=== PATIENT | female | born 1945 | race Caucasian/White ===

== ENCOUNTER 2016-10-16 13:36 | Inpatient (IN) | payer OTHER ==
--- NOTE | ~2016-10-16 | DS ---
Unit #: [id number] #: [id number] Patient: CHRISTEL SILVA [id number] [address] [address] [id number] I MR#: [id number] NAME: CHRISTEL SILVA ROOM: 326 Age: 71 Sex: F Admission Date: 10/16/2016 : 1945 Discharge Date: 10/21/2016 Attending Physician: Calos Barkley M.D. Primary Care Physician: Calos Barkley M.D. DISCHARGE SUMMARY PRINCIPAL DISCHARGE DIAGNOSES 1. Acute on chronic respiratory failure. 2. Acute influenza A. 3. Exacerbation of chronic obstructive pulmonary disease. 4. Chronic kidney disease stage 3. 5. Chronic anemia. 6. Hyperlipidemia. 7. 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 8. Chronic anticoagulation therapy. PROCEDURES None. CONSULTANTS None. REASON FOR HOSPITALIZATION The patient is a 71-year-old white female with history of COPD, hypertension, hyperlipidemia, multiple CVAs on chronic anticoagulation therapy, chronic kidney disease stage 3, presents to the emergency room with one week of cough, shortness of air, nausea, diarrhea, feverish symptoms. In the ER, she was afebrile. O2 sat was 94% on room air. Cardiac enzymes were normal. White count was 13.8. CO2 was 34. pH was 7.419. Chest x-ray-no active disease. EKG-sinus tach. INR 4.0. BUN 40, GFR 51. AST and ALT were slightly elevated and the patient was admitted. Chest x-ray showed no active disease. Again, the patient was admitted to telemetry bed. Her warfarin was held. She was placed on supplemental oxygen, IV antibiotics and steroids. Procalcitonin and flu swab were ordered. BNP was 87. Procalcitonin 0.05. Influenza B negative. Influenza A positive. Patient started on Tamiflu, adjusted for renal dysfunction. Protimes followed and fell to therapeutic levels. Eventually, the patient improved with IV antibiotics and IV steroids. Currently, room air O2 sats are 96% on room air. Her BNP is normal except for random blood sugar 139, a BUN of 37 and a GFR of 58. Her white count is 12.7, hemoglobin 10.6, which is stable chronic for the patient. INR is 3. She was discharge home on a Healthy Heart diet. CURRENT MEDICATIONS 1. Combivent unit dose four times daily p.r.n. 2. Dulera '205' [sic] two puffs q.12. 3. Prednisone 40 mg daily for an additional five days. 4. Tylenol 650 mg q.6 p.r.n. 5. Coumadin 5 mg p.o. daily. 6. Clemencia 180 mg daily. Unit #: [id number] #: [id number] Patient: CHRISTEL SILVA 7. Omnicef 300 mg p.o. b.i.d. 8. Crestor 40 mg daily. 9. Lisinopril 20 mg daily. 10. CO-Q10 10 mg daily. 11. Multivitamins daily. 12. Calcium 500 mg daily. 13. Tamiflu 30 mg p.o. b.i.d. I think the Tamiflu was for an additional two days as well for a full five day course. 14. Zithromax 250 mg p.o. daily for an additional two days. She will follow up in the office in one week with a protime, BMP and CBC. Dictated by... Calos Barkley M.D. ALFRED/alem TD: 10/23/2016 18:48 JOB #: [id number] DISCHARGE SUMMARY X Calos Barkley MD X DISCHARGE SUMMARY
--- NOTE | ~2016-10-16 | EKG ---
PATIENT: CHRISTEL SILVA UNIT #: [id number] Ventricular Rate: 123 BPM Atrial Rate: 123 BPM P-R Interval: 146 ms QRS Duration: 66 ms Q-T Interval: 300 ms QTC Calculation(Bezet): 429 ms P [place]: 73 degrees Calculated R [place]: 69 degrees Calculated T [place]: 65 degrees Diagnosis Line: Sinus tachycardia Diagnosis Line: Otherwise normal ECG Diagnosis Line: No previous ECGs available Diagnosis Line: Confirmed by GISELLE JOHNSON MD ([id number]) on Diagnosis Line: 10/16/2016 5:23:54 PM INTERPRETING MD: KIRSTIN
--- NOTE | ~2016-10-16 | HP ---
Unit #: [id number] #: [id number] Patient: CHRISTEL SILVA [id number] [address] [place], [place] [address] [id number] I MR#: [id number] NAME: CHRISTEL SILVA ROOM: 326 Age: 71 Sex: F Admission Date: 10/16/2016 : 1945 Attending Physician: Calos Barkley M.D. Primary Care Physician: Calos Barkley M.D. HISTORY AND PHYSICAL HISTORY OF PRESENT ILLNESS A 71-year-old white female with history of severe COPD, hypertension, hyperlipidemia, multiple old CVAs on anticoagulation therapy, chronic kidney disease stage 3, sent to the emergency room with one week of cough, shortness of air, nausea, diarrhea, feverish symptoms. In the ER, she was afebrile. O2 sat was 94% on room air. Cardiac enzymes are normal. White count was 13.8. CO2 was 34. pH was 7.419. Chest x-ray-no active disease. EKG-sinus tach. INR was 4.0. BUN 40, GFR 51.6. AST and ALT were elevated but she is on Crestor and has been taking a lot of Tylenol at home for her symptoms. She is admitted for further evaluation and therapy for what appears to be an exacerbation of COPD. PAST MEDICAL HISTORY She has history of COPD, chronic anemia, chronic kidney disease stage 3, multiple CVAs, hypertension, hyperlipidemia, chronic anemia. SOCIAL HISTORY , not employed, prior smoker, occasional alcohol use, no illicit drug use. FAMILY HISTORY Coronary artery disease, peripheral arterial disease, CVAs, hypertension, hyperlipidemia. ALLERGIES She has no known drug allergies. MEDICATIONS PRIOR TO ADMISSION 1. Dulera which she just recently came off of because her insurance company refused to fill it. 2. Combivent per DuoNeb four times daily. 3. Lisinopril 20 mg daily. 4. Clemencia 180 mg daily. 5. Warfarin 6.5 mg daily. 6. Crestor 40 mg daily. 7. Furosemide 40 mg daily. 8. Calcium one tab daily. 9. Multivitamins one daily. 10. Co-Q10 10 mg daily. 11. Flovent one inhalation b.i.d. PHYSICAL EXAMINATION GENERAL APPEARANCE: She is awake, alert, oriented x3, in no acute distress. Unit #: [id number] #: [id number] Patient: CHRISTEL SILVA VITAL SIGNS: Afebrile. Pulse 99. Respirations 16. Blood pressure 152/82. O2 sat 99% on two liters. Again, it was 94% on room air. HEENT: Otherwise unremarkable. NECK: Supple without JVD, bruits, adenopathy or thyromegaly. CHEST: Diffusely decreased breath sounds with inspiratory and expiratory wheezes bilaterally. HEART: Regular rate and rhythm without any murmurs, rubs or gallops. ABDOMEN: Soft, nondistended, nontender with positive bowel sounds and no hepatosplenomegaly. EXTREMITIES: She had 1+ pitting of the left lower extremity and none on the right. GENITOURINARY: Deferred. RECTAL: Deferred. NEUROLOGIC: Grossly intact. DIAGNOSTIC STUDIES LABORATORY: Cardiac enzymes normal. White count 13.8 with a left shift, hemoglobin 11.4 with normal indices. ABG on room air: pH 7.419, pCO2 34, pAO2 62.3. INR was 4.0. On repeat this morning, it is 4.4. CMP was normal except for random blood sugar 118, BUN 40, GFR 39.6, AST 52, ALT 55, direct bilirubin 0.3. IMAGING: Chest x-ray shows no active disease. CARDIOVASCULAR: EKG shows a sinus tachy and is otherwise normal. IMPRESSION 1. Exacerbation of COPD. 2. Bronchitis. 3. Chronic kidney disease stage 3. 4. Chronic anemia. 5. Elevated liver function tests. 6. Hypertension. 7. Hyperlipidemia. 8. Multiple old CVAs. 9. Supratherapeutic protime. PLAN 1. Hold warfarin. 2. Supplemental oxygen. 3. IV antibiotics and steroids. 4. Check a BMP, procalcitonin and flu swab. 5. Further evaluation pending results of the above. Dictated by Calos Barkley M.D. ALFRED/alem TD: 10/17/2016 09:10 JOB #: [id number] Unit #: [id number] #: [id number] Patient: CHRISTEL SILVA HISTORY AND PHYSICAL X Calos Barkley MD X HISTORY AND PHYSICAL
--- NOTE | ~2016-10-16 | CR72 ---
[facility] A Service of [facility] & [facility] RADIOLOGY TEXT RESULTS PATIENT: CHRISTEL SILVA LOCATION: [facility] 326-01 : [birth year] UNIT #: [id number] AGE: [address]: Calos Barkley MD SEX: F ORDER DR: [id number] [facility] [address] [facility]. [place], [place] [address] [id number] MR#: [id number] Acc #: [id number] NAME: CHRISTEL SILVA : 1945 SEX: F STUDY DATE/TIME: 10/16/2016 13:04 UNIT: [facility] ROOM: STUDY DESCRIPTION: CR Chest Single View Portable Attending Physician: Toñito Coleman M.D. Ordering Physician: Ed Mitul Sunshine M.D. Primary Care Physician: Calos Barkley M.D. MEDICAL IMAGING REPORT This report is preliminary unless electronic signature is present EXAM Portable chest. INDICATION Shortness of air for the past 2 days. PROCEDURE Frontal view chest. COMPARISON STUDIES 04/21/2007 FINDINGS Heart size is probably stable. No dense consolidation or pneumothorax. IMPRESSION No active process. Dictated by... Toñito Espinoza M.D. THIS IS AN ELECTRONICALLY VERIFIED REPORT Toñito Espinoza M.D. at 10/17/2016 9:51 AM DARRIAN/ernesto TD: 10/16/2016 15:30 JOB #: [id number] MEDICAL IMAGING REPORT COPY
[2016-10-16 13:27] LABS: BASOPHIL% 0.3 % (0-2.5); HEMATOCRIT 33.7 % (35.0-45.0); HEMOGLOBIN 11.4 gm/dL (12.0-16.0); LYMPHOCYTE# 0.9 X10e3 (1.0-3.5); LYMPHOCYTE% 6.3 % (17.0-45.0); MEAN CORPUSCULAR HEMOGLOBIN 32.1 PG (28-34); MEAN CORPUSCULAR HGB CONC 33.8 g/dL (30-36); MEAN PLATELET VOLUME 9.7 FL (6.5-11.5); MONOCYTE# 0.7 X10e3 (0-1.0); MONOCYTE% 5.2 % (3.0-12.0); NEUTROPHIL# 12.2 X10e3 (1.5-7.1); NEUTROPHIL% 88.2 % (40-75); PLATELET COUNT 188 X10e3 (140-420); RED BLOOD COUNT 3.54 X10e (3.90-5.30); RED CELL DISTRIBUTION WIDTH 14.3 % (11.0-15.5); WHITE BLOOD COUNT 13.8 X10e3 (4.0-10.5)
[2016-10-16 13:30] LABS: POC - CKMB 4.1 ng/mL (0.0-7.9); POC - TROPONIN <0.05 ng/mL (<=0.05)
[2016-10-16 13:30] LABS: ARTERIAL BLD GAS O2 SATURATION 90.5 % (90.0-100.0); ARTERIAL BLOOD GAS CARBOXY HB 2.4 %sat (0.0-9.0); ARTERIAL BLOOD GAS MET HB 0.7 %sat (0.0-2.0); ARTERIAL BLOOD GAS pH 7.419 (7.350-7.450)
[2016-10-16 13:31] LABS: DIFF IND NO
[2016-10-16 13:31] LABS: ARTERIAL BLOOD GAS PO2 62.3 mmHg (80.0-100); ARTERIAL DRAW? YES
[2016-10-16 13:32] LABS: ARTERIAL BLOOD GAS ALLEN TEST NORMAL; ARTERIAL BLOOD GAS ART SITE RIGHT RADIAL
[~2016-10-16 13:36] MED LIST: ACTIVELLA TABLE1 TAB PO; ALLEGRA ALLERG180 MG PO; ALLEGRA PO; CALCIUM 5001 TAB PO; CO Q-1010 MG PO; COMBIVENT INH14.7 GM INH; COMBIVENT U/D3 M2 INH; COUMADIN7.5 MG PO; CRESTOR40 MG PO; DULERA 200 MCG/13 GM IH; FLOVENT HFA12 GM INH; FUROSEMIDE40 MG PO; LISINOPRIL PO; LISINOPRIL20 MG PO; MULTI VITAMIN1 EACH PO; MULTI-VITAMIN1 TAB PO; PLAVIX PO; SEREVENT D50 MCG/DIS PO; ZOCOR PO
[2016-10-16 13:39] LABS: PROTHROMBIN TIME (PATIENT) 44.2 SECONDS (9.6-11.5)
[2016-10-16 13:59] LABS: ALBUMIN SERUM 3.7 g/dL (3.5-5.0); BILIRUBIN, DIRECT 0.3 mg/dL (0.0-0.2); BILIRUBIN,INDIRECT 0.2 mg/dL (0.0-0.9); BILIRUBIN,TOTAL 0.5 mg/dL (0.2-2.0); BUN/CREATININE RATIO 28.57; CREATININE SERUM 1.4 mg/dL (0.6-1.4); GLOM FILT RATE Estimated 39.6 mL/min (>60); POTASSIUM 4.7 mmol/L (3.5-5.1); PROTEIN TOTAL SERUM 7.4 g/dL (6.0-8.3)
[2016-10-16] MEDS ORDERED: FLOVENT HFA12 G1 INH (15:22)
[2016-10-17 06:24] LABS: INR 4.4; PROTHROMBIN TIME (PATIENT) 48.8 SECONDS (9.6-11.5)
[2016-10-17 20:30] LABS: INFLUENZA A POS (NEG); INFLUENZA B NEG (NEG)
[2016-10-18 06:15] LABS: PROTHROMBIN TIME (PATIENT) 44.4 SECONDS (9.6-11.5)
[2016-10-18 06:16] LABS: HEMATOCRIT 31.5 % (35.0-45.0); HEMOGLOBIN 10.6 gm/dL (12.0-16.0); MEAN CELL VOLUME 93.8 FL (83-96); MEAN CORPUSCULAR HEMOGLOBIN 31.5 PG (28-34); MEAN CORPUSCULAR HGB CONC 33.6 g/dL (30-36); MEAN PLATELET VOLUME 8.9 FL (6.5-11.5); RED BLOOD COUNT 3.36 X10e (3.90-5.30); RED CELL DISTRIBUTION WIDTH 14.1 % (11.0-15.5); WHITE BLOOD COUNT 16.3 X10e3 (4.0-10.5)
[2016-10-18 06:55] LABS: ALBUMIN SERUM 3.1 g/dL (3.5-5.0); BILIRUBIN,TOTAL 0.4 mg/dL (0.2-2.0); BUN/CREATININE RATIO 35.38; CALCIUM SERUM 8.9 mg/dL (8.4-10.2); CREATININE SERUM 1.3 mg/dL (0.6-1.4); GLOM FILT RATE Estimated 43.2 mL/min (>60); PROTEIN TOTAL SERUM 6.1 g/dL (6.0-8.3)
[2016-10-19 05:36] LABS: HEMATOCRIT 32.9 % (35.0-45.0); HEMOGLOBIN 10.6 gm/dL (12.0-16.0); MEAN CELL VOLUME 94.7 FL (83-96); MEAN CORPUSCULAR HEMOGLOBIN 30.6 PG (28-34); MEAN CORPUSCULAR HGB CONC 32.3 g/dL (30-36); MEAN PLATELET VOLUME 8.3 FL (6.5-11.5); RED BLOOD COUNT 3.47 X10e (3.90-5.30); RED CELL DISTRIBUTION WIDTH 14.1 % (11.0-15.5); WHITE BLOOD COUNT 16.3 X10e3 (4.0-10.5)
[2016-10-19 05:47] LABS: PROTHROMBIN TIME (PATIENT) 32.5 SECONDS (9.6-11.5)
[2016-10-19 07:07] LABS: BUN/CREATININE RATIO 42.3; CALCIUM SERUM 8.9 mg/dL (8.4-10.2); CREATININE SERUM 1.3 mg/dL (0.6-1.4); GLOM FILT RATE Estimated 43.2 mL/min (>60); MAGNESIUM 2.3 mg/dL (1.6-3.0); POTASSIUM 4.1 mmol/L (3.5-5.1)
[2016-10-20 06:30] LABS: INR 2.4; PROTHROMBIN TIME (PATIENT) 25.9 SECONDS (9.6-11.5)
[2016-10-20 06:48] LABS: HEMATOCRIT 33.5 % (35.0-45.0); HEMOGLOBIN 10.8 gm/dL (12.0-16.0); MEAN CELL VOLUME 95.7 FL (83-96); MEAN CORPUSCULAR HEMOGLOBIN 30.8 PG (28-34); MEAN CORPUSCULAR HGB CONC 32.1 g/dL (30-36); MEAN PLATELET VOLUME 8.5 FL (6.5-11.5); RED BLOOD COUNT 3.5 X10e (3.90-5.30); RED CELL DISTRIBUTION WIDTH 14.2 % (11.0-15.5); WHITE BLOOD COUNT 13.3 X10e3 (4.0-10.5)
[2016-10-20 07:59] LABS: BUN/CREATININE RATIO 41.81; CALCIUM SERUM 8.7 mg/dL (8.4-10.2); CREATININE SERUM 1.1 mg/dL (0.6-1.4); GLOM FILT RATE Estimated 52.3 mL/min (>60); MAGNESIUM 2.4 mg/dL (1.6-3.0); POTASSIUM 4.3 mmol/L (3.5-5.1)
[2016-10-21 05:11] LABS: HEMATOCRIT 33.1 % (35.0-45.0); HEMOGLOBIN 10.6 gm/dL (12.0-16.0); MEAN CORPUSCULAR HEMOGLOBIN 30.7 PG (28-34); MEAN CORPUSCULAR HGB CONC 31.9 g/dL (30-36); MEAN PLATELET VOLUME 8.3 FL (6.5-11.5); RED BLOOD COUNT 3.44 X10e (3.90-5.30); RED CELL DISTRIBUTION WIDTH 14.4 % (11.0-15.5); WHITE BLOOD COUNT 12.7 X10e3 (4.0-10.5)
[2016-10-21 05:27] LABS: PROTHROMBIN TIME (PATIENT) 32.5 SECONDS (9.6-11.5)
[2016-10-21 06:49] LABS: CALCIUM SERUM 8.6 mg/dL (8.4-10.2); GLOM FILT RATE Estimated 58.4 mL/min (>60); POTASSIUM 4.4 mmol/L (3.5-5.1)
[2016-10-21] MEDS ORDERED: PREDNISONE PO (09:13)
[2016-10-21] MEDS ORDERED: OMNICEF300 MG PO (09:14)
[2016-10-21] MEDS ORDERED: ZITHROMAX PO (09:15)
[2016-10-21] MEDS ORDERED: TAMIFLU30 MG PO (09:15)
== END 2016-10-21 10:07 | disposition home or self-care (01) | DRG 190 ==
LOC: CED 13:36 → CEDOF 15:15 → C3A PCU 20:09
PROVIDERS: Emergency Medicine; Internal Medicine
DX: J44.0 Chronic obstructive pulmonary disease with (acute) lower respiratory infection (principal); J96.20 Acute and chronic respiratory failure, unspecified whether with hypoxia or hypercapnia; N18.3 Chronic kidney disease, stage 3 (moderate); J20.9 Acute bronchitis, unspecified; J44.1 Chronic obstructive pulmonary disease with (acute) exacerbation; J11.1 Influenza due to unidentified influenza virus with other respiratory manifestations; I12.9 Hypertensive chronic kidney disease with stage 1 through stage 4 chronic kidney disease, or unspecified chronic kidney disease; E78.5 Hyperlipidemia, unspecified; I25.2 Old myocardial infarction; Z82.49 Family history of ischemic heart disease and other diseases of the circulatory system; Z82.3 Family history of stroke; F17.210 Nicotine dependence, cigarettes, uncomplicated
CPT/HCPCS: 36415; 36600; 71010; 80048; 80053; 80076; 82308; 82553; 82803; 83735; 83880; 84484; 85025; 85027; 85610; 87804; 93005; 94640; 94664; 94760; 96361; 96375; 99285; J0456; J0696; J2920; J2930

== ENCOUNTER 2016-11-14 09:44 | Inpatient (IN) | payer OTHER ==
--- NOTE | ~2016-11-14 | US84 ---
[id number] [facility] [address] [place], [place] [address] [id number] I MR#: [id number] Acc #: [id number] NAME: CHRISTEL SILVA : 1945 SEX: F STUDY DATE/TIME: 11/16/2016 22:14 UNIT: C3A PCU ROOM: 318 STUDY DESCRIPTION: US LE Veins Complete Bertin Stdy Attending Physician: Calos Barkley M.D. Ordering Physician: Calos Barkley M.D. Primary Care Physician: Calos Barkley M.D. MEDICAL IMAGING REPORT This report is preliminary unless electronic signature is present EXAM Venous Doppler ultrasound, both legs, 11/16/2016 HISTORY 71-year-old female with 1 week history of bilateral lower extremity swelling. Shortness of air over the last 3-4 days. TECHNIQUE Venous ultrasound examination of both lower extremities was performed using grayscale, spectral Doppler and color flow Doppler imaging. FINDINGS The examination is negative. There is no evidence of deep venous thrombus from the groin to the lower calf bilaterally. Visualized greater saphenous veins are also patent. IMPRESSION Negative examination. No evidence of lower extremity deep venous thrombosis. Dictated by... Stanley Chaves M.D. THIS IS AN ELECTRONICALLY VERIFIED REPORT Stanley Chaves M.D. at 11/17/2016 9:53 PM PATI/mohini TD: 11/17/2016 06:47 JOB #: [id number] MEDICAL IMAGING REPORT Page 1 of 1 COPY
--- NOTE | ~2016-11-14 | FU ---
[facility] Nutrition Therapy DATE: 11/23/16 Patient: CHRISTEL SILVA Physician: ALBERTO Address: [address] [place] [address] Room/Bed: [address] [place] [address], Zip: [place] [address] Admit Date: 11/14/16 Date of : [birth year] Height: 5 4 Weight: 185 84 NUTRITION MONITORING/FOLLOW-UP: Reason: NUTRITION FOLLOW UP Anthropometrics: Ht: 64" Adm wt: 82 kg BMI: 31.0 Wt 11/23: 84 kg Labs: Cl- 97 Gluc 142 BUN 71 Ca++ 8.3 GFR 41.8 Meds: Solu-medrol, zofran, furosemide, coumadin, pepcid, lipitor, NaCl I&O's: 300/1300, last BM 11/20 Skin: No changes noted Edema: generalized- body Diet: 2 gram Na+/ 6 small meals/ 1800 cc fluid restriction Assessment: Chart reviewed, events noted. RD ordered the pt Ensure compact and Magic cup supplements on 11/21. Pt continues with poor intake per RN report. Pt is refusing therapy with guarded prognosis per MD note. RD spoke with the pt and pt's family member at bedside. Pt reports slightly improved intake, with bites at each meal. Family member in room confirms that the pt is consuming 5-6 bites of meals. Pt did consume sips of Ensure; however, it does not seem she is getting the correct Ensure (receiving regular instead of compact) or magic cups. RD spoke with foodservice staff to clarify the order, and encouraged the pt to continue to increase her nutrient intake as tolerated. Pt agreed. Please see new nutrition diagnosis below. Dx: Inadequate protein-energy intake RT poor appetite, weakness AEB poor intake reported by RN. Intervention: 1. Continue current diet 2. Ensure compact BID 3. Magic cup BID Monitoring, Evaluation and Goals: GOALS NOT BEING MET 1. Oral intake; tolerate >50% of meals and supplements 2. Labs; WNL: gluc, BUN, GFR 3. Weight; prevent unintentional weight loss 4. Skin; prevent breakdown [facility] Nutrition Therapy DATE: 11/23/16 Patient: CHRISTEL SILVA Physician: ALBERTO Address: [address] [place] [address] Room/Bed: [address] [place] [address], Zip: [place] [address] Admit Date: 11/14/16 Date of : [birth year] Height: 5 4 Weight: 185 84 Recommendations: 1. Continue current diet as tolerated. 2. Continue Magic cup BID and Ensure compact BID. Pt prefers chocolate. RD clarified the order with foodservice staff. 2. Appreciate staff and family encouraging adequate PO intake as needed. 3. If the pt's nutritional intake does not improve, may consider obtaining enteral access (short vs. long-term) and initiating enteral nutrition. RD will continue to follow. Status: Pt is at moderate nutritional risk. Respectfully, MEGAN COULTER RD, LD Food and Nutritional Services [facility] cc: client file
--- NOTE | ~2016-11-14 | EKG ---
PATIENT: CHRISTEL SILVA UNIT #: [id number] Ventricular Rate: 126 BPM Atrial Rate: 126 BPM P-R Interval: 138 ms QRS Duration: 70 ms Q-T Interval: 302 ms QTC Calculation(Bezet): 437 ms P Spray: 73 degrees Calculated R Spray: 62 degrees Calculated T Spray: 61 degrees Diagnosis Line: Sinus tachycardia with Premature supraventricular Diagnosis Line: complexes and with occasional Premature Diagnosis Line: ventricular complexes Diagnosis Line: Otherwise normal ECG Diagnosis Line: When compared with ECG of 16-OCT-2016 13:03, Diagnosis Line: Premature ventricular complexes are now Present Diagnosis Line: Premature supraventricular complexes are now Diagnosis Line: Present Diagnosis Line: Confirmed by JAY JAY BLACK, NANCY ([id number]) on 11/15/2016 Diagnosis Line: 4:50:03 AM INTERPRETING MD: JAY JAY BLACK
--- NOTE | ~2016-11-14 | HP ---
Unit #: [id number] #: [id number] Patient: CHRISTEL SILVA [id number] [address] [place], [place] [address] [id number] I MR#: [id number] NAME: CHRISTEL SILVA ROOM: 318 Age: 71 Sex: F Admission Date: 11/14/2016 : 1945 Attending Physician: Calos Barkley M.D. Primary Care Physician: Calos Barkley M.D. HISTORY AND PHYSICAL HISTORY OF PRESENT ILLNESS This is a 71-year-old white female with severe COPD, hypertension, multiple old CVAs, chronic anticoagulation therapy, chronic kidney disease stage 3, chronic anemia, hyperlipidemia, recent admission with influenza A with urjmq-yx-xuzpbeu respiratory failure 10/16 through 10/21/2016 discharged home. Since she has been home she has had really no problems with the COPD but she has had a lot of swelling in her bilateral extremities likely secondary to the recent steroids. She was placed on Lasix which was eventually increased. VNA was sent out to put on Unna boot. She had a blister that popped on her right toe. They felt she had cellulitis and she was sent Ceftin 250 mg b.i.d. for suspected cellulitis since she was unable to get to the office. In any case, she became more acutely short of breath over the last three days and presented to the emergency room. There she essentially had a negative workup except for a sinus tachycardia. Her second troponin was slightly elevated. D-dimer, TSH, BNP were all normal. INR was therapeutic. Her GFR was 43 which is not too far off her baseline and she is readmitted for further evaluation for exacerbation of COPD and bilateral extremity edema. PAST MEDICAL HISTORY 1. History of COPD. 2. Chronic anemia. 3. Chronic kidney disease, stage 3. 4. Multiple CVAs. 5. Hypertension. 6. Hyperlipidemia. HOME MEDICATIONS There is no medication reconciliation on the chart but she is on: 1. Dulera 2 puffs b.i.d. 2. DuoNeb q.i.d. 3. Lisinopril 20 mg daily. 4. Coumadin 6 mg daily. 5. Crestor 40 mg daily. 6. Ceftin 250 mg b.i.d. 7. Clemencia 180 mg daily. 8. Furosemide 80 mg q.a.m. 9. Furosemide 40 mg q.p.m. 10. CoQ-10 100 mg daily. 11. Calcium 500 mg daily. ALLERGIES Unit #: [id number] #: [id number] Patient: CHRISTEL SILVA No known drug allergies. SOCIAL HISTORY . Not employed. Prior smoker. Occasional alcohol use. No illicit drug use. FAMILY HISTORY Coronary artery disease, peripheral arterial disease, CVAs, hypertension, hyperlipidemia. PHYSICAL EXAMINATION VITAL SIGNS: Afebrile, pulse 130 now 115, respirations 22, blood pressure 150/86, O2 saturation 97% in the ER which they say is on room air but I seriously doubt this. GENERAL: She is awake, alert, in moderate respiratory distress. Audible wheezing from across the room. HEENT: Otherwise unremarkable. NECK: Supple without JVD, bruits, adenopathy, or thyromegaly. LUNGS: Clear to auscultation although she is not moving much air and has otherwise audible wheezes but no rales or rhonchi. HEART: Regular and tachycardic with no S3, gallop or murmur appreciated. ABDOMEN: Soft, nondistended, nontender with positive bowel sounds and no hepatosplenomegaly. EXTREMITIES: 2+ pitting edema of the bilateral extremities. Open wound on the top of the right toe without any evidence of infection. She has some bruising on the top of her right foot and some erythema on the top of the left which all seems to be related to the edema without any evidence of active cellulitis. GENITOURINARY: Deferred. RECTAL: Deferred. NEUROLOGIC: Grossly intact. DIAGNOSTIC STUDIES LABORATORY: CBC normal except for hemoglobin of 10.7. First set of cardiac enzymes were normal. Second set showed a troponin of 0.05. D-dimer normal. TSH normal. BNP normal. INR 2.3. BMP normal except for a BUN of 37, creatinine 1.3, GFR of 43.2 and a random blood sugar 144, magnesium 2.1. IMAGING: Chest x-ray hyperinflation. No active disease. CARDIOVASCULAR: EKG is not on the chart. IMPRESSION 1. Exacerbation of chronic obstructive pulmonary disease. 2. Sinus tachycardia. 3. Bilateral extremity edema. 4. Open wound right first toe. 5. Jphah-ub-eoygyoh kidney disease secondary to diuresis. 6. Hypertension. 7. Hyperlipidemia. 8. Anticoagulated. 9. 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 PLAN 1. IV antibiotics with Rocephin. 2. IV steroids. 3. Check ABGs. Unit #: [id number] #: [id number] Patient: CHRISTEL SILVA 4. Pulmonary and Cardiology are consulted. 5. Ordered but again her PT/INR are therapeutic. 6. They have also ordered some Lopressor for better control of her heart rate which I think is just secondary to her pulmonary status. 7. In any case, we will follow her BMP, magnesium and pro times on a daily basis. 8. Will also ask the wound care nurse to see her for bilateral extremity unna boots and care for the open wound on her right toe. Dictated by Calos Barkley M.D. ALFRED/tomeka TD: 11/14/2016 19:29 JOB #: [id number] HISTORY AND PHYSICAL X Calos Barkley MD X HISTORY AND PHYSICAL
--- NOTE | ~2016-11-14 | CR72 ---
[facility] A Service of [facility] & [facility] RADIOLOGY TEXT RESULTS PATIENT: CHRISTEL SILVA LOCATION: [facility] 318-01 : [birth year] UNIT #: [id number] AGE: [address]: Calos Barkley MD SEX: F ORDER DR: [id number] [facility] [address] [facility]. [place], [place] [address] [id number] I MR#: [id number] Acc #: [id number] NAME: CHRISTEL SILVA : 1945 SEX: F STUDY DATE/TIME: UNIT: [facility] ROOM: 14365 STUDY DESCRIPTION: CR Chest Single View Portable Attending Physician: Calos Barkley M.D. Ordering Physician: Brent Elizalde M.D. Primary Care Physician: Calos Barkley M.D. MEDICAL IMAGING REPORT This report is preliminary unless electronic signature is present EXAM Chest portable 11/14/2016 09:30 hours HISTORY 71-year-old woman with history of COPD complaining of shortness of air for 3 days. History of hypertension and prior CVA. COMPARISON 10/16/2016 FINDINGS 2 upright views were performed to include all of the lungs. Heart size is stable. Mediastinal and hilar contours are normal. Lungs are hyperinflated with horizontal linear scar at the right base unchanged. No definite acute pulmonary or pleural finding. IMPRESSION Pulmonary hyperinflation with horizontal linear scarring at the right base unchanged from 10/16/2016. No acute cardiopulmonary findings. No appreciable change from 10/16/2016. Dictated by... Sana Marks M.D. THIS IS AN ELECTRONICALLY VERIFIED REPORT Sana Marks M.D. at 11/14/2016 6:54 PM SMM/to TD: 11/14/2016 14:22 JOB #: [id number] MEDICAL IMAGING REPORT Page 1 of 1 COPY
--- NOTE | ~2016-11-14 | FU ---
[facility] Nutrition Therapy DATE: 11/29/16 Patient: CHRISTEL FLORESLES Physician: ALBERTO Address: [address] [facility] Room/Bed: [address] [place] [address], Zip: [place] [address] Admit Date: 11/14/16 Date of : [birth year] Height: 5 4 Weight: 196 89.1 NUTRITION MONITORING/FOLLOW-UP: Reason: FOLLOW UP Anthropometrics: Wt 11/29: 89.1 kg Labs: Cl- 94 Gluc 139 BUN 63 Ca++ 8.1 Meds: Pepcid, lipitor, prednisone, furosemide, zofran I&O's: 1699/1874, last BM 11/28 Skin: Reviewed. Edema: BL ankles 1+ Generalized LUE Diet: 2 gram Na+/ 6 small meals Assessment: Chart reviewed, events noted. RD spoke with the pt and her sister at bedside. Pt and her sister both report that her appetite/ PO intake have improved, and that she is consuming ~50% of meals and most of her Magic cup supplements. Pt's sister reports that she is not getting the Ensure Compact shakes. RD called to clarify order with fresh foods cake decorator staff. Previous nutrition diagnosis remains with improvement. Dx: Inadequate protein-energy intake RT poor appetite, weakness AEB poor intake reported- REMAINS ACTIVE WITH IMPROVEMENT Intervention: 1. Continue current diet 2. Ensure Compact BID ad Magic Cup BID Monitoring, Evaluation and Goals: 1. Oral intake; tolerate >50% of meals 2. Labs; WNL 3. Weight; preserve lean body mass 4. Skin; prevent breakdown Recommendations: 1. Continue current diet and supplements as tolerated. RD clarified supplement order with foodservice staff. [facility] Nutrition Therapy DATE: 11/29/16 Patient: CHRISTEL RICARDO Physician: ALBERTO Address: [address] [facility] Room/Bed: [address] [place] [address], Zip: [place] [address] Admit Date: 11/14/16 Date of : [birth year] Height: 5 4 Weight: 196 89.1 2. Appreciate staff and family encouraging adequate PO intake as needed. Status: Pt is at mild nutritional risk. RD will continue to follow up per protocol. Respectfully, MEGAN COULTER RD, LD Food and Nutritional Services [facility] [place] [facility] cc: client file
--- NOTE | ~2016-11-14 | CO ---
Unit #: [id number] #: [id number] Patient: CHRISTEL SARABIA [id number] [address] [address] [id number] I MR#: [id number] NAME: CHRISTEL SARABIA ROOM: 318 Age: 71 Sex: F Admission Date: 11/14/2016 : 1945 Attending Physician: Calos Barkley M.D. Primary Care Physician: Calos Barkley M.D. Consultation Date: 11/14/2016 CONSULTATION REPORT REASON FOR CONSULTATION Renal insufficiency. Thank you very much for asking us to see this patient in consultation HISTORY OF PRESENT ILLNESS Ms. Christel Sarabia is a 71-year-old female, who has a history of severe COPD, hypertension, CVAs, who was in the hospital here in 09/2016 where she had influenza A and she was discharged home on Omnicef, azithromycin, and Tamiflu. The patient apparently has had increasing shortness of breath since Monday, where she presented to the emergency room earlier today. She was noted to have creatinine of 1.5. Because of this, I was asked to see the patient. The patient states she has never seen a social worker psychiatric that she knows. She states again her main problem is the increased shortness of breath worsening over the last 3 days. She states she has been taking all of her medications. She is admitted for the shortness of breath. PAST MEDICAL HISTORY History of severe COPD, history of hypertension, history of hyperlipidemia, history of CVA, history of anemia, history of probable chronic kidney disease stage 3, history of influenza A in 07/2017. MEDICATIONS Include Combivent inhalers, Coumadin, Clemencia, lisinopril 20 mg a day, CoQ10, multivitamin, calcium pill. She started here on Bumex 1 mg IV t.i.d. She is on Crestor 40 mg. ALLERGIES No known drug allergies. REVIEW OF SYSTEMS She denies any fevers, chills, visual problems, sinus problems. She denies any productive cough. She is trying to cough stuff up, but unable to do it. She has had increased shortness of breath, again worsening when wheezes. She denies any severe chest pain or chest heaviness. She denies any nausea, vomiting, or diarrhea. No urinary symptoms. She has had increased swelling in her legs. She denies any recent seizures or strokes or skin rashes. PHYSICAL EXAMINATION GENERAL: She is alert and oriented, again she does appear to be in some moderate distress with increasing shortness of breath. VITAL SIGNS: T-max is 98.2, pulse 115 to 130, blood pressure 97 to 205 Unit #: [id number] #: [id number] Patient: CHRISTEL SARABIA over 70 to 103. HEENT: She is normocephalic and atraumatic. Pupils are equal, round, and reactive to light. Extraocular muscles are intact. Hearing appears to be normal. Mouth is dry. No erythema. No exudate. NECK: Supple. No adenopathy. CARDIAC: She appears tachycardic without a rub. No S3 or S4. LUNGS: Have bilateral diffuse wheezes. ABDOMEN: Overweight, bowel sounds positive, nontender, soft. EXTREMITIES: She has 1+ bilateral lower extremity edema. Her pulses are intact in upper and lower extremities. JOINTS: No joint pain or joint swelling. SKIN: No acute rashes. NEUROLOGIC: Appears to be intact motor and sensory grossly. : Deferred. DIAGNOSTIC STUDIES LABORATORY RESULTS: Again, upon admission showed a BUN of 35, creatinine of 1.5, repeat was 37 and 1.3 respectively; calcium is 9.2; albumin is 3.9. BNP is only 97. TSH 1.65. Potassium of 4.2, sodium is 137, bicarb is 23, creatinine in 09/2016 was ranging from 1.0 to 1.4, in 08/2014 creatinine was 1.2. In 2014, she had a urinalysis showed no hematuria or proteinuria. IMAGING STUDIES: In 2010, she had a renal ultrasound that showed her left kidney was 7.6 cm and right kidney was 9.3 cm and a few cysts. Chest x-ray here shows some scarring in her right base. No other abnormalities. ASSESSMENT AND PLAN 1. Chronic kidney disease, stage 3. The patient most likely has chronic kidney disease stage 3 with creatinine probably 1.2 to 1.4 range which is her baseline. Certainly, she appears to be at that area now. I would like to check a repeat urinalysis to see if she has any significant hematuria or proteinuria. I would like to check a renal ultrasound again to make sure she has no other pathology going on. I would like to do a renal artery duplex scan since she does have a very small left kidney to make sure she does not have at least bilateral renal vascular disease or unilateral that could be treated with angioplasty to help control blood pressure if needed. We will keep her on her ALLI inhibitor for now. We will check her serum protein immunofixation depending on what all this shows, depending on what further workup and treatment. 2. Severe shortness of breath. Chronic obstructive pulmonary disease exacerbation versus heart failure versus combo, again per Cardiology primary. 3. Hypertension. Again, small left kidney. Check renal duplex to rule out renal vascular disease. Continue current treatment. 4. History of cerebrovascular accidents, on chronic Coumadin. Dictated by.Phil Morales/rory TD: 11/15/2016 03:19 JOB #: [id number] Unit #: [id number] #: [id number] Patient: CHRISTEL SARABIA CONSULTATION REPORT Page 1 of 1 X Matilde Win MD X CONSULTATION REPORT
--- NOTE | ~2016-11-14 | US77 ---
[facility] A Service of [facility] RADIOLOGY TEXT RESULTS PATIENT: CHRISTEL SILVA LOCATION: [facility] 318- : 47 UNIT #: [id number] AGE: [address]: Calos Barkley MD SEX: F ORDER DR: [id number] [id number] [facility]. [place], [place] [address] [id number] MR#: [id number] Acc #: [id number] NAME: CHRISTEL SILVA : 1945 SEX: F STUDY DATE/TIME: 11/16/2016 22:33 UNIT: [address] ROOM: [facility] STUDY DESCRIPTION: US Kidney Bilateral Complete Attending Physician: Calos Barkley M.D. Ordering Physician: Calos Barkley M.D. Primary Care Physician: Calos Barkley M.D. MEDICAL IMAGING REPORT This report is preliminary unless electronic signature is present EXAM Bilateral renal ultrasound 11/16/2016 HISTORY Acute kidney injury on chronic kidney disease. TECHNIQUE Ballard-scale ultrasound imaging of both kidneys and the urinary bladder. FINDINGS The exam shows marked diffuse thinning of renal cortex bilaterally compatible with severe chronic renal atrophy. Echodense hepatic parenchyma is also noted compatible with likely chronic medical renal disease. There is no hydronephrosis on the right or left to suggest urinary obstruction. 1 or 2 small benign-appearing cysts is noted within each kidney. Urinary bladder is decompressed with a Owens catheter and is not visualized. IMPRESSION 1. Marked chronic bilateral renal parenchymal atrophy. 2. No evidence of upper urinary tract obstruction. 3. Several tiny bilateral benign-appearing renal cysts. Dictated by... Stanley Chaves M.D. THIS IS AN ELECTRONICALLY VERIFIED REPORT Stanley Chaves M.D. at 11/17/2016 9:55 PM TEVINW/ana TD: 11/17/2016 07:18 JOB #: [id number] [facility] A Service of [facility] RADIOLOGY TEXT RESULTS PATIENT: CHRISTEL SILVA LOCATION: [facility] 318-01 : [birth year] UNIT #: [id number] AGE: [address]: Calos Barkley MD SEX: F ORDER DR: MEDICAL IMAGING REPORT Page 1 of 1 COPY
--- NOTE | ~2016-11-14 | CR72 ---
[facility] A Service of [facility] RADIOLOGY TEXT RESULTS PATIENT: CHRISTEL SILVA LOCATION: [facility] : [birth year] UNIT #: [id number] AGE: [address]: Calos Barkley MD SEX: F ORDER DR: [id number] [place], [place] [address] [id number] I MR#: [id number] Acc #: [id number] NAME: CHRISTEL SILVA : 1945 SEX: F STUDY DATE/TIME: 11/17/2016 10:46 UNIT: [address] ROOM: [facility] STUDY DESCRIPTION: CR Chest Single View Portable Attending Physician: Calos Barkley M.D. Ordering Physician: Maik Cohen M.D. Primary Care Physician: Calos Barkley M.D. MEDICAL IMAGING REPORT This report is preliminary unless electronic signature is present EXAM Portable chest HISTORY Severe cough and congestion for the past 3 weeks with a history of chronic congestive heart failure. COMPARISON 11/15/2016. TECHNIQUE A single view of the chest was obtained. FINDINGS A single AP portable view of the chest shows both lungs to be clear. The heart is normal in size. The mediastinal contour is normal. No significant bone abnormalities are seen. IMPRESSION Normal portable chest. Dictated by... Brent Woods M.D. THIS IS AN ELECTRONICALLY VERIFIED REPORT Brent Woods M.D. at 11/17/2016 3:43 PM RLF/mohini TD: 11/17/2016 11:03 JOB #: [id number] MEDICAL IMAGING REPORT [facility] A Service [facility] RADIOLOGY TEXT RESULTS PATIENT: CHRISTEL SILVA LOCATION: [facility] : 47 UNIT #: [id number] AGE: [address]: Calos Barkley MD SEX: F ORDER DR: Page 1 of 1 COPY
--- NOTE | ~2016-11-14 | CO ---
Unit #: [id number] #: [id number] Patient: CHRISTEL SILVA [id number] [facility]. [address] [place], [place] [address] [id number] I MR#: [id number] NAME: CHRISTEL SILVA ROOM: 318 Age: 71 Sex: F Admission Date: 11/14/2016 : 1945 Attending Physician: Calos Barkley M.D. Primary Care Physician: Calos Barkley M.D. Consultation Date: 11/14/2016 CONSULTATION REPORT REASON FOR CONSULTATION Bilateral lower extremity swelling and tachycardia. HISTORY OF PRESENT ILLNESS This is a 71-year-old white female with a past medical history of COPD; chronic anemia; chronic kidney disease, stage 3; multiple CVAs in the past managed chronically on anticoagulation with Coumadin; hypertension; hyperlipidemia. She has seen Dr. Daniels in the office, but she has not had an appointment since 2013. She presented to the emergency room with shortness of breath that has been ongoing for the past 2 to 3 days and had gotten worse today. Problems with this have been persistent through the weekend. She also has bilateral lower extremity edema that is weeping and from her toes up to her knee. She reports that her swelling has been present since last discharge. She was recently admitted from 10/16/2016 and discharged on 10/21/2016 with COPD exacerbation, influenza A, cough, and fever. Apparently, she was discharged home on her medications, which did include Lasix; however, reviewing her discharge summary note from then done by Dr. Barkley, Lasix was not listed as home medication. She tells me that she was on a twice a day and due to her increase in swelling, Dr. Barkley had increased her dose up to t.i.d. and she has been taking it t.i.d. for the last few weeks. Her swelling has gotten worse. She reports symptoms in addition to shortness of breath, orthopnea, which is chronic in nature for her and diaphoresis. Also reports feeling like her heart is racing. She denies any symptoms of dizziness. She denies any syncope. No chest pain. No lightheadedness. No paroxysmal nocturnal dyspnea. She has not been able to lay flat at all to breathe. On arrival to the ER, she was placed on heart monitor and found to be tachycardic. Her 12-lead EKG done on 11/14/2016 showed sinus tachycardia with PSVT and occasional PVCs. Rate was 126 beats per minute. Her BNP was noted to be 97. Troponin was negative x1. INR was therapeutic 2.3. The patient reports that she is compliant with all her medications. After her recent admission to the hospital, she was discharged with Dulera and this was stopped due to no insurance coverage for this medication. The patient seems to think that this is reason for her symptomatic decline. PAST SURGICAL HISTORY Includes appendectomy. SOCIAL HISTORY Unit #: [id number] #: [id number] Patient: CHRISTEL SILVA She is . Her accompanies her at the bedside in the ER where she was seen and examined. She is a former smoker, quit tobacco in 1999 and she is a former alcohol quit completely in 2006. She denies any illicit drug use. She reports to me that she has been having over the last 3 weeks very limited in her activities due to her shortness of breath and severe respiratory decline. FAMILY HISTORY Positive for coronary artery disease, peripheral arterial disease, stroke, hypertension, and hyperlipidemia. ALLERGIES She denies drug allergies. HOME MEDICATIONS Include lisinopril 20 mg daily, Combivent inhaler q.i.d. as needed, Coumadin 6.5 mg tablet daily, Crestor 40 mg daily, Lasix 40 mg t.i.d., calcium tablet, multivitamin tablet, CoQ10 tablet, Clemencia 180 mg daily. REVIEW OF SYSTEMS 12-point review of systems was done and was negative except for as noted above in the HPI. PHYSICAL EXAMINATION GENERAL: She is sitting up in a chair in the ER, getting a nebulizer treatment. She does appear in acute respiratory distress. VITAL SIGNS: She is afebrile, temperature 98.1, heart rate 115, respirations 18, saturations are 97% to 98% on supplemental oxygen, blood pressure 116/85, weight is 81.64 kg, her BMI is 30. HEENT: Normocephalic, atraumatic. Pupils are equal, round, and reactive to light and accommodation. NECK: Supple. No bruits auscultated. JVD cannot be assessed as she was sitting up and cannot lay flat for assessment. LUNGS: Bilaterally decreased breath sounds especially anteriorly with posterior wheezes and rhonchi bilaterally. CARDIOVASCULAR: She is tachycardic, but regular. S1, S2, possible S3. Her heart is racing. No murmurs appreciated. She does appear to have a gallop due to her tachycardia. ABDOMEN: Soft, nontender with positive bowel sounds noted. EXTREMITIES: She had bilateral pitting edema from ankles all the way to the knees. Her right leg is definitely more edematous than the left leg. They are both wrapped with Pradeep bandages and they were cut off in order to properly assess swelling. NEUROLOGIC: She is alert, oriented x3. However, she is conversationally dyspneic and it is hard to gather much information from her. She defers most questions to her to answer just due to respiratory distress. DIAGNOSTIC STUDIES CARDIOVASCULAR STUDIES: EKG showed sinus tach with PSVT and PVCs, rate of 126. On last admission, it looks like her EKG showed a rate of 123 in 09/2016. IMAGING STUDIES: She also had a chest x-ray on 11/14/2016, pulmonary hyperinflation, no acute cardiopulmonary findings, no change since 10/21/2016. LABORATORY RESULTS: Include INR 2.3. Troponin less than 0.05. BNP was 97. CK-MB was 3. Hemoglobin 10.7, hematocrit 32.6, platelet count 217, Unit #: [id number] #: [id number] Patient: CHRISTEL SILVA WBC 8.8. Sodium 137, potassium 4.2, chloride 104, CO2 of 23, BUN 35, creatinine 1.5, glucose 107. All other labs were benign. Please note that her GFR was markedly reduced 36.6. IMPRESSION 1. Acute exacerbation of chronic obstructive pulmonary disease. 2. Tachycardia. 3. Bilateral lower extremity edema. 4. Normal left ventricular function on echo in 08/2014, which showed an ejection fraction of 50% to 55%. 5. Obesity. BMI of 30. 6. Acute respiratory distress. PLAN Cardiology asked to see her for tachycardia and also for bilateral lower extremity edema. She did not appear to be overtly fluid overloaded on her chest x-ray; however, her legs are very very swollen. I will check bilateral lower extremity venous Doppler to rule out any kind of DVT with D-dimer, TSH, troponin, and magnesium. Obtain records from [facility], which have been reviewed and start diltiazem 30 mg p.o. every 6 hours and hold for systolic less than 100, doubtful she will tolerate beta-jennifer at this time due to her significant respiratory distress and adventitious lung sounds. She is highly wheezy. Further plan per Dr. Daniels. Thank you for this consult. We will continue to follow her through hospitalization. Dictated by... Elen Nieves APRN for Phli Myers TD: 11/15/2016 01:16 JOB #: [id number] CONSULTATION REPORT Page 1 of 1 X X CONSULTATION REPORT
--- NOTE | ~2016-11-14 | A ---
[facility] Nutrition Therapy DATE: 11/16/16 Patient: CHRISTEL SILVA Physician: ALBERTO Address: [address] [facility] Room/Bed: [address] [place] [address], Zip: [place] [address] Admit Date: 11/14/16 Date of : [birth year] Height: 5 4 Weight: 180 82 NUTRITIONAL ASSESSMENT: REASON: Consult RE: Poor appetite, severe COPD 71 yo female admitted for swelling BLE PMH: COPD, CKD stage 3, h/o CVA, HTN, HLD, heart failure, chronic anemia Anthropometrics: Ht: 64" Wt: 82 kg BMI: 31.0 Labs: Cl- 98 Gluc 136 BUN 65 Creat 2.1 GFR 24.8 Meds: Coumadin, pepcid, solu-medrol, bumex I/O & Bowel function: 750/1150, last BM 11/16 Skin Integrity: Bruise BUE/ right foot Scar to abdomen Redness to left foot Edema: BLE weeping Diet: 2 gram Na+/ 1800 mL Fluid restriction Assessment: Chart reviewed, events noted. RD received consult for pt having a poor appetite/ severe COPD. RD spoke with the pt at bedside. Pt reports that her appetite has improved, and that she had an omelette for breakfast yesterday (only meal), pudding this morning, and just ordered lunch. Pt is unsure whether or not she has lost weight. Per RN report, the pt's intake was likely poor yesterday due to anxiety and respiratory issues. Pt reportedly eats small amounts at home due to early satiety. RD suggested smaller, more frequent meals. Pt agreed, and denied the need for any supplements at this time. Pt did not have any questions regarding her diet. Dx: Potential for inadequate oral intake RT early satiety AEB pt reported decreased intake due to early satiety. Intervention: 1. 2 gram Na+ diet 2. Fluid restriction per MD Monitoring, Evaluation and Goals: 1. Oral intake; tolerate >50-75% meals 2. Labs; WNL [facility] Nutrition Therapy DATE: 11/16/16 Patient: CHRISTEL SILVA Physician: ALBERTO Address: [address] [facility] Room/Bed: [address] [place] [address], Zip: [place] [address] Admit Date: 11/14/16 Date of : [birth year] Height: 5 4 Weight: 180 82 3. Weight; prevent unintentional weight loss 4. Skin; prevent breakdown Recommendations: 1. Continune current diet with fluid restriction per MD orders. Add 6 small meals to diet order if desired by the pt. 2. Appreciate staff and family encouraging adequate PO intake as needed. Pt is at mild nutritional risk. RD will follow up per protocol. Respectfully, MEGAN COULTER RD, LD [facility] cc: client file
--- NOTE | ~2016-11-14 | CO ---
Unit #: [id number] #: [id number] Patient: CHRISTEL SARABIA 200810 [address] [place], [place] [address] [id number] I MR#: [id number] NAME: CHRISTEL SARABIA ROOM: 318 Age: 71 Sex: F Admission Date: 11/14/2016 : 1945 Attending Physician: Calos Barkley M.D. Primary Care Physician: Calos Barkley M.D. Consultation Date: 11/15/2016 CONSULTATION REPORT REASON FOR CONSULTATION Shortness of breath, respiratory failure. HISTORY OF PRESENT ILLNESS Ms. Sarabia is a 71-year-old female, who has COPD and intermittent ongoing active tobacco use. She apparently was at this institution not long ago and discharged. There, she had influenza and exacerbation of chronic obstructive pulmonary disease. She did improve slowly of worsening shortness of breath that increased dramatically over the weekend. She presented to the emergency room. Chest x-ray was unremarkable. She had significant edema and she has undergone diuresis and treatment for COPD. She is still very short of breath. She denies sputum production, although she feels congested. She cannot expectorate any sputum. She denies chest pain, fever, hemoptysis, pleurisy. PAST MEDICAL HISTORY Remarkable for recent hospitalization for exacerbation of COPD and influenza A, history of diastolic heart failure, chronic kidney disease, hypertension, multiple old CVAs, chronic anemia, hyperlipidemia. There was some mention of chronic respiratory failure, although she told me she had no oxygen at home. MEDICATIONS At home, she had been on Dulera, but that had been stopped for insurance reasons. Her family states she is on some type of substitute inhaler, but they cannot identify that. She was on Spiriva and as needed albuterol. Other medications listed, accuracy unclear include lisinopril, Coumadin, Crestor, Ceftin, Clemencia, Lasix, CoQ10, and calcium. ALLERGIES No known medical allergies. SOCIAL HISTORY Smoked up until 4 weeks ago. According to her history, occasionally will drink alcohol. FAMILY HISTORY No definite familial lung disease. REVIEW OF SYSTEMS Very difficult for her to participate in fact she would look towards her friend and say "you tell him." I did get; however, no chest pain, abdominal pain, trouble swallowing, leg pain. She has had leg edema. Unit #: [id number] #: [id number] Patient: CHRISTEL SARABIA Further review of systems very limited and basically unobtainable. PHYSICAL EXAMINATION GENERAL: Reveals the patient, who appears short of breath. VITAL SIGNS: She is afebrile, pulse is 132, respiratory rate is 20, blood pressure 152/88, 5 feet 4 inches, 180 pounds. HEENT: Pupils are equal, round, and reactive to light. Sclerae anicteric. Head, atraumatic. Mucous membranes are moist. NECK: Supple. No supraclavicular or cervical adenopathy appreciated. CHEST: Very tight expiratory wheeze throughout all lung [place]. No consolidation. No stridor. CARDIAC: Reveals regular rate and rhythm. No definite pathologic murmur, rub, or gallop. ABDOMEN: Soft and nontender. No hepatomegaly or rebound. EXTREMITIES: Reveal no clubbing or cyanosis. There is significant 2+ edema. No definite calf tenderness. SKIN: No acute rash or diaphoresis. DIAGNOSTIC STUDIES LABORATORY RESULTS: Arterial blood gas; pH is 7.4, pCO2 of 41, pO2 of 120 on 3 L, she has been decreased to 2 L. Her BUN is 42, creatinine is 1.5. BNP is 97. LFTs normal. INR 2.3. D-dimer was negative. White blood cell count 8.8, hemoglobin 10.7, and platelet count 217. Urinalysis fairly unremarkable. Urine culture is pending. IMAGING STUDIES: Chest x-ray, no acute infiltrates. CARDIOVASCULAR STUDIES: Rhythm strips sinus tachycardia. I do not see a formal 12-lead EKG. Cardiology following. IMPRESSION 1. Acute respiratory failure. 2. Chronic obstructive pulmonary disease. 3. Peripheral edema possibly secondary to cor pulmonale diastolic heart failure. 4. Chronic kidney disease/acute kidney injury. 5. Anemia. 6. History of cerebrovascular accidents in the past. 7. Medical problems listed above. PLAN IV steroids, given her lack of response to treatment and intense bronchospasm, we will increase to fairly high dose steroids. Oxygen to maintain adequate saturations. Nebulized bronchodilators. Continue Dulera for now, but consider Pulmicort and Perforomist mini nebs if she remains this tight. Pulmonary hygiene maneuvers. Given her very intense bronchospasm, I would discontinue her beta blockers IV. Her tachycardia, I believe is physiologic. Thank you very much for allowing me to participate in the care of Ms. Sarabia. Dictated by... Phil Jeff/rory Unit #: [id number] #: [id number] Patient: CHRISTEL SARABIA TD: 11/16/2016 03:44 JOB #: [id number] Rachele Daniels M.D. CONSULTATION REPORT Page 1 of 1 X Shiva Lea MD X CONSULTATION REPORT
--- NOTE | ~2016-11-14 | CR72 ---
[facility] A Service of [facility] & [facility] RADIOLOGY TEXT RESULTS PATIENT: CHRISTEL SILVA LOCATION: [facility] 318- : 47 UNIT #: [id number] AGE: [address]: Calos Barkley MD SEX: F ORDER DR: [id number] [facility] [address] [facility]. [place], [place] [address] [id number] I MR#: [id number] Acc #: [id number] NAME: CHRISTEL SILVA : 1945 SEX: F STUDY DATE/TIME: 11/23/2016 7:21 [facility]: [facility] STUDY DESCRIPTION: CR Chest Single View Portable Attending Physician: Calos Barkley M.D. Ordering Physician: Calos Barkley M.D. Primary Care Physician: Calos Barkley M.D. MEDICAL IMAGING REPORT This report is preliminary unless electronic signature is present EXAM Portable chest INDICATION 71-year female with shortness of breath and chest congestion for 12 days. COMPARISON 11/17/2016 FINDINGS The lungs are well expanded. No acute infiltrate. Heart size stable. IMPRESSION No active disease. Dictated by... Isaac Junior M.D. THIS IS AN ELECTRONICALLY VERIFIED REPORT Isaac Junior M.D. at 11/23/2016 4:28 PM Lelia TD: 11/23/2016 09:26 JOB #: [id number] MEDICAL IMAGING REPORT Page 1 of 1 COPY
--- NOTE | ~2016-11-14 | DS ---
Unit #: [id number] #: [id number] Patient: CHRISTEL SILVA [id number] [address] [place], [place] [address] [id number] I MR#: [id number] NAME: CHRISTEL SILVA ROOM: 318 Age: 71 Sex: F Admission Date: 11/14/2016 : 1945 Discharge Date: 11/30/2016 Attending Physician: Calos Barkley M.D. Primary Care Physician: Calos Barkley M.D. DISCHARGE SUMMARY PRINCIPAL DISCHARGE DIAGNOSES 1. Yvmtu-qw-rnsesvy respiratory failure. 2. Severe end-stage chronic obstructive pulmonary disease. 3. Paroxysmal atrial fibrillation. 4. Nonsustained ventricular tachycardia. 5. Yeast urinary tract infection. 6. Old cerebrovascular accidents, multiple. 7. Slriy-nv-rqlgxau kidney disease stage 3. 8. Right-sided congestive heart failure. 9. History of hypertension. 10. Chronic anemia. 11. Hyperlipidemia. 12. Recent influenza A. PROCEDURES Midline placement right upper extremity x2. CONSULTANTS 1. Dr. Vic Win. 2. Dr. Lea from pulmonary services. 3. Dr. Rachele Daniels from cardiology. REASON FOR HOSPITALIZATION A 71-year-old white female with severe COPD, hypertension, multiple CVAs, chronic anticoagulation therapy, chronic kidney disease stage 3, chronic anemia, hyperlipidemia, recent admission with influenza A with rdxlm-yc-wzhnzdp respiratory failure discharged home on October 21. She began having a lot of swelling in her bilateral extremities, felt to be secondary to recent steroid therapy. She was placed on Lasix. VNA was sent out to place [facility] on. She developed a blister on her right toe. They felt that she had developed cellulitis and was sent Ceftin over the phone since she was unable to get to the office. She acutely became more short of breath over three days and presented herself back to the emergency room where she had essentially a negative workup except for sinus tachycardia and a slightly elevated troponin. D-dimer, TSH and BNP were all within normal limits. INR was therapeutic. GFR was 43, not far off from her baseline and the patient was admitted. HOSPITAL COURSE The patient was admitted. She was started on IV antibiotics, IV steroids. ABGs were obtained. Pulmonary and Cardiology were consulted. Labs were followed. She was started on Lopressor for sinus tachycardia. Wound Care nurse saw the patient for the bilateral lower extremity edema and wounds. Unit #: [id number] #: [id number] Patient: CHRISTEL SILVA The patient became worse over the next week or so, had multiple runs of nonsustained v-tach, ongoing respiratory failure, fatigue. She was made a DNR. She developed a yeast urinary tract infection. Midline was placed for IV access in the right upper extremity because of trouble drawing blood. Her Lopressor was stopped because of bronchospasm. She was eventually placed on metoprolol, digoxin and Cardizem which seemed to help her sinus tachycardia. Her nutrition was poor but slowly improving. Currently she is afebrile. Her vital signs are stable. She developed some nonsustained v-tach and paroxysmal atrial fibrillation while here but again she is on chronic anticoagulation therapy and rates were controlled with the abovementioned meds. Her BMP this morning is normal except for a CO2 of 33, a random blood sugar of 132, a BUN of 54. Her GFR is 75. CBC is normal except for a white count of 27.8, with a hemoglobin of 10.3 and a platelet count of 117,000. PT/INR is down to 2.4. It was elevated a few days ago and she is being started back on warfarin 2 mg today then 3 mg daily. She will need to have a follow-up BMP and CBC in a few days and a daily ProTime until her PT/INR is stable. DIET She is on a regular diet. CODE STATUS Again she is a DNR. DISCHARGE MEDICATIONS She is on: 1. DuoNeb per unit dose q.i.d. 2. Pulmicort 0.5 mg b.i.d. 3. Perforomist 20 mcg b.i.d. 4. Prednisone 40 mg daily for one more day then decrease by 10 mg every three days until she is out. 5. Tylenol 650 q.4 h. p.r.n. 6. Zofran 4 mg IV or p.o. q.4 h. p.r.n. for nausea or vomiting. 7. Diflucan 100 mg daily with a stop date of 12/03/16. 8. Ativan 0.5 mg t.i.d. p.r.n. 9. Meloxicam 0.125 mg p.o. daily. 10. Cardizem CD 240 mg daily. 11. Metoprolol succinate 25 mg p.o. q.12 h. 12. Furosemide 20 mg p.o. b.i.d. 13. Lipitor 40 mg p.o. q.h.s. 14. Pepcid 20 mg p.o. daily. 15. Singulair 10 mg p.o. daily. 16. Aspirin 81 mg p.o. daily. 17. Brogan 10/325 one q.6 h. p.r.n. for pain. 18. Multivitamin one p.o. daily. Dictated by... Calos Barkley M.D. ALFRED/keila TD: 11/30/2016 16:02 JOB #: [id number] Unit #: [id number] #: [id number] Patient: CHRISTEL SILVA DISCHARGE SUMMARY Page 1 of 1 X Calos Barkley MD X DISCHARGE SUMMARY
--- NOTE | ~2016-11-14 | CR71 ---
[facility] A Service of [facility] & [facility] RADIOLOGY TEXT RESULTS PATIENT: CHRISTEL SILVA LOCATION: [facility] 318- : 47 UNIT #: [id number] AGE: [address]: Calos Barkley MD SEX: F ORDER DR: [id number] [facility] [address] [facility]. [place], [place] [address] [id number] I MR#: [id number] Acc #: [id number] NAME: CHRISTEL SILVA : 1945 SEX: F STUDY DATE/TIME: 11/15/2016 6:14 [facility]: [facility] STUDY DESCRIPTION: CR Chest Single View Attending Physician: Calos Barkley M.D. Ordering Physician: Calos Barkley M.D. Primary Care Physician: Calos Barkley M.D. MEDICAL IMAGING REPORT This report is preliminary unless electronic signature is present EXAM Portable chest 1-view, 11/15/2016 COMPARISON Portable chest, 11/14/2016 HISTORY Short of air, onset tonight. Acute respiratory distress. FINDINGS Redemonstrated borderline cardiomegaly. Mild pulmonary hyperexpansion suggests COPD but no consolidation or effusion or pneumothorax. No substantial change since 11/14/2016. Dictated by... Clark Barreto M.D. THIS IS AN ELECTRONICALLY VERIFIED REPORT Clark Barreto M.D. at 11/15/2016 1:48 PM CAMILO/teresita TD: 11/15/2016 13:10 JOB #: [id number] MEDICAL IMAGING REPORT Page 1 of 1 COPY
[~2016-11-14 09:44] MED LIST changes: +FLOVENT HFA12 G1 INH; +OMNICEF300 MG PO; +PREDNISONE PO; +TAMIFLU30 MG PO; +ZITHROMAX PO
[2016-11-14 10:03] LABS: HEMATOCRIT 32.6 % (35.0-45.0); HEMOGLOBIN 10.7 gm/dL (12.0-16.0); MEAN CELL VOLUME 97.3 FL (83-96); MEAN CORPUSCULAR HEMOGLOBIN 31.8 PG (28-34); MEAN CORPUSCULAR HGB CONC 32.7 g/dL (30-36); MEAN PLATELET VOLUME 7.9 FL (6.5-11.5); NEUTROPHIL% 85.5 % (40-75); PLATELET COUNT 217 X10e3 (140-420); RED BLOOD COUNT 3.35 X10e (3.90-5.30); WHITE BLOOD COUNT 8.8 X10e3 (4.0-10.5)
[2016-11-14 10:04] LABS: BASOPHIL% 0.3 % (0-2.5); DIFF IND NO; LYMPHOCYTE# 0.7 X10e3 (1.0-3.5); LYMPHOCYTE% 7.6 % (17.0-45.0); MONOCYTE# 0.6 X10e3 (0-1.0); MONOCYTE% 6.6 % (3.0-12.0); NEUTROPHIL# 7.5 X10e3 (1.5-7.1)
[2016-11-14 10:08] LABS: POC - TROPONIN <0.05 ng/mL (<=0.05)
[2016-11-14 10:23] LABS: INR 2.3; PROTHROMBIN TIME (PATIENT) 25.3 SECONDS (9.6-11.5)
[2016-11-14 10:50] LABS: ALBUMIN SERUM 3.9 g/dL (3.5-5.0); BILIRUBIN, DIRECT 0.1 mg/dL (0.0-0.2); BILIRUBIN,INDIRECT 0.5 mg/dL (0.0-0.9); BILIRUBIN,TOTAL 0.6 mg/dL (0.2-2.0); BUN/CREATININE RATIO 23.33; CALCIUM SERUM 9.4 mg/dL (8.4-10.2); CREATININE SERUM 1.5 mg/dL (0.6-1.4); GLOM FILT RATE Estimated 36.6 mL/min (>60); POTASSIUM 4.2 mmol/L (3.5-5.1); PROTEIN TOTAL SERUM 7.1 g/dL (6.0-8.3)
[2016-11-14 15:47] LABS: BUN/CREATININE RATIO 28.46; CALCIUM SERUM 9.2 mg/dL (8.4-10.2); CREATININE SERUM 1.3 mg/dL (0.6-1.4); GLOM FILT RATE Estimated 43.2 mL/min (>60); POTASSIUM 4.2 mmol/L (3.5-5.1)
[2016-11-14 17:56] LABS: FREE T3 2.8 pg/mL (2.5-3.9)
[2016-11-14 17:58] LABS: FREE THYROXIN (T4) 1.31 ng/dL (0.58-1.64)
[2016-11-14 23:50] LABS: ARTERIAL BLD GAS O2 SATURATION 97.9 % (90.0-100.0); ARTERIAL BLOOD GAS CARBOXY HB 0.5 %sat (0.0-9.0); ARTERIAL BLOOD GAS HCO3 26.1 mmol/L; ARTERIAL BLOOD GAS MET HB 0.7 %sat (0.0-2.0); ARTERIAL BLOOD GAS PCO2 41.4 mmHg (35.0-45.0); ARTERIAL BLOOD GAS pH 7.409 (7.350-7.450)
[2016-11-14 23:51] LABS: ARTERIAL BLOOD GAS ALLEN TEST NORMAL; ARTERIAL BLOOD GAS ART SITE LEFT RADIAL; ARTERIAL BLOOD GAS DELIVERY NASAL CANNULA; ARTERIAL DRAW? YES
[2016-11-15 03:16] LABS: URINE APPEARANCE CLEAR; URINE BILIRUBIN NEG (NEG); URINE BLOOD NEG (NEG); URINE COLOR YELLOW; URINE GLUCOSE NEG (NEG); URINE KETONE NEG (NEG); URINE LEUKOCYTE ESTERASE NEG (NEG); URINE NITRATE NEG (NEG); URINE PROTEIN NEG (NEG); URINE SPECIFIC GRAVITY 1.014 (1.003-1.035); URINE UROBILINOGEN 0.2 MG/DL (NEG)
[2016-11-15 07:08] LABS: INR 2.3; PROTHROMBIN TIME (PATIENT) 24.7 SECONDS (9.6-11.5)
[2016-11-15 07:28] LABS: CALCIUM SERUM 9.4 mg/dL (8.4-10.2); CREATININE SERUM 1.5 mg/dL (0.6-1.4); GLOM FILT RATE Estimated 36.6 mL/min (>60); MAGNESIUM 2.3 mg/dL (1.6-3.0); POTASSIUM 4.4 mmol/L (3.5-5.1)
[2016-11-16 10:25] LABS: INR 4.2
[2016-11-16 10:26] LABS: PROTHROMBIN TIME (PATIENT) 46.9 SECONDS (9.6-11.5)
[2016-11-16 10:45] LABS: BUN/CREATININE RATIO 30.95; CALCIUM SERUM 9.1 mg/dL (8.4-10.2); CREATININE SERUM 2.1 mg/dL (0.6-1.4); GLOM FILT RATE Estimated 24.8 mL/min (>60); MAGNESIUM 2.5 mg/dL (1.6-3.0); POTASSIUM 3.6 mmol/L (3.5-5.1)
[2016-11-17 08:09] LABS: HEMATOCRIT 33.3 % (35.0-45.0); MEAN CELL VOLUME 96.5 FL (83-96); MEAN CORPUSCULAR HEMOGLOBIN 31.8 PG (28-34); MEAN PLATELET VOLUME 8.1 FL (6.5-11.5); RED BLOOD COUNT 3.45 X10e (3.90-5.30); RED CELL DISTRIBUTION WIDTH 15.5 % (11.0-15.5); WHITE BLOOD COUNT 10.7 X10e3 (4.0-10.5)
[2016-11-17 08:29] LABS: PROTHROMBIN TIME (PATIENT) 72.6 SECONDS (9.6-11.5)
[2016-11-17 08:30] LABS: INR 6.5
[2016-11-17 08:57] LABS: ALBUMIN SERUM 4.1 g/dL (3.5-5.0); BILIRUBIN,TOTAL 0.5 mg/dL (0.2-2.0); BUN/CREATININE RATIO 31.66; CALCIUM SERUM 9.1 mg/dL (8.4-10.2); CREATININE SERUM 2.4 mg/dL (0.6-1.4); GLOM FILT RATE Estimated 21.3 mL/min (>60); MAGNESIUM 2.6 mg/dL (1.6-3.0)
[2016-11-17 16:57] LABS: CREATININE,RANDOM URINE 111 mg/dL
[2016-11-17 16:58] LABS: SODIUM URINE RANDOM <10 mmol/L
[2016-11-18 05:02] LABS: HEMOGLOBIN 10.6 gm/dL (12.0-16.0); MEAN CELL VOLUME 94.7 FL (83-96); MEAN CORPUSCULAR HEMOGLOBIN 31.4 PG (28-34); MEAN CORPUSCULAR HGB CONC 33.1 g/dL (30-36); MEAN PLATELET VOLUME 7.7 FL (6.5-11.5); RED BLOOD COUNT 3.38 X10e (3.90-5.30); RED CELL DISTRIBUTION WIDTH 15.3 % (11.0-15.5); WHITE BLOOD COUNT 9.3 X10e3 (4.0-10.5)
[2016-11-18 05:19] LABS: INR 2.6
[2016-11-18 05:32] LABS: PROTHROMBIN TIME (PATIENT) 28.8 SECONDS (9.6-11.5)
[2016-11-18 08:24] LABS: BUN/CREATININE RATIO 28.62; CREATININE SERUM 2.9 mg/dL (0.6-1.4); GLOM FILT RATE Estimated 15.9 mL/min (>60); MAGNESIUM 2.6 mg/dL (1.6-3.0); PHOSPHOROUS 5.2 mg/dL (2.5-4.6); POTASSIUM 3.9 mmol/L (3.5-5.1)
[2016-11-18 15:27] LABS: ARTERIAL BLD GAS O2 SATURATION 90.6 % (90.0-100.0); ARTERIAL BLOOD GAS MET HB 1.3 %sat (0.0-2.0); ARTERIAL BLOOD GAS PCO2 40.2 mmHg (35.0-45.0); ARTERIAL BLOOD GAS PO2 60.2 mmHg (80.0-100); ARTERIAL BLOOD GAS pH 7.452 (7.350-7.450)
[2016-11-18 15:28] LABS: ARTERIAL BLOOD GAS ALLEN TEST NORMAL; ARTERIAL BLOOD GAS ART SITE LEFT RADIAL; ARTERIAL BLOOD GAS DELIVERY NASAL CANNULA; ARTERIAL DRAW? YES
[2016-11-20 06:05] LABS: HEMATOCRIT 34.1 % (35.0-45.0); HEMOGLOBIN 11.1 gm/dL (12.0-16.0); MEAN CORPUSCULAR HGB CONC 32.6 g/dL (30-36); MEAN PLATELET VOLUME 8.3 FL (6.5-11.5); RED BLOOD COUNT 3.59 X10e (3.90-5.30); RED CELL DISTRIBUTION WIDTH 15.3 % (11.0-15.5); WHITE BLOOD COUNT 12.4 X10e3 (4.0-10.5)
[2016-11-20 06:24] LABS: INR 1.1
[2016-11-20 06:31] LABS: PROTHROMBIN TIME (PATIENT) 11.4 SECONDS (9.6-11.5)
[2016-11-20 06:33] LABS: BUN/CREATININE RATIO 41.87; CREATININE SERUM 1.6 mg/dL (0.6-1.4); GLOM FILT RATE Estimated 32.6 mL/min (>60)
[2016-11-20 06:37] LABS: POTASSIUM 2.9 mmol/L (3.5-5.1)
[2016-11-21 06:51] LABS: INR 1.2; PROTHROMBIN TIME (PATIENT) 12.9 SECONDS (9.6-11.5)
[2016-11-21 07:22] LABS: BUN/CREATININE RATIO 52.85; CALCIUM SERUM 9.2 mg/dL (8.4-10.2); CREATININE SERUM 1.4 mg/dL (0.6-1.4); GLOM FILT RATE Estimated 38.2 mL/min (>60); MAGNESIUM 2.7 mg/dL (1.6-3.0); POTASSIUM 4.1 mmol/L (3.5-5.1)
[2016-11-22 09:32] LABS: INR 1.6; PROTHROMBIN TIME (PATIENT) 16.9 SECONDS (9.6-11.5)
[2016-11-22 09:43] LABS: HEMATOCRIT 34.3 % (35.0-45.0); HEMOGLOBIN 11.3 gm/dL (12.0-16.0); MEAN CELL VOLUME 94.6 FL (83-96); MEAN CORPUSCULAR HEMOGLOBIN 31.1 PG (28-34); MEAN CORPUSCULAR HGB CONC 32.9 g/dL (30-36); MEAN PLATELET VOLUME 8.8 FL (6.5-11.5); RED BLOOD COUNT 3.62 X10e (3.90-5.30); RED CELL DISTRIBUTION WIDTH 15.4 % (11.0-15.5); WHITE BLOOD COUNT 18.4 X10e3 (4.0-10.5)
[2016-11-22 09:52] LABS: BUN/CREATININE RATIO 50.66; CALCIUM SERUM 8.9 mg/dL (8.4-10.2); CREATININE SERUM 1.5 mg/dL (0.6-1.4); GLOM FILT RATE Estimated 35.2 mL/min (>60); MAGNESIUM 2.6 mg/dL (1.6-3.0); POTASSIUM 3.9 mmol/L (3.5-5.1)
[2016-11-23 05:19] LABS: HEMOGLOBIN 10.7 gm/dL (12.0-16.0); MEAN CELL VOLUME 94.3 FL (83-96); MEAN CORPUSCULAR HEMOGLOBIN 30.5 PG (28-34); MEAN CORPUSCULAR HGB CONC 32.4 g/dL (30-36); RED BLOOD COUNT 3.5 X10e (3.90-5.30); RED CELL DISTRIBUTION WIDTH 15.2 % (11.0-15.5)
[2016-11-23 05:28] LABS: INR 1.8; PROTHROMBIN TIME (PATIENT) 19.7 SECONDS (9.6-11.5)
[2016-11-23 06:09] LABS: BUN/CREATININE RATIO 54.61; CALCIUM SERUM 8.3 mg/dL (8.4-10.2); CREATININE SERUM 1.3 mg/dL (0.6-1.4); GLOM FILT RATE Estimated 41.8 mL/min (>60); MAGNESIUM 2.5 mg/dL (1.6-3.0)
[2016-11-23 10:29] LABS: URINE APPEARANCE CLOUDY; URINE BILIRUBIN NEG (NEG); URINE BLOOD 1+ (NEG); URINE COLOR YELLOW; URINE GLUCOSE NEG (NEG); URINE KETONE NEG (NEG); URINE LEUKOCYTE ESTERASE 2+ (NEG); URINE NITRATE NEG (NEG); URINE PROTEIN NEG (NEG); URINE SPECIFIC GRAVITY 1.016 (1.003-1.035); URINE UROBILINOGEN 0.2 MG/DL (NEG)
[2016-11-23 10:30] LABS: CULTURE INDICATED? YES; URINE BACTERIA AUWI NEG (NEGATIVE); URINE SQUAMOUS EPITHELIAL CELL FEW /[HPF]
[2016-11-23 10:52] LABS: U HYALINE CASTS AUWI 0-2 /[LPF]; URINE YEAST PRESENT
[2016-11-24 05:48] LABS: HEMOGLOBIN 10.8 gm/dL (12.0-16.0); MEAN CELL VOLUME 94.4 FL (83-96); MEAN CORPUSCULAR HGB CONC 32.8 g/dL (30-36); MEAN PLATELET VOLUME 9.3 FL (6.5-11.5); RED BLOOD COUNT 3.49 X10e (3.90-5.30); RED CELL DISTRIBUTION WIDTH 15.1 % (11.0-15.5); WHITE BLOOD COUNT 20.3 X10e3 (4.0-10.5)
[2016-11-24 06:43] LABS: CALCIUM SERUM 8.4 mg/dL (8.4-10.2); CREATININE SERUM 1.1 mg/dL (0.6-1.4); GLOM FILT RATE Estimated 51.2 mL/min (>60); POTASSIUM 3.5 mmol/L (3.5-5.1)
[2016-11-24 07:47] LABS: INR 2.1; PROTHROMBIN TIME (PATIENT) 22.3 SECONDS (9.6-11.5)
[2016-11-25 09:36] LABS: HEMATOCRIT 36.2 % (35.0-45.0); HEMOGLOBIN 11.7 gm/dL (12.0-16.0); MEAN CELL VOLUME 93.7 FL (83-96); MEAN CORPUSCULAR HEMOGLOBIN 30.4 PG (28-34); MEAN CORPUSCULAR HGB CONC 32.4 g/dL (30-36); MEAN PLATELET VOLUME 9.8 FL (6.5-11.5); PROTHROMBIN TIME (PATIENT) 32.9 SECONDS (9.6-11.5); RED BLOOD COUNT 3.86 X10e (3.90-5.30); RED CELL DISTRIBUTION WIDTH 14.9 % (11.0-15.5)
[2016-11-25 09:49] LABS: BUN/CREATININE RATIO 56.66; CALCIUM SERUM 8.4 mg/dL (8.4-10.2); CREATININE SERUM 1.2 mg/dL (0.6-1.4); GLOM FILT RATE Estimated 46.1 mL/min (>60); POTASSIUM 3.6 mmol/L (3.5-5.1)
[2016-11-26 06:39] LABS: HEMATOCRIT 33.6 % (35.0-45.0); MEAN CELL VOLUME 94.7 FL (83-96); MEAN CORPUSCULAR HGB CONC 32.7 g/dL (30-36); MEAN PLATELET VOLUME 9.7 FL (6.5-11.5); RED BLOOD COUNT 3.55 X10e (3.90-5.30); WHITE BLOOD COUNT 23.7 X10e3 (4.0-10.5)
[2016-11-26 06:45] LABS: INR 3.8; PROTHROMBIN TIME (PATIENT) 42.3 SECONDS (9.6-11.5)
[2016-11-26 07:19] LABS: GLOM FILT RATE Estimated 57.5 mL/min (>60); MAGNESIUM 2.4 mg/dL (1.6-3.0); POTASSIUM 3.8 mmol/L (3.5-5.1)
[2016-11-27 06:17] LABS: BASOPHIL% 0.1 % (0-2.5); HEMATOCRIT 34.2 % (35.0-45.0); HEMOGLOBIN 11.2 gm/dL (12.0-16.0); LYMPHOCYTE# 0.5 X10e3 (1.0-3.5); LYMPHOCYTE% 1.9 % (17.0-45.0); MEAN CELL VOLUME 93.8 FL (83-96); MEAN CORPUSCULAR HEMOGLOBIN 30.8 PG (28-34); MEAN CORPUSCULAR HGB CONC 32.8 g/dL (30-36); MEAN PLATELET VOLUME 9.8 FL (6.5-11.5); MONOCYTE# 0.6 X10e3 (0-1.0); MONOCYTE% 2.6 % (3.0-12.0); NEUTROPHIL% 95.4 % (40-75); PLATELET COUNT 154 X10e3 (140-420); RED BLOOD COUNT 3.65 X10e (3.90-5.30); RED CELL DISTRIBUTION WIDTH 15.4 % (11.0-15.5); WHITE BLOOD COUNT 24.2 X10e3 (4.0-10.5)
[2016-11-27 06:19] LABS: DIFF IND YES
[2016-11-27 06:26] LABS: PROTHROMBIN TIME (PATIENT) 50.4 SECONDS (9.6-11.5)
[2016-11-27 06:34] LABS: PLATELET ESTIMATE NORMAL (NORMAL); RBC NORMAL YES
[2016-11-27 06:35] LABS: INR 4.5
[2016-11-27 07:09] LABS: BUN/CREATININE RATIO 61.81; CALCIUM SERUM 8.4 mg/dL (8.4-10.2); CREATININE SERUM 1.1 mg/dL (0.6-1.4); GLOM FILT RATE Estimated 51.2 mL/min (>60); POTASSIUM 4.1 mmol/L (3.5-5.1)
[2016-11-28 06:11] LABS: BASOPHIL% 0.1 % (0-2.5); HEMOGLOBIN 10.3 gm/dL (12.0-16.0); LYMPHOCYTE# 0.6 X10e3 (1.0-3.5); LYMPHOCYTE% 2.6 % (17.0-45.0); MEAN CELL VOLUME 93.1 FL (83-96); MEAN CORPUSCULAR HEMOGLOBIN 30.8 PG (28-34); MEAN PLATELET VOLUME 9.9 FL (6.5-11.5); MONOCYTE# 0.9 X10e3 (0-1.0); MONOCYTE% 3.5 % (3.0-12.0); NEUTROPHIL# 23.3 X10e3 (1.5-7.1); NEUTROPHIL% 93.8 % (40-75); PLATELET COUNT 125 X10e3 (140-420); RED BLOOD COUNT 3.33 X10e (3.90-5.30); RED CELL DISTRIBUTION WIDTH 15.1 % (11.0-15.5); WHITE BLOOD COUNT 24.9 X10e3 (4.0-10.5)
[2016-11-28 06:12] LABS: DIFF IND NO
[2016-11-28 06:20] LABS: INR 3.8; PROTHROMBIN TIME (PATIENT) 41.5 SECONDS (9.6-11.5)
[2016-11-28 06:39] LABS: BUN/CREATININE RATIO 68.88; CALCIUM SERUM 7.9 mg/dL (8.4-10.2); CREATININE SERUM 0.9 mg/dL (0.6-1.4); GLOM FILT RATE Estimated 65.3 mL/min (>60); POTASSIUM 4.2 mmol/L (3.5-5.1)
[2016-11-29 10:21] LABS: HEMATOCRIT 34.3 % (35.0-45.0); HEMOGLOBIN 11.1 gm/dL (12.0-16.0); MEAN CELL VOLUME 95.3 FL (83-96); MEAN CORPUSCULAR HEMOGLOBIN 30.8 PG (28-34); MEAN CORPUSCULAR HGB CONC 32.3 g/dL (30-36); MEAN PLATELET VOLUME 9.9 FL (6.5-11.5); RED BLOOD COUNT 3.59 X10e (3.90-5.30); RED CELL DISTRIBUTION WIDTH 15.2 % (11.0-15.5); WHITE BLOOD COUNT 29.7 X10e3 (4.0-10.5)
[2016-11-29 10:24] LABS: PROTHROMBIN TIME (PATIENT) 32.7 SECONDS (9.6-11.5)
[2016-11-29 10:49] LABS: BUN/CREATININE RATIO 78.75; CALCIUM SERUM 8.1 mg/dL (8.4-10.2); CREATININE SERUM 0.8 mg/dL (0.6-1.4); GLOM FILT RATE Estimated 75.3 mL/min (>60); POTASSIUM 4.1 mmol/L (3.5-5.1)
[2016-11-30 07:19] LABS: INR 2.4; PROTHROMBIN TIME (PATIENT) 25.7 SECONDS (9.6-11.5)
[2016-11-30 07:31] LABS: HEMATOCRIT 32.1 % (35.0-45.0); HEMOGLOBIN 10.3 gm/dL (12.0-16.0); MEAN CELL VOLUME 94.7 FL (83-96); MEAN CORPUSCULAR HEMOGLOBIN 30.5 PG (28-34); MEAN CORPUSCULAR HGB CONC 32.2 g/dL (30-36); MEAN PLATELET VOLUME 9.9 FL (6.5-11.5); RED BLOOD COUNT 3.39 X10e (3.90-5.30); RED CELL DISTRIBUTION WIDTH 15.3 % (11.0-15.5); WHITE BLOOD COUNT 27.8 X10e3 (4.0-10.5)
[2016-11-30 07:41] LABS: BUN/CREATININE RATIO 67.5; CREATININE SERUM 0.8 mg/dL (0.6-1.4); GLOM FILT RATE Estimated 75.3 mL/min (>60); POTASSIUM 4.5 mmol/L (3.5-5.1)
[2016-12-01 06:44] LABS: HEMATOCRIT 30.5 % (35.0-45.0); HEMOGLOBIN 9.9 gm/dL (12.0-16.0); MEAN CELL VOLUME 94.6 FL (83-96); MEAN CORPUSCULAR HEMOGLOBIN 30.7 PG (28-34); MEAN CORPUSCULAR HGB CONC 32.4 g/dL (30-36); MEAN PLATELET VOLUME 9.9 FL (6.5-11.5); RED BLOOD COUNT 3.23 X10e (3.90-5.30); RED CELL DISTRIBUTION WIDTH 15.4 % (11.0-15.5)
[2016-12-01 06:53] LABS: PROTHROMBIN TIME (PATIENT) 21.9 SECONDS (9.6-11.5)
[2016-12-01 06:58] LABS: BUN/CREATININE RATIO 61.25; CALCIUM SERUM 7.7 mg/dL (8.4-10.2); CREATININE SERUM 0.8 mg/dL (0.6-1.4); GLOM FILT RATE Estimated 75.3 mL/min (>60); MAGNESIUM 2.2 mg/dL (1.6-3.0); POTASSIUM 4.3 mmol/L (3.5-5.1)
== END 2016-12-01 14:48 | DRG 682 ==
LOC: CED 09:44 → CEDOF 11:37 → C3A PCU 17:12
PROVIDERS: Emergency Medicine; Internal Medicine; Internal Medicine Nephrology; Nurse Practitioner
PROC: B24BZZZ Ultrasonography of Heart with Aorta (ICD-10-PCS; principal; 2016-11-16)
PROC: 05HB33Z Insertion of Infusion Device into Right Basilic Vein, Percutaneous Approach (ICD-10-PCS; 2016-11-21)
PROC: B54MZZA Ultrasonography of Right Upper Extremity Veins, Guidance (ICD-10-PCS; 2016-11-21)
PROC: 05HD33Z Insertion of Infusion Device into Right Cephalic Vein, Percutaneous Approach (ICD-10-PCS; 2016-11-26)
PROC: B54MZZA Ultrasonography of Right Upper Extremity Veins, Guidance (ICD-10-PCS; 2016-11-26)
DX: N17.9 Acute kidney failure, unspecified (principal); J96.21 Acute and chronic respiratory failure with hypoxia; I47.2 Ventricular tachycardia; I27.81 Cor pulmonale (chronic); I50.32 Chronic diastolic (congestive) heart failure; B37.49 Other urogenital candidiasis; I48.0 Paroxysmal atrial fibrillation; I12.9 Hypertensive chronic kidney disease with stage 1 through stage 4 chronic kidney disease, or unspecified chronic kidney disease; J44.1 Chronic obstructive pulmonary disease with (acute) exacerbation; N18.3 Chronic kidney disease, stage 3 (moderate); D63.1 Anemia in chronic kidney disease; Z86.73 Personal history of transient ischemic attack (TIA), and cerebral infarction without residual deficits; Z66 Do not resuscitate; Z79.82 Long term (current) use of aspirin; E78.5 Hyperlipidemia, unspecified; S91.104A Unspecified open wound of right lesser toe(s) without damage to nail, initial encounter; Z79.01 Long term (current) use of anticoagulants; Z82.3 Family history of stroke; E66.9 Obesity, unspecified; Z68.30 Body mass index [BMI] 30.0-30.9, adult; F17.210 Nicotine dependence, cigarettes, uncomplicated; T45.515A Adverse effect of anticoagulants, initial encounter; R79.1 Abnormal coagulation profile
CPT/HCPCS: 36415; 36600; 71010; 76770; 80048; 80053; 80076; 81003; 82550; 82553; 82570; 82803; 83735; 83880; 84100; 84300; 84439; 84443; 84481; 84484; 85025; 85027; 85379; 85610; 86334; 87086; 89190; 92610; 93005; 93306; 93970; 94640; 94664; 94667; 94668; 94760; 96361; 96374; 96375; 97110; 97112; 97163; 97167; 97530; 97535; 99285; G0238; G8978-GP; G8979-GP; G8987-GO; G8988-GO; G8996-GN; G8997-GN; G8998-GN; J0360; J0696; J1160; J1940; J2405; J2920; J2930; J3430; J3490

== ENCOUNTER 2016-12-30 14:04 | Inpatient (IN) | payer OTHER ==
--- NOTE | ~2016-12-30 | XA75 ---
[facility] A Service of [facility] & [facility] RADIOLOGY TEXT RESULTS PATIENT: CHRISTEL SARABIA LOCATION: [facility] PC - : [birth year] UNIT #: [id number] AGE: [address]: Calos Barkley MD SEX: F ORDER DR: [id number] [facility] [address] [facility]. [place], [place] [address] [id number] I MR#: [id number] Acc #: [id number] NAME: CHRISTEL SARABIA : 1945 SEX: F STUDY DATE/TIME: 01/11/2017 8:28 UNIT: [facility] PCU ROOM: 321 STUDY DESCRIPTION: XA CVC Non-Tunnel Attending Physician: Calos Barkley M.D. Ordering Physician: Calos Barkley M.D. Primary Care Physician: Calos Barkley M.D. MEDICAL IMAGING REPORT This report is preliminary unless electronic signature is present EXAM Hemodialysis access catheter placement under ultrasound and fluoroscopy. HISTORY Dialysis, end-stage renal disease. PROCEDURE Procedure, attendant risks, and options were discussed with Ms. Sarabia. She understands and wishes to proceed. The patient was placed in the supine position in the angio suite and the right neck was prepped and draped. Maximal sterile barrier technique was utilized including hats, masks, gowns, gloves and shoe covers. Ultrasound examination confirms a patent right internal jugular this was punctured under ultrasound guidance and local anesthesia. An 0/018 wire was inserted followed by placement of a micropuncture set, an 0.035 wire, and serial dilatation performed. A Shiley catheter was inserted with the tip at the cavoatrial junction and flushed with heparin solution. The line was sewn to the skin utilizing 2-0 Silk sutures. A sterile dressing was applied and the patient returned flores in stable condition. A single spot radiograph and single ultrasound image were recorded. Total exposure 0.5 minutes of fluoroscopy time. 2 mg air kerma exposure. CONCLUSION Successful placement of a Shiley catheter right IJ approach. Dictated by... Baudilio Mendez M.D. THIS IS AN ELECTRONICALLY VERIFIED REPORT Baudilio Mendez M.D. at 01/12/2017 7:26 AM MIKE/ernesto [facility] A Service of [facility] & [facility] RADIOLOGY TEXT RESULTS PATIENT: CHRISTEL SARABIA LOCATION: [facility] 321-01 : 47 UNIT #: [id number] AGE: [address]: Calos Barkley MD SEX: F ORDER DR: TD: 01/11/2017 13:42 JOB #: [id number] MEDICAL IMAGING REPORT Page 1 of 1 COPY
--- NOTE | ~2016-12-30 | DS ---
Unit #: [id number] #: [id number] Patient: CHRISTEL SILVA [id number] [address] [place], [place] [address] [id number] I MR#: [id number] NAME: CHRISTEL SILVA ROOM: 321 Age: 71 Sex: F Admission Date: 12/30/2016 : 1945 Discharge Date: 01/31/2017 Attending Physician: Calos Barkley M.D. Primary Care Physician: Calos Barkley M.D. DISCHARGE SUMMARY PRINCIPAL DISCHARGE DIAGNOSES 1. Hospital-acquired pneumonia. 2. Anemia with Hemoccult positive stools. 3. Acute renal failure, likely secondary to interstitial nephritis. 4. Large decubitus ulcer. 5. Chronic obstructive pulmonary disease. 6. Paroxysmal atrial fibrillation. 7. Multiple CVAs. 8. Delirium. 9. Right-sided congestive heart failure. 10. History of ventricular tachycardia. 11. Chronic kidney disease stage 3. PROCEDURES PERFORMED 1. Transfusion of two units on 01/01/2017. 2. PICC line placement. 3. Tunnelled catheter placement for dialysis. 4. Hemodialysis on multiple occasions. CONSULTANTS Dr. Nellie Tai. Dr. Baudilio Ordonez. HOSPITAL COURSE The patient was admitted with anemia, hypokalemia and elevated liver functions. She was placed on a DNR status per her own request. She was transfused to keep her hemoglobin above 8. She was started on hospital acquired antibiotic protocol. She developed acute renal failure secondary to interstitial nephritis. Unsure which antibiotic caused it. Eventually ended up having a tunnelled catheter for hemodialysis on multiple occasions. Tolerated that fairly well. Eventually it resolved. 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 She is no longer requiring hemodialysis. Dr. Ramey has seen the patient for decubitus ulcer, which was locally debrided. Currently she has a bed at [facility] and will be transferred today. She is on a regular diet as tolerated. DISCHARGE MEDICATIONS 1. Combivent mini-nebs q.i.d. 2. Pulmicort 0.5 mg nebulizer b.i.d. 3. Perforomist 20 mcg per nebulizer q.12 h. 4. Lovenox 40 mg subcutaneous daily until INR is above 2. 5. Warfarin 5 mg daily with daily pro times. Hold if PT/INR is above 3. 6. Desyrel 50 mg at nighttime. Unit #: [id number] #: [id number] Patient: CHRISTEL SILVA 7. Effexor 37.5 mg p.o. q.a.m. 8. Benadryl 25 mg q.i.d. p.r.n. itching. 9. Lanoxin 0.125 mg p.o. on Monday, Monday and Monday. 10. Cardizem CD 120 mg p.o. daily. 11. Lopressor 25 mg p.o. b.i.d. 12. Lasix 40 mg p.o. daily. 13. Ferrous gluconate 324 mg p.o. t.i.d. 14. Singulair 10 mg p.o. at nighttime. 15. Multivitamins 1 daily. 16. [place] 5/325 mg 1 q.4 h. p.r.n. pain. 17. Protonix 40 mg p.o. daily. 18. Folic acid 1 mg daily. 19. B12 1000 mcg daily. 20. Mineral oil with clotrimazole betamethasone Aquaphor treatments q.8 h. topically with Bactroban q.12 h. to perirectal areas. DISCHARGE INSTRUCTIONS 1. Please consult Dr. Ramey for wound care at [facility]. 2. She will need occupational therapy and physical therapy. 3. Daily pro times there until pro times is therapeutic. Again, she is a DNR. 4. Regular diet. 5. Her PICC line will be discontinued prior to discharge. Dictated by... Calos Barkley M.D. ALFRED/brad TD: 01/31/2017 10:33 JOB #: [id number] DISCHARGE SUMMARY Page 1 of 1 X Calos Barkley MD X DISCHARGE SUMMARY
--- NOTE | ~2016-12-30 | CO ---
Unit #: [id number] #: [id number] Patient: CHRISTEL SILVA [id number] [address] [address] [id number] I MR#: [id number] NAME: CHRISTEL SILVA ROOM: 321 Age: 71 Sex: F Admission Date: 12/30/2016 : 1945 Attending Physician: Calos Barkley M.D. Primary Care Physician: Calos Barkley M.D. Consultation Date: 01/06/2017 CONSULTATION REPORT REASON FOR CONSULTATION Acute renal failure. HISTORY OF PRESENT ILLNESS This 71-year-old white female, with multiple chronic medical problems including end-stage COPD, severe immobility, sacral decubitus ulcer, failure to thrive, was admitted to the hospital from the group home on 12/30/2016. Her admitting diagnosis was pneumonia. She was started on vancomycin and tobramycin. She was also found to be anemic and given a blood transfusion. Her admission creatinine was 0.6. Subsequently, she developed worsening kidney function and low blood pressure. Her tobramycin levels and vancomycin levels were quite elevated. These antibiotics were dosed based on levels. For her low blood pressure, she was transfused 2 units of packed cells. Her blood pressure improved. She continued to have worsening renal insufficiency and low urinary output. Her drug levels of tobramycin and vancomycin are continued to be elevated. Her kidney function continued to worsen. She also developed a drug eruption, which was thought to be due to vancomycin. Her BUN and creatinine today are 47 and 4.2, additionally her sodium is low at 128. She is on IV fluids. Her tobramycin and vancomycin have been discontinued. Her urinalysis shows 3+ leukocytes, negative nitrites, 3+ protein and 2+ blood. There is negative rbc's, but numerous white blood cells. She has a Owens catheter. She continues to have a drug rash. She complains of decreased appetite, but no shortness of breath. PAST MEDICAL HISTORY Significant for, 1. Severe COPD, characterized as end-stage. 2. Severe immobility with failure to thrive. She has been in the group home rehab, but not been able to improve enough to go home. 3. Chronic anemia. 4. CKD, stage 3. 5. Hypertension. 6. Hyperlipidemia. 7. Chronic indwelling Owens. 8. Atrial fibrillation, on anticoagulation and digoxin. 9. History of right-sided congestive heart failure. PAST SURGICAL HISTORY Appendectomy. SOCIAL HISTORY She is a former smoker. She is and also has a son. She does not drink. Unit #: [id number] #: [id number] Patient: CHRISTEL SILVA ALLERGIES No known drug allergies. CURRENT MEDICINES Include multivitamin, Cardizem 240 mg daily, Coumadin as directed, Maxipime 1 g q.24 hours, clindamycin 600 mg q.8 hours, sodium bicarbonate 650 mg b.i.d., D5 normal saline at 75 mL/hour, triamcinolone cream, hydrocodone half tablet q.i.d. as needed, MiraLax 17 g daily, Lanoxin 0.25 mg daily, folic acid 1 mg daily, vitamin B12 daily, Combivent daily, Lopressor 25 mg b.i.d., Effexor 37.5 mg daily, iron t.i.d., Pulmicort b.i.d., Zofran p.r.n., Pepcid 20 mg daily, Desyrel 50 mg q.h.s., Pepcid 20 mg q.h.s., Singulair 10 mg at bedtime, Senokot b.i.d. REVIEW OF SYSTEMS The patient seems to be intermittently confused saying that she is in her living room. She seemed surprised that she was in the hospital. Once I oriented her, she actually was conversant and seems to answer questions reasonably. She currently denies chest pain or shortness of breath. She does complain of severe weakness and immobility. She complains of sensitive skin to touch. She is complaining of itching related to the rash. No nausea, vomiting, diarrhea, but she does say she has decreased appetite. She denies back pain. Currently, no urinary symptoms. Other 13 systems reviewed, unless noted are negative. PHYSICAL EXAMINATION VITAL SIGNS: She has 1695 mL in 200 mL out. Her weight on admission was 84.8 kg, it is now 74 kg; however, I am not sure this is accurate. Her temperature is 97.6, her blood pressure is 113/39, oxygen saturation is 99% on room air, pulse rate is 64. GENERAL: This is a very feeble-appearing white female, who is lying in bed, in no distress. She is on room air. She has D5 normal saline going at 75 mL/hour. HEENT: Extraocular muscles are intact. No eye drainage or icterus noted. Oropharynx is dry and clear. NECK: Supple without JVD, thyromegaly, or carotid bruit. CHEST: Overall diminished, but I did not hear crackles. CARDIAC: S1, S2. No gallop or rub. ABDOMEN: Soft, nontender, nondistended. Positive bowel sounds. EXTREMITIES: Shows no cyanosis or clubbing. She has diffuse pitting and nonpitting generalized edema. SKIN: She also has a very red rash over her chest and arms. NEURO: She has weakness on the left side. DIAGNOSTIC STUDIES LABORATORY RESULTS: Shows an albumin of 1.5 and INR of 4. BUN of 47, creatinine of 4.2, sodium of 128, potassium of 4.4, chloride of 100, bicarbonate of 19, glucose of 85. Hemoglobin of 8.9, white blood cell count of 16, platelet count of 328. On 01/05/2017, her vancomycin trough was 35. On 01/03/2017, her tobramycin was 3.6. On 01/04/2017, her digoxin level was 1.8. Urinalysis shows specific gravity 1.014, pH of 5, leukocytes 3+, nitrites negative, protein 3+, blood is 2+, rbc's negative, white blood cell count is too numerous to count. ASSESSMENT AND PLAN 1. Oliguric acute renal failure, the etiology seems to be multifactorial. She may have allergic interstitial nephritis related to toxicities from vancomycin and/or tobramycin. Additionally, early in her course she was Unit #: [id number] #: [id number] Patient: CHRISTEL SILVA anemic and had low blood pressure. The urinalysis is difficult to interpret due to her chronic indwelling Owens. Urine eosinophils, pending. She has a severely depressed albumin level at 1.5, which is likely contributing to her edema. Due to her multiple comorbidities and failure to thrive, I fear she would be a very poor dialysis candidate. At present, there is no indication for hemodialysis, but she may end up requiring it. 2. Hyponatremia. She has peripheral edema. We will repeat levels. Agree with normal saline for now, may need to try some diuretic. Urine studies will be sent and urine and serum osmolalities. 3. Atrial fibrillation, on digoxin and Coumadin. Her INR is elevated today with her acute renal failure. I am very concerned she could develop a digoxin toxicity and another digoxin level will be sent. This drug may need to be reduced in dose. 4. Severe chronic obstructive pulmonary disease. 5. Immobility with jrsnvhw-fd-gxtlbb at the group home. 6. Sacral decubitus ulcer. 7. Drug eruption likely due to vancomycin. 8. Do not resuscitate status. Plan as noted above, again her tobramycin and vancomycin have been discontinued. We will continue the supportive care and avoidance of further nephrotoxic agents and avoidance of hypotension. I fear she would be a very poor dialysis candidate should she require it. Thank you very much for allowing me to see Ms. Sheikh in consultation. We will follow closely with you. Dictated by... Nellie Charles M.D. DOV/rory TD: 01/07/2017 07:53 JOB #: [id number] CONSULTATION REPORT Page 1 of 1 X Nellie Charles MD X CONSULTATION REPORT
--- NOTE | ~2016-12-30 | XA81 ---
[facility] A Service of [facility] RADIOLOGY TEXT RESULTS PATIENT: CHRISTEL SILVA LOCATION: [facility]3A - : [birth year] UNIT #: [id number] AGE: [address]: Calos Barkley MD SEX: F ORDER DR: [id number] [place] [id number] [facility]. [place], [place] [address] [id number] I MR#: [id number] Acc #: [id number] NAME: CHRISTEL SILVA : 1945 SEX: F STUDY DATE/TIME: 01/27/2017 13:41 UNIT: C3A PCU ROOM: [facility] STUDY DESCRIPTION: XA CVC Remove Tunneled Cath WO Attending Physician: Calos Barkley M.D. Ordering Physician: Trey Collier Jr., M.D. Primary Care Physician: Calos Barkley M.D. MEDICAL IMAGING REPORT This report is preliminary unless electronic signature is present PROCEDURE Removal of tunneled dialysis catheter INDICATIONS Catheter is no longer needed. The fluoroscopy time was 0.1 minutes. 2 fluoroscopic images were taken. Conscious sedation was provided with IV Versed and Fentanyl. Approximately 10 minutes of sedation time was directly supervised by Dr. Junior and monitored by appropriately credentialed radiology nursing staff. PROCEDURE Risks, benefits and alternatives of the procedure were discussed with the patient and informed consent was obtained. In the procedure room a time was performed confirming correct patient and procedure. All elements of maximum sterile-barrier technique utilized according guidelines appropriate for the procedure. TECHNIQUE/FINDINGS Historic Sites Registrar image was obtained. The right IJ tunnel dialysis catheter was then removed in its entirety using manual traction and hemostasis was achieved. A sterile dressing was applied. Final spot image was taken confirming the catheter was removed in its entirety and the right PICC line stable in position. IMPRESSION Successful dialysis catheter removal. Dictated by... Isaac Junior M.D. THIS IS AN ELECTRONICALLY VERIFIED REPORT [facility] A Service of [facility] RADIOLOGY TEXT RESULTS PATIENT: CHRISTEL SILVA LOCATION: [facility] 321-01 : [birth year] UNIT #: [id number] AGE: [address]: Calos Barkley MD SEX: F ORDER DR: Isaac Junior M.D. at 01/28/2017 5:15 PM Cari TD: 01/27/2017 18:52 JOB #: [id number] MEDICAL IMAGING REPORT Page 1 of 1 COPY
--- NOTE | ~2016-12-30 | CO ---
Unit #: [id number] #: [id number] Patient: CHRISTEL SARABIA [id number] [facility] [address] [facility]. [place], [place] [address] [id number] I MR#: [id number] NAME: CHRISTEL SARABIA ROOM: 321 Age: 71 Sex: F Admission Date: 12/30/2016 : 1945 Attending Physician: Calos Barkley M.D. Primary Care Physician: Calos Barkley M.D. Consultation Date: 01/13/2017 CONSULTATION REPORT REASON FOR CONSULTATION Depression and anxiety. HISTORY OF PRESENT ILLNESS Ms. Christel Sarabia is a 71-year-old white female, seen in room 321, bed 1 on 01/13/2017 at [facility]. The patient reports that she was admitted on 12/30/2016 and having one problem after the other, feeling sad, depressed, and anxious. The patient reported having trouble sleeping and anxiety attack. Denied any suicidal or homicidal ideation. Denied any psychotic symptom. The patient is cooperative. Reports no history of any substance abuse. The patient has a history of end-stage chronic COPD, paroxysmal atrial fibrillation, chronic kidney disease stage 3, chronic anemia. The patient's vital signs; temperature 97.5, pulse 88, respirations 18, blood pressure 177/90, oxygen saturation 93%. PAST PSYCHIATRIC HISTORY Remarkable for history of depression and anxiety, but never been treated, worse lately. MEDICAL HISTORY The patient has a history of end-stage chronic obstructive pulmonary disease, chronic anemia, chronic kidney disease stage 3, multiple CVA, hypertension, hyperlipidemia, chronic indwelling Owens, immobilization syndrome, atrial fibrillation, chronic anticoagulation therapy, nonsustained ventricular tachycardia, right-sided congestive heart failure. MEDICATIONS The patient is on Cardizem, Singulair, aspirin, multivitamin, Zantac, B12, folic acid, potassium, Effexor 37.5 daily, digoxin, DuoNeb, ferrous gluconate, Senokot, metoprolol, furosemide, Pulmicort, atorvastatin, Coumadin, oxygen. FAMILY HISTORY AND SOCIAL HISTORY The patient has a good support from family, but no history of abuse. No history of any substance abuse. REVIEW OF SYSTEMS A complete review of systems is unremarkable except as mentioned above. MENTAL STATUS EXAMINATION Vital signs; please see above. General appearance; the patient dressed casually in hospital attire, lying comfortably in bed, pleasant and cooperative during interview. Attention span and concentration, fair. Speech; regular rate and coherent. Oriented in time, place, and person. Unit #: [id number] #: [id number] Patient: CHRISTEL SARABIA Mood and affect, labile. Thought process, coherent. Thought content; the patient denied any thoughts of harming self or others, but somewhat guarded. Recent and remote memory, fair. Language, intact. Fund of knowledge, fair to slightly impaired. Insight and judgment, fair to slightly impaired. DIAGNOSES Psychiatric: Major depressive disorder, recurrent, moderate, F33.2; anxiety disorder, not otherwise specified F40.01. Secondary diagnosis: Deferred. Medical diagnosis: Please refer to H and P. Stressors: Psychosocial stressor, chronic medical condition. ASSESSMENT AND PLAN 1. Supportive psychotherapy and psychoeducation provided to the patient. 2. Educated about benefits and side effects of medication and course and prognosis of illness. 3. Recommending at this time to continue with current medication with a plan to add Remeron 15 mg at bedtime for sleep and depression, and Vistaril 25 mg b.i.d. for anxiety. If needed, consider further adjustment of medication. Please feel free to call if any questions, telephone #[phone]. Dictated by... Tal De Oliveira M.D. ETIENNE/rory TD: 01/14/2017 15:53 JOB #: [id number] CONSULTATION REPORT Page 1 of 1 X Tal De Oliveira MD X CONSULTATION REPORT
--- NOTE | ~2016-12-30 | CO ---
Unit #: [id number] #: [id number] Patient: CHRISTEL SARABIA [id number] [facility] [address] [facility]. [place], [place] [address] [id number] I MR#: [id number] NAME: CHRISTEL SARABIA ROOM: 321 Age: 71 Sex: F Admission Date: 12/30/2016 : 1945 Attending Physician: Calos Barkley M.D. Primary Care Physician: Calos Barkley M.D. Consultation Date: 01/17/2017 CONSULTATION REPORT REASON FOR CONSULTATION Followup. DISCUSSION Ms. Christel Sarabia is a 71-year-old white female, seen in room 321, bed 1 on 01/17/2017 at [facility]. The patient is lying comfortably in bed. was at the bedside. The patient made good eye contact, able to answer questions appropriately, compliant, and cooperative. Denied any suicidal or homicidal ideation, but still sad, depressed, anxious, and withdrawn, but eating good, sleeping better. No side effects from medication. Vital signs; temperature 97.8, pulse 86, respirations 18, blood pressure 110/62, oxygen saturation 99%. REVIEW OF SYSTEMS A complete review of systems is unremarkable. MENTAL STATUS EXAMINATION Vital signs; please see above. General appearance; the patient dressed casually. Attention span and concentration, fair. Speech; regular rate and coherent. Oriented in time, place, and person. Mood and affect; sad and dysphoric. Thought process, coherent. Thought content; the patient denied any thoughts of harming self or others. Recent and remote memory, fair. Language, intact. Fund of knowledge, fair. Insight and judgment, fair to slightly impaired. DIAGNOSIS Major depressive disorder, recurrent, moderate to severe, F33.2. ASSESSMENT AND PLAN 1. Supportive psychotherapy and psychoeducation provided to the patient. 2. Educated about benefits and side effects of medication and course and prognosis of illness. 3. Advised to continue with current medication. If needed, consider further adjustment of medication. Dictated by... Phil Mcdonald/rory TD: 01/17/2017 19:51 JOB #: [id number] Unit #: [id number] #: [id number] Patient: CHRISTEL SARABIA CONSULTATION REPORT Page 1 of 1 X Tal De Oliveira MD CONSULTATION REPORT
--- NOTE | ~2016-12-30 | A ---
[facility] Nutrition Therapy DATE: 12/31/16 Patient: CHRISTEL SILVA Physician: ALBERTO Address: [address] [place] [address] Room/Bed: [address] [place] [address], Zip: [place] [address] Admit Date: 12/30/16 Date of : [birth year] Height: 5 4.5 Weight: 186 84.5 NUTRITIONAL ASSESSMENT: REASON: 2 NUTRITION RISK PT RE: PRESSURE ULCER/NON-HEALING WOUND + POOR PO INTAKE PT IS 71 Y.O. FEMALE ADMITTED FOR AMS, UTI, LOW HEMOGLOBIN PMH: END-STAGE COPD, CKD STAGE 3, MULTIPLE CVAs, HTN, HLD, CHF, AFIB, CHRONIC ANEMIA Anthropometrics: 5'4.5", WT: 186# (85 KG), BMI: 31.4 Labs: GLU: 128, CA+:7.9, ALB: 1.7, AST: 77, ALT: 60, K+:2.7 Meds: FUROSEMIDE, COUMADIN, MIRALAX, FOLIC ACID, VITAMIN B12, FERROUS GLUCONATE, KCL, ZOFRAN, PEPCID, SENOKOT I/O & Bowel function: 350/250 Skin Integrity: PRESSURE ULCER NOTED BILATERAL FINGERS AND BILATERAL HEELS; BRUISE BUE; SCAR TO ABD Estimated Nutrition Needs: INCREASED NUTRIENT NEEDS 2' CURRENT CONDITION, DECREASED PO INTAKE AND APPETITE NOTED Assessment: CHART REVIEWED AND EVENTS NOTED. PT SEEN FOR PRESSURE ULCER + POOR PO INTAKE. PT CONFIRMED DECREASED PO INTAKE 2' DECREASED APPETITE PAST SEVERAL DAYS D/T "NOT FEELING WELL". PT REPORTS HER APPETITE "GOES UP AND DOWN AT HOME" DEPENDS ON HOW SHE FEELS. RD ASSESSED PT IN OCTOBER 2016 AND NOTED "PT EATS SMALL AMOUNTS 2' EARLY SATIETY". PT DENIES ANY RECENT WEIGHT LOSS. THIS RD ENCOURAGED SMALL FREQUENT MEALS + SUPPLEMENT INTAKE, PT AGREED TO ENSURE SHAKES BID + MAGIC CUP W/DINNER MEAL, RD TO ORDER. PT AND FAMILY AT BEDSIDE REPORTED NO DIET QUESTIONS AT THIS TIME. RD TO FOLLOW. Dx: INADEQUATE PROTEIN-ENERGY INTAKE R/T EARLY SATIETY AEB PT REPORT ABOVE. Intervention: 1. REGULAR DIET 2. ENSURE SHAKES BID 3. MAGIC CUP W/DINNER DAILY 4. 6 SMALL MEALS Monitoring, Evaluation and Goals: 1. ORAL INTAKE; CONSUME >50% OF MEALS AND SUPPLEMENTS W/NO C/O N/V/D 2. LABS; WNL 3. GI; PROMOTE REGULAR GI FUNCTION 4. SKIN; PROMOTE SKIN HEALING [facility] Nutrition Therapy DATE: 12/31/16 Patient: CHRISTEL SILVA Physician: ALBERTO Address: [address] [place] [address] Room/Bed: [address] [place] [address], Zip: [place] [address] Admit Date: 12/30/16 Date of : [birth year] Height: 5 4.5 Weight: 186 84.5 MONITOR: -PO INTAKE/APPETITE -SUPPLEMENT INTAKE -LABS Recommendations: 1. PLEASE ADD 6 SMALL MEALS TO CURRENT DIET ORDER TO BETTER FACILITATE PO INTAKE 2. PLEASE ORDER ISAIAS ENSURE SHAKES BID W/MEALS 3. ORDER ISAIAS MAGIC CUP DAILY W/DINNER MEAL 4. APPRECIATE FAMILY AND STAFF TO ENCOURAGE ADEQUATE KCAL AND PROTEIN INTAKE RD WILL F/U PER PROTOCOL PT IS MILD/MODERATELY COMPROMISED Respectfully, REEMA RUANO MS, RD, LD [facility] cc: client file
--- NOTE | ~2016-12-30 | CO ---
Unit #: [id number] #: [id number] Patient: CHRISTEL SILVA [id number] [address] [place], [place] [address] [id number] I MR#: [id number] NAME: CHRISTEL SILVA ROOM: 321 Age: 71 Sex: F Admission Date: 12/30/2016 : 1945 Attending Physician: Calos Barkley M.D. Primary Care Physician: Calos Barkley M.D. Consultation Date: 01/31/2017 CONSULTATION REPORT REASON FOR CONSULTATION Followup. DISCUSSION Ms. Christel Silva is a 71-year-old white female, seen in room 321, bed 1 on 01/31/2017. The patient dressed in hospital attire, lying comfortably in bed. The patient reports that she will be leaving rehab soon. The patient reported that she has been here for long time feeling somewhat sad, dysphoric, anxious. Denied any thoughts of harming self or others or any psychotic symptom. Vital signs; temperature 98.0, pulse 86, respiratory rate 18, blood pressure 133/66, and oxygen saturation 96%. REVIEW OF SYSTEMS Complete review of systems unremarkable. MENTAL STATUS EXAMINATION General appearance; the patient is moderately obese, dressed casually. Attention span and concentration, fair. Speech, regular rate and coherent. Oriented in time, place, and person. Mood and affect, sad and dysphoric, but able to smile. Thought process, coherent. Thought content, the patient denied any thoughts of harming self or others. Recent and remote memory, fair. Language, intact. Fund of knowledge, fair. Insight and judgment, fair to slightly impaired. DIAGNOSIS Major depressive disorder, recurrent, severe, F33.2. ASSESSMENT/PLAN 1. Supportive psychotherapy and psychoeducation provided to the patient. 2. Educated about benefits and side effects of medication and course and prognosis of illness. 3. Advised to continue with current medication. If needed, consider further adjustment of medication. Please feel free to call if any questions. Dictated by... Tal De Oliveira M.D. ETIENNE/rory TD: 01/31/2017 22:51 JOB #: [id number] Unit #: [id number] #: [id number] Patient: CHRISTEL SILVA CONSULTATION REPORT Page 1 of 1 X Tal De Oliveira MD CONSULTATION REPORT
--- NOTE | ~2016-12-30 | CO ---
Unit #: [id number] #: [id number] Patient: CHRISTEL SARABIA [id number] [facility] [address] [facility]. [place], [place] [address] [id number] I MR#: [id number] NAME: CHRISTEL SARABIA ROOM: 321 Age: 71 Sex: F Admission Date: 12/30/2016 : 1945 Attending Physician: Calos Barkley M.D. Primary Care Physician: Calos Barkley M.D. Consultation Date: 01/26/2017 CONSULTATION REPORT DISCUSSION Ms. Christel Sarabia is a 71-year-old female seen on 01/26/17. Patient seen in room 321, bed 1 at [facility]. Patient lying comfortably in bed, made good eye contact. Dressed casually. Patient reported that depression is better. Decrease in anxiety. Denied any thoughts of harming self or others. Denied any psychotic symptoms but somewhat sad, mad, angry, upset about being in the hospital and missed one test because she ate and was supposed to be NPO. The patient's vital signs - 98.4; 83; 20; 140/72; oxygen saturation 98%. Patient denied any psychotic symptoms or any suicidal or homicidal ideation. REVIEW OF SYSTEMS A complete review of systems is unremarkable. MENTAL STATUS EXAMINATION Vital signs - Please see above. General appearance - Patient dressed casually, dressed in hospital attire, lying comfortably in bed. Attention span, concentration - Fair. Speech - Regular rate, coherent. Oriented to time, place and person. Mood and affect - Sad, depressed but able to smile. Thought process - Coherent. Thought content - Patient denied any thoughts of harming self or others or any psychotic symptoms. Recent and remote memory - Fair. Language - Intact. Fund of knowledge - Fair. Insight and judgment - Fair to slightly impaired. DIAGNOSIS PSYCHIATRIC: Major depressive disorder, recurrent, severe, F33.2. ASSESSMENT AND PLAN 1. Supportive psychotherapy and psychoeducation provided to the patient. 2. Educated about benefits and side effects of medication and course and prognosis of illness. 3. Continue with the current medication. If needed, consider further adjustment in medication. We will continue to follow. Please feel free to call with any questions, telephone number . Dictated by... Phil Mcdonald/mary Unit #: [id number] #: [id number] Patient: CHRISTEL SARABIA TD: 01/27/2017 07:51 JOB #: [id number] CONSULTATION REPORT Page 1 of 1 X Tal De Oliveira MD X CONSULTATION REPORT
--- NOTE | ~2016-12-30 | CT4 ---
[facility] A Service of [facility] & [facility] RADIOLOGY TEXT RESULTS PATIENT: CHRISTEL SILVA LOCATION: C3A - : [birth year] UNIT #: [id number] AGE: [address]: Calos Barkley MD SEX: F ORDER DR: [id number] [facility] [address] [place], [place] [address] [id number] I MR#: [id number] Acc #: [id number] NAME: CHRISTEL SILVA : 1945 SEX: F STUDY DATE/TIME: 12/30/2016 16:30 UNIT: C3A PCU ROOM: 321 STUDY DESCRIPTION: CT Abd and Pelv Wo Cont Attending Physician: Calos Barkley M.D. Ordering Physician: Toñito Coleman M.D. Primary Care Physician: Calos Barkley M.D. MEDICAL IMAGING REPORT This report is preliminary unless electronic signature is present EXAM CT of abdomen and pelvis without contrast HISTORY Right lower quadrant pain for a month. Low hemoglobin. TECHNIQUE This CT exam was performed with one or more of the following radiation dose reduction techniques: automatic control, adjustment of mA and/or kV according to patient size, and iterative reconstruction. FINDINGS Axial 3 mm images were obtained through the abdomen and pelvis without IV or oral contrast. The patient has bibasilar atelectasis with patchy small infiltrates in both lower lobes. There is a small right effusion. The liver, gallbladder, spleen, pancreas, adrenal glands and kidneys are normal except for some cortical atrophy in the kidneys. There is some oral contrast present. The aorta is normal in size and there is no adenopathy. The bowel is normal. The bladder is collapsed around a Owens catheter. The uterus and adnexal regions are normal. There is a suggestion of a decubitus skin ulcer just to the left of the distal sacrum extending about a cm in depth. There is slight haziness of the soft tissues anterior to the sacrum of uncertain etiology. There are no old studies. This haziness in front of the sacrum is fairly close to the ulcer so it could represent evidence of deeper infection. The bones are unremarkable. IMPRESSION 1. There is no evidence of intraperitoneal or retroperitoneal bleeding. No cause for the decreased hemoglobin is identified. 2. Dense bilateral atelectasis and there is probably some patchy pneumonia in the lower lobes as well with a small right effusion. 3. Just to the left of the distal sacrum there appears to be a decubitus STS. [facility] A Service of [facility] RADIOLOGY TEXT RESULTS PATIENT: CHRISTEL SILVA LOCATION: C3A 321-01 : [birth year] UNIT #: [id number] AGE: [address]: Calos Barkley MD SEX: F ORDER DR: ulcer forming that is at least a cm deep. 4. There is slight of thickening in the soft tissues anterior to the sacrum in this same region which is nonspecific. If the patient has ever had radiation therapy in this area before that could cause this appearance but she does not seem to have had any kind of pelvic surgery so that seems unlikely. It is also possible that the decubitus ulcer is related to this abnormality with infection starting in the presacral tissues. Clinical correlation and follow-up is recommended. Dictated by... Jeff Suarez M.D. THIS IS AN ELECTRONICALLY VERIFIED REPORT Jeff Suarez M.D. at 12/31/2016 2:00 PM JANNA/ioana TD: 12/30/2016 23:46 JOB #: [id number] MEDICAL IMAGING REPORT Page 1 of 1 COPY
--- NOTE | ~2016-12-30 | FU ---
[facility] Nutrition Therapy DATE: 01/11/17 Patient: CHRISTEL SILVA Physician: ALBERTO Address: [address] [place] [address] Room/Bed: [address] [place] [address], Zip: [place] [address] Admit Date: 12/30/16 Date of : [birth year] Height: 5 4.5 Weight: 202 92 NUTRITION MONITORING/FOLLOW-UP: Reason: Follow up Anthropometrics: Wt 01/09: 91.7 kg Labs: Na+ 132 BUN 49 Creat 4.5 Alb 1.3 Phos 6.4 Accuchecks 90-156 GFR 9.3 Meds: Sodium bicarbonate, Phoslo, coumadin, miralax, folic acid, vitamin B12, therapeutic formula, lopressor, ferrous gluconate, zofran, pepcid, senokot Last BM: 01/08 Skin: reviewed, no changes noted. Edema: 2+ LUE/ LLE/ RUE/ RLE Diet: 6 small + Magic cup once daily + Ensure BID Assessment: RD spoke with the pt and her friend at bedside. Pt was drowsy, in and out of sleep. Pt's friend reports that the pt's intake has been fair, and that she ate her "best" meal since admission last night when her brought her steak (consumed 50%) and potatoes (consumed 100%). Pt reports that she has been drinking Ensure supplements "on and off". Pt prefers chocolate flavor. RD encouraged adequate energy intake. Acute renal failure noted in chart, MD noting that the pt may require HD at some point. Phos is elevated. Pt is not appropriate for education at this time due to drowsiness/ lethargy. Please see recommendations below. Dx: Inadequate protein-energy intake RT early satiety AEB report above- ACTIVE Intervention: 1. 6 small meals 2. Add phos restriction if the pt's phos does not resolve 3. Continue supplements Monitoring, Evaluation and Goals: 1. Oral intake; consume >50% of meals and supplements- IN PROGRESS 2. Labs; WNL- NOT MET 3. GI; promote regular GI function- IN PROGRESS 4. Skin; PROMOTE HEALING- IN PROGRESS Recommendations: [facility] Nutrition Therapy DATE: 01/11/17 Patient: CHRISTEL SILVA Physician: ALBERTO Address: [address] [place] [address] Room/Bed: [address] [place] [address], Zip: [place] [address] Admit Date: 12/30/16 Date of : [birth year] Height: 5 4.5 Weight: 202 92 1. Continue current diet as tolerated, adding a low sodium/ low phos restriction as needed for renal issues. RD will follow up to educate the pt as appropriate. 2. If the pt requires HD, please order Nepro shakes instead of Ensure + Magic Cup. 3. Appreciate staff and family encouraging adequate nutritional intake as needed. 4., Continue MVI with minerals for wound healing support. Status: Pt is at mild-moderate nutritional risk. Respectfully, MEGAN COULTER RD, LD Food and Nutritional Services [facility] cc: client file
--- NOTE | ~2016-12-30 | CO ---
Unit #: [id number] #: [id number] Patient: CHRISTEL SILVA [id number] [address] [address] [id number] I MR#: [id number] NAME: CHRISTEL SILVA ROOM: [facility] Age: 71 Sex: F Admission Date: 12/30/2016 : 1945 Attending Physician: Calos Barkley M.D. Primary Care Physician: Calos Barkley M.D. Consultation Date: 01/27/2017 CONSULTATION REPORT ADDENDUM DIAGNOSES Major depressive disorder, recurrent, severe, F33.2. Secondary diagnosis: Deferred. ASSESSMENT/PLAN 1. Supportive psychotherapy, psychoeducation provided to the patient. 2. Educated about benefits and side effects of medication and course and prognosis of illness. 3. Advised to continue with current medication. If needed, consider further adjustment of medication. We will continue to follow. Please feel free to call with any questions. Telephone number [phone]. Dictated by... Phil Mcdonald/brad TD: 01/29/2017 09:50 JOB #: [id number] CONSULTATION REPORT Page 1 of 1 X Tal De Oliveira MD X CONSULTATION REPORT
--- NOTE | ~2016-12-30 | CR63 ---
[facility] A Service of [facility] & [facility] RADIOLOGY TEXT RESULTS PATIENT: CHRISTEL SILVA LOCATION: [facility] - : [birth year] UNIT #: [id number] AGE: [address]: Calos Barkley MD SEX: F ORDER DR: [id number] [facility] [address] [facility]. [place], [place] [address] [id number] I MR#: [id number] Acc #: [id number] NAME: CHRISTEL SILVA : 1945 SEX: F STUDY DATE/TIME: 01/03/2017 8:28 UNIT: [address] ROOM: [facility] STUDY DESCRIPTION: CR Chest 2 View Attending Physician: Calos Barkley M.D. Ordering Physician: Calos Barkley M.D. Primary Care Physician: Calos Barkley M.D. MEDICAL IMAGING REPORT This report is preliminary unless electronic signature is present EXAM PA and lateral chest. INDICATION Shortness of breath since December 30. COMPARISON STUDIES Compared with 12/30/2016 FINDINGS There is decreased atelectasis in the right base. There is increased atelectasis in the left base. Heart size stable. Stable PICC line. Probable small bilateral pleural effusions. IMPRESSION Probable small bilateral pleural effusions. Increased atelectasis left base. Decreased atelectasis right base. Dictated by... Isaac Junior M.D. THIS IS AN ELECTRONICALLY VERIFIED REPORT Isaac Junior M.D. at 01/04/2017 5:12 PM IMANI/ernesto TD: 01/03/2017 09:49 JOB #: [id number] MEDICAL IMAGING REPORT Page 1 of 1 COPY
--- NOTE | ~2016-12-30 | CR71 ---
[facility] A Service of [facility] & [facility] RADIOLOGY TEXT RESULTS PATIENT: CHRISTEL SILVA LOCATION: [facility] 321- : [birth year] UNIT #: [id number] AGE: [address]: Calos Barkley MD SEX: F ORDER DR: [id number] [facility] [address] [facility]. [place], [place] [address] [id number] I MR#: [id number] Acc #: [id number] NAME: CHRISTEL SILVA : 1945 SEX: F STUDY DATE/TIME: 12/30/2016 22:30 UNIT: [facility] PCU ROOM: 321 STUDY DESCRIPTION: CR Chest Single View Attending Physician: Calos Barkley M.D. Ordering Physician: Calos Barkley M.D. Primary Care Physician: Calos Barkley M.D. MEDICAL IMAGING REPORT This report is preliminary unless electronic signature is present EXAM Portable chest. HISTORY Verify line placement. COMPARISON 12/10/2016 FINDINGS AP portable view of the chest demonstrates interval placement of a right upper extremity PICC line terminating mid-SVC. Patchy parenchymal opacity seen in the right lower lung may represent a right lower lobe, possibly right middle lobe, infiltrate. No effusions. Small amount of left basilar atelectasis or scarring. Heart and mediastinum unremarkable. No pneumothorax. Dictated by... Becky Junior M.D. THIS IS AN ELECTRONICALLY VERIFIED REPORT Becky Junior M.D. at 12/31/2016 10:06 PM Hemalatha TD: 12/31/2016 10:35 JOB #: [id number] MEDICAL IMAGING REPORT Page 1 of 1 COPY
--- NOTE | ~2016-12-30 | HP ---
Unit #: [id number] #: [id number] Patient: CHRISTEL SILVA [id number] [facility] [address] [facility]. [place], [place] [address] [id number] I MR#: [id number] NAME: CHRISTEL SILVA ROOM: 321 Age: 71 Sex: F Admission Date: 12/30/2016 : 1945 Attending Physician: Calos Barkley M.D. Primary Care Physician: Calos Barkley M.D. HISTORY AND PHYSICAL HISTORY OF PRESENT ILLNESS The patient is a 71-year-old white female with endstage chronic obstructive pulmonary disease, paroxysmal atrial fibrillation, nonsustained V tac, multiple CVAs, chronic kidney disease stage 3, chronic anemia, hyperlipidemia, right-sided heart failure, recently here at [facility] for a prolonged stay, at which time she was made a DNR. She was here 11/14/2016 to 11/30/2016 and was then discharged to [facility], where they were unable to get her to any kind of shape where she could go home. She was then transferred to a intermediate for the past few days, where apparently she was sent by the attending physician for "abnormal labs and a change in mental status." In the emergency room she was found to have a leukocytosis, which is not new and worsening anemia. She had black stools, but they were hemoccult negative. She is on iron, B12 and folic acid at the intermediate, so obviously the anemia is not new but worse. She is readmitted. She obviously has what looks to be a urinary tract infection, although she has an indwelling Owens. She had some abdominal pain and CT scan of the pelvis felt to show any significant findings other than a decubitus ulcer, which was already known, as well as bibasilar infiltrates, although the patient has on significant cough and her O2 saturations are fairly good for her on her current 2 liters at 96%. PAST MEDICAL HISTORY 1. Endstage chronic obstructive pulmonary disease. 2. Chronic anemia. 3. Chronic kidney disease stage 3. 4. Multiple CVAs. 5. Hypertension. 6. Hyperlipidemia. 7. Chronic indwelling Owens. 8. Immobilization syndrome. 9. Atrial fibrillation. 10. Chronic anticoagulation therapy. 11. Nonsustained V tac. 12. Right-sided congestive heart failure. PAST SURGICAL HISTORY Appendectomy. SOCIAL HISTORY Prior smoker. . Not employed. Occasional alcohol use. No illicit drug use. FAMILY HISTORY Unit #: [id number] #: [id number] Patient: CHRISTEL SILVA Coronary artery disease, peripheral arterial disease, CVAs, hypertension, hyperlipidemia. ALLERGIES The patient has no known medical allergies. PREADMISSION MEDICATIONS 1. Cardizem 240 mg daily. 2. Singulair 10 mg daily. 3. Aspirin 81 mg daily. 4. Multivitamins 1 daily. 5. Zantac 150 mg daily. 6. B12 1000 mcg daily. 7. Folic acid 1 mg daily. 8. Potassium 40 mEq daily. 9. Effexor XR 37.5 mg daily. 10. Digoxin 125 mcg daily. 11. Duo-Nebs q.i.d. 12. Ferrous gluconate 324 mg t.i.d. 13. Senokot S 1 p.o. b.i.d. 14. Metoprolol succinate ER 25 mg 1 b.i.d. 15. Furosemide 40 mg 1 b.i.d. 16. Perforomist 20 mcg b.i.d. 17. Pulmicort 0.5 mg b.i.d. 18. Atorvastatin 40 mg daily. 19. Coumadin 2 mg daily. 20. O2 at 2 liters nasal cannula continuously. 21. Milk of Magnesia p.r.n. 22. Zofran p.r.n. 23. MiraLAX p.r.n. 24. Trazodone 50 mg p.r.n. 25. Tylenol p.r.n. 26. Tramadol p.r.n. 27. Billingsley p.r.n. PHYSICAL EXAMINATION GENERAL: She is awake, alert, confused about the date, place and recent events. VITALS: Afebrile, pulse 93, respiratory rate 16, blood pressure 143/58, O2 saturations 100% on 2 liters. HEENT: Unremarkable except for pale mucous membranes. NECK: Supple without jugular venous distension, bruit, adenopathy or thyromegaly. CHEST: Diffusely decreased breath sounds, but clear to auscultation. HEART: Irregularly irregular without an S3, gallop or murmur appreciated. ABDOMEN: Large, soft, nondistended, nontender with positive bowel sounds. No hepatosplenomegaly. EXTREMITIES: Trace bilateral lower extremity edema. /RECTAL: Deferred. NEUROLOGIC: No focal deficits, but the patient is obviously confused and somewhat disoriented. DIAGNOSTIC STUDIES IMAGING: CT scan of the abdomen shows bilateral lower lobe infiltrates and decubitus ulcer. No EKG or CT scan of the head was performed. Monitor shows atrial fibrillation with a controlled ventricular response. LABORATORY: PTT 42.2, PT/INR 1.9, white blood cell count 20.4, down to 17 Unit #: [id number] #: [id number] Patient: CHRISTEL SILVA this morning, hemoglobin 8.1 and 6.8 this morning, platelets 455,000. Potassium 3.0, AST 55, ALT 60, alkaline phosphatase 185, albumin 1.7. Urinalysis drawn from the Owens shows 3+ leukocytes, 10-25 RBCs, 200-300 WBCs, 3+ bacteria. Digoxin level 0.4. ASSESSMENT 1. Anemia. 2. Endstage chronic obstructive pulmonary disease. 3. Hypokalemia. 4. Elevated liver function test. 5. Chronic atrial fibrillation. 6. Anticoagulated with slightly subtherapeutic pro time. 7. Bilateral lower lobe infiltrates. 8. Multiple old CVAs. 9. Delirium. 10. Status post appendectomy. 11. Right-sided congestive heart failure. 12. Decubitus ulcer. 13. Nonsustained V tac. 14. Chronic kidney disease stage 3, with current normal GFR. PLAN Type, cross match, transfuse to keep hemoglobin above 8. Replace potassium. Check procalcitonin. CT scan of the head. Reinstitute DNR. Stool for occult blood. Hold Lipitor and aspirin. Further evaluation pending results of the above. Dictated by Phil Burleson/brad TD: 12/31/2016 08:55 JOB #: [id number] HISTORY AND PHYSICAL Page 1 of 1 X Calos Barkley MD HISTORY AND PHYSICAL
--- NOTE | ~2016-12-30 | CO ---
Unit #: [id number] #: [id number] Patient: CHRISTEL SARABIA [id number] [facility] [address] [facility]. [place], [place] [address] [id number] I MR#: [id number] NAME: CHRISTEL SARABIA ROOM: 321 Age: 71 Sex: F Admission Date: 12/30/2016 : 1945 Attending Physician: Calos Barkley M.D. Primary Care Physician: Calos Barkley M.D. Consultation Date: 01/24/2017 CONSULTATION REPORT REASON FOR CONSULTATION Followup. DISCUSSION Ms. Christel Sarabia is a 71-year-old, white female seen in room 321, bed 1 on 01/24/17 at [facility]. Patient pleasant and cooperative. During interview, patient reported she is feeling better. Patient tolerating medication fairly well. Patient was happy to report that she may not need dialysis anymore and the port can be removed. Patient denied any suicidal or homicidal ideation. Denied any psychotic symptoms. Reports medication is helping her. Eating good. Sleeping good. Patient's vital signs: 98.2, 73, 18, 147/66, and oxygen saturation 100%. REVIEW OF SYSTEMS Complete review of systems unremarkable. MENTAL STATUS EXAMINATION GENERAL APPEARANCE: Patient dressed casually in hospital attire. Lying comfortably in bed. ATTENTION SPAN AND CONCENTRATION: Fair. SPEECH: Regular rate and coherent. ORIENTATION: Oriented in time, place, and person. MOOD AND AFFECT: Sad, dysphoric, and anxious; but able to smile. THOUGHT PROCESS: Coherent. THOUGHT CONTENT: Patient denied any thoughts of harming self or others. Denied any hallucinations. RECENT AND REMOTE MEMORY: Fair to poor. LANGUAGE: Intact. FUND OF KNOWLEDGE: Fair. INSIGHT AND JUDGEMENT: Fair to slightly impaired. DIAGNOSES PSYCHIATRIC: Major depressive disorder, recurrent, severe, F33.2. ASSESSMENT/PLAN 1. Supportive psychotherapy and psychoeducation provided to patient. 2. Educated about benefits and side effects of medication and course and prognosis of illness. 3. Please feel free to call if any questions. If needed, we will consider further adjustment of medications. Unit #: [id number] #: [id number] Patient: CHRISTEL SARABIA Dictated by... Phil Mcdonald TD: 01/25/2017 08:17 JOB #: [id number] CONSULTATION REPORT Page 1 of 1 X Tal De Oliveira MD CONSULTATION REPORT
--- NOTE | ~2016-12-30 | FU ---
[facility] Nutrition Therapy DATE: 01/16/17 Patient: CHRISTEL SILVA Physician: ALBERTO Address: [address] [place] [address] Room/Bed: [address] [place] [address], Zip: [place] [address] Admit Date: 12/30/16 Date of : [birth year] Height: 5 4.5 Weight: 202 92 NUTRITION MONITORING/FOLLOW-UP: Reason: Nutrition follow-up Admitting Dx: 71 y/o female admitted with AMS, UTI, low hemoglobin Anthropometrics: Ht: 64.5", admission wt: 186 lbs, current wt: 202 lbs, BMI: 31.4 (obese stage I; based on admission wt) Labs: glucose 67, POC 66-119 (01/15), BUN 27, Creat 2.7, GFR 17.3, Na/K WNL, Mg/Phos WNL on 01/15 Meds: PPI, Furosemide, Prednisone, Folic acid, Vit B12, Therapeutic Formula, Zofran, Fe gluconate GI: Last BM 01/15 (incontinent, diarrhea) Skin: Skin tears BLE, pressure ulcer coccyx (documented as Stage IV on 01/02/17), 1-2+ edema noted Estimated Nutrition Needs: Increased protein needs due to pressure ulcer and dialysis Assessment: Chart reviewed, events noted. Dialysis started on 01/11, generalized weakness noted, renal labs improving. She is on room air, is confused at times. RD observed lunch tray- 50% consumed. Says she is drinking Ensure "here and there" however it was not reordered when her diet was re-entered on 01/13 (regular/6 small meals). Says her meals are often interrupted by people coming into her room, so she is not really able to consume 6 small meals/day. Says her is good about encouraging her to eat. I encouraged snacks prn with adequate protein foods at all meals, educated on increased protein needs. Of note, Dr. De Oliveira saw on 01/13 due to depression and anxiety. Patient is requesting magic cups- will order. See nutrition goals, dx and recs as stated below. Dx: Inadequate protein energy intake r/t early satiety AEB patient report - ACTIVE New nutrition dx: Increased nutrient needs r/t wound healing requirements and metablic demand AEB Stage IV pressure ulcer, on dialysis. Intervention: Chocolate magic cup BID Monitoring, Evaluation and Goals: 1. PO intake > 50% of meals - IN PROGRESS (Current PO intake is ~50% of meals) [facility] Nutrition Therapy DATE: 01/16/17 Patient: CHRISTEL SILVA Physician: ALBERTO Address: [address] [place] [address] Room/Bed: [address] [place] [address], Zip: [place] [address] Admit Date: 12/30/16 Date of : [birth year] Height: 5 4.5 Weight: 202 92 2. Labs WNL - IN PROGRESS (renal labs improving, lytes WNL) 3. GI function WNL - NOT MET (incontinent, diarrhea) 4. Promote wound healing - IN PROGRESS (pressure ulcer coccyx, skin tears noted) Monitor: Per protocol, criteria to determine if above goals met Recommendations: 1. Continue regular/6 small meals diet, please order chocolate magic cup BID as requested in chart. Encourage oral intake, especially of protein-rich foods. 2. Continue vitamins. 3. Wound care prn. 4. Please consult or call RD with further nutritional needs @ [phone]. Status: Mild nutrition risk Respectfully, Elizabeth Luong, VICTOR M, LD [facility] cc: client file
--- NOTE | ~2016-12-30 | CT71 ---
[facility] A Service of [facility] RADIOLOGY TEXT RESULTS PATIENT: CHRISTEL SILVA LOCATION: [facility] : [birth year] UNIT #: [id number] AGE: [address]: Calos Barkley MD SEX: F ORDER DR: [id number] [place] [id number] [facility]. [place], [place] [address] [id number] I MR#: [id number] Acc #: [id number] NAME: CHRISTEL SILVA : 1945 SEX: F STUDY DATE/TIME: 12/31/2016 20:04 UNIT: A PCU ROOM: [facility] STUDY DESCRIPTION: CT Head Wo Contrast Attending Physician: Calos Barkley M.D. Ordering Physician: Calos Barkley M.D. Primary Care Physician: Calos Barkley M.D. MEDICAL IMAGING REPORT This report is preliminary unless electronic signature is present EXAM CT scan of the head without contrast. INDICATION New onset confusion beginning yesterday. COMPARISON 09/07/14 TECHNIQUE Unenhanced images were obtained of the brain. This CT exam was performed with one or more of the following radiation dose reduction techniques: automatic exposure control, adjustment of mA and/or kV according to patient size, and iterative reconstruction. FINDINGS There is mild generalized atrophy and there is extensive encephalomalacia involving the right frontal and parietal lobes. This is unchanged from the prior study. IMPRESSION 1. Old right frontal and parietal lobe infarcts. 2. Atrophy. 3. Otherwise normal. Dictated by... Jeff Suarez M.D. THIS IS AN ELECTRONICALLY VERIFIED REPORT Jeff Suarez M.D. at 01/02/2017 7:14 AM JANNA/[facility] A Service [facility] RADIOLOGY TEXT RESULTS PATIENT: CHRISTEL SILVA LOCATION: [facility] : [birth year] UNIT #: [id number] AGE: [address]: Calos Barkley MD SEX: F ORDER DR: TD: 12/31/2016 23:27 JOB #: [id number] MEDICAL IMAGING REPORT Page 1 of 1 COPY
--- NOTE | ~2016-12-30 | XA93 ---
[facility] A Service of [facility] RADIOLOGY TEXT RESULTS PATIENT: CHRISTEL SILVA LOCATION: [facility] - : [birth year] UNIT #: [id number] AGE: [address]: Calos Barkley MD SEX: F ORDER DR: [id number] [facility] [address] [facility]. [place], [place] [address] [id number] I MR#: [id number] Acc #: [id number] NAME: CHRISTEL SILVA : 1945 SEX: F STUDY DATE/TIME: 01/20/2017 8:49 UNIT: [facility] PCU ROOM: 321 STUDY DESCRIPTION: XA CVC Tunneled WO Pump/Port Attending Physician: Calos Barkley M.D. Ordering Physician: Trey Collier Jr., M.D. Primary Care Physician: Calos Barkley M.D. MEDICAL IMAGING REPORT This report is preliminary unless electronic signature is present EXAM Fluoroscopically-guided tunneled dialysis catheter placement. INDICATIONS Renal failure and a mean of dialysis. Fluoroscopy time 0.4 minutes. Reference air kerma was 3 mGy. Medications administered, IV Versed and Fentanyl for conscious sedation. Approximately 30 minutes sedation time was monitored by appropriately credentialed radiology nursing staff. Patient is on standing IV antibiotics within hospital. The risks, benefits, and alternatives of the procedure were discussed with the patient and informed consent was obtained. In the procedure room, a time out was performed confirming correct patient and procedure. All elements of maximum sterile-barrier technique utilized according to guidelines appropriate for the procedure. FINDINGS Patient had an existing temporary right IJ dialysis catheter. Next, using full standard sterile barrier technique and sterile caps, gowns, gloves, mass, drapes, 2% Chlorhexidine for percutaneous antisepsis and hand hygiene, the skin overlying the right chest and the existing catheter were all prepped and draped in the usual sterile fashion. Guidewire was advanced through the catheter and catheter was removed. The guidewire was left in place. Next, a small incision was made below the right clavicle. The tunneled dialysis catheter was tunneled underneath the skin through the jugular dermatotome site. Next, a peel-away sheath was advanced over the guidewire. The catheter was advanced through the sheath and the sheath was pulled away. Spot image was taken for a satisfactory position with the tip of the catheter located at the cavoatrial junction. The catheter was flushed with heparin and a spot image was taken. The [facility] A Service of [facility] RADIOLOGY TEXT RESULTS PATIENT: CHRISTEL SILVA LOCATION: [facility] 321-01 : [birth year] UNIT #: [id number] AGE: [address]: Calos Barkley MD SEX: F ORDER DR: catheter was sutured in place and the jugular dermatotome site was closed using 4-0 Monocryl and Dermabond. The patient tolerated procedure well without immediate complications. IMPRESSION Technically successful fluoroscopically-guided placement of a tunneled dialysis catheter as described, via a conversion of a temporary dialysis catheter to a tunneled dialysis catheter. Dictated by... Isaac Junior M.D. THIS IS AN ELECTRONICALLY VERIFIED REPORT Isaac Junior M.D. at 01/21/2017 9:50 AM IMANI/ursula TD: 01/20/2017 21:14 JOB #: [id number] MEDICAL IMAGING REPORT Page 1 of 1 COPY
--- NOTE | ~2016-12-30 | CO ---
Unit #: [id number] #: [id number] Patient: CHRISTEL SILVA [id number] [address] [address] [id number] I MR#: [id number] NAME: CHRISTEL SILVA ROOM: 321 Age: 71 Sex: F Admission Date: 12/30/2016 : 1945 Attending Physician: Calos Barkley M.D. Primary Care Physician: Calos Barkley M.D. Consultation Date: 01/20/2017 CONSULTATION REPORT REASON FOR CONSULTATION Followup. DISCUSSION Ms. Manzanares is a 71-year-old white female, seen in room 321, bed 1 on 01/20/2017. The patient seemed somewhat anxious, nervous, sad, and depressed, but denied any thoughts of harming self or others. Denied any psychotic symptom. The patient reports medication is helping her. Looking forward to be discharged soon. The patient reports feeling better after dialysis yesterday. Vital signs; temperature 98.1, pulse 86, respirations 16, blood pressure 139/79, oxygen saturation 96%. MENTAL STATUS EXAMINATION General appearance; the patient dressed casually in hospital attire, lying comfortably in bed, made good eye contact, pleasant and cooperative. Attention span and concentration fair. Speech; regular rate and coherent. Oriented in time, place, and person. Mood and affect; sad and dysphoric, but able to smile. Thought process, coherent. Thought content; the patient denied any thoughts of harming self or others. Denied any hallucination. Recent and remote memory, fair. Language, intact. Fund of knowledge, fair. Insight and judgment, fair to slightly impaired. DIAGNOSIS Psychiatric: Major depressive disorder, recurrent, severe, F33.2. ASSESSMENT AND PLAN 1. Supportive psychotherapy and psychoeducation provided to the patient. 2. Educated about benefits and side effects of medication and course and prognosis of illness. 3. Advised to continue with current medication. If needed, consider further adjustment of medication. Please feel free to call if any questions, telephone #[phone]. Dictated by... Tal De Oliveira M.D. ETIENNE/rory TD: 01/21/2017 14:12 JOB #: [id number] Unit #: [id number] #: [id number] Patient: CHRISTEL SILVA CONSULTATION REPORT Page 1 of 1 X Tal De Oliveira MD CONSULTATION REPORT
--- NOTE | ~2016-12-30 | CO ---
Unit #: [id number] #: [id number] Patient: CHRISTEL SILVA [id number] [facility] [address] [facility]. [place], [place] [address] [id number] I MR#: [id number] NAME: CHRISTEL SILVA ROOM: 321 Age: 71 Sex: F Admission Date: 12/30/2016 : 1945 Attending Physician: Calos Barkley M.D. Primary Care Physician: Calos Barkley M.D. Consultation Date: 01/18/2017 CONSULTATION REPORT REASON FOR CONSULTATION Followup. DISCUSSION Ms. Christel Driver is a 71-year-old white female, seen in room 321, bed 1 on 01/18/2017 at [facility]. The patient reports medication is helping her, making progress, able to participate in therapy. The patient currently on Effexor. Denied any suicidal or homicidal ideation. Denied any psychotic symptom. Sleeping good. The patient's vital signs; temperature 98.8, pulse 83, respiratory rate 20, blood pressure 136/59, oxygen saturation 98%. bed worker is currently looking for placement such as [place]. REVIEW OF SYSTEMS Complete review of systems unremarkable. MENTAL STATUS EXAMINATION General appearance, the patient dressed casually, moderately obese, dressed in hospital attire. Attention span and concentration, fair. Speech, regular rate and coherent. Oriented in time, place, and person. Mood and affect, sad and dysphoric, but able to smile. Thought process, coherent. Thought content, the patient denied any thoughts of harming self or others. Recent and remote memory, fair. Language, intact. Fund of knowledge, fair. Insight and judgment, fair to slightly impaired. DIAGNOSES Psychiatric: Major depressive disorder, recurrent, moderate to severe, F33.2. Secondary diagnosis: Deferred. Medical diagnosis: Please refer to H and P. ASSESSMENT/PLAN 1. Supportive psychotherapy and psychoeducation provided to the patient. 2. Educated about benefits and side effects of medication and course and prognosis of illness. 3. Advised to continue with current medication. If needed, consider further adjustment of medication. We will continue to follow. Please feel free to call if any questions, telephone #[phone]. Dictated by... Tal De Oliveira M.D. Unit #: [id number] #: [id number] Patient: CHRISTEL SILVA ETIENNE/rory TD: 01/18/2017 22:16 JOB #: [id number] CONSULTATION REPORT Page 1 of 1 X Tal De Oliveira MD CONSULTATION REPORT
--- NOTE | ~2016-12-30 | CO ---
Unit #: [id number] #: [id number] Patient: CHRISTEL SILVA [id number] [address] [place], [place] [address] [id number] I MR#: [id number] NAME: CHRISTEL SILVA ROOM: 321 Age: 71 Sex: F Admission Date: 12/30/2016 : 1945 Attending Physician: Calos Barkley M.D. Primary Care Physician: Calos Barkley M.D. Consultation Date: 01/19/2017 CONSULTATION REPORT DISCUSSION Ms. Christel Mckee is a 71-year-old female, seen in room 325, bed 1 on 01/19/2017. The patient was pleasant and cooperative during interview, lying comfortably in bed, able to answer questions appropriately. The patient was scheduled to get her dialysis today. Vital signs; temperature 98.6, pulse 100, respirations 18, blood pressure 123/46, and oxygen saturation 92%. The patient reports medication is helping her. Sleeping good. Still having depression and anxiety, but denied any suicidal or homicidal ideation. Denied any psychotic symptom. REVIEW OF SYSTEMS Complete review of systems unremarkable. MENTAL STATUS EXAMINATION Vital signs, please see above. General appearance; the patient dressed in hospital attire, lying comfortably in bed. The patient's was at the bedside. Cooperative. Attention span and concentration, fair. Speech, regular rate. Oriented in time, place, and person. Mood and affect; sad, dysphoric, flat. Thought process, coherent. Thought content, the patient denied any thoughts of harming self or others. Recent and remote memory, fair. Language, intact. Fund of knowledge, fair. Insight and judgment, fair to slightly impaired. DIAGNOSIS Major depressive disorder, recurrent, severe, F33.2. ASSESSMENT/PLAN 1. Supportive psychotherapy and psychoeducation provided to the patient. 2. Educated about benefits and side effects of medication and course and prognosis of illness. If needed, consider further adjustment of medication. Please feel free to call if any questions, telephone #[phone]. Dictated by... Tal De Oliveira M.D. ETIENNE/rory TD: 01/20/2017 00:46 JOB #: [id number] Unit #: [id number] #: [id number] Patient: CHRISTEL SILVA CONSULTATION REPORT Page 1 of 1 X Tal De Oliveira MD CONSULTATION REPORT
--- NOTE | ~2016-12-30 | US77 ---
[facility] A Service of [facility] RADIOLOGY TEXT RESULTS PATIENT: CHRISTEL SILVA LOCATION: [facility] - : [birth year] UNIT #: [id number] AGE: [address]: Calos Barkley MD SEX: F ORDER DR: [id number] [facility] [address] [facility]. [place], [place] [address] [id number] I MR#: [id number] Acc #: [id number] NAME: CHRISTEL SILVA : 1945 SEX: F STUDY DATE/TIME: 01/06/2017 14:41 UNIT: [facility] PCU ROOM: [facility] STUDY DESCRIPTION: US Kidney Bilateral Complete Attending Physician: Calos Barkley M.D. Ordering Physician: Nellie Charles M.D. Primary Care Physician: Calos Barkley M.D. MEDICAL IMAGING REPORT This report is preliminary unless electronic signature is present EXAM Bilateral renal ultrasound. HISTORY Acute renal insufficiency. Elevated creatinine and decreased GFR. FINDINGS Ultrasound examination of both kidneys demonstrates moderate generalized bilateral renal parenchymal atrophy and multifocal scarring in both kidneys. 2.4 cm cyst in the lower pole of the right kidney and approximately 1 cm cyst in the upper pole right kidney. No left renal mass. No hydronephrosis or perinephric stranding. The urinary bladder was not visualized as the bladder is decompressed by a Owens catheter. IMPRESSION 1. No hydronephrosis. 2. Bilateral renal parenchymal atrophy, moderate to moderately severe multifocal parenchymal scarring throughout both kidneys. 3. Incidental right renal cyst. 4. The urinary bladder was not visualized as the bladder is decompressed by a Owens catheter. Dictated by... Ben Toribio M.D. THIS IS AN ELECTRONICALLY VERIFIED REPORT Ben Toribio M.D. at 01/06/2017 11:34 PM KERRY/vanesa TD: 01/06/2017 23:21 [facility] A Service of [facility] RADIOLOGY TEXT RESULTS PATIENT: CHRISTEL SILVA LOCATION: [facility] 321-01 : [birth year] UNIT #: [id number] AGE: [address]: Calos Barkley MD SEX: F ORDER DR: JOB #: [id number] MEDICAL IMAGING REPORT Page 1 of 1 COPY
--- NOTE | ~2016-12-30 | CO ---
Unit #: [id number] #: [id number] Patient: CHRISTEL SILVA [id number] [address] [place], [place] [address] [id number] I MR#: [id number] NAME: CHRISTEL SILVA ROOM: 321 Age: 71 Sex: F Admission Date: 12/30/2016 : 1945 Attending Physician: Calos Barkley M.D. Primary Care Physician: Calos Barkley M.D. Consultation Date: 01/20/2017 CONSULTATION REPORT HISTORY OF PRESENT ILLNESS The patient is a 71-year-old with multiple medical problems including COPD, chronic kidney disease, anemia, hyperlipidemia, heart failure, has had multiple CVAs, who I am asked to evaluate for chronic decubitus ulcer. This has been treated with wet-to-dry dressings. PAST MEDICAL HISTORY As mentioned. PAST SURGICAL HISTORY She has had appendectomy. SOCIAL HISTORY No longer smokes. No alcohol. FAMILY HISTORY Negative for GI malignancy. REVIEW OF SYSTEMS No cardiopulmonary complaints at this time. Else, 10 systems reviewed and negative. MEDICATIONS Singulair, aspirin, Zantac, B12, potassium, digoxin, metoprolol, Lasix, Pulmicort, Coumadin, Zofran, MiraLAX, trazodone, and tramadol. PHYSICAL EXAMINATION GENERAL: She is awake, alert, appears somewhat cachectic. VITAL SIGNS: Currently afebrile. HEENT: Unremarkable. NECK: Supple. No JVD. Trachea midline. LUNGS: Clear to auscultation. Bilateral breath sounds symmetric. CARDIOVASCULAR: Regular rate and rhythm. ABDOMEN: Soft, nontender, and nondistended. I palpate no masses. No hepatosplenomegaly. EXTREMITIES: No clubbing, cyanosis, or edema. PERITONEUM: Shows a 3.5 cm decubitus ulcer on the coccyx. There is some necrotic debris on the periosteum, but no overt necrosis. No undermining. No purulence. ASSESSMENT AND PLAN We will plan for continued local wound care. We did not plan for operative debridement at this time. Unit #: [id number] #: [id number] Patient: CHRISTEL SILVA Dictated by... Baudilio Ordonez M.D. SANFORD/rory TD: 01/20/2017 07:07 JOB #: [id number] CONSULTATION REPORT Page 1 of 1 X Baudilio Ordonez MD CONSULTATION REPORT
--- NOTE | ~2016-12-30 | CO ---
Unit #: [id number] #: [id number] Patient: CHRISTEL SILVA [id number] [address] [place], [place] [address] [id number] I MR#: [id number] NAME: CHRISTEL SILVA ROOM: 321 Age: 71 Sex: F Admission Date: 12/30/2016 : 1945 Attending Physician: Calos Barkley M.D. Primary Care Physician: Calos Barkley M.D. Consultation Date: 01/29/1970 CONSULTATION REPORT REASON FOR CONSULTATION Followup. DISCUSSION Ms. Christel Silva is a 71-year-old white female, seen in room 321, bed 1 on 01/29/2017. The patient reported that she has been in the hospital for almost 2 months and not getting physical therapy and worried about going home. The patient is anxious, nervous, sad, and dysphoric, but no agitation. The patient denied any psychotic symptom or any suicidal ideation. The patient is compliant with the treatment. The patient's vital signs; temperature 98.5, pulse 93, respirations 16, blood pressure 153/82, and oxygen saturation 96%. MENTAL STATUS EXAMINATION General appearance; the patient dressed casually, lying comfortably in bed. Attention span and concentration, fair. Speech; regular rate and somewhat rapid. Oriented in time, place, and person. Mood and affect; sad, dysphoric, somewhat irritable, mad, and angry. Thought process, coherent. Thought content; the patient denied any thoughts of harming self or others or any psychotic symptom. Recent and remote memory, fair. Language, intact. Fund of knowledge, fair. Insight and judgment, fair to slightly impaired. DIAGNOSIS Psychiatric: Major depressive disorder, recurrent, severe, F33.2. ASSESSMENT AND PLAN 1. Supportive psychotherapy and psychoeducation provided to the patient. 2. Educated about benefits and side effects of medication and course and prognosis of illness. 3. Advised to continue with current medication. If needed, consider further adjustment of medication. We will continue to follow. Please feel free to call if any questions, telephone #[phone]. Dictated by... Tal De Oliveira M.D. ETIENNE/rory TD: 01/30/2017 13:41 JOB #: [id number] Unit #: [id number] #: [id number] Patient: CHRISTEL SILVA CONSULTATION REPORT Page 1 of 1 X Tal De Oliveira MD CONSULTATION REPORT
--- NOTE | ~2016-12-30 | CO ---
Unit #: [id number] #: [id number] Patient: CHRISTEL SILVA [id number] [facility] [address]. [place], [place] [address] [id number] I MR#: [id number] NAME: CHRISTEL SILVA ROOM: 321 Age: 71 Sex: F Admission Date: 12/30/2016 : 1945 Attending Physician: Calos Barkely M.D. Primary Care Physician: Calos Barkley M.D. Consultation Date: 01/27/2017 CONSULTATION REPORT REASON FOR CONSULTATION Followup. DISCUSSION Ms. Christel Silva is a 71-year-old female seen in room 321, bed 1 on January 27, 2017 at [facility]. Patient is reporting her mood is getting better. Denied any thoughts of harming self or others. Decrease in anxiety, sleeping good. No side effects from medications. Patient's vital signs: 97.5, 90, 16, 159/72, oxygen saturation 97%. REVIEW OF SYSTEMS Complete review of systems unremarkable. MENTAL STATUS EXAMINATION General appearance: Patient moderately obese. Dressed casually. Lying comfortably in bed. Made good eye contact. Attention span and concentration fair. Speech: Regular rate, coherent. Oriented in time, place, and person. Mood and affect: Sad, dysphoric. Thought process coherent. Thought content: Patient denied any thoughts of harming self or others. Denied any suicidal or homicidal ideation or any psychotic symptoms. Recent and remote memory fair. Language intact. Fund of knowledge fair. Insight and judgment fair to slightly impaired. DIAGNOSIS PSYCHIATRIC: Major depressive disorder, recurrent, severe. ASSESSMENT AND PLAN 1. Supportive psychotherapy and psychoeducation provided to patient. 2. Educated about benefits and side effects of medication and course and prognosis of illness. If needed, consider further adjustment of medications. Please feel free to call if any questions, . Dictated by... Tal De Oliveira M.D. Anu TD: 01/29/2017 09:11 JOB #: [id number] Unit #: [id number] #: [id number] Patient: CHRISTEL SILVA CONSULTATION REPORT Page 1 of 1 X Tal De Oliveira MD X CONSULTATION REPORT
--- NOTE | ~2016-12-30 | CR72 ---
[facility] A Service of [facility] RADIOLOGY TEXT RESULTS PATIENT: CHRISTEL SILVA LOCATION: [facility] - : [birth year] UNIT #: [id number] AGE: [address]: Calos Barkley MD SEX: F ORDER DR: [id number] [facility] [address] [facility] [place] [facility]. [place], [place] [address] [id number] I MR#: [id number] Acc #: [id number] NAME: CHRISTEL SILVA : 1945 SEX: F STUDY DATE/TIME: 01/12/2017 8:46 UNIT: A U ROOM: [facility] STUDY DESCRIPTION: CR Chest Single View Portable Attending Physician: Calos Barkley M.D. Ordering Physician: Calos Barkley M.D. Primary Care Physician: Calos Barkley M.D. MEDICAL IMAGING REPORT This report is preliminary unless electronic signature is present EXAM Chest x-ray, 01/12/2017 HISTORY 71-year-old female referred for followup of pneumonia. Shortness of air and congestion. Symptoms began 12/30/2016. TECHNIQUE AP portable chest x-ray. FINDINGS Recently placed large caliber right IJ dialysis catheter is in good position in the low SVC, and there is no visible pneumothorax. Right arm PICC remains in good position. Small to moderate bilateral pleural effusions with bibasilar pulmonary atelectasis, unchanged since 01/03/2017. Mid and upper lungs are clear. Heart size and pulmonary vascularity remain normal. IMPRESSION 1. No pneumothorax following recent placement of right IJ central line. 2. Bilateral pleural effusions and bibasilar pulmonary atelectasis. Dictated by... Stanley Chaves M.D. THIS IS AN ELECTRONICALLY VERIFIED REPORT Stanley Chaves M.D. at 01/12/2017 11:14 AM Mary TD: 01/12/2017 09:10 JOB #: [id number] [facility] A Service of [facility] RADIOLOGY TEXT RESULTS PATIENT: CHRISTEL SILVA LOCATION: [facility] 321-01 : [birth year] UNIT #: [id number] AGE: [address]: Calos Barkley MD SEX: F ORDER DR: MEDICAL IMAGING REPORT Page 1 of 1 COPY
--- NOTE | ~2016-12-30 | CO ---
Unit #: [id number] #: [id number] Patient: CHRISTEL SILVA [id number] [place], [place] [address] [id number] I MR#: [id number] NAME: CHRISTEL SILVA ROOM: 321 Age: 71 Sex: F Admission Date: 12/30/2016 : 1945 Attending Physician: Calos Barkley M.D. Primary Care Physician: Calos Barkley M.D. Consultation Date: 01/22/2017 CONSULTATION REPORT REASON FOR CONSULTATION Followup. DISCUSSION Ms. Silva is a 71-year-old female, seen in room 321, bed #1, on 01/22/2017 at [facility]. The patient lying comfortably in bed. Reports that she had a dialysis yesterday, feeling good. Reports mood is better, decrease in anxiety. Denied any suicidal or homicidal ideation. Denied any psychotic symptom. No side effects from medication. The patient's vital signs; temperature 98.3, pulse 89, respiratory rate 16, blood pressure 143/77, and oxygen saturation 98%. MENTAL STATUS EXAMINATION General appearance; the patient dressed casually, lying comfortably in bed. Attention span and concentration, fair. Oriented in time, place, and person. Speech; regular rate, coherent. Mood and affect, labile. Thought process, coherent. Thought content, the patient denied any thoughts of harming self or others or any psychotic symptom. Recent and remote memory, fair. Language, intact. Fund of knowledge, fair. Insight and judgment, fair to slightly impaired. DIAGNOSES Psychiatric; 1. Supportive psychotherapy and psychoeducation provided to the patient. 2. Educated about benefits and side effects of medication and course and prognosis of illness. 3. Advised to continue with current medication and we will make further adjustment of medication if needed. Please feel free to call if any questions, telephone #[phone]. Dictated by... Tal De Oliveira M.D. ETIENNE/rory TD: 01/24/2017 09:05 JOB #: [id number] Unit #: [id number] #: [id number] Patient: CHRISTEL SILVA CONSULTATION REPORT Page 1 of 1 X Tal De Oliveira MD CONSULTATION REPORT
--- NOTE | ~2016-12-30 | CO ---
Unit #: [id number] #: [id number] Patient: CHRISTEL SILVA [id number] [facility] [address]. [place], [place] [address] [id number] I MR#: [id number] NAME: CHRISTEL SILVA ROOM: 321 Age: 71 Sex: F Admission Date: 12/30/2016 : 1945 Attending Physician: Calos Barkley M.D. Primary Care Physician: Calos Barkley M.D. Consultation Date: 01/16/2017 CONSULTATION REPORT REASON FOR CONSULTATION Followup. DISCUSSION Mr. Christel Silva is a 71-year-old, white female seen in room 321, bed 1 on 01/16/17 at [facility]. Patient reported that she is eating good, feeling better, and decrease in anxiety and depression. No side effects from medication. Patient currently denied any suicidal or homicidal ideation. Denied any psychotic symptoms. Patient's vital signs: 98.8, 78, 18, 128/50, and oxygen saturation 98%. REVIEW OF SYSTEMS Complete review of systems unremarkable. MENTAL STATUS EXAMINATION VITAL SIGNS: Please see above. GENERAL APPEARANCE: Patient dressed casually and lying comfortably in bed. ATTENTION SPAN AND CONCENTRATION: Fair. SPEECH: Regular rate, coherent. ORIENTATION: Oriented in time, place, and person. MOOD AND AFFECT: Sad, dysphoric. THOUGHT PROCESS: Coherent. THOUGHT CONTENT: Patient denied any thoughts of harming self or others or any psychotic symptoms. RECENT AND REMOTE MEMORY: Fair. LANGUAGE: Intact. FUND OF KNOWLEDGE: Fair. INSIGHT AND JUDGEMENT: Fair to slightly impaired. DIAGNOSES PSYCHIATRIC: Major depressive disorder, recurrent, mqemytpt-aw-norrjs, F33.2. ASSESSMENT/PLAN 1. Supportive psychotherapy and psychoeducation provided to patient. 2. Educated about benefits and side effects of medication and course and prognosis of illness. 3. Advised to continue with current medication. If needed, consider further adjustment of medication. Please feel free to call if any questions. Telephone number . Unit #: [id number] #: [id number] Patient: CHRISTEL SILVA Dictated by... Tal De Oliveira M.D. ETIENNE/sonny TD: 01/17/2017 08:21 JOB #: [id number] CONSULTATION REPORT Page 1 of 1 X Tal De Oliveira MD CONSULTATION REPORT
[2016-12-30 15:17] LABS: BASOPHIL# 0.2 X10e3 (0-0.3); BASOPHIL% 0.9 % (0-2.5); EOSINOPHIL# 0.2 X10e3 (0-0.7); HEMATOCRIT 25.5 % (35.0-45.0); HEMOGLOBIN 8.1 gm/dL (12.0-16.0); LYMPHOCYTE# 1.4 X10e3 (1.0-3.5); LYMPHOCYTE% 6.9 % (17.0-45.0); MEAN CELL VOLUME 95.9 FL (83-96); MEAN CORPUSCULAR HEMOGLOBIN 30.4 PG (28-34); MEAN CORPUSCULAR HGB CONC 31.7 g/dL (30-36); MEAN PLATELET VOLUME 6.6 FL (6.5-11.5); MONOCYTE# 1.1 X10e3 (0-1.0); MONOCYTE% 5.6 % (3.0-12.0); NEUTROPHIL# 17.5 X10e3 (1.5-7.1); NEUTROPHIL% 85.6 % (40-75); PLATELET COUNT 455 X10e3 (140-420); RED BLOOD COUNT 2.66 X10e (3.90-5.30); RED CELL DISTRIBUTION WIDTH 19.2 % (11.0-15.5); WHITE BLOOD COUNT 20.4 X10e3 (4.0-10.5)
[2016-12-30 15:25] LABS: INR 1.9; PARTIAL THROMBOPLASTIN TIME 42.2 SECONDS (23.5-31.3); PROTHROMBIN TIME (PATIENT) 20.7 SECONDS (9.6-11.5)
[2016-12-30 15:26] LABS: DIFF IND YES
[2016-12-30 15:40] LABS: ANISOCYTOSIS SL; PLATELET ESTIMATE INCREASED (NORMAL); RBC NORMAL YES
[2016-12-30 15:42] LABS: ALBUMIN SERUM 1.7 g/dL (3.5-5.0); BILIRUBIN, DIRECT 0.1 mg/dL (0.0-0.2); BILIRUBIN,INDIRECT 0.2 mg/dL (0.0-0.9); BILIRUBIN,TOTAL 0.3 mg/dL (0.2-2.0); BUN/CREATININE RATIO 26.66; CALCIUM SERUM 7.9 mg/dL (8.4-10.2); CREATININE SERUM 0.6 mg/dL (0.6-1.4); PROTEIN TOTAL SERUM 5.2 g/dL (6.0-8.3)
[2016-12-30] MEDS ORDERED: ASPIRIN81 MG PO (17:29)
[2016-12-30] MEDS ORDERED: SINGULAIR PO (17:29)
[2016-12-30] MEDS ORDERED: DILTIAZEM 24HR240 M2 PO (17:29)
[2016-12-30] MEDS ORDERED: RANITIDINE HCL150 M1 PO (17:32)
[2016-12-30] MEDS ORDERED: MULTIVITAMINS1 EAC4 PO (17:32)
[2016-12-30] MEDS ORDERED: B-121000 MC1 PO (17:34)
[2016-12-30] MEDS ORDERED: FOLIC ACID1 MG PO (17:35)
[2016-12-30] MEDS ORDERED: POTASSIUM CHLO10 MEQ PO (17:36)
[2016-12-30] MEDS ORDERED: DIGOXIN125 MCG PO (17:37)
[2016-12-30] MEDS ORDERED: EFFEXOR37.5 MG PO (17:37)
[2016-12-30] MEDS ORDERED: FERROUS GLUCON324 M2 PO (17:38)
[2016-12-30] MEDS ORDERED: SENEXON-S TABL1 EACH PO (17:39)
[2016-12-30] MEDS ORDERED: METOPROLOL TART25 MG PO (17:40)
[2016-12-30] MEDS ORDERED: FUROSEMIDE40 MG PO (17:41)
[2016-12-30] MEDS ORDERED: PULMICORT0.5 MG/21 INH (17:42)
[2016-12-30] MEDS ORDERED: LIPITOR40 MG PO (17:42)
[2016-12-30] MEDS ORDERED: COUMADIN PO (17:42)
[2016-12-30] MEDS ORDERED: DESYREL50 MG PO (17:45)
[2016-12-30] MEDS ORDERED: MIRALAX17 GM PO (17:48)
[2016-12-30] MEDS ORDERED: ACETAMINOPHEN PO (17:49)
[2016-12-30] MEDS ORDERED: TRAMADOL HCL50 M2 PO (17:50)
[2016-12-30] MEDS ORDERED: HYDROCODON-ACE1 EAC7 PO (17:51)
[2016-12-30 18:03] LABS: URINE APPEARANCE CLOUDY; URINE BILIRUBIN NEG (NEG); URINE BLOOD 1+ (NEG); URINE COLOR DK YELLOW; URINE GLUCOSE NEG (NEG); URINE KETONE NEG (NEG); URINE LEUKOCYTE ESTERASE 3+ (NEG); URINE NITRATE NEG (NEG); URINE PH 7.5 (5-8); URINE PROTEIN 1+ (NEG); URINE SPECIFIC GRAVITY 1.019 (1.003-1.035)
[2016-12-30 18:04] LABS: CULTURE INDICATED? YES; URINE BACTERIA AUWI 3+ (NEGATIVE); URINE SQUAMOUS EPITHELIAL CELL NONE SEEN /[HPF]; UWBCS1 AUWI 200-300 (0-5)
[2016-12-31 05:28] LABS: BASOPHIL# 0.1 X10e3 (0-0.3); BASOPHIL% 0.5 % (0-2.5); EOSINOPHIL# 0.3 X10e3 (0-0.7); EOSINOPHIL% 1.5 % (0.0-7.0); HEMATOCRIT 21.7 % (35.0-45.0); LYMPHOCYTE# 1.2 X10e3 (1.0-3.5); LYMPHOCYTE% 7.3 % (17.0-45.0); MEAN CELL VOLUME 95.4 FL (83-96); MEAN CORPUSCULAR HGB CONC 31.4 g/dL (30-36); MEAN PLATELET VOLUME 6.4 FL (6.5-11.5); MONOCYTE% 6.1 % (3.0-12.0); NEUTROPHIL# 14.4 X10e3 (1.5-7.1); NEUTROPHIL% 84.6 % (40-75); PLATELET COUNT 384 X10e3 (140-420); RED BLOOD COUNT 2.27 X10e (3.90-5.30); RED CELL DISTRIBUTION WIDTH 18.9 % (11.0-15.5)
[2016-12-31 05:29] LABS: DIFF IND NO; HEMOGLOBIN 6.8 gm/dL (12.0-16.0)
[2016-12-31 05:35] LABS: INR 1.9; PROTHROMBIN TIME (PATIENT) 20.1 SECONDS (9.6-11.5)
[2017-01-01 05:59] LABS: BASOPHIL# 0.1 X10e3 (0-0.3); BASOPHIL% 0.6 % (0-2.5); EOSINOPHIL# 0.2 X10e3 (0-0.7); EOSINOPHIL% 1.3 % (0.0-7.0); HEMATOCRIT 26.1 % (35.0-45.0); HEMOGLOBIN 8.5 gm/dL (12.0-16.0); LYMPHOCYTE# 1.2 X10e3 (1.0-3.5); MEAN CORPUSCULAR HEMOGLOBIN 29.9 PG (28-34); MEAN CORPUSCULAR HGB CONC 32.7 g/dL (30-36); MEAN PLATELET VOLUME 6.6 FL (6.5-11.5); NEUTROPHIL# 14.6 X10e3 (1.5-7.1); NEUTROPHIL% 85.1 % (40-75); PLATELET COUNT 321 X10e3 (140-420); RED BLOOD COUNT 2.85 X10e (3.90-5.30); RED CELL DISTRIBUTION WIDTH 18.9 % (11.0-15.5); WHITE BLOOD COUNT 17.1 X10e3 (4.0-10.5)
[2017-01-01 06:02] LABS: DIFF IND NO; MEAN CELL VOLUME 91.6 FL (83-96)
[2017-01-01 06:16] LABS: INR 2.1; PROTHROMBIN TIME (PATIENT) 22.7 SECONDS (9.6-11.5)
[2017-01-01 06:22] LABS: BUN/CREATININE RATIO 18.33; CALCIUM SERUM 6.8 mg/dL (8.4-10.2); CREATININE SERUM 1.2 mg/dL (0.6-1.4); GLOM FILT RATE Estimated 46.1 mL/min (>60); POTASSIUM 3.8 mmol/L (3.5-5.1)
[2017-01-01 22:37] LABS: URINE APPEARANCE TURBID; URINE BILIRUBIN NEG (NEG); URINE BLOOD TRACE (NEG); URINE COLOR DK YELLOW; URINE GLUCOSE 100 MG/DL (NEG); URINE KETONE NEG (NEG); URINE LEUKOCYTE ESTERASE 3+ (NEG); URINE NITRATE NEG (NEG); URINE PROTEIN 2+ (NEG)
[2017-01-01 22:40] LABS: CULTURE INDICATED? YES; URINE BACTERIA AUWI 1+ (NEGATIVE); URINE SQUAMOUS EPITHELIAL CELL OCC /[HPF]; UWBCS1 AUWI 100-200 (0-5)
[2017-01-01 22:53] LABS: URINE CRYSTALS TRIPLE PHOSPHATE /[HPF]
[2017-01-02 05:59] LABS: BASOPHIL# 0.1 X10e3 (0-0.3); BASOPHIL% 0.4 % (0-2.5); EOSINOPHIL# 0.4 X10e3 (0-0.7); EOSINOPHIL% 2.3 % (0.0-7.0); HEMATOCRIT 27.5 % (35.0-45.0); LYMPHOCYTE# 1.1 X10e3 (1.0-3.5); LYMPHOCYTE% 6.3 % (17.0-45.0); MEAN CELL VOLUME 91.9 FL (83-96); MEAN CORPUSCULAR HEMOGLOBIN 29.9 PG (28-34); MEAN CORPUSCULAR HGB CONC 32.6 g/dL (30-36); MEAN PLATELET VOLUME 6.6 FL (6.5-11.5); MONOCYTE% 5.6 % (3.0-12.0); NEUTROPHIL# 15.3 X10e3 (1.5-7.1); NEUTROPHIL% 85.4 % (40-75); PLATELET COUNT 321 X10e3 (140-420); RED CELL DISTRIBUTION WIDTH 19.2 % (11.0-15.5); WHITE BLOOD COUNT 17.9 X10e3 (4.0-10.5)
[2017-01-02 06:03] LABS: DIFF IND NO
[2017-01-02 06:04] LABS: INR 2.5; PROTHROMBIN TIME (PATIENT) 26.8 SECONDS (9.6-11.5)
[2017-01-02 06:28] LABS: BUN/CREATININE RATIO 14.76; CALCIUM SERUM 7.8 mg/dL (8.4-10.2); CREATININE SERUM 2.1 mg/dL (0.6-1.4); GLOM FILT RATE Estimated 23.4 mL/min (>60); POTASSIUM 4.8 mmol/L (3.5-5.1)
[2017-01-03 06:06] LABS: INR 2.8; PROTHROMBIN TIME (PATIENT) 30.1 SECONDS (9.6-11.5)
[2017-01-03 06:21] LABS: BASOPHIL# 0.1 X10e3 (0-0.3); BASOPHIL% 0.3 % (0-2.5); EOSINOPHIL# 0.5 X10e3 (0-0.7); EOSINOPHIL% 2.4 % (0.0-7.0); HEMATOCRIT 27.7 % (35.0-45.0); LYMPHOCYTE% 5.5 % (17.0-45.0); MEAN CORPUSCULAR HGB CONC 32.6 g/dL (30-36); MEAN PLATELET VOLUME 6.7 FL (6.5-11.5); MONOCYTE# 0.9 X10e3 (0-1.0); MONOCYTE% 4.9 % (3.0-12.0); NEUTROPHIL# 16.4 X10e3 (1.5-7.1); NEUTROPHIL% 86.9 % (40-75); PLATELET COUNT 334 X10e3 (140-420); RED BLOOD COUNT 3.01 X10e (3.90-5.30); RED CELL DISTRIBUTION WIDTH 19.1 % (11.0-15.5); WHITE BLOOD COUNT 18.9 X10e3 (4.0-10.5)
[2017-01-03 06:30] LABS: DIFF IND YES
[2017-01-03 06:46] LABS: ALBUMIN SERUM 1.5 g/dL (3.5-5.0); BILIRUBIN,TOTAL 0.4 mg/dL (0.2-2.0); BUN/CREATININE RATIO 12.96; CALCIUM SERUM 7.9 mg/dL (8.4-10.2); CREATININE SERUM 2.7 mg/dL (0.6-1.4); GLOM FILT RATE Estimated 17.3 mL/min (>60); MAGNESIUM 2.3 mg/dL (1.6-3.0); PHOSPHOROUS 4.6 mg/dL (2.5-4.6); POTASSIUM 5.2 mmol/L (3.5-5.1); PROTEIN TOTAL SERUM 4.5 g/dL (6.0-8.3)
[2017-01-03 07:16] LABS: RBC NORMAL YES
[2017-01-03 07:17] LABS: ANISOCYTOSIS SL; PLATELET ESTIMATE NORMAL (NORMAL); POIKILOCYTOSIS SL
[2017-01-04 06:02] LABS: HEMATOCRIT 27.6 % (35.0-45.0); HEMOGLOBIN 9.1 gm/dL (12.0-16.0); MEAN CELL VOLUME 92.8 FL (83-96); MEAN CORPUSCULAR HEMOGLOBIN 30.5 PG (28-34); MEAN CORPUSCULAR HGB CONC 32.8 g/dL (30-36); MEAN PLATELET VOLUME 6.6 FL (6.5-11.5); RED BLOOD COUNT 2.98 X10e (3.90-5.30); RED CELL DISTRIBUTION WIDTH 19.1 % (11.0-15.5); WHITE BLOOD COUNT 18.4 X10e3 (4.0-10.5)
[2017-01-04 07:32] LABS: BUN/CREATININE RATIO 11.76; CALCIUM SERUM 7.6 mg/dL (8.4-10.2); CREATININE SERUM 3.4 mg/dL (0.6-1.4); DIGOXIN (LANOXIN) 1.8 ng/ml (1.0-2.0); GLOM FILT RATE Estimated 13.1 mL/min (>60); POTASSIUM 5.1 mmol/L (3.5-5.1)
[2017-01-05 08:51] LABS: HEMOGLOBIN 9.3 gm/dL (12.0-16.0); MEAN CELL VOLUME 92.1 FL (83-96); MEAN CORPUSCULAR HEMOGLOBIN 29.6 PG (28-34); MEAN CORPUSCULAR HGB CONC 32.1 g/dL (30-36); MEAN PLATELET VOLUME 6.3 FL (6.5-11.5); RED BLOOD COUNT 3.15 X10e (3.90-5.30); RED CELL DISTRIBUTION WIDTH 18.8 % (11.0-15.5); WHITE BLOOD COUNT 19.3 X10e3 (4.0-10.5)
[2017-01-05 08:53] LABS: INR 3.9; PARTIAL THROMBOPLASTIN TIME 51.6 SECONDS (23.5-31.3); PROTHROMBIN TIME (PATIENT) 42.6 SECONDS (9.6-11.5)
[2017-01-05 09:15] LABS: BUN/CREATININE RATIO 11.79; CALCIUM SERUM 7.7 mg/dL (8.4-10.2); CREATININE SERUM 3.9 mg/dL (0.6-1.4); GLOM FILT RATE Estimated 11.1 mL/min (>60); POTASSIUM 4.9 mmol/L (3.5-5.1)
[2017-01-06 00:32] LABS: URINE APPEARANCE TURBID; URINE BILIRUBIN NEG (NEG); URINE BLOOD 2+ (NEG); URINE COLOR YELLOW; URINE GLUCOSE NEG (NEG); URINE KETONE NEG (NEG); URINE LEUKOCYTE ESTERASE 3+ (NEG); URINE NITRATE NEG (NEG); URINE PROTEIN 3+ (NEG); URINE SPECIFIC GRAVITY 1.014 (1.003-1.035); URINE UROBILINOGEN 0.2 MG/DL (NEG)
[2017-01-06 00:35] LABS: URINE BACTERIA AUWI NEG (NEGATIVE); URINE SQUAMOUS EPITHELIAL CELL FEW /[HPF]; UWBCS1 AUWI INNUM (0-5)
[2017-01-06 00:47] LABS: URINE TRANSITIONAL EPI CELLS FEW /[HPF]; URINE YEAST PRESENT
[2017-01-06 06:09] LABS: BASOPHIL# 0.1 X10e3 (0-0.3); BASOPHIL% 0.4 % (0-2.5); EOSINOPHIL# 0.6 X10e3 (0-0.7); EOSINOPHIL% 3.7 % (0.0-7.0); HEMATOCRIT 27.5 % (35.0-45.0); HEMOGLOBIN 8.9 gm/dL (12.0-16.0); LYMPHOCYTE% 6.2 % (17.0-45.0); MEAN CELL VOLUME 91.6 FL (83-96); MEAN CORPUSCULAR HEMOGLOBIN 29.6 PG (28-34); MEAN CORPUSCULAR HGB CONC 32.3 g/dL (30-36); MEAN PLATELET VOLUME 6.6 FL (6.5-11.5); MONOCYTE# 0.6 X10e3 (0-1.0); MONOCYTE% 3.6 % (3.0-12.0); NEUTROPHIL# 14.5 X10e3 (1.5-7.1); NEUTROPHIL% 86.1 % (40-75); PLATELET COUNT 328 X10e3 (140-420); RED CELL DISTRIBUTION WIDTH 18.6 % (11.0-15.5); WHITE BLOOD COUNT 16.9 X10e3 (4.0-10.5)
[2017-01-06 06:10] LABS: PROTHROMBIN TIME (PATIENT) 44.1 SECONDS (9.6-11.5)
[2017-01-06 06:18] LABS: DIFF IND NO
[2017-01-06 06:29] LABS: BUN/CREATININE RATIO 11.19; CALCIUM SERUM 7.4 mg/dL (8.4-10.2); CREATININE SERUM 4.2 mg/dL (0.6-1.4); GLOM FILT RATE Estimated 10.1 mL/min (>60); POTASSIUM 4.4 mmol/L (3.5-5.1)
[2017-01-06 14:48] LABS: BUN/CREATININE RATIO 12.14; CALCIUM SERUM 7.6 mg/dL (8.4-10.2); CREATININE SERUM 4.2 mg/dL (0.6-1.4); GLOM FILT RATE Estimated 10.1 mL/min (>60); POTASSIUM 4.4 mmol/L (3.5-5.1)
[2017-01-06 19:59] LABS: CREATININE,RANDOM URINE 58 mg/dL
[2017-01-06 20:02] LABS: OSMOLALITY,URINE 287 mOsmo/kg (250-900)
[2017-01-07 05:50] LABS: BASOPHIL% 0.2 % (0-2.5); EOSINOPHIL# 0.8 X10e3 (0-0.7); EOSINOPHIL% 4.7 % (0.0-7.0); HEMATOCRIT 27.7 % (35.0-45.0); HEMOGLOBIN 8.9 gm/dL (12.0-16.0); LYMPHOCYTE# 0.9 X10e3 (1.0-3.5); LYMPHOCYTE% 5.4 % (17.0-45.0); MEAN CELL VOLUME 92.3 FL (83-96); MEAN CORPUSCULAR HEMOGLOBIN 29.6 PG (28-34); MEAN PLATELET VOLUME 6.7 FL (6.5-11.5); MONOCYTE# 0.7 X10e3 (0-1.0); MONOCYTE% 4.2 % (3.0-12.0); NEUTROPHIL% 85.5 % (40-75); PLATELET COUNT 333 X10e3 (140-420); RED CELL DISTRIBUTION WIDTH 18.6 % (11.0-15.5); WHITE BLOOD COUNT 16.4 X10e3 (4.0-10.5)
[2017-01-07 05:51] LABS: DIFF IND YES
[2017-01-07 05:58] LABS: PROTHROMBIN TIME (PATIENT) 62.1 SECONDS (9.6-11.5)
[2017-01-07 06:19] LABS: INR 5.6
[2017-01-07 06:25] LABS: ALBUMIN SERUM 1.2 g/dL (3.5-5.0); BILIRUBIN,TOTAL 0.3 mg/dL (0.2-2.0); BUN/CREATININE RATIO 11.39; CALCIUM SERUM 7.5 mg/dL (8.4-10.2); CREATININE SERUM 4.3 mg/dL (0.6-1.4); GLOM FILT RATE Estimated 9.8 mL/min (>60); MAGNESIUM 2.3 mg/dL (1.6-3.0); PHOSPHOROUS 6.3 mg/dL (2.5-4.6); PLATELET ESTIMATE NORMAL (NORMAL); POTASSIUM 4.4 mmol/L (3.5-5.1); PROTEIN TOTAL SERUM 4.2 g/dL (6.0-8.3); RBC NORMAL YES; URIC ACID 8.7 mg/dL (2.6-7.2)
[2017-01-07 06:31] LABS: DIGOXIN (LANOXIN) 2.4 ng/ml (1.0-2.0)
[2017-01-08 06:14] LABS: HEMATOCRIT 25.1 % (35.0-45.0); MEAN CELL VOLUME 92.5 FL (83-96); MEAN CORPUSCULAR HEMOGLOBIN 29.7 PG (28-34); MEAN CORPUSCULAR HGB CONC 32.1 g/dL (30-36); MEAN PLATELET VOLUME 6.5 FL (6.5-11.5); RED BLOOD COUNT 2.71 X10e (3.90-5.30); RED CELL DISTRIBUTION WIDTH 18.8 % (11.0-15.5); WHITE BLOOD COUNT 13.5 X10e3 (4.0-10.5)
[2017-01-08 06:27] LABS: INR 2.2
[2017-01-08 06:29] LABS: PROTHROMBIN TIME (PATIENT) 23.9 SECONDS (9.6-11.5)
[2017-01-08 07:04] LABS: BUN/CREATININE RATIO 11.11; CALCIUM SERUM 7.4 mg/dL (8.4-10.2); CREATININE SERUM 4.5 mg/dL (0.6-1.4); GLOM FILT RATE Estimated 9.3 mL/min (>60); MAGNESIUM 2.2 mg/dL (1.6-3.0); PHOSPHOROUS 6.5 mg/dL (2.5-4.6); POTASSIUM 4.1 mmol/L (3.5-5.1)
[2017-01-08 07:07] LABS: DIGOXIN (LANOXIN) 2.1 ng/ml (1.0-2.0)
[2017-01-09 06:54] LABS: HEMATOCRIT 28.7 % (35.0-45.0); HEMOGLOBIN 9.1 gm/dL (12.0-16.0); INR 1.3; MEAN CELL VOLUME 92.7 FL (83-96); MEAN CORPUSCULAR HEMOGLOBIN 29.3 PG (28-34); MEAN CORPUSCULAR HGB CONC 31.6 g/dL (30-36); MEAN PLATELET VOLUME 6.6 FL (6.5-11.5); RED BLOOD COUNT 3.09 X10e (3.90-5.30); RED CELL DISTRIBUTION WIDTH 18.3 % (11.0-15.5); WHITE BLOOD COUNT 15.2 X10e3 (4.0-10.5)
[2017-01-09 07:21] LABS: ALBUMIN SERUM 1.3 g/dL (3.5-5.0); BILIRUBIN,TOTAL 0.6 mg/dL (0.2-2.0); BUN/CREATININE RATIO 10.88; CALCIUM SERUM 7.5 mg/dL (8.4-10.2); CREATININE SERUM 4.5 mg/dL (0.6-1.4); DIGOXIN (LANOXIN) 1.6 ng/ml (1.0-2.0); GLOM FILT RATE Estimated 9.3 mL/min (>60); MAGNESIUM 2.2 mg/dL (1.6-3.0); PHOSPHOROUS 6.4 mg/dL (2.5-4.6); PROTEIN TOTAL SERUM 4.3 g/dL (6.0-8.3)
[2017-01-10 08:48] LABS: BASOPHIL% 0.2 % (0-2.5); HEMATOCRIT 27.2 % (35.0-45.0); HEMOGLOBIN 8.9 gm/dL (12.0-16.0); LYMPHOCYTE# 0.9 X10e3 (1.0-3.5); LYMPHOCYTE% 7.4 % (17.0-45.0); MEAN CELL VOLUME 91.1 FL (83-96); MEAN CORPUSCULAR HEMOGLOBIN 29.8 PG (28-34); MEAN CORPUSCULAR HGB CONC 32.7 g/dL (30-36); MEAN PLATELET VOLUME 6.7 FL (6.5-11.5); MONOCYTE# 0.1 X10e3 (0-1.0); MONOCYTE% 0.9 % (3.0-12.0); NEUTROPHIL# 11.4 X10e3 (1.5-7.1); NEUTROPHIL% 91.5 % (40-75); PLATELET COUNT 346 X10e3 (140-420); RED BLOOD COUNT 2.99 X10e (3.90-5.30); RED CELL DISTRIBUTION WIDTH 18.2 % (11.0-15.5); WHITE BLOOD COUNT 12.5 X10e3 (4.0-10.5)
[2017-01-10 08:52] LABS: DIFF IND NO
[2017-01-10 12:36] LABS: BUN/CREATININE RATIO 10.83; CALCIUM SERUM 7.8 mg/dL (8.4-10.2); CREATININE SERUM 4.8 mg/dL (0.6-1.4); GLOM FILT RATE Estimated 8.6 mL/min (>60); POTASSIUM 4.3 mmol/L (3.5-5.1)
[2017-01-11 06:46] LABS: HEMATOCRIT 25.3 % (35.0-45.0); HEMOGLOBIN 8.3 gm/dL (12.0-16.0); MEAN CELL VOLUME 90.8 FL (83-96); MEAN CORPUSCULAR HEMOGLOBIN 29.9 PG (28-34); MEAN PLATELET VOLUME 6.4 FL (6.5-11.5); RED BLOOD COUNT 2.79 X10e (3.90-5.30); RED CELL DISTRIBUTION WIDTH 18.3 % (11.0-15.5); WHITE BLOOD COUNT 13.2 X10e3 (4.0-10.5)
[2017-01-11 07:04] LABS: INR 1.2; PROTHROMBIN TIME (PATIENT) 12.7 SECONDS (9.6-11.5)
[2017-01-11 07:37] LABS: ALBUMIN SERUM 1.4 g/dL (3.5-5.0); BILIRUBIN,TOTAL 0.4 mg/dL (0.2-2.0); BUN/CREATININE RATIO 11.91; CALCIUM SERUM 8.1 mg/dL (8.4-10.2); CREATININE SERUM 4.7 mg/dL (0.6-1.4); GLOM FILT RATE Estimated 8.8 mL/min (>60); MAGNESIUM 2.4 mg/dL (1.6-3.0); PHOSPHOROUS 6.6 mg/dL (2.5-4.6); POTASSIUM 4.7 mmol/L (3.5-5.1); PROTEIN TOTAL SERUM 4.4 g/dL (6.0-8.3)
[2017-01-12 05:40] LABS: HEMATOCRIT 26.2 % (35.0-45.0); HEMOGLOBIN 8.4 gm/dL (12.0-16.0); MEAN CORPUSCULAR HEMOGLOBIN 29.2 PG (28-34); MEAN CORPUSCULAR HGB CONC 32.1 g/dL (30-36); MEAN PLATELET VOLUME 6.5 FL (6.5-11.5); RED BLOOD COUNT 2.88 X10e (3.90-5.30); RED CELL DISTRIBUTION WIDTH 18.5 % (11.0-15.5); WHITE BLOOD COUNT 13.6 X10e3 (4.0-10.5)
[2017-01-12 05:50] LABS: INR 1.2; PROTHROMBIN TIME (PATIENT) 12.8 SECONDS (9.6-11.5)
[2017-01-12 07:00] LABS: ALBUMIN SERUM 1.3 g/dL (3.5-5.0); BILIRUBIN,TOTAL 0.3 mg/dL (0.2-2.0); CALCIUM SERUM 7.7 mg/dL (8.4-10.2); DIGOXIN (LANOXIN) 1.8 ng/ml (1.0-2.0); GLOM FILT RATE Estimated 15.2 mL/min (>60); MAGNESIUM 2.1 mg/dL (1.6-3.0); PHOSPHOROUS 4.4 mg/dL (2.5-4.6); POTASSIUM 4.5 mmol/L (3.5-5.1); PROTEIN TOTAL SERUM 3.8 g/dL (6.0-8.3)
[2017-01-13 05:53] LABS: HEMATOCRIT 25.6 % (35.0-45.0); HEMOGLOBIN 8.2 gm/dL (12.0-16.0); MEAN CELL VOLUME 91.8 FL (83-96); MEAN CORPUSCULAR HEMOGLOBIN 29.6 PG (28-34); MEAN CORPUSCULAR HGB CONC 32.2 g/dL (30-36); MEAN PLATELET VOLUME 6.9 FL (6.5-11.5); RED BLOOD COUNT 2.79 X10e (3.90-5.30); RED CELL DISTRIBUTION WIDTH 18.7 % (11.0-15.5); WHITE BLOOD COUNT 17.6 X10e3 (4.0-10.5)
[2017-01-13 06:13] LABS: INR 1.4; PROTHROMBIN TIME (PATIENT) 14.7 SECONDS (9.6-11.5)
[2017-01-13 06:57] LABS: ALBUMIN SERUM 1.4 g/dL (3.5-5.0); BILIRUBIN,TOTAL 0.1 mg/dL (0.2-2.0); CALCIUM SERUM 7.4 mg/dL (8.4-10.2); CREATININE SERUM 2.2 mg/dL (0.6-1.4); GLOM FILT RATE Estimated 22.1 mL/min (>60); PHOSPHOROUS 3.1 mg/dL (2.5-4.6); POTASSIUM 4.4 mmol/L (3.5-5.1)
[2017-01-14 06:57] LABS: HEMOGLOBIN 8.3 gm/dL (12.0-16.0); MEAN CELL VOLUME 91.7 FL (83-96); MEAN CORPUSCULAR HEMOGLOBIN 29.4 PG (28-34); MEAN PLATELET VOLUME 6.7 FL (6.5-11.5); RED BLOOD COUNT 2.84 X10e (3.90-5.30); RED CELL DISTRIBUTION WIDTH 18.7 % (11.0-15.5); WHITE BLOOD COUNT 16.9 X10e3 (4.0-10.5)
[2017-01-14 07:23] LABS: ALBUMIN SERUM 1.6 g/dL (3.5-5.0); BILIRUBIN,TOTAL 0.4 mg/dL (0.2-2.0); BUN/CREATININE RATIO 9.35; CALCIUM SERUM 7.6 mg/dL (8.4-10.2); CREATININE SERUM 3.1 mg/dL (0.6-1.4); GLOM FILT RATE Estimated 14.6 mL/min (>60); PHOSPHOROUS 3.5 mg/dL (2.5-4.6); POTASSIUM 4.4 mmol/L (3.5-5.1); PROTEIN TOTAL SERUM 4.5 g/dL (6.0-8.3)
[2017-01-14 07:31] LABS: INR 1.5; PROTHROMBIN TIME (PATIENT) 15.7 SECONDS (9.6-11.5)
[2017-01-15 07:00] LABS: HEMATOCRIT 18.8 % (35.0-45.0); MEAN CELL VOLUME 92.5 FL (83-96); MEAN CORPUSCULAR HEMOGLOBIN 30.2 PG (28-34); MEAN CORPUSCULAR HGB CONC 32.7 g/dL (30-36); MEAN PLATELET VOLUME 7.1 FL (6.5-11.5); RED BLOOD COUNT 2.03 X10e (3.90-5.30); RED CELL DISTRIBUTION WIDTH 18.6 % (11.0-15.5); WHITE BLOOD COUNT 17.7 X10e3 (4.0-10.5)
[2017-01-15 07:02] LABS: HEMOGLOBIN 6.1 gm/dL (12.0-16.0)
[2017-01-15 07:21] LABS: BUN/CREATININE RATIO 8.26; CALCIUM SERUM 7.4 mg/dL (8.4-10.2); CREATININE SERUM 2.3 mg/dL (0.6-1.4); MAGNESIUM 1.9 mg/dL (1.6-3.0); PHOSPHOROUS 3.5 mg/dL (2.5-4.6); POTASSIUM 4.3 mmol/L (3.5-5.1)
[2017-01-15 07:27] LABS: INR 1.6
[2017-01-15 19:35] LABS: HEMOGLOBIN 10.3 gm/dL (12.0-16.0)
[2017-01-16 05:55] LABS: BASOPHIL% 0.2 % (0-2.5); DIFF IND YES; EOSINOPHIL# 0.1 X10e3 (0-0.7); EOSINOPHIL% 0.5 % (0.0-7.0); HEMATOCRIT 31.2 % (35.0-45.0); HEMOGLOBIN 10.2 gm/dL (12.0-16.0); LYMPHOCYTE# 1.8 X10e3 (1.0-3.5); LYMPHOCYTE% 10.9 % (17.0-45.0); MEAN CELL VOLUME 90.9 FL (83-96); MEAN CORPUSCULAR HEMOGLOBIN 29.6 PG (28-34); MEAN CORPUSCULAR HGB CONC 32.5 g/dL (30-36); MEAN PLATELET VOLUME 7.4 FL (6.5-11.5); MONOCYTE# 0.9 X10e3 (0-1.0); MONOCYTE% 5.7 % (3.0-12.0); NEUTROPHIL# 13.8 X10e3 (1.5-7.1); NEUTROPHIL% 82.7 % (40-75); PLATELET COUNT 213 X10e3 (140-420); RED BLOOD COUNT 3.44 X10e (3.90-5.30); RED CELL DISTRIBUTION WIDTH 17.9 % (11.0-15.5); WHITE BLOOD COUNT 16.7 X10e3 (4.0-10.5)
[2017-01-16 06:15] LABS: ANISOCYTOSIS SL; PLATELET ESTIMATE NORMAL (NORMAL)
[2017-01-16 07:02] LABS: CALCIUM SERUM 7.5 mg/dL (8.4-10.2); CREATININE SERUM 2.7 mg/dL (0.6-1.4); GLOM FILT RATE Estimated 17.3 mL/min (>60); POTASSIUM 4.4 mmol/L (3.5-5.1)
[2017-01-16 09:12] LABS: INR 1.5; PROTHROMBIN TIME (PATIENT) 16.3 SECONDS (9.6-11.5)
[2017-01-17 04:22] LABS: HEMATOCRIT 30.1 % (35.0-45.0); HEMOGLOBIN 9.6 gm/dL (12.0-16.0); MEAN CELL VOLUME 91.9 FL (83-96); MEAN CORPUSCULAR HEMOGLOBIN 29.1 PG (28-34); MEAN CORPUSCULAR HGB CONC 31.7 g/dL (30-36); MEAN PLATELET VOLUME 7.2 FL (6.5-11.5); RED BLOOD COUNT 3.28 X10e (3.90-5.30); RED CELL DISTRIBUTION WIDTH 17.9 % (11.0-15.5); WHITE BLOOD COUNT 14.1 X10e3 (4.0-10.5)
[2017-01-17 04:35] LABS: INR 1.6; PROTHROMBIN TIME (PATIENT) 16.7 SECONDS (9.6-11.5)
[2017-01-17 04:49] LABS: ALBUMIN SERUM 1.6 g/dL (3.5-5.0); BILIRUBIN,TOTAL 0.5 mg/dL (0.2-2.0); CALCIUM SERUM 7.2 mg/dL (8.4-10.2); CREATININE SERUM 3.2 mg/dL (0.6-1.4); GLOM FILT RATE Estimated 14.1 mL/min (>60); MAGNESIUM 2.2 mg/dL (1.6-3.0); PHOSPHOROUS 6.5 mg/dL (2.5-4.6)
[2017-01-18 05:53] LABS: INR 1.4; PROTHROMBIN TIME (PATIENT) 14.6 SECONDS (9.6-11.5)
[2017-01-18 05:58] LABS: HEMATOCRIT 32.5 % (35.0-45.0); HEMOGLOBIN 10.4 gm/dL (12.0-16.0); MEAN CELL VOLUME 92.8 FL (83-96); MEAN CORPUSCULAR HEMOGLOBIN 29.6 PG (28-34); MEAN CORPUSCULAR HGB CONC 31.9 g/dL (30-36); MEAN PLATELET VOLUME 7.5 FL (6.5-11.5); RED BLOOD COUNT 3.5 X10e (3.90-5.30); RED CELL DISTRIBUTION WIDTH 18.5 % (11.0-15.5); WHITE BLOOD COUNT 16.6 X10e3 (4.0-10.5)
[2017-01-18 06:47] LABS: CALCIUM SERUM 7.4 mg/dL (8.4-10.2); CREATININE SERUM 1.6 mg/dL (0.6-1.4); DIGOXIN (LANOXIN) 0.7 ng/ml (1.0-2.0); GLOM FILT RATE Estimated 32.6 mL/min (>60); POTASSIUM 4.2 mmol/L (3.5-5.1)
[2017-01-19 07:17] LABS: BUN/CREATININE RATIO 10.45; CALCIUM SERUM 7.6 mg/dL (8.4-10.2); CREATININE SERUM 2.2 mg/dL (0.6-1.4); GLOM FILT RATE Estimated 22.1 mL/min (>60); POTASSIUM 4.4 mmol/L (3.5-5.1)
[2017-01-19 08:54] LABS: HEMATOCRIT 34.6 % (35.0-45.0); MEAN CELL VOLUME 92.8 FL (83-96); MEAN CORPUSCULAR HEMOGLOBIN 29.5 PG (28-34); MEAN CORPUSCULAR HGB CONC 31.8 g/dL (30-36); MEAN PLATELET VOLUME 7.4 FL (6.5-11.5); RED BLOOD COUNT 3.73 X10e (3.90-5.30); RED CELL DISTRIBUTION WIDTH 18.7 % (11.0-15.5); WHITE BLOOD COUNT 15.3 X10e3 (4.0-10.5)
[2017-01-19 08:55] LABS: PARTIAL THROMBOPLASTIN TIME 24.4 SECONDS (23.5-31.3)
[2017-01-20 05:17] LABS: HEMOGLOBIN 10.4 gm/dL (12.0-16.0); MEAN CELL VOLUME 93.9 FL (83-96); MEAN CORPUSCULAR HEMOGLOBIN 29.5 PG (28-34); MEAN CORPUSCULAR HGB CONC 31.4 g/dL (30-36); MEAN PLATELET VOLUME 7.5 FL (6.5-11.5); RED BLOOD COUNT 3.51 X10e (3.90-5.30); RED CELL DISTRIBUTION WIDTH 18.7 % (11.0-15.5); WHITE BLOOD COUNT 13.4 X10e3 (4.0-10.5)
[2017-01-20 06:18] LABS: BUN/CREATININE RATIO 9.23; CALCIUM SERUM 7.8 mg/dL (8.4-10.2); CREATININE SERUM 1.3 mg/dL (0.6-1.4); GLOM FILT RATE Estimated 41.8 mL/min (>60)
[2017-01-21 05:18] LABS: HEMATOCRIT 31.3 % (35.0-45.0); MEAN CELL VOLUME 92.3 FL (83-96); MEAN CORPUSCULAR HEMOGLOBIN 29.4 PG (28-34); MEAN CORPUSCULAR HGB CONC 31.8 g/dL (30-36); MEAN PLATELET VOLUME 7.2 FL (6.5-11.5); RED BLOOD COUNT 3.39 X10e (3.90-5.30); RED CELL DISTRIBUTION WIDTH 18.9 % (11.0-15.5); WHITE BLOOD COUNT 11.6 X10e3 (4.0-10.5)
[2017-01-21 05:38] LABS: PROTHROMBIN TIME (PATIENT) 10.5 SECONDS (9.6-11.5)
[2017-01-21 06:07] LABS: ALBUMIN SERUM 1.8 g/dL (3.5-5.0); BILIRUBIN,TOTAL 0.4 mg/dL (0.2-2.0); BUN/CREATININE RATIO 11.76; CALCIUM SERUM 7.7 mg/dL (8.4-10.2); CREATININE SERUM 1.7 mg/dL (0.6-1.4); GLOM FILT RATE Estimated 30.2 mL/min (>60); PHOSPHOROUS 4.4 mg/dL (2.5-4.6)
[2017-01-21 10:14] LABS: URINE SOURCE CLEAN CATCH
[2017-01-21 10:20] LABS: URINE APPEARANCE CLEAR; URINE BILIRUBIN NEG (NEG); URINE BLOOD 2+ (NEG); URINE COLOR YELLOW; URINE GLUCOSE NEG (NEG); URINE KETONE NEG (NEG); URINE LEUKOCYTE ESTERASE TRACE (NEG); URINE NITRATE NEG (NEG); URINE PH 6.5 (5-8); URINE PROTEIN 1+ (NEG); URINE SPECIFIC GRAVITY 1.012 (1.003-1.035); URINE UROBILINOGEN 0.2 MG/DL (NEG)
[2017-01-21 10:23] LABS: CULTURE INDICATED? YES; URINE BACTERIA AUWI NEG (NEGATIVE); URINE SQUAMOUS EPITHELIAL CELL OCC /[HPF]
[2017-01-22 04:32] LABS: HEMATOCRIT 31.1 % (35.0-45.0); HEMOGLOBIN 9.8 gm/dL (12.0-16.0); MEAN CELL VOLUME 93.5 FL (83-96); MEAN CORPUSCULAR HEMOGLOBIN 29.5 PG (28-34); MEAN CORPUSCULAR HGB CONC 31.5 g/dL (30-36); MEAN PLATELET VOLUME 7.9 FL (6.5-11.5); RED BLOOD COUNT 3.33 X10e (3.90-5.30); RED CELL DISTRIBUTION WIDTH 19.4 % (11.0-15.5); WHITE BLOOD COUNT 11.7 X10e3 (4.0-10.5)
[2017-01-22 04:52] LABS: BUN/CREATININE RATIO 11.66; CALCIUM SERUM 7.6 mg/dL (8.4-10.2); CREATININE SERUM 1.2 mg/dL (0.6-1.4); GLOM FILT RATE Estimated 46.1 mL/min (>60); POTASSIUM 3.9 mmol/L (3.5-5.1)
[2017-01-23 09:01] LABS: HEMATOCRIT 32.7 % (35.0-45.0); HEMOGLOBIN 10.2 gm/dL (12.0-16.0); MEAN CORPUSCULAR HEMOGLOBIN 29.6 PG (28-34); MEAN CORPUSCULAR HGB CONC 31.2 g/dL (30-36); MEAN PLATELET VOLUME 7.7 FL (6.5-11.5); RED BLOOD COUNT 3.44 X10e (3.90-5.30); RED CELL DISTRIBUTION WIDTH 19.1 % (11.0-15.5); WHITE BLOOD COUNT 11.2 X10e3 (4.0-10.5)
[2017-01-23 09:13] LABS: PROTHROMBIN TIME (PATIENT) 10.4 SECONDS (9.6-11.5)
[2017-01-23 09:40] LABS: ALBUMIN SERUM 1.9 g/dL (3.5-5.0); BILIRUBIN,TOTAL 0.5 mg/dL (0.2-2.0); BUN/CREATININE RATIO 13.52; CALCIUM SERUM 7.9 mg/dL (8.4-10.2); CREATININE SERUM 1.7 mg/dL (0.6-1.4); GLOM FILT RATE Estimated 30.2 mL/min (>60); MAGNESIUM 1.9 mg/dL (1.6-3.0); PHOSPHOROUS 4.7 mg/dL (2.5-4.6); POTASSIUM 4.2 mmol/L (3.5-5.1); PROTEIN TOTAL SERUM 4.6 g/dL (6.0-8.3)
[2017-01-24 04:03] LABS: HEMATOCRIT 30.5 % (35.0-45.0); HEMOGLOBIN 9.6 gm/dL (12.0-16.0); MEAN CELL VOLUME 93.8 FL (83-96); MEAN CORPUSCULAR HEMOGLOBIN 29.6 PG (28-34); MEAN CORPUSCULAR HGB CONC 31.5 g/dL (30-36); MEAN PLATELET VOLUME 7.9 FL (6.5-11.5); RED BLOOD COUNT 3.26 X10e (3.90-5.30); RED CELL DISTRIBUTION WIDTH 18.9 % (11.0-15.5); WHITE BLOOD COUNT 11.7 X10e3 (4.0-10.5)
[2017-01-24 04:17] LABS: PROTHROMBIN TIME (PATIENT) 10.3 SECONDS (9.6-11.5)
[2017-01-24 04:27] LABS: BUN/CREATININE RATIO 16.66; CALCIUM SERUM 7.7 mg/dL (8.4-10.2); CREATININE SERUM 1.8 mg/dL (0.6-1.4); GLOM FILT RATE Estimated 28.2 mL/min (>60)
[2017-01-25 05:43] LABS: HEMOGLOBIN 9.3 gm/dL (12.0-16.0); MEAN CELL VOLUME 92.8 FL (83-96); MEAN CORPUSCULAR HEMOGLOBIN 29.8 PG (28-34); MEAN CORPUSCULAR HGB CONC 32.1 g/dL (30-36); MEAN PLATELET VOLUME 7.7 FL (6.5-11.5); RED BLOOD COUNT 3.13 X10e (3.90-5.30); RED CELL DISTRIBUTION WIDTH 18.7 % (11.0-15.5)
[2017-01-25 06:24] LABS: BUN/CREATININE RATIO 18.82; CALCIUM SERUM 7.8 mg/dL (8.4-10.2); CREATININE SERUM 1.7 mg/dL (0.6-1.4); GLOM FILT RATE Estimated 30.2 mL/min (>60); MAGNESIUM 2.1 mg/dL (1.6-3.0); PHOSPHOROUS 4.9 mg/dL (2.5-4.6); POTASSIUM 4.6 mmol/L (3.5-5.1)
[2017-01-26 05:23] LABS: HEMATOCRIT 29.9 % (35.0-45.0); HEMOGLOBIN 9.4 gm/dL (12.0-16.0); MEAN CELL VOLUME 93.6 FL (83-96); MEAN CORPUSCULAR HEMOGLOBIN 29.4 PG (28-34); MEAN CORPUSCULAR HGB CONC 31.4 g/dL (30-36); MEAN PLATELET VOLUME 7.7 FL (6.5-11.5); RED BLOOD COUNT 3.2 X10e (3.90-5.30); RED CELL DISTRIBUTION WIDTH 18.7 % (11.0-15.5); WHITE BLOOD COUNT 11.2 X10e3 (4.0-10.5)
[2017-01-26 06:06] LABS: PROTHROMBIN TIME (PATIENT) 10.3 SECONDS (9.6-11.5)
[2017-01-26 06:07] LABS: CALCIUM SERUM 7.8 mg/dL (8.4-10.2); CREATININE SERUM 1.5 mg/dL (0.6-1.4); GLOM FILT RATE Estimated 35.2 mL/min (>60); POTASSIUM 5.3 mmol/L (3.5-5.1)
[2017-01-27 05:27] LABS: HEMOGLOBIN 9.5 gm/dL (12.0-16.0); MEAN CORPUSCULAR HEMOGLOBIN 29.5 PG (28-34); MEAN CORPUSCULAR HGB CONC 31.7 g/dL (30-36); MEAN PLATELET VOLUME 7.2 FL (6.5-11.5); RED BLOOD COUNT 3.23 X10e (3.90-5.30); RED CELL DISTRIBUTION WIDTH 17.9 % (11.0-15.5); WHITE BLOOD COUNT 11.5 X10e3 (4.0-10.5)
[2017-01-27 05:41] LABS: PARTIAL THROMBOPLASTIN TIME 21.8 SECONDS (23.5-31.3); PROTHROMBIN TIME (PATIENT) 10.4 SECONDS (9.6-11.5)
[2017-01-27 06:32] LABS: BUN/CREATININE RATIO 22.66; CALCIUM SERUM 7.7 mg/dL (8.4-10.2); CREATININE SERUM 1.5 mg/dL (0.6-1.4); DIGOXIN (LANOXIN) 0.8 ng/ml (1.0-2.0); GLOM FILT RATE Estimated 35.2 mL/min (>60); POTASSIUM 4.7 mmol/L (3.5-5.1)
[2017-01-28 06:36] LABS: HEMATOCRIT 28.3 % (35.0-45.0); MEAN CELL VOLUME 92.9 FL (83-96); MEAN CORPUSCULAR HEMOGLOBIN 29.6 PG (28-34); MEAN CORPUSCULAR HGB CONC 31.9 g/dL (30-36); MEAN PLATELET VOLUME 7.5 FL (6.5-11.5); RED BLOOD COUNT 3.05 X10e (3.90-5.30); RED CELL DISTRIBUTION WIDTH 17.7 % (11.0-15.5)
[2017-01-28 06:53] LABS: BUN/CREATININE RATIO 20.58; CALCIUM SERUM 7.8 mg/dL (8.4-10.2); CREATININE SERUM 1.7 mg/dL (0.6-1.4); GLOM FILT RATE Estimated 30.2 mL/min (>60); POTASSIUM 4.5 mmol/L (3.5-5.1)
[2017-01-28 06:56] LABS: PROTHROMBIN TIME (PATIENT) 10.2 SECONDS (9.6-11.5)
[2017-01-29 06:18] LABS: HEMATOCRIT 28.5 % (35.0-45.0); HEMOGLOBIN 9.3 gm/dL (12.0-16.0); MEAN CELL VOLUME 92.5 FL (83-96); MEAN CORPUSCULAR HEMOGLOBIN 30.1 PG (28-34); MEAN CORPUSCULAR HGB CONC 32.5 g/dL (30-36); MEAN PLATELET VOLUME 7.6 FL (6.5-11.5); RED BLOOD COUNT 3.08 X10e (3.90-5.30); RED CELL DISTRIBUTION WIDTH 18.1 % (11.0-15.5); WHITE BLOOD COUNT 10.8 X10e3 (4.0-10.5)
[2017-01-29 07:33] LABS: BUN/CREATININE RATIO 22.85; CALCIUM SERUM 7.8 mg/dL (8.4-10.2); CREATININE SERUM 1.4 mg/dL (0.6-1.4); GLOM FILT RATE Estimated 38.2 mL/min (>60); POTASSIUM 4.2 mmol/L (3.5-5.1)
[2017-01-30 05:46] LABS: HEMOGLOBIN 9.7 gm/dL (12.0-16.0); MEAN CELL VOLUME 92.5 FL (83-96); MEAN CORPUSCULAR HGB CONC 32.4 g/dL (30-36); MEAN PLATELET VOLUME 7.1 FL (6.5-11.5); RED BLOOD COUNT 3.24 X10e (3.90-5.30); RED CELL DISTRIBUTION WIDTH 17.9 % (11.0-15.5); WHITE BLOOD COUNT 10.9 X10e3 (4.0-10.5)
[2017-01-30 06:16] LABS: PROTHROMBIN TIME (PATIENT) 10.9 SECONDS (9.6-11.5)
[2017-01-30 07:21] LABS: BUN/CREATININE RATIO 21.53; CREATININE SERUM 1.3 mg/dL (0.6-1.4); GLOM FILT RATE Estimated 41.8 mL/min (>60); POTASSIUM 3.8 mmol/L (3.5-5.1)
[2017-01-31 04:59] LABS: HEMATOCRIT 28.7 % (35.0-45.0); HEMOGLOBIN 9.3 gm/dL (12.0-16.0); MEAN CELL VOLUME 92.8 FL (83-96); MEAN CORPUSCULAR HGB CONC 32.3 g/dL (30-36); MEAN PLATELET VOLUME 7.3 FL (6.5-11.5); RED BLOOD COUNT 3.1 X10e (3.90-5.30); RED CELL DISTRIBUTION WIDTH 17.7 % (11.0-15.5); WHITE BLOOD COUNT 10.7 X10e3 (4.0-10.5)
[2017-01-31 05:14] LABS: INR 1.1; PROTHROMBIN TIME (PATIENT) 11.1 SECONDS (9.6-11.5)
[2017-01-31 06:03] LABS: CALCIUM SERUM 7.9 mg/dL (8.4-10.2); CREATININE SERUM 1.3 mg/dL (0.6-1.4); GLOM FILT RATE Estimated 41.8 mL/min (>60); POTASSIUM 3.9 mmol/L (3.5-5.1)
== END 2017-01-31 12:15 | DRG 190 ==
LOC: CED 14:04 → C3A PCU 18:26 → CEDOF 18:26 → C3A PCU 21:11
PROVIDERS: Emergency Medicine; Internal Medicine; Internal Medicine Nephrology
PROC: 30233N1 Transfusion of Nonautologous Red Blood Cells into Peripheral Vein, Percutaneous Approach (ICD-10-PCS; 2016-12-31)
PROC: 02HV33Z Insertion of Infusion Device into Superior Vena Cava, Percutaneous Approach (ICD-10-PCS; 2017-01-11)
PROC: B548ZZA Ultrasonography of Superior Vena Cava, Guidance (ICD-10-PCS; 2017-01-11)
PROC: 02HV33Z Insertion of Infusion Device into Superior Vena Cava, Percutaneous Approach (ICD-10-PCS; principal; 2017-01-20)
PROC: B518YZA Fluoroscopy of Superior Vena Cava using Other Contrast, Guidance (ICD-10-PCS; 2017-01-20)
PROC: 5A1D60Z (ICD-10-PCS; 2017-01-20)
DX: J44.0 Chronic obstructive pulmonary disease with (acute) lower respiratory infection (principal); J18.9 Pneumonia, unspecified organism; N17.9 Acute kidney failure, unspecified; L89.154 Pressure ulcer of sacral region, stage 4; E46 Unspecified protein-calorie malnutrition; I13.0 Hypertensive heart and chronic kidney disease with heart failure and stage 1 through stage 4 chronic kidney disease, or unspecified chronic kidney disease; E87.2 Acidosis; I50.9 Heart failure, unspecified; F33.2 Major depressive disorder, recurrent severe without psychotic features; N10 Acute pyelonephritis; E87.1 Hypo-osmolality and hyponatremia; B37.49 Other urogenital candidiasis; I48.0 Paroxysmal atrial fibrillation; D64.9 Anemia, unspecified; Z79.01 Long term (current) use of anticoagulants; R41.0 Disorientation, unspecified; N18.3 Chronic kidney disease, stage 3 (moderate); Z66 Do not resuscitate; Z87.891 Personal history of nicotine dependence; E78.5 Hyperlipidemia, unspecified; M62.3 Immobility syndrome (paraplegic); R62.7 Adult failure to thrive; L27.1 Localized skin eruption due to drugs and medicaments taken internally; T36.8X5A Adverse effect of other systemic antibiotics, initial encounter; Y92.9 Unspecified place or not applicable; F41.9 Anxiety disorder, unspecified; Z86.73 Personal history of transient ischemic attack (TIA), and cerebral infarction without residual deficits; Z82.3 Family history of stroke; Z82.49 Family history of ischemic heart disease and other diseases of the circulatory system; Z68.31 Body mass index [BMI] 31.0-31.9, adult; Y95 Nosocomial condition
CPT/HCPCS: 36415; 51702; 70450; 71010; 71020; 74176; 76770; 76937; 77001; 80048; 80053; 80076; 80162; 80200; 80202; 81003; 82274; 82308; 82570; 82947; 83735; 83880; 83930; 83935; 84100; 84132; 84300; 84550; 85014; 85018; 85025; 85027; 85610; 85730; 86850; 86900; 86901; 86923; 87040; 87070; 87077; 87086; 87186; 87205; 87340; 87449; 87493; 87899; 89190; 94640; 94760; 97110; 97163; 97167; 97168; 97530; 97535; 99285; C1725; C1750; C1894; G8978-GP; G8979-GP; G8987-GO; G8988-GO; J0690; J0692; J1644; J1650; J1940; J2150; J2250; J2405; J2543; J2930; J2997; J3010; J3260; J3370; J3430; J3475; P9016; Q4081

== ENCOUNTER 2017-02-13 18:28 | Inpatient (IN) | payer OTHER ==
[~2017-02-13] VITALS: Ht 162.6 cm; Wt 77.6 kg
--- NOTE | ~2017-02-13 | A ---
[facility] Nutrition Therapy DATE: 02/16/17 Patient: CHRISTEL SILVA Physician: ALBERTO Address: [address] [place] [address] Room/Bed: [address], Zip: [place] [address] Admit Date: 02/13/17 Date of : 47 Height: 5 4 Weight: 191 87 NUTRITIONAL ASSESSMENT: REASON: NPO in ICU, Pt intubated Dx: 71 y/o female admitted for CDIFF, UTI, colitis, decubitus ulcer PMH: strokes, Afib, HLD, HTN, CKD stage 3, acute renal failure, PNA, COPD Anthropometrics: ht: 5'4" wt: 174# (79 kg) BMI: 29 Labs: Na+ 127, K+ 3.0, Cl- 90, Glu 540, BUN 32, Creat 2.2, Ca++ 7.2, Alb 1.7, Phos 4.9, Lip <10, GFR 22.1 Meds: novolog medium dose sliding scale, NaCl, protonix IV, zofran, morphine sulfate, dextrose 5%, levophed, desyrel I/O & Bowel function: 8252/440. Last BM 02/14 Skin Integrity: bruise- BUE, chest, abd; pressure ulcer- coccyx, legs, left heel; S/T/scabs- BLE, LUE; skin tear- LUE Estimated Nutrition Needs: 0657-7205 kcal (20-25 kcal/kg) 79-102 g protein (1.0-1.3 g/kg) Assessment: Chart reviewed, events noted. Pt was seen previously during 12/30/16-01/31/17 admit. Pt in ICU on vent and currently s/p colectomy for colitis. Pt not appropriate for diet interview. No family in room at time of visit. Pt has NG to LWS. Per RN and chart, no plans in place for alternative nutrition support at this time. Please see recommendations for enteral and TPN. RD to follow. Dx: Inadequate nutrient intake r/t colitis, s/p colectomy AEB NPO status, pt on vent Intervention: 1. NPO Monitoring, Evaluation and Goals: 1. GI; promote regular GI function 2. Intake; once enteral or TPN initiated, provide >80% estimated needs 3. Skin; prevent further breakdown, promote healing [facility] Nutrition Therapy DATE: 02/16/17 Patient: CHRISTEL SILVA Physician: ALBERTO Address: [address] [place] [address] Room/Bed: [address] [place] [address], Zip: [place] [address] Admit Date: 02/13/17 Date of : [birth year] Height: 5 4 Weight: 191 87 4. Labs; WNL-electrolytes Recommendations: 1. Once medically feasible, if pt appropriate, initiate enteral nutrition support of Vital 1.5 @ 20 mL/hr and increase 10 mL q 10 hrs to goal of 55 mL/hr x 24 hours. -This will provide 1980 kcal, 89 g protein, 1003 mL h20. -Free water flushes per MD. 2. If enteral nutrition not appropriate or not tolerated, once medically feasible, initate TPN (dextrose 25%) at 20 mL/hr and advance 10 mL q 12 hours to goal rate of 75 mL/hr x 24 hours. -This provides 1890 kcal, 90 g protein (GUR: 3.9) -Cycle 250 mL lipids every other day, providing 500 kcals on days they are cycled. This provides 2390 kcal on lipid days 3. Monitor glucose and electrolytes. 4. If pt extubated, per UNDERWRITING CLERKS SUPERVISOR eval, recommend low-fiber diet + [address] will f/u per protocol as pt is at mod/severe nutritional risk. Respectfully, GEGE CHASE, internal control specialist Jerome Etienne MS, RD, LD Food and Nutritional Services [facility] cc: client file
--- NOTE | ~2017-02-13 | FU ---
[facility] Nutrition Therapy DATE: 02/20/17 Patient: CHRISTEL SILVA Physician: ALBERTO Address: [address] [place] [address] Room/Bed: [address], Zip: [place] [address] Admit Date: 02/13/17 Date of : [birth year] Height: 5 4 Weight: 214 97.5 NUTRITION MONITORING/FOLLOW-UP: Reason: TPN follow-up Anthropometrics: ht: 5'4" wt: 214# BMI: 36 -Admit weight 174# Labs: K+ 3.2, GLU 125, accuchecks 132, BUN 32, Ca++ 7.9, Zaid 1.9, AST 58, Phos 1.8, Meds: furosemide, versed, sublimaze, mag-sulfate, TPN I&O's: 3626/4850 BM 02/20. Skin: bruise- BUE, chest, ABD; P/U- coccyx, legs, LT heel; scabs- BLE, LUE; skin tear- LUE Edema: some noted, per RN Estimated Nutrition Needs: 8454-0284 kcal (20-25 kcal/kg) 79-102 g protein (1.0-1.3 g/kg) Assessment: Chart reviewed, events noted. Pt currently receiving TPN (dextrose 25%) at rate of 75 mL/hr with no lipids cycling at this time. Pt remains on the vent in the ICU with NG to LWS. Per RN report, kidney function is improving. RD will continue to follow. Dx: Inadequate nutrient intake r/t colitis, s/p colectomy AEB NPO status, pt on vent- ACTIVE Intervention: 1. TPN Monitoring, Evaluation and Goals: 1. GI; promote regular GI function -IN PROGRESS 2. TPN; provide >80% estimated needs -MET/IN-PROGRESS 3. Skin; prevent further breakdown, promote healing -IN PROGRESS 4. Improve labs; K+, Phos, glucose, BUN NEW GOAL: 1. Enteral nutrition; monitor if initiated Recommendations: 1. Continue current TPN (dextrose 25%) at 75 mL/hr. -This provides 1890 kcal, 90 g pro (GUR 3.9) -Cycle 250 mL lipids every 48 hrs, providing 2390 kcals on days lipids are cycled. [facility] Nutrition Therapy DATE: 02/20/17 Patient: CHRISTEL SILVA Physician: ALBERTO Address: [address] [place] [address] Room/Bed: [address], Zip: [place] [id number] Admit Date: 02/13/17 Date of : [birth year] Height: 5 4 Weight: 214 97.5 2. If enteral nutrition appropriate, initiate Vital 1.5 @ 15 mL/hr and advance 10 mL q 8 hours to goal rate of 55 mL/hr x 24 hours. -This provides 1980 kcal, 89 g pro, 1003 mL h20. -Free water flushes per MD. 3. If pt extubated, per FAMILY NURSE eval, recommend low-fiber diet + [address] will f/u per protocol as pt is at mod/severe nutritional risk. Respectfully, GEGE CHASE, manager internet retails sales Sabina Barrera, RD, LD Food and Nutritional Services [facility] cc: client file
--- NOTE | ~2017-02-13 | XA166 ---
[facility] A Service of [facility] RADIOLOGY TEXT RESULTS PATIENT: CHRISTEL SILVA LOCATION: [address] : [birth year] UNIT #: [id number] AGE: [address]: Calos Barkley MD SEX: F ORDER DR: [id number] [facility]. [place], [place] [address] [id number] I MR#: [id number] Acc #: [id number] NAME: CHRISTEL SILVA : 1945 SEX: F STUDY DATE/TIME: 02/14/2017 13:00 [facility] STUDY DESCRIPTION: XA PICC Line Placement WO Port Attending Physician: Calos Barkley M.D. Ordering Physician: Calos Barkley M.D. Primary Care Physician: Calos Barkley M.D. MEDICAL IMAGING REPORT This report is preliminary unless electronic signature is present EXAM Right-sided PICC line placement INDICATION Need for IV access in a patient with colitis. PRE-PROCEDURE The procedure was explained to the patient and/or patient patient financial representative including risks, benefits, potential complications and potential for alternative forms of treatment. Informed consent was obtained, and prior to initiating the procedure a formal timeout procedure was performed. PROCEDURE Using full standard sterile barrier technique, including caps, gowns, gloves, masks, as well as sterile skin preparation and standard sterile draping, the right arm was prepped and draped in the usual fashion, and real-time sterile ultrasound guidance was used to localize an arm vein and to confirm vessel patency. A hard copy ultrasound image was recorded. After local anesthesia with 1% Xylocaine, the vein was punctured using real-time sterile ultrasound guidance, and an 0.018 guidewire was advanced into the superior vena cava, using fluoroscopic guidance. A 5-Belgian dual-lumen PICC was then measured and deployed with the tip positioned in the superior vena cava. The position of the line was documented with a radiographic image. The line was secured in place with an adhesive dressing and an antibiotic patch was applied. Total fluoro time was 0.1 minutes. AK was 1 mGy. IMPRESSION Successful placement of a 5-Belgian dual-lumen PowerPICC via the right arm under ultrasound and fluoroscopic guidance. The tip of the PICC is in good position in the superior vena cava. [facility] A Service of [facility] RADIOLOGY TEXT RESULTS PATIENT: CHRISTEL SILVA LOCATION: [facility] CICCU2-08 : [birth year] UNIT #: [id number] AGE: [address]: Calos Barkley MD SEX: F ORDER DR: Dictated by... Katelin Conti M.D. THIS IS AN ELECTRONICALLY VERIFIED REPORT Katelin Conti M.D. at 02/17/2017 3:27 PM AFF/aa TD: 02/17/2017 08:14 JOB #: [id number] MEDICAL IMAGING REPORT Page 1 of 1 COPY
--- NOTE | ~2017-02-13 | HP ---
Unit #: [id number] #: [id number] Patient: CHRISTEL SILVA [id number] [address] [place], [place] [address] [id number] I MR#: [id number] NAME: CHRISTEL SILVA ROOM: 558 Age: 71 Sex: F Admission Date: 02/14/2017 : 1945 Attending Physician: Calos Barkley M.D. Primary Care Physician: Calos Barkley M.D. HISTORY AND PHYSICAL HISTORY OF PRESENT ILLNESS 71-year-old white female, recent admission here 12/30/16 to 01/31/17, sent to [facility] after hospitalization for hospital-acquired pneumonia, anemia, acute renal failure, decubitus ulcers, COPD, paroxysmal atrial fibrillation, multiple CVAs, right sided CHF. She apparently was at [facility] and had "abnormal" labs and was sent to the emergency room. I guess the most important one was an elevated white count but it is kind of hard to tell because she had an elevated PT/INR as well. Here, she had a low sodium, low potassium. CT scan of the abdomen and pelvis was performed because of abdominal pain and diarrhea and was consistent with pancolitis and possible osteomyelitis of the right decubitus ulcer site. She is admitted for further evaluation. The patient is a poor historian but does complain of anorexia, diarrhea and abdominal pain and really has no other complaints at this time. There is no family here. She is a DNR. ALLERGIES She has no known drug allergies. MEDICATIONS Meds per senior care: 1. Singulair 10 mg p.o. daily. 2. Multivitamins daily. 3. B12 1000 mcg daily. 4. Folic acid 1 mg daily. 5. Effexor 37.5 mg daily. 6. Digoxin 1.25 mg Monday, Monday and Monday. 7. Iron 324 mg t.i.d. 8. Metoprolol tartrate 25 mg p.o. b.i.d. 9. Pulmicort 0.5 mg for inhalation b.i.d. 10. Desyrel 50 mg q. h.s. 11. Tylenol 650 q.4 p.r.n. 12. Cocoa 5/325, one q.4 hours p.r.n. 13. Albuterol per unit dose four times daily. 14. Benadryl 25 mg q.i.d. p.r.n. for itching. 15. Budesonide 0.5 mg b.i.d. 16. Perforomist 20 mcg b.i.d. PAST MEDICAL HISTORY 1. The patient has a history of COPD. 2. Chronic anemia. 3. Heme positive stools. 4. Chronic kidney disease stage 3. 5. Multiple CVAs. 6. Hypertension. Unit #: [id number] #: [id number] Patient: CHRISTEL SILVA 7. Hyperlipidemia. 8. Chronic Owens. 9. Immobilization syndrome. 10. Paroxysmal atrial fibrillation. 11. Nonsustained V-tach. 12. Right sided CHF. SURGICAL HISTORY Only positive for an appendectomy. SOCIAL HISTORY Prior smoker. , not employed. Occasional alcohol use. No illicit drug use. FAMILY HISTORY Noncontributory. PHYSICAL EXAMINATION GENERAL: She is awake and alert, oriented to person but not to time or place. VITAL SIGNS: Afebrile. Pulse 129, respirations 22, blood pressure 92/50, O2 sat 96% on room air. HEENT: Unremarkable. NECK: Supple without JVD, bruits, adenopathy or thyromegaly. CHEST: Diffusely decreased breath sounds but clear to auscultation. HEART: Regular rate and rhythm without any murmurs, rubs or gallops. ABDOMEN: Large, soft, tender to palpation. Diffuse guarding. Positive bowel sounds. No hepatosplenomegaly. EXTREMITIES: No clubbing, cyanosis or edema. /RECTAL: Deferred. NEUROLOGICAL: Grossly intact. DIAGNOSTIC STUDIES LABORATORY: Urinalysis shows 3+ leukocytes, positive for nitrates, 5-10 RBCs, innumerable WBCs, 2+ bacteria. White count 42.3, hemoglobin 11.4, platelets 368,000, 20% bands. INR 6.1, PTT 71.6, lactic acid 2.3, sodium 129, potassium 2.7, CO2 18, BUN 26, GFR 38, alkaline phos. 174, albumin 1.7. CARDIOVASCULAR: EKG - sinus tach. Nonspecific ST-T abnormality. IMAGING: CT scan of the abdomen and pelvis shows pain colitis and probable osteomyelitis with a right decubitus ulcer. IMPRESSION 1. Sepsis. 2. Colitis. 3. Urinary tract infection. 4. Osteomyelitis. 5. Chronic kidney disease x3. 6. Chronic obstructive pulmonary disease. 7. Paroxysmal atrial fibrillation. 8. Multiple cerebrovascular accidents. 9. Hypokalemia. 10. Hyponatremia. 11. Supratherapeutic protime. PLAN Unit #: [id number] #: [id number] Patient: CHRISTEL SILVA Wound care consult, ID consult. Check magnesium, replace potassium, replace sodium. IV fluids, IV Zosyn, IV vancomycin, p.o. vanc and Flagyl. Check stool for C. diff. Hold warfarin, recheck protime. Further evaluation pending results of the above. Dictated by Phil Burleson/ana TD: 02/14/2017 08:12 JOB #: [id number] HISTORY AND PHYSICAL Page 1 of 1 X Calos Barkley MD X HISTORY AND PHYSICAL
--- NOTE | ~2017-02-13 | CR72 ---
[facility] A Service of [facility] & [facility] RADIOLOGY TEXT RESULTS PATIENT: CHRISTEL SILVA LOCATION: [address] : [birth year] UNIT #: [id number] AGE: [address]: Calos Barkley MD SEX: F ORDER DR: [id number] [facility] [address]. [place], [place] [address] [id number] I MR#: [id number] Acc #: [id number] NAME: CHRISTEL SILVA : 1945 SEX: F STUDY DATE/TIME: 02/19/2017 4:29 [facility]: [facility] STUDY DESCRIPTION: CR Chest Single View Portable Attending Physician: Calos Barkley M.D. Ordering Physician: Kelton Moore M.D. Primary Care Physician: Calos Barkley M.D. MEDICAL IMAGING REPORT This report is preliminary unless electronic signature is present EXAM Portable chest INDICATIONS Respiratory failure, follow up. PROCEDURE Frontal view chest. COMPARISON 02/18/2017. FINDINGS Heart size stable. ET tube unchanged. No new dense consolidation. No visible pneumothorax. IMPRESSION Stable. Dictated by... Toñito Espinoza M.D. THIS IS AN ELECTRONICALLY VERIFIED REPORT Toñito Espinoza M.D. at 02/19/2017 10:23 PM DARRIAN/lily TD: 02/19/2017 08:58 JOB #: [id number] MEDICAL IMAGING REPORT Page 1 of 1 COPY
--- NOTE | ~2017-02-13 | CO ---
Unit #: [id number] #: [id number] Patient: CHRISTEL SARABIA [id number] [address] [place], [place] [address] [id number] I MR#: [id number] NAME: CHRISTEL SARABIA ROOM: [facility] Age: 71 Sex: F Admission Date: 02/13/2017 : 1945 Attending Physician: Calos Barkley M.D. Primary Care Physician: Calos Barkley M.D. Consultation Date: 02/15/2017 CONSULTATION REPORT REASON FOR CONSULTATION Renal failure. Thank you very much for asking me to see this patient in consultation. HISTORY OF PRESENT ILLNESS Ms. Christel Sarabia is a 71-year-old female, who we saw in December for acute renal failure. Her creatinine got as high as 4.8. She was discharged on 01/31/2017. Creatinine is down to 1.3. She has multiple medical problems as well outlined below, but presented to the hospital here on 02/14/2017 with increased abdominal pain, diarrhea, was noted to have a creatinine of 1.4 and then it was up to 2.0 today with decreased output. Because of this, I was asked to see the patient. Since admission, the patient was noted to have an increasing white count and a positive C diff and being treated for active C difficile. She also has a chronic indwelling Owens. She had it removed by Infectious Disease yesterday and was unable to void and was restarted, although still with some decreased urine output. The patient currently is still having some intermittent abdominal pain. No chest pain or shortness of breath. Still some diarrhea, although now she has a fecal management system in place as well as her Owens. She again noted to have an increased BUN and creatinine of 33 and 2.0 today with a bicarb of 15. Because of this, I was asked to see the patient. PAST MEDICAL HISTORY History of COPD; history of immobilization; history of CVAs; history of failure to thrive; history of acute renal failure on possible chronic kidney disease, stage 3; history of pneumonia in 12/2016; history of severe decubitus ulcers which is still present; history of non-SVT; history of hypertension; history of hyperlipidemia; history of chronic indwelling Owens; history of atrial fib, on chronic Coumadin, history of pulmonary hypertension; and right-sided heart failure. ALLERGIES No known drug allergies. SOCIAL HISTORY She lives at [facility]. Previous smoker, none now. . No alcohol. Apparently, she is a DNR there. MEDICATIONS Her medicines currently here include Pepcid, Lanoxin, Lopressor, Zosyn, vancomycin, Flagyl p.o., Effexor, iron pill, folic acid. Unit #: [id number] #: [id number] Patient: CHRISTEL SARABIA FAMILY HISTORY Noncontributory. REVIEW OF SYSTEMS She denies any severe headaches, dizziness, visual problems, sinus problems. No cough or hemoptysis. No neck pain or neck stiffness. No chest pain, chest heaviness, palpitations. No severe shortness of breath, mainly just abdominal discomfort and diarrhea. No lower extremity swelling. She states she was told her sacral wound was improving, although this is verbal from her. PHYSICAL EXAMINATION GENERAL: She is alert, mild distress. VITAL SIGNS: Temperature 98.1, pulse 81 to 122, systolic blood pressure 85 to 121 over 50s to 60s. HEENT: She is normocephalic and atraumatic. Her pupils are equal, round, and reactive to light. Her extraocular muscles are intact. Her hearing appears to be normal. Her mouth is clear. No erythema. No exudate. NECK: Supple. No JVD. No adenopathy. CARDIAC: She appears to have a fairly regular rhythm right now. No rub or murmur was appreciated. ABDOMEN: She has diffuse tenderness. Bowel sounds are positive. Overweight. EXTREMITIES: She has some trace lower extremity swelling. She has a wound on her left lower leg which is dressed. Sacral, apparently she has a decubitus, but I did not open up and look at it. SKIN: No acute rashes otherwise. NEUROLOGIC: She is alert and oriented right now. DIAGNOSTIC STUDIES LABORATORY RESULTS: This morning, sodium is 127 down from 129 upon admission. Potassium 3.8, CO2 of 15, chloride is 101, BUN 33, creatinine 2.0, glucose 117, calcium 7.1. CPK was only 5. Digoxin level was 0.05. Magnesium is 1.8 today. Lactic acid is down to 1.5. Her INR was 4.6. Hemoglobin is 12.2, white count 50,800, platelets 397,000. UA shows specific gravity of 1.01, 1+ protein, 5 to 10 rbc's, too numerous to count wbc's, 2+ bacteria. Again, she has two different gram-negative rods growing out of her urine. She has a positive C diff as well. IMAGING STUDIES: Her CT scan showed diffuse colon thickening. She also had sacral decubitus noted there and some bilateral renal atrophy. ASSESSMENT AND PLAN 1. Acute on chronic kidney disease, stage 3. The patient's creatinine is worsening, it is mainly related to probably intravascularly volume depleted, hypotension, etc., related to her Clostridium difficile. Agree with increasing fluids. We will increase it to 150 mL an hour and we will change her to D5W with 3 amps of bicarb secondary to acidosis and hopefully with fluid and treatment, her renal function will again start getting better. I certainly would continue her Owens catheter in place. We will flush it as well. No reason to do any imaging of her kidneys now or any other further tests. I would try to keep her off IV vancomycin, tobramycin, contrast dye, and other nephrotoxins. I saw that her Pepcid was discontinued over the Protonix today. We will keep her on that for now, but if renal function continues to worsen, we may have to reconsider changing it back to H2 jennifer. 2. Metabolic acidosis, again start her on IV bicarb drip and then follow. 3. Hyponatremia. Sodium is decreasing secondary to probably renal Unit #: [id number] #: [id number] Patient: RICARDO,CHRISTEL failure and hypovolemic hyponatremia. We will go and check TSH, cortisol level in a.m. as well. 4. Clostridium difficile. 5. Chronic Owens with urinary tract infection per ID. 6. Sacral decubitus. 7. History of heart failure. Certainly, at this point, she does not appear to be in any heart failure, but certainly will have to follow it closely. Dictated by.Stephane. Stanislav Win M.D. COLLEEN/rory TD: 02/16/2017 05:51 JOB #: [id number] CONSULTATION REPORT Page 1 of 1 X Matilde Win MD CONSULTATION REPORT
--- NOTE | ~2017-02-13 | FU ---
[facility] Nutrition Therapy DATE: 02/23/17 Patient: CHRISTEL SILVA Physician: ALBERTO Address: [address] [place] [address] Room/Bed: [address], Zip: [place] [address] Admit Date: 02/13/17 Date of : [birth year] Height: 5 4 Weight: 208 94.7 NUTRITION MONITORING/FOLLOW-UP: Reason: TPN/EN follow-up Dx: 71 y/o female admitted for cdiff, UTI, colitis Anthropometrics: ht: 5'4" wt: 208# (94.5 kg) BMI: 35 -Admit weight 174# Labs: Cl- 112, Glu 134, BUN 33, Creat 0.3, Ca++ 8.2, Alb 2.0, Phos 2.3 Meds: zofran, PPi, novolog, synthroid (IV), levophed I&O's: 2417/2435. BM 02/22 Skin: previously noted Estimated Nutrition Needs: 1333-6707 kcal (20-25 kcal/kg) 79-102 g protein (1.0-1.3 g/kg) Assessment: Chart reviewed, events noted. Pt continues to be in the ICU and has been extubated, now on nasal cannula. TPN has been d/c'd and enteral nutrition support of Vital 1.5 is currently running at 40 mL/hr, receiving 750 mL past 24 hours (56% of goal volume). Per RN, the pt is tolerating the tubefeeds. Pt's was in room, he reported no questions at this time. RD will continue to follow. Dx: Inadeqaute nutrient intake r/t colitis, s/p colectomy AEB NPO status, pt on vent -RESOLVED New Dx: Inadeqaute nutrient intake r/t current clinical condition AEB enteral nutrition not at goal (56% goal volume past 24 hours) Intervention: 1. Enteral nutrition Monitoring, Evaluation and Goals: 1. GI; promote regular GI function -RESOLVED/IN PROGRESS 2. TPN; provide >80% estimated needs -RESOLVED 3. Skin; prevent further breakdown, promote healing -IN PROGRESS 4. Improve labs; K+ (improved), phos (improved), glucose (not improved), BUN (not improved) [facility] Nutrition Therapy DATE: 02/23/17 Patient: CHRISTEL SILVA Physician: ALBERTO Address: [address] [place] [address] Room/Bed: [address], Zip: [place] [phone] Admit Date: 02/13/17 Date of : [birth year] Height: 5 4 Weight: 208 94.7 New goals: 1. Enteral nutrition; receive >80% estimated goal volume x 24 hours Monitor: -enteral nutrition -labs -GI function Recommendations: 1. Continue current enteral nutrition support of Vital 1.5 @ 40 mL/hr and advance to goal of 55 mL/hr x 22 hours (pt on Synthroid, hold tubefeeds 1 hour before and 1 hour after administration). This will provide 1815 kcal, 81 g protein, 919 mL h20. Free water flushes per MD. 2. Recommend PET SUPPLIES SALESPERSON eval. If diet advanced, recommend low-fiber diet/GI soft + 6 small meals. 3. Monitor for signs of enteral nutrition intolerance. RD will f/u per protocol as pt is at moderate nutritional risk. Respectfully, GEGE CHASE, dietetic technician registered Jerome Etienne MS, RD, LD [facility] Nutrition[facility] Services [facility] cc: client file
--- NOTE | ~2017-02-13 | EKG ---
PATIENT: CHRISTEL SILVA UNIT #: [id number] Ventricular Rate: 113 BPM Atrial Rate: 113 BPM P-R Interval: 172 ms QRS Duration: 88 ms Q-T Interval: 302 ms QTC Calculation(Bezet): 414 ms P [place]: 72 degrees Calculated R [place]: 62 degrees Calculated T [place]: -99 degrees Diagnosis Line: Sinus tachycardia with Premature supraventricular Diagnosis Line: complexes Diagnosis Line: Nonspecific ST and T wave abnormality Diagnosis Line: Abnormal ECG Diagnosis Line: When compared with ECG of 14-NOV-2016 09:57, Diagnosis Line: Premature ventricular complexes are no longer Diagnosis Line: Present Diagnosis Line: T wave inversion now evident in Inferior leads Diagnosis Line: T wave inversion now evident in Anterolateral Diagnosis Line: leads Diagnosis Line: Confirmed by GISELLE JOHNSON MD ([id number]) on Diagnosis Line: 02/13/2017 10:24:51 PM INTERPRETING MD: KIRSTIN
--- NOTE | ~2017-02-13 | CR72 ---
[facility] A Service of [facility] RADIOLOGY TEXT RESULTS PATIENT: CHRISTEL SILVA LOCATION: [facility] 308- : [birth year] UNIT #: [id number] AGE: [address]: Calos Barkley MD SEX: F ORDER DR: [id number] [facility] [address] [place], [place] [address] [id number] I MR#: [id number] #: [id number] NAME: CHRISTEL SILVA : 1945 SEX: F STUDY DATE/TIME: 02/27/2017 5:10 UNIT: A U ROOM: [facility] STUDY DESCRIPTION: CR Chest Single View Portable Attending Physician: Calos Barkley M.D. Ordering Physician: Kelton Moore M.D. Primary Care Physician: Calos Barkley M.D. MEDICAL IMAGING REPORT This report is preliminary unless electronic signature is present EXAM Portable chest, 02/27. INDICATION Shortness of air for 14 days. FINDINGS AP portable chest is compared with 02/26/2017. Right IJ line and right arm PICC are in good position in the SVC. Heart size normal. Small bilateral effusions are stable. Bibasilar atelectasis versus infiltrate, also stable. No pneumothorax. Dictated by... Brent Holden Jr., M.D. THIS IS AN ELECTRONICALLY VERIFIED REPORT Brent Holden Jr., M.D. at 02/27/2017 3:48 PM EMILIE/ernesto TD: 02/27/2017 14:07 JOB #: [id number] MEDICAL IMAGING REPORT Page 1 of 1 COPY
--- NOTE | ~2017-02-13 | CC ---
[facility] Nutrition Therapy DATE: 03/04/17 Patient: CHRISTEL SILVA Physician: ALBERTO Address: [address] [place] [address] Room/Bed: [address] [place] [address], Zip: [place] [phone] Admit Date: 02/13/17 Date of : [birth year] Height: 5 4 Weight: 191 86.8 CALORIE COUNT: EVALUATION: DAY 2 of Calorie Count. 1 Meal Recorded per Available records. Patient consumed 75-100% of dinner 03/03 (only meal ticket available) which was cottage cheese, peaches and a fruit plate with thickened coffee. Pt consumed approximately: 300 Calories, 8 GM Protein. Tube Feeding Provides: 0 Calories and 0 GM Protein (EN off). Nutritional Supplements Provides: variable Calories and Protein (pt does not consistently consume magic cups, states she had one "night before last"). Patient has somewhat AMS but states family sometimes brings her food which she eats all of, is not fond of the slick diet. Reports eating a lot of fruit but very little meat or dairy, however had cottage cheese at dinner last night. Still inconsistent supplement intake, may be minimally meeting daily kcal needs but is likely not meeting protein needs. Unable to determine total % kcals met from calorie count and there were no meal tickets with recorded intake and only 1 meal ticket from yesterday available (see above). MD wrote orders to D/C DHT, is still in at time of RD visit to room. Will D/C calorie count due to inconsistent recordings and MD orders to D/C DHT. See recs below. Recommendations: 1. Due to inconsistent meal ticket recordings for calorie count and MD orders to D/C DHT will stop calorie count. See above assessment for details. 2. Advance diet to regular texture once able per C 40A CREW CHIEF recs. Continue to send chocolate magic cups TID. RD will continue to follow Respectfully, Elizabeth Luong RD, WILLI Food and Nutritional Services [facility] cc: client file
--- NOTE | ~2017-02-13 | CO ---
Unit #: [id number] #: [id number] Patient: CHRISTEL SILVA [id number] [address] [address] [id number] I MR#: [id number] NAME: CHRISTEL SILVA ROOM: [facility] Age: 71 Sex: F Admission Date: 02/13/2017 : 1945 Attending Physician: Calos Barkley M.D. Primary Care Physician: Calos Barkley M.D. Consultation Date: 02/16/2017 CONSULTATION REPORT REASON FOR CONSULT ICU management. HISTORY OF PRESENT ILLNESS This is a 71-year-old female with past medical history significant for anemia, COPD, chronic kidney disease, and hypertension who [facility]. Patient apparently had a recent hospitalization for pneumonia between December and January. Her workup in this hospital was consistent with colitis and positive for Clostridium difficile. Patient was started on antibiotics; however, her condition apparently declined on the floor with worsening mental status and hypotension. Patient was evaluated by surgery for colectomy and she was rushed to the operation room on February 15, 2017. I am seeing this patient now postop for septic shock and respiratory failure. Currently, she is on the vent, off sedation. She is waking up to verbal stimuli but she still appears lethargic. She is not making urine and she appears very weak, mainly on the left side. PAST MEDICAL HISTORY 1. COPD. 2. Chronic anemia. 3. Chronic kidney disease. 4. Multiple CVA. 5. Hypertension. 6. Hyperlipidemia. 7. Immobilization syndrome. 8. Paroxysmal atrial fibrillation. 9. Congestive heart failure, right sided. 10. Nonsustained ventricular tachycardia. PAST SURGICAL HISTORY 1. Colectomy. 2. Appendectomy. SOCIAL HISTORY [facility] She is , not employed. She occasionally drinks alcohol. No history of drug abuse or smoking currently but she is an ex-smoker. FAMILY HISTORY Noncontributory to this condition. HOME MEDICATIONS 1. Digoxin. Unit #: [id number] #: [id number] Patient: CHRISTEL SILVA 2. Folic acid. 3. Pulmicort. 4. [place]. 5. Iron. REVIEW OF SYSTEMS Unable to obtain due to patient's condition. PHYSICAL EXAMINATION GENERAL: The patient is awake on the vent, but not following commands. She falls asleep easily. VITAL SIGNS: Blood pressure 96/59, respiratory rate 16, O2 saturation 98%. HEENT: Atraumatic, normocephalic. PERRLA. EOMI. NECK: Supple. No JVD. No lymphadenopathy. CHEST: Diminished breath sounds bilaterally. HEART: S1, S2. No murmur, gallops, or rubs. ABDOMEN: Tender to palpation with no bowel sounds. EXTREMITIES: Plus 1 edema in all extremities with multiple bruises in the upper extremities. SKIN: No rashes. CENTRAL NERVOUS SYSTEM: The patient is on the vent. She is not following commands but she opened her eyes to verbal stimuli. She appears weak around the left side, and I am unsure what is her baseline. DIAGNOSTIC STUDIES LABORATORY: Creatinine 2, potassium 3.8, sodium 128. White blood count 38.1, hemoglobin 6.8. IMAGING: CT abdomen is reviewed by me and consistent with pancolitis. ASSESSMENT 1. Acute hypoxic respiratory failure. 2. Septic shock. 3. Clostridium difficile colitis. 4. Acute kidney injury. 5. Acute on chronic anemia. 6. Immobility syndrome. 7. Malnutrition. PLAN 1. Patient is very critical with poor prognosis given her baseline condition. 2. Will continue vent support at this point and reassess for liberation once her overall condition improves. 3. Continue patient on pressors and IV fluid. 4. Urine output is minimal and renal evaluating for possible hemodialysis. 5. Broad-spectrum antibiotics per infectious disease service. 6. Keep NPO for now. Will assess for TPN based on her progress. 7. DVT/GI prophylaxis. I would like to thank you for allowing me to be a part of this patient's care. Critical care time spent on this patient was 40 minutes. Unit #: [id number] #: [id number] Patient: CHRISTEL SILVA Dictated by... Phil Black TD: 02/17/2017 13:45 JOB #: [id number] CONSULTATION REPORT Page 1 of 1 X CODY CLEMENTS MD CONSULTATION REPORT
--- NOTE | ~2017-02-13 | DS ---
Unit #: [id number] #: [id number] Patient: CHRISTEL SILVA [id number] [address] [address] [id number] I MR#: [id number] NAME: CHRISTEL SILVA ROOM: 308 Age: 71 Sex: F Admission Date: 02/13/2017 : 1945 Discharge Date: 03/13/2017 Attending Physician: Calos Barkley M.D. Primary Care Physician: Calos Barkley M.D. DISCHARGE SUMMARY DISCHARGE DIAGNOSES 1. Acute megacolon secondary to Clostridium difficile colitis. 2. Sepsis syndrome. 3. Urinary tract infection. 4. Osteomyelitis of the sacrum. 5. Uelgv-mk-uvhpkch kidney disease. 6. Dneat-tc-xxsnlqj respiratory failure. 7. Paroxysmal atrial fibrillation. 8. Hypokalemia. 9. Hyponatremia. 10. Supratherapeutic prothrombin time. 11. 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 12. Large sacral decubitus ulcer. CONSULTANTS 1. Dr. Hernández. 2. Dr. Lora. 3. Dr. Win. 4. Dr. Park. PROCEDURES 1. PICC line placement 02/14/17. 2. Transfusion four units of FFP 02/15/17. 3. Exploratory laparotomy and subtotal colectomy, partial omentectomy, ileostomy 02/21/17. 4. Transfusion one unit packed RBCs 03/01/17. 5. PICC line placement 03/04/17. 6. PICC line placement 03/08/17. 7. Debridement with bone biopsy of sacral decubitus ulcer 03/09/17. 8. Debridement with bone biopsy of sacral decubitus ulcer 03/09/17. REASON FOR HOSPITALIZATION The patient is a 71-year-old white female who had a recent admission here 12/30/16 to 01/31/17, sent to [facility] after hospitalization for hospital-acquired pneumonia, anemia, acute renal failure, decubitus ulcer in the sacrum, COPD, paroxysmal atrial fibrillations, right-sided CHF, history of multiple old CVAs. Apparently when she was in [facility] she had "abnormal labs" and was sent to the emergency room but I am not sure exactly why they sent her. In any case, she was found to be hyponatremic, hypokalemic, with an elevated pro-time, leukocytosis. CT scan of the abdomen and pelvis was performed because of abdominal pain and diarrhea and was consistent with pancolitis and possible osteomyelitis of the right decubitus ulcer site and she was admitted for further evaluation. Unit #: [id number] #: [id number] Patient: CHRISTEL SILVA The patient was a DNR on admission per her prior request. Cultures were sent. Stool was sent for C. diff. Urine and blood cultures were sent. Her white count was 42,000 on admission. PT/INR was 6.1, PTT was 71, potassium 2.7 and sodium 129. The patient's magnesium was checked. Potassium was replaced. Sodium was replaced. She was placed on IV Zosyn, IV vancomycin, p.o. vancomycin and Flagyl. Warfarin was held. The patient was seen in consultation by Dr. Hernández, Dr. Win and Dr. Lora on admission, found to have a megacolon requiring emergent surgery, given four units of FFP on the and underwent exploratory laparotomy, subtotal colectomy, partial omentectomy, ileostomy. Postop she was in the ICU on a ventilator and TPN for a few days, was extubated on the , eventually had a swallowing study and moved out. Had prolonged postop course requiring multiple PICC line placements as mentioned above, had transfusion of one unit of packed RBCs on 03/01/17 and multiple urinary tract infections treated. She was begun on occupational and physical therapy. Decubitus ulcer was worse. Osteomyelitis was entertained. Difficult to get the patient to undergo CT scan or MRI. Eventually underwent debridement with a bone biopsy on the which grew Proteus. Bone biopsy was positive for osteomyelitis. The wound culture grew Providencia sensitive to cefepime. Eventually she was switched to cefepime by Infectious Disease, 2 g IV q.8 h. which they recommend performing through 04/20/17. Currently she has a bed at [facility] and appears to be as stable as she can be given her current condition. Again she is a DNR. She is on a regular diet. DISCHARGE MEDICATIONS 1. She has Accu-Cheks a.c. and h.s. and low dose sliding scale insulin. Need to watch closely for episodes of hypoglycemia. She is currently on: 2. Combivent mini-nebs q.i.d. 3. Budesonide 0.5 mg b.i.d. 4. Perforomist 20 mcg daily. 5. Bactroban topically to the nares t.i.d. 6. Volvox 30 mg subcu daily. 7. Venlafaxine 37.5 mg daily. 8. Benadryl 25 mg q.4 h. p.r.n. for itching. 9. Zofran 4 mg IV q.4 h. p.r.n. for nausea or vomiting. 10. Megace 400 mg p.o. daily. 11. Xanax 0.25 mg p.o. t.i.d. p.r.n. for anxiety. 12. Lanoxin 0.125 mg p.o. daily on Monday, Monday and Monday. 13. Lopressor 25 mg p.o. b.i.d. 14. Ferrous sulfate 300 mg t.i.d. 15. Singulair 10 mg p.o. daily. 16. Florastor 250 mg p.o. daily. 17. Multivitamins one p.o. daily. 18. Percocet 7.5/325 one q.i.d. p.r.n. for pain. 19. Sodium hypochlorite topical solution Dakin's 0.25% strength external use only q.12 h. to the decubitus ulcer. 20. Protonix 40 mg p.o. daily. 21. Council nasal spray q.2 h. p.r.n. 22. Synthroid 25 mcg p.o. daily. 23. Folic acid 1 mg p.o. daily. 24. B12 1000 mcg p.o. daily. 25. Again the cefepime is 2 g IV q.8 h. through 04/20/17. DISCHARGE AND FOLLOWUP INSTRUCTIONS 1. Dr. Hernández has ordered a sed rate and CRP for the morning. If you Unit #: [id number] #: [id number] Patient: CHRISTEL SILVA would, please perform those and fax them to his office or call them. 2. She will need to have a repeat BMP and CBC in a few days to recheck her electrolytes, renal function and anemia. 3. Please follow the wound care instructions per [facility]' directions and consult Dr. Ramey at [facility] if he is able to see the patient there as he has seen her before. DIAGNOSTIC STUDIES LABORATORY: Her current hemoglobin is 9, white count is 11.9, platelets are 449,000. Her BNP is normal except for GFR of 57.5. Dictated by... Calos Barkley M.D. ALFRED/keila TD: 03/13/2017 18:14 JOB #: [id number] DISCHARGE SUMMARY Page 1 of 1 X Calos Barkley MD X DISCHARGE SUMMARY
--- NOTE | ~2017-02-13 | CO ---
Unit #: [id number] #: [id number] Patient: CHRISTEL SILVA [id number] [address] [place], [place] [address] [id number] I MR#: [id number] NAME: CHRISTEL SILVA ROOM: 558 Age: 71 Sex: F Admission Date: 02/14/2017 : 1945 Attending Physician: Calos Barkley M.D. Primary Care Physician: Calos Barkley M.D. Consultation Date: 02/14/2017 CONSULTATION REPORT REASON FOR CONSULTATION Antibiotic management in a patient with suspected c-diff colitis and osteomyelitis. HISTORY OF PRESENT ILLNESS This is a 71-year-old female who is somewhat of a poor historian and most of her history is obtained via the history and physical that is on the chart, as well as the patient. The patient was recently in the hospital and was discharged to a rehab facility on 01/31/2017, after being treated for hospital acquired pneumonia. During that admission the patient appears to have developed some renal failure of unclear etiology and required short, intermittent dialysis. Now her tunnelled catheter has been removed. The patient was also noted that admission to have decubitus ulcers. The patient was sent to rehab facility when she began complaining of abdominal pain and also had episodes of diarrhea. The patient was sent to the emergency room and had a CT scan done. Official CT scan results are unavailable to me at this time, but per the history and physical by the admitting physician her CT did show some pancolitis and possible osteomyelitis of the right decubitus ulcer. The patient has been started on antibiotic therapy and infectious disease was asked to evaluate for further management. In discussion with the patient, she denies any fever or shortness of breath or cough. The patient does report she has ongoing nausea and diarrhea and significant pain everywhere. Per the note she is a DNR. PAST MEDICAL HISTORY 1. As previously stated. 2. Chronic obstructive pulmonary disease. 3. Anemia. 4. Hemoccult positive stool 5. Chronic kidney disease. 6. Multiple CVAs. 7. Hypertension. 8. Hyperlipidemia. 9. Chronic Owens. 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 11. Paroxysmal atrial fibrillation, now sustained v-tac. 12. Right-sided congestive heart failure. PAST SURGICAL HISTORY Appendectomy. SOCIAL HISTORY Past tobacco abuse. No current alcohol or tobacco or IV drug use. Unit #: [id number] #: [id number] Patient: CHRISTEL SILVA ALLERGIES No known drug allergies. CURRENT MEDICATIONS 1. Zosyn. 2. Vancomycin. 3. P.o. vancomycin. For other medications, please refer to the patient's MAR. REVIEW OF SYSTEMS Negative except for as previously mentioned above. PHYSICAL EXAMINATION GENERAL: This is a no apparent distress female who does appear in some discomfort. VITALS: Temperature 98.2, pulse 127, blood pressure 92/50, respiratory rate 22. HEENT: Pupils are equal. NECK: Supple. LUNGS: Clear to auscultation. Diminished in the bases with no significant wheezes or rhonchi noted. HEART: S1 and S2. Regular rate and rhythm. ABDOMEN: Positive hyperactive bowel sounds with diffuse tenderness throughout. There is no significant distension. EXTREMITIES: Trace edema. Bruising on her extremities. SACRAL: Large deep sacral wound with minimal granulation tissue. No significant odor. No significant purulence. DIAGNOSTIC STUDIES IMAGING: CT scan of the abdomen and pelvis is pending official result. LABORATORY: BUN 26, creatinine 1.4, sodium 129, potassium 2.7, chloride 99, CO2 18, bilirubin 0.3, AST 16, ALT 13, alkaline phosphatase 174. CK was not done this admission. Lactic acid 2.3. CRP and sedimentation rate are currently pending. White blood cell count 42,000, hemoglobin 11.4, hematocrit 35.5, platelets 368. CARDIOVASCULAR: Urinalysis, white blood cells too numerous to count, red blood cells 5-10, positive nitrites. Blood, urine and stool cultures are currently pending. ASSESSMENT/PLAN This is a 71-year-old female with recent admission to the hospital for hospital acquired pneumonia, who developed acute on chronic kidney failure. She required intermittent dialysis and now has had tunnelled catheter removed. She has decubitus ulcer. The patient returns with abdominal pain and diarrhea and was found to also have significant leukocytosis and a CT scan concerning for pancolitis and osteomyelitis. At this time the patient's urinalysis is also consistent with urinary tract infection. Would recommend to treat the patient as urinary tract infection, likely c-diff colitis and possible sacral osteomyelitis. Will recommend a follow-up CT scan that was done with official report and follow up on CRP and sedimentation rate. The patient is waiting to be evaluated by surgery and the patient will likely need debridement as there is minimal granulation tissue in her sacral wound area. The patient also has significant diarrhea. Will recommend to increase her p.o. vancomycin Unit #: [id number] #: [id number] Patient: CHRISTEL SILVA dose to 500 mg p.o. q.i.d. in light of the fact the patient will be on additional IV antibiotics secondary to her other infectious etiologies. The patient also has possible sacral osteomyelitis and wound infection. Difficult to state at this time. Would recommend to continue Zosyn. Will change vancomycin to daptomycin secondary to the patient's recent history of need dialysis without clears etiology and antibiotics may have played a part. Will check a CK total in the a.m. Will repeat lactic acid level, CBC and BMP. This case will be discussed with Dr. Anibal Hernández, who will also evaluate this patient today. Thank you for allowing us to participate in the care of this patient. Further recommendations to follow pending the patient's clinical course. Dictated by... Armando ConnorsPStephaneRStephaneNStephane for Anibal Hernández M.D. ESTEBAN/brad TD: 02/14/2017 09:28 JOB #: [id number] CONSULTATION REPORT Page 1 of 1 X X CONSULTATION REPORT
--- NOTE | ~2017-02-13 | CC ---
[facility] Nutrition Therapy DATE: 03/03/17 Patient: CHRISTEL SILVA Physician: ALBERTO Address: [address] [place] [address] Room/Bed: [address] [place] [address], Zip: [place] [address] Admit Date: 02/13/17 Date of : [birth year] Height: 5 4 Weight: 210 95.6 CALORIE COUNT: EVALUATION: DAY 1 of Calorie Count (started 03/02) 0/0 Meals Recorded per Available records. Pt consumed approximately: Calories, GM Protein (Information not available) Enteral nutrition Provides: Enteral nutrition being held at this time Nutritional Supplements Provides: Patient has not consumed supplement ordered (Magic Cup) TOTAL: Unable to obtain total amount of calories and protein, as none of the meal tickets were left in the designated folder in the pt's room. See note below. ASSESSMENT: RD visited the pt to assess intake and collect calorie count information. Despite RN informing NEWS EDITOR to record and leave meal tickets, no meal tickets were recorded. Pt was lethargic, seemed unsure about intake when asked by RD, stating "I had two cups of fruit yesterday". Pt states she would like to continue to receive Magic Cup supplements, although she says she has not been consuming them. RN (Mary Lou) has been caring for the pt for the last two days, and was able to provide RD with nutritional intake information. Although specfic intake percentages were not provided, RN reports that the pt consumes cottage cheese and tomatoes twice daily, and also consumes 100% of the food that family members bring in for her. RN reports that the pt needs encouragement to eat during meal times, and is consuming at least 3 meals per day (including food from hospital and food that family brings in). Pt still has DHT, however, enteral nutrition has been held since yesterday morning. RD will follow up with calorie count tomorrow, and informed RN about missing meal tickets. RN to discuss obtaining meal tickets with CNAs for more accurate calorie count. Recommendations: 1. Continue calorie count for one more day. 2. Continue Magic Cup TID with meals. 3. Appreciate staff and family encouraging adequate intake during meals. Respectfully, MEGAN COULTER, VICTOR M, LD [facility] Nutrition Therapy DATE: 03/03/17 Patient: CHRISTEL SILVA Physician: ALBERTO Address: [address] [place] [address] Room/Bed: [address] [place] [address], Zip: [place] [address] Admit Date: 02/13/17 Date of : [birth year] Height: 5 4 Weight: 210 95.6 Food and Nutritional Services [facility] cc: client file
--- NOTE | ~2017-02-13 | CR72 ---
[facility] A Service of [facility] & [facility] RADIOLOGY TEXT RESULTS PATIENT: CHRISTEL SILVA LOCATION: [address] : [birth year] UNIT #: [id number] AGE: [address]: Calos Barkley MD SEX: F ORDER DR: [id number] [facility] [address] [facility]. [place], [place] [address] [id number] MR#: [id number] Acc #: [id number] NAME: CHRISTEL SILVA : 1945 SEX: F STUDY DATE/TIME: 02/18/2017 5:21 UNIT: [facility] ROOM: [facility] STUDY DESCRIPTION: CR Chest Single View Portable Attending Physician: Calos Barkley M.D. Ordering Physician: Tona Pakr M.D. Primary Care Physician: Calos Barkley M.D. MEDICAL IMAGING REPORT This report is preliminary unless electronic signature is present EXAM Portable chest INDICATION Shortness of air today. PROCEDURE Frontal view chest. COMPARISON 02/17/2017 FINDINGS Heart size unchanged. No new dense consolidation. ET tube is stable. No visible pneumothorax. IMPRESSION Stable. Dictated by... Toñito Espinoza M.D. THIS IS AN ELECTRONICALLY VERIFIED REPORT Toñito Espinoza M.D. at 02/18/2017 10:09 PM DARRIAN/lily TD: 02/18/2017 11:43 JOB #: [id number] MEDICAL IMAGING REPORT Page 1 of 1 COPY
--- NOTE | ~2017-02-13 | OR ---
Unit #: [id number] #: [id number] Patient: CHRISTEL SILVA [id number] [address] [address] [id number] MR#: [id number] NAME: CHRISTEL SILVA ROOM: [facility] Date of Procedure: 03/09/2017 Admission Date: 02/13/2017 Surgeon: Sam Arrington M.D. : 1945 Attending Physician: Calos Barkley M.D. Primary Care Physician: Calos Barkley M.D. OPERATIVE REPORT PREOPERATIVE DIAGNOSIS Necrotic sacral ulcer with possible osteomyelitis. POSTOPERATIVE DIAGNOSIS Necrotic sacral ulcer with possible osteomyelitis. PROCEDURES PERFORMED 1. Sharp excisional debridement of skin, subcutaneous tissue, muscle, and bone of necrotic sacral ulcer. 2. Biopsy of sacral bone. ANESTHESIA General LMA anesthesia with 0.5% Marcaine plain local anesthesia. FINDINGS The skin and subcutaneous tissue were sharply debrided from the edge of the wound circumferentially. Muscle and deep tissues were sharply debrided and as was the bone. Bone was also sent for pathology and microbiology, culture and sensitivity. FLUIDS 500 mL crystalloid. ESTIMATED BLOOD LOSS Minimal. DRAINS None. TUBES None. SPECIMENS Sent to Pathology and Microbiology. COMPLICATIONS None apparent. CONDITION The patient tolerated the procedure well. INDICATIONS FOR PROCEDURE Unit #: [id number] #: [id number] Patient: CHRISTEL SILVA The patient is a 71-year-old white female, who presented to the hospital with a sacral ulcer as well as toxic megacolon. She underwent subtotal colectomy and ileostomy. She has possible osteomyelitis of the sacrum. She has some necrotic areas of the sacral wound. She is here for sharp excisional debridement and bone biopsy and bone to be sent for culture and sensitivity. DESCRIPTION OF PROCEDURE After obtaining informed consent as well as receiving scheduled antibiotics, the patient was brought to the operating room and after adequate general LMA anesthesia was obtained, was carefully placed into the right lateral decubitus position with all pressure points carefully padded. Axillary roll in place and all extremities manipulated very carefully. Her sacral area was prepped and draped in a sterile fashion. Using a scalpel, necrotic skin and subcutaneous tissue was sharply debrided around the edges. The base of the wound was sharply debrided with a scalpel and back to good healthy viable tissue. In the midportion of the wound, there was an area of exposed sacral bone. A rongeur was used to debride this back to healthier bone and a portion of the bone was sent for culture and sensitivity, and for pathology. The wound was irrigated. Hemostasis was obtained with the Bovie. The wound was packed with a saline soaked fluffs, followed by dry 4x4s, ABD pad, and tape. Needle counts, sponge counts, and instrument counts were all correct as reported by the scrub nurse x2. The patient went from the operating room to the recovery room in stable condition. Dictated by... Phil Martin/rory TD: 03/09/2017 09:22 JOB #: [id number] CC: Phil Burleson M.D. [facility] OPERATIVE REPORT Page 1 of 1 X Sam Arrington MD X PROCEDURE OPERATIVE NOTE
--- NOTE | ~2017-02-13 | XA237 ---
[facility] A Service of [facility] & [facility] RADIOLOGY TEXT RESULTS PATIENT: CHRISTEL SILVA LOCATION: C3A 308- : [birth year] UNIT #: [id number] AGE: [address]: Calos Barkley MD SEX: F ORDER DR: [id number] [facility] [address] [facility]. [place], [place] [address] [id number] I MR#: [id number] Acc #: [id number] NAME: CHRISTEL SILVA : 1945 SEX: F STUDY DATE/TIME: 03/08/2017 15:54 UNIT: C3A PCU ROOM: 308 STUDY DESCRIPTION: XA PICC Line Replcmnt Same Sit Attending Physician: Calos Barkley M.D. Ordering Physician: Calos Barkley M.D. Primary Care Physician: Calos Barkley M.D. MEDICAL IMAGING REPORT This report is preliminary unless electronic signature is present EXAM PICC line insertion, 03/08/2017 HISTORY IV access needed. PRE-PROCEDURE The procedure was explained to the patient and/or patient visitor services representative including risks, benefits, potential complications and potential for alternative forms of treatment. Informed consent was obtained, and prior to initiating the procedure a formal timeout procedure was performed. PROCEDURE Using full standard sterile barrier technique, including caps, gowns, gloves, masks, as well as sterile skin preparation and standard sterile draping, the right arm was prepped and draped in the usual fashion, and real-time sterile ultrasound guidance was used to localize an arm vein and to confirm vessel patency. A hard copy ultrasound image was recorded. After local anesthesia with 1% Xylocaine, the vein was punctured using real-time sterile ultrasound guidance, and an 0.018 guidewire was advanced into the superior vena cava, using fluoroscopic guidance. A 5 Czech dual-lumen PICC was then measured and deployed with the tip positioned in the superior vena cava. The position of the line was documented with a radiographic image. The line was secured in place with an adhesive dressing and an antibiotic patch was applied. Total fluoro time was 0.3 minutes. Single fluoroscopic spot image. IMPRESSION Successful placement of a 5 Czech dual-lumen PowerPICC via the right arm under ultrasound and fluoroscopic guidance. The tip of the PICC is in good position in the superior vena cava. [facility] A Service of [facility] RADIOLOGY TEXT RESULTS PATIENT: CHRISTEL SILVA LOCATION: A 308-01 : [birth year] UNIT #: [id number] AGE: [address]: Calos Barkley MD SEX: F ORDER DR: Dictated by... Clark Barreto M.D. THIS IS AN ELECTRONICALLY VERIFIED REPORT Clark Barreto M.D. at 03/09/2017 5:04 PM CAMILO/teresita TD: 03/09/2017 10:38 JOB #: [id number] MEDICAL IMAGING REPORT Page 1 of 1 COPY
--- NOTE | ~2017-02-13 | NM4 ---
[facility] A Service of [facility] RADIOLOGY TEXT RESULTS PATIENT: CHRISTEL SILVA LOCATION: A 308- : 47 UNIT #: [id number] AGE: [address]: Calos Barkley MD SEX: F ORDER DR: [id number] [facility] [address] [facility]. [place], [place] [address] [id number] I MR#: [id number] Acc #: [id number] NAME: CHRISTEL SILVA : 1945 SEX: F STUDY DATE/TIME: 03/06/2017 9:09 UNIT: [address] ROOM: 308 STUDY DESCRIPTION: NM Bone or Joint 3 Phase Study Attending Physician: Calos Barkley M.D. Ordering Physician: Anibal Hernández M.D. Primary Care Physician: Calos Barkley M.D. MEDICAL IMAGING REPORT This report is preliminary unless electronic signature is present EXAM Three-phase bone scan of the pelvis and hips, 03/06/2017 HISTORY History sheet states osteomyelitis of the pelvis, bed sores posterior gluteal region. Properties page states patient refused to finish delayed oblique and lateral imaging. Unable to take a clear history. History from [facility]. [facility] noted deep penetrating ulcer of the coccyx that extends all the way to the bone compatible with osteomyelitis. COMPARISON CT abdomen and pelvis, 12/30/2016. CT of the abdomen and pelvis, 02/13/2017. FINDINGS The patient received 31.3 mCi technetium 99, MDP intravenously and vascular flow, blood pool, and limited delayed views of the pelvis were performed. Phase two imaging demonstrates very minimal superficial soft tissue uptake in the posterior buttock region. Phase three imaging (only 2 projections were obtained) shows moderate to marked increased uptake in the lower sacrum and coccygeal region. This corresponds with subtle sclerotic change by CT of 02/13/2017 involving the upper coccyx (segments 1 and 2). The delayed phase uptake could be secondary to reactive activity from the overlying wound. Sclerosis could also be seen with chronic osteomyelitis but there is no osseous destruction. IMPRESSION 1. Phase one is normal. 2. Very minimal soft tissue uptake on phase two in the region of STS. [facility] A Service of [facility] RADIOLOGY TEXT RESULTS PATIENT: CHRISTEL SILVA LOCATION: C3A 308-01 : 47 UNIT #: [id number] AGE: [address]: Calos Barkley MD SEX: F ORDER DR: clinical concern when correlated with the CT of 02/13/2017. There is a deep wound/ulceration in the sacrococcygeal junction region. 3. There is increased abnormal uptake in the lower sacrum and coccyx on phase three. The patient was only able to complete two of the third phase projections. In correlation with a CT, the uptake correlates with subtle sclerosis of the C1 and C2 coccygeal segments. There is no osseous destruction by CT. The bone scan uptake could be reactive or secondary to osteomyelitis. If this does reflect osteomyelitis, it is likely somewhat chronic given the sclerosis rather than true bony destruction. STAT * RESULT Dictated by... Elen Andrade M.D. THIS IS AN ELECTRONICALLY VERIFIED REPORT Elen Andrade M.D. at 03/07/2017 11:50 AM Rajesh TD: 03/07/2017 10:02 JOB #: [id number] MEDICAL IMAGING REPORT Page 1 of 1 COPY
--- NOTE | ~2017-02-13 | CR6 ---
[facility] A Service of [facility] & [facility] RADIOLOGY TEXT RESULTS PATIENT: CHRISTEL SILVA LOCATION: [address] : [birth year] UNIT #: [id number] AGE: [address]: Calos Barkley MD SEX: F ORDER DR: [id number] [facility] [address] [facility]. [place], [place] [address] [id number] I MR#: [id number] Acc #: [id number] NAME: CHRISTEL SILVA : 1945 SEX: F STUDY DATE/TIME: 02/22/2017 12:58 UNIT: [facility] ROOM: [facility] STUDY DESCRIPTION: CR Abdomen Portable Sng View Attending Physician: Calos Barklye M.D. Ordering Physician: Calos Barkley M.D. Primary Care Physician: Calos Barkley M.D. MEDICAL IMAGING REPORT This report is preliminary unless electronic signature is present EXAM Portable KUB HISTORY Dobbhoff tube placement. TECHNIQUE Single view of the abdomen was obtained. FINDINGS A Dobbhoff tube is seen with tip in good position over the mid to distal stomach. The bowel gas pattern is unremarkable. STAT * RESULT Dictated by... Brent Woods M.D. THIS IS AN ELECTRONICALLY VERIFIED REPORT Brent Woods M.D. at 02/22/2017 5:10 PM Essence TD: 02/22/2017 14:14 JOB #: [id number] MEDICAL IMAGING REPORT Page 1 of 1 COPY
--- NOTE | ~2017-02-13 | CR72 ---
[facility] A Service of [facility] & [facility] RADIOLOGY TEXT RESULTS PATIENT: CHRISTEL SILVA LOCATION: [facility] 308- : 47 UNIT #: [id number] AGE: [address]: Calos Barkley MD SEX: F ORDER DR: [id number] [facility] [address] [facility]. [place], [place] [address] [id number] I MR#: [id number] Acc #: [id number] NAME: CHRISTEL SILVA : 1945 SEX: F STUDY DATE/TIME: 02/26/2017 11:40 UNIT: C3A PCU ROOM: [facility] STUDY DESCRIPTION: CR Chest Single View Portable Attending Physician: Calos Barkley M.D. Ordering Physician: Calos Barkley M.D. Primary Care Physician: Calos Barkley M.D. MEDICAL IMAGING REPORT This report is preliminary unless electronic signature is present EXAM Portable chest HISTORY Cough, congestion and shortness of air for 2 weeks. FINDINGS Compared to 02/01/2017 the NG tube has been removed and a feeding tube has been placed, extending into the stomach. Right arm approach PICC and right IJ central line tips are in similar position compared to the prior study. Persistent small to moderate-sized bilateral pleural effusions, right greater than left, probably slightly increased on the right. Persistent mild bibasilar atelectasis or infiltrate, also slightly increased since the prior exam. Remainder of the chest is stable. Dictated by... Ben Toribio M.D. THIS IS AN ELECTRONICALLY VERIFIED REPORT Ben Toribio M.D. at 02/27/2017 5:33 PM KERRY/micah TD: 02/27/2017 00:14 JOB #: [id number] MEDICAL IMAGING REPORT Page 1 of 1 COPY
--- NOTE | ~2017-02-13 | FU ---
[facility] Nutrition Therapy DATE: 03/01/17 Patient: CHRISTEL SILVA Physician: ALBERTO Address: [address] [place] [address] Room/Bed: [address] [place] [address], Zip: [place] [address] Admit Date: 02/13/17 Date of : [birth year] Height: 5 4 Weight: 194 88 NUTRITION MONITORING/FOLLOW-UP: Reason: Nutrition follow up Anthropometrics: Wt 03/01: 88 kg Labs: Gluc 120 BUN 24 Creat 0.4 Ca++ 7.9 Alb 1.9 Accuchecks 135-142 Meds: Furosemide, vitamin B12, folic acid, synthroid (DHT), MgSO4, KCl, novolog, protonix, zofran I&O's: 1340/1979, last BM 03/01, colostomy Skin: no changes Edema: BUE generalized Estimated Nutrition Needs: 2550-7487 kcals (20-25 kcals/kg) 79-102 grams protein (1-1.3 grams/kg) Diet: [place] diet with nectar thick liquids + 6 small meals Assessment: Chart reviewed, events noted. Pt was ordered a slick diet with NTL per [employer]ISINE recommendations on 02/26/17. Since then, the pt has not been taking much of anything PO per pt and RN report. [employer] CU[employer]INE evaluated the pt today, and continues to recommend NTL, but recommends to advance to mechanical soft foods with ground meats (gravy on all meat). RD spoke with the pt at bedside who reports having a poor appetite at this time; however, she is agreeable to Magic Cup with all meals and requested that RD order her something to try for lunch. RD ordered supplements and the pt's lunch. Pt continues on enteral nutrition with Vital 1.5, which was increased to 50 mL/hr today. Please see recommendations below. Dx: Inadequate nutrient intake RT clinical condition AEB enteral nutrition not at goal- IN PROGRESS (ENTERAL NUTRITION INCREASED CLOSER TO GOAL RATE) New Dx: Inadequate oral intake RT decreased appetite AEB pt reported decreased appetite and poor intake. Intervention: 1. Vital 1.5- see below 2. Advance diet per CHEF DE CUISINE [facility] Nutrition Therapy DATE: 03/01/17 Patient: CHRISTEL SILVA Physician: ALBERTO Address: [address] [place] [address] Room/Bed: [facility] [facility], Zip: [place] [address] Admit Date: 02/13/17 Date of : [birth year] Height: 5 4 Weight: 194 88 Monitoring, Evaluation and Goals: 1. GI; promote regular GI function- IN PROGRESS 2. Enteral nutrition; provide >80% estimated goal volume- IN PROGRESS 3. Skin; prevent further breakdown, promote healing- IN PROGRESS 4. Improve labs; glucose (IMPROVED), BUN (IMPROVED), creat (IMPROVED), phos (IMPROVED) NEW GOALS (IN ADDITION TO ABOVE): 1. Oral intake; tolerate >50% of meals and supplements Recommendations: 1. Continue current enteral nutrition regimen with Vital 1.5 @ 50 mL/hr x 22 hrs. 2. If the pt continues with minimal to no PO intake, consider increasing Vital 1.5 to goal of 55 mL/hr x 22 hrs to provide: 1815 kcals/ 82 grams protein/ 920 mL free H20 3. If the pt's intake increases to greater than 50% of meals, discontinue enteral nutrition. 4. If the pt begins eating 20-50% of meals consistently, decrease Vital 1.5 to 25 mL/hr x 22 hrs to meet 50% of her estimated nutrient needs by providin kcals/ 37 grams protein/ 920 mL free H20 5. Magic Cup chocolate TID with meals for supplemental nutrition. 6. Continue CHEF DE CUISINE to determine least restrictive diet tolerated by the pt. Status: Pt is at moderate nutritional risk. RD will continue to follow. Respectfully, MEGAN COULTER RD, LD [facility] and Nutrition[facility] cc: client file
--- NOTE | ~2017-02-13 | CC ---
[facility] Nutrition Therapy DATE: 03/02/17 Patient: CHRISTEL SILVA Physician: ALBERTO Address: [address] [place] [address] Room/Bed: [address] [place] [address], Zip: [place] [address] Admit Date: 02/13/17 Date of : [birth year] Height: 5 4 Weight: 189 85.9 CALORIE COUNT: Reason: RD received consult for [address] started three day calorie count today 03/02 and informed RN to keep all meal tickets and document intake to put in designated folder in the pt's room. RN to inform TRACK SUPERVISOR of the calorie count. RD also informed the pt and family member in room about calorie count. RD's most recent follow up with the pt was yesterday 03/01. Will continue to follow daily and update calorie count information. INTERVENTION: 1. Calorie count 2. Supplement- Magic Cup TID Respectfully, MEGAN COULTER RD, LD Food and Nutritional Services [facility] cc: client file
--- NOTE | ~2017-02-13 | CR72 ---
[facility] A Service of [facility] & [facility] RADIOLOGY TEXT RESULTS PATIENT: CHRISTEL SILVA LOCATION: [address] : [birth year] UNIT #: [id number] AGE: [address]: Calos Barkley MD SEX: F ORDER DR: [id number] [facility] [address] [facility]. [place], [place] [address] [id number] I MR#: [id number] Acc #: [id number] NAME: CHRISTEL SILVA : 1945 SEX: F STUDY DATE/TIME: 02/21/2017 5:47 UNIT: [facility] ROOM: [facility] STUDY DESCRIPTION: CR Chest Single View Portable Attending Physician: Calos Barkley M.D. Ordering Physician: Tona Park M.D. Primary Care Physician: Calos Barkley M.D. MEDICAL IMAGING REPORT This report is preliminary unless electronic signature is present EXAM Portable chest, 02/21. INDICATIONS Respiratory failure for 8 days. FINDINGS AP portable chest is compared with 02/19/2017. Tubes and lines are unchanged and well positioned. Infiltrate in the right upper lobe and right base again identified. This is stable. There is improved aeration at the left base. Small bilateral pleural effusions persist. No pneumothorax. Dictated by... Brent Holden Jr., M.D. THIS IS AN ELECTRONICALLY VERIFIED REPORT Brent Holden Jr., M.D. at 02/21/2017 12:57 PM EMILIE/sonny TD: 02/21/2017 12:53 JOB #: [id number] MEDICAL IMAGING REPORT Page 1 of 1 COPY
--- NOTE | ~2017-02-13 | OR ---
Unit #: [id number] #: [id number] Patient: CHRISTEL SILVA [id number] [address] [place], [place] [address] [id number] I MR#: [id number] NAME: CHRISTEL SILVA ROOM: [facility] Date of Procedure: 02/15/2017 Admission Date: 02/13/2017 Surgeon: Atul Palomo M.D. : 1945 Attending Physician: Calos Barkley M.D. Primary Care Physician: Calos Barkley M.D. 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 PROCEDURES PERFORMED Exploratory laparotomy, subtotal colectomy, partial omentectomy, ileostomy, mobilization of splenic and hepatic flexures. ANESTHESIA General endotracheal. COMPLICATIONS None. ESTIMATED BLOOD LOSS 400 mL. DESCRIPTION OF PROCEDURE After the patient was prepped and draped in usual fashion, a midline laparotomy incision was made starting about 5 to 6 cm below the umbilicus and extending about 6 to 7 cm above the umbilicus. The peritoneal cavity was opened to approximate the skin incision. There was a large amount of turbid, mildly foul-smelling fluid. This was suctioned free and sent for culture. The sigmoid colon was identified. It was distended, very edematous and inflamed. In fact, there was no palpable lumen. The transverse colon was difficult to identify, ended up extending the incision for the procedure was over nearly all the way down to the pubic bone and nearly up to the xiphoid. The colon was completely examined. It was extremely inflamed and again edematous and appeared to be marginally viable. There was no joanne perforation that I could appreciate. The patient did appear to have toxic megacolon. Decision was made for a subtotal colectomy. With this, the white line of Toldt was incised on the left gutter. The sigmoid and descending colon were mobilized to the midline. The hepatosplenic ligament was incised and the splenic flexure was mobilized with blunt and electrocautery dissection where appropriate. A similar process was performed on the right colon. The white line of Toldt was incised with electrocautery. The colon was rotated medially with blunt and some electrocautery dissection. The hepatic flexure was taken down with electrocautery as well. It should be noted that the small bowel have been run and it was viable and visually and palpably normal. Unit #: [id number] #: [id number] Patient: CHRISTEL SILVA The stomach was normal as well as was the gallbladder. The terminal ileum, however I must say, was very stenotic. There was a segment about 15 cm proximal to the ileocecal valve with the outside caliber of the bowel was just a cm in diameter. I divided the ileum just proximal to the stenotic change with a ERIC stapler. The mesentery was taken down starting from this point close to the bowel wall between Sabina clamps and 2-0 silk ties. The omentum was adhesed to the transverse colon. The omentum was divided just proximal to the transverse colon between Sabina clamps and 2-0 silk ties. The distal omentum was sent en bloc with the transverse colon as part of the specimen. This was a partial omentectomy. The entire mesentery was taken down. In the lower sigmoid colon at the junction with the rectum, the colon was again divided with a ERIC stapler. The specimen was delivered and sent to Pathology. There were bleeding points, which were controlled with electrocautery and few places were controlled with stick ties of 2-0 silk. The nasogastric tube was palpated. It was in good placement. A drain was placed through a separate stab incision down the left gutter into the pelvis and secured to the skin with a silk ligature. With this, an area in the right lower quadrant was examined. The skin was grasped with a Ciro. An ellipse of skin was excised with a scalpel in a cruciate incision. With electrocautery, it was divided down into the peritoneal cavity. The stump of the ileum was brought up through this. This was secured to the fascia in 4 quadrants using 3-0 Vicryl sutures. The fascia was then closed with a running #1 looped PDS. Skin was closed with clips. The ileostomy was opened with cautery and matured with interrupted sutures of 3-0 Vicryl. Dressing applied. Ostomy bag applied. The patient was taken to the recovery room in good condition. Dictated by... Atul Palomo M.D. JOCELYNE/rory TD: 02/16/2017 03:00 JOB #: [id number] OPERATIVE REPORT Page 1 of 1 X Atul Palomo PROCEDURE OPERATIVE NOTE
--- NOTE | ~2017-02-13 | CR72 ---
[facility] A Service of [facility] & [facility] RADIOLOGY TEXT RESULTS PATIENT: CHRISTEL SILVA LOCATION: [facility] 308- : 47 UNIT #: [id number] AGE: [address]: Calos Barkley MD SEX: F ORDER DR: [id number] [facility] [address] [facility]. [place], [place] [address] [id number] I MR#: [id number] Acc #: [id number] NAME: CHRISTEL SILVA : 1945 SEX: F STUDY DATE/TIME: 03/02/2017 8:00 UNIT: A PCU ROOM: [facility] STUDY DESCRIPTION: CR Chest Single View Portable Attending Physician: Calos Barkley M.D. Ordering Physician: Calos Barkley M.D. Primary Care Physician: Calos Barkley M.D. MEDICAL IMAGING REPORT This report is preliminary unless electronic signature is present EXAM Portable chest 03/02/2017 INDICATION Elevated white blood cell count. Shortness of air with activity. FINDINGS AP portable chest compared with 02/27/2017. Central venous catheters remain in the SVC. Heart size stable. Bilateral pleural effusions persist, right greater than left. The right pleural effusion appears slightly larger. There is increased atelectasis or infiltrate in the right base with essentially stable atelectasis or infiltrate in the left base. No pneumothorax. Dictated by... Brent Holden Jr., M.D. THIS IS AN ELECTRONICALLY VERIFIED REPORT Brent Holden Jr., M.D. at 03/02/2017 4:48 PM EMILIE/lily TD: 03/02/2017 13:09 JOB #: [id number] MEDICAL IMAGING REPORT Page 1 of 1 COPY
--- NOTE | ~2017-02-13 | CR72 ---
[facility] A Service of [facility] & [facility] RADIOLOGY TEXT RESULTS PATIENT: CHRISTEL SILVA LOCATION: [address] : [birth year] UNIT #: [id number] AGE: [address]: Calos Barkley MD SEX: F ORDER DR: [id number] [facility] [address] [facility]. [place], [place] [address] [id number] I MR#: [id number] Acc #: [id number] NAME: CHRISTEL SILVA : 1945 SEX: F STUDY DATE/TIME: 02/16/2017 8:27 UNIT: [facility] ROOM: [facility] STUDY DESCRIPTION: CR Chest Single View Portable Attending Physician: Calos Barkley M.D. Ordering Physician: Calos Barkley M.D. Primary Care Physician: Calos Barkley M.D. MEDICAL IMAGING REPORT This report is preliminary unless electronic signature is present EXAM Portable chest, 1 view, 02/15/2017. COMPARISON 01/12/2017 CLINICAL HISTORY Short of air and congestion for 3 days. FINDINGS Endotracheal tube present, distal tip about 5 cm above the katharine. Right arm PICC line and NG tube in place, as well. No pneumothorax. There is some linear density at the right base, likely atelectasis, less likely infiltrate. Dictated by... Clark Barreto M.D. THIS IS AN ELECTRONICALLY VERIFIED REPORT Clark Barreto M.D. at 02/16/2017 4:25 PM CAMILO/macario TD: 02/16/2017 12:04 JOB #: [id number] MEDICAL IMAGING REPORT Page 1 of 1 COPY
--- NOTE | ~2017-02-13 | US77 ---
[facility] A Service of [facility] & [facility] RADIOLOGY TEXT RESULTS PATIENT: CHRISTEL SILVA LOCATION: [address] : [birth year] UNIT #: [id number] AGE: [address]: Calos Barkley MD SEX: F ORDER DR: [id number] [facility] [address] [facility] [place], [place] [address] [id number] I MR#: [id number] Acc #: [id number] NAME: CHRISTEL SILVA : 1945 SEX: F STUDY DATE/TIME: 02/16/2017 14:19 UNIT: CICCU2 ROOM: [facility] STUDY DESCRIPTION: US Kidney Bilateral Complete Attending Physician: Calos Barkley M.D. Ordering Physician: Stanislav Win M.D. Primary Care Physician: Calos Barkley M.D. MEDICAL IMAGING REPORT This report is preliminary unless electronic signature is present EXAM Bilateral renal sonogram HISTORY 71-year-old female with acute renal failure, creatinine 2.4. History of multisystem disease. Prior CVA, congestive heart failure. FINDINGS Real-time examination demonstrates bilateral renal cortical atrophy with thinning of the renal cortex bilaterally. The right kidney measures 9.8 cm in length, the left kidney measures 10.6 cm length. No hydronephrosis. 2.7 cm cyst noted right kidney. Bladder is decompressed with a Owens catheter. Renal sonographic findings not significantly changed from 01/06/2017. IMPRESSION 1. Bilateral renal cortical atrophy consistent with the patient's history of chronic kidney disease. No hydronephrosis. 2. Small right renal cortical cyst. Dictated by... Becky Junior M.D. THIS IS AN ELECTRONICALLY VERIFIED REPORT Becky Junior M.D. at 02/16/2017 10:39 PM LA/amparo TD: 02/16/2017 20:57 JOB #: [id number] MEDICAL IMAGING REPORT Page 1 of 1 COPY
--- NOTE | ~2017-02-13 | FU ---
[facility] Nutrition Therapy DATE: 03/09/17 Patient: CHRISTEL SILVA Physician: ALBERTO Address: [address] [place] [address] Room/Bed: [address] [place] [address], Zip: [place] [address] Admit Date: 02/13/17 Date of : [birth year] Height: 5 4 Weight: 182 82.8 NUTRITION MONITORING/FOLLOW-UP: Reason: Follow up Anthropometrics: Ht: 5'4" Adm wt: 79 kg BMI: 29 Wt 03/09: 82.8 kg Labs: Cl- 95 Na+ 134 Phos (03/08): 6.0 Accuchecks 76-93 Meds: D5%, lopressor, megace oral, vitamin B12, folic acid, synthroid, MgSO4, KCl, novolog, protonix, zofran I&O's: 800/1725, last BM 03/08 Skin: stage IV necrotic sacral wound Pressure ulcer BLE Closed surgical incision abdomen Edema: BLE/ BUE/ feet- generalized Diet: NPO Assessment: Chart reviewed, events noted. Pt went for sacral wound debridement this morning, still NPO from pre-op orders but was previously ordered a slick diet with NTL and 6 small meals per SIGN BOARD ERECTOR. Orders in chart to advance the pt's diet as tolerated post-op. RD spoke with the pt at bedside regarding her intake. Pt reports that she has been eating mostly fruit for the past couple of days, and food that family brings in occasionally. Pt does not like the food at [facility], stating she is "Sick of it". RD stressed the importance of adequate protein intake, and the pt reports consuming Magic Cup supplements. Pt's report of intake is vague, as she is unable to provide amount or time consumed. Pt agreed that she would increase her supplement intake. RD spoke with the pt's RN, who reports that family brought the pt food from [facility] last night and she consumed 100% of it. RN reports that the pt will consume some food items from [facility], and that she is a poor historian when it comes to time and details. RD will order appropriate supplements and continue to monitor intake. Dx: Inaedquate oral intake RT increased protein needs, dislike of hospital food AEB pt reported poor intake of hospital food d/t taste, adequate intake when family brings in food, inconsistent intake, delayed wound healing with stage IV pressure ulcer. Intervention: 1. Magic Cup TID [facility] Nutrition Therapy DATE: 03/09/17 Patient: CHRISTEL SILVA Physician: ALBERTO Address: [address] [place] [address] Room/Bed: 308-01 [facility] [place], Zip: [place] [address] Admit Date: 02/13/17 Date of : [birth year] Height: 5 4 Weight: 182 82.8 2. Anshu BID Monitoring, Evaluation and Goals: 1. Enteral nutrition- NO LONGER RELEVANT 2. Oral intake; tolerate >50% of meals- IN PROGRESS 3. GI; promote regular GI function- IN PROGRESS 4. Skin; promote healing, prevent further breakdown- NOT MET NEW GOALS TO MONITOR IN ADDITION TO ABOVE: 1. Improve labs; Phos, Na+ Recommendations: 1. Magic Cup TID for supplemental nutrition. 2. Order Anshu BID and add a MVI + minerals to promote wound healing. 3. Encourage adequate protein intake as needed. Status: Pt is at mild-moderate nutritional risk. Respectfully, MEGAN COULTER RD, LD Food and Nutritional Services [facility] cc: client file
--- NOTE | ~2017-02-13 | CO ---
Unit #: [id number] #: [id number] Patient: HCRISTEL SILVA [id number] [facility]. [place], [place] [address] [id number] I MR#: [id number] NAME: CHRISTEL SILVA ROOM: [facility] Age: 71 Sex: F Admission Date: 02/13/2017 : 1945 Attending Physician: Calos Barkley M.D. Primary Care Physician: Calos Barkley M.D. Consultation Date: 02/14/2017 CONSULTATION REPORT CHIEF COMPLAINT Abdominal pain. HISTORY OF PRESENT ILLNESS This is a 71-year-old lady, who has had a several day history of worsening abdominal pain that is diffuse and worse on the left side than the right side. It has been associated with diarrhea, where she has had several bowel movements per day. She feels nauseated, but has not thrown up. She was transferred from long-term due to abnormal labs. PAST MEDICAL HISTORY Significant for hospital acquired pneumonia, COPD, atrial fibrillation, cerebrovascular accident, and congestive heart failure. PAST SURGICAL HISTORY She has had an appendectomy. MEDICATIONS Please see med rec list. She is on numerous medications including Coumadin. ALLERGIES She has no known drug allergies. SOCIAL HISTORY She denies any tobacco or alcohol use and is a DNR. FAMILY HISTORY Noncontributory. REVIEW OF SYSTEMS Little bit difficult to obtain because she is not the best of historians. There has been no apparent weight loss or fevers or jaundice. PHYSICAL EXAMINATION VITAL SIGNS: Temperature is 98.2, heart rate is 127, respiratory rate 22, blood pressure is 92/50. Urine output was 200 mL last shift. GENERAL: She is in no acute distress. HEENT: Pupils are equal and react to light and accommodation and her extraocular muscles are intact. NECK: Without masses or bruits. LUNGS: Show good breath sounds bilaterally with equal air exchange. CARDIAC: Shows regular rate and rhythm without murmur. ABDOMEN: Soft. She has 2 to 3+ tenderness in the left abdomen and the Unit #: [id number] #: [id number] Patient: CHRISTEL SILVA suprapubic region. Right lower quadrant is relatively nontender. There is no guarding or peritoneal signs. EXTREMITIES: Without edema or cyanosis. SACRAL: She has at least a 5 cm sacral decubitus ulcer that is all the way down to the fascia. There is no surrounding cellulitis. There was certainly no granulation DICTATION ENDS HERE Dictated by... Barrington Lora III, M.D. VCL/rory TD: 02/15/2017 03:11 JOB #: [id number] CONTINUATION PHYSICAL EXAMINATION SACRAL: Shows a 5 cm deep decubitus ulcer that is not packed. This goes all the way down to the fascia of the sacrum and there was a little bit of a purulent discharge. Unfortunately, this wound just covered with DuoDerm and not packed. DIAGNOSTIC STUDIES LABORATORY RESULTS: Her potassium level is 2.7. Lactic acid is 2.3. Albumin is 1.7. INR 6.1. White count 42,000, hemoglobin is 11. IMAGING STUDIES: CT scan preliminary report apparently showed colitis and sacral osteomyelitis. IMPRESSION This is a 71-year-old lady, who has numerous chronic medical problems, but from an acute standpoint, she certainly has some evidence of sepsis with significantly elevated leukocytosis and abdominal pain. I think this is more likely explanation from her colitis as opposed to the sacral decubitus causing this level of sepsis. She is also anticoagulated with an INR of 6.1 and hypokalemic with potassium of 2.7 and shows evidence of malnutrition with albumin of 1.7. Given that she has been on numerous rounds of antibiotics for her prior hospital acquired pneumonia, clostridium difficile is certainly a consideration. There, specimens being sent for that at this time and she has been empirically placed on Flagyl. She will certainly need to have her Coumadin reversed and I have backed her diet back down to clears because of her colitis and abdominal pain. Further recommendations are to follow. We will certainly give a shot of antibiotics for the next 24 to 48 hours, but if she does not improve, she may need to go for colectomy. Dictated by... Barrington Lora III, M.D. VCL/rory Unit #: [id number] #: [id number] Patient: CHRISTEL SILVA TD: 02/15/2017 03:26 JOB #: [id number] CONSULTATION REPORT Page 1 of 1 X Barrington Lora III, MD CONSULTATION REPORT
--- NOTE | ~2017-02-13 | CR72 ---
[facility] A Service of [facility] & [facility] RADIOLOGY TEXT RESULTS PATIENT: CHRISTEL SILVA LOCATION: [address] : [birth year] UNIT #: [id number] AGE: [address]: Calos Barkley MD SEX: F ORDER DR: [id number] [facility] [address] [place], [place] [address] [id number] I MR#: [id number] Acc #: [id number] NAME: CHRISTEL SILVA : 1945 SEX: F STUDY DATE/TIME: 02/17/2017 11:51 UNIT: [facility] ROOM: [facility] STUDY DESCRIPTION: CR Chest Single View Portable Attending Physician: Calos Barkley M.D. Ordering Physician: Calos Barkley M.D. Primary Care Physician: Calos Barkley M.D. MEDICAL IMAGING REPORT This report is preliminary unless electronic signature is present EXAM Portable chest HISTORY Line placement. FINDINGS An AP portable view is obtained. There is a new right IJ line in place with tip in the SVC. The remainder of the tubes and lines are in good position. There is mild bibasilar atelectasis. CONCLUSION Right IJ line in good position, tip in the SVC. Mild bibasilar atelectasis. No pneumothorax. Dictated by... Baudilio Mendez M.D. THIS IS AN ELECTRONICALLY VERIFIED REPORT Baudilio Mendez M.D. at 02/18/2017 9:32 AM Evelyn TD: 02/17/2017 15:38 JOB #: [id number] MEDICAL IMAGING REPORT Page 1 of 1 COPY
--- NOTE | ~2017-02-13 | CT4 ---
[facility] A Service of [facility] & [facility] RADIOLOGY TEXT RESULTS PATIENT: CHRISTEL SILVA LOCATION: C5B 558-01 : [birth year] UNIT #: [id number] AGE: [address]: Calos Barkley MD SEX: F ORDER DR: [id number] [facility] [address] [place], [place] [address] [id number] I MR#: [id number] Acc #: [id number] NAME: CHRISTEL SILVA : 1945 SEX: F STUDY DATE/TIME: 02/13/2017 20:23 UNIT: [facility] ROOM: [employer] STUDY DESCRIPTION: CT Abd and Pelv Wo Cont Attending Physician: Calos Barkley M.D. Ordering Physician: Joce Sanderson M.D. Primary Care Physician: Calos Barkley M.D. MEDICAL IMAGING REPORT This report is preliminary unless electronic signature is present EXAM CT abdomen and pelvis without contrast. HISTORY Lower abdominal pain, diarrhea x2 days. COMPARISON CT abdomen and pelvis 12/30/16. FINDINGS Axial images performed through the abdomen and pelvis without contrast. This CT exam was performed with one or more of the following radiation dose reduction techniques: automatic exposure control, adjustment of mA and/or kV according to patient size, and iterative reconstruction. Multiplanar reconstructed images reviewed at a workstation. Abdomen: Parenchymal opacity, left lower lobe, may represent an area of atelectasis or infiltrate. Small left pleural effusion. Small amount of right basilar atelectasis. Liver, spleen, and gallbladder appear normal. Pancreas atrophic. Renal cortical atrophy with a exophytic cyst lower pole right kidney. The adrenal glands are unremarkable. Stomach, small bowel unremarkable. There is diffuse colonic wall thickening, most prominent within the transverse and descending colon, but also involving the sigmoid colon. This may reflect a pancolitis. This may be infectious or noninfectious in etiology. Mesenteric inflammatory changes are noted within the central pelvis, etiology unclear. Uterus is decompressed with a Owens catheter in place. Calcified left adnexal mass probably represents the left ovary. It is unclear whether the left adnexal process is a contributing factor to the inflammatory changes within the mesentery within the left lower quadrant and pelvis. Clinical and imaging followup may be warranted. There is a deep penetrating ulcer along the coccyx measuring at least 4.8 cm in length and this extends to the bone and in the setting of infection would be compatible with osteomyelitis. [facility] A Service of [facility] RADIOLOGY TEXT RESULTS PATIENT: CHRISTEL ISLVA LOCATION: [facility] 558-01 : [birth year] UNIT #: [id number] AGE: [address]: Calos Barkley MD SEX: F ORDER DR: IMPRESSION 1. Diffuse colonic wall thickening most prominent within the transverse colon, descending colon and sigmoid colon. Findings would be compatible with pancolitis, either infectious or noninfectious in etiology. 2. Moderate amount of nonspecific inflammatory change within the central and left pelvis. I suspect this may be related to the colonic inflammatory change, but it also appears to be directly contiguous with the left adnexa, but this is likely to represent a contributing factor. Clinical imaging followup may be warranted. 3. Diffuse renal cortical atrophy compatible with chronic renal disease. 4. Left basilar parenchymal opacity suggesting atelectasis with a small left pleural effusion. Overall, this appears improved from the CT abdomen and pelvis 12/30/16. 5. Deep penetrating ulcer at the coccyx measuring at least 4.8 cm in length. This extends all the way to the bone and, in the setting of infection, would be compatible with osteomyelitis. Dictated by... Becky Junior M.D. THIS IS AN ELECTRONICALLY VERIFIED REPORT Becky Junior M.D. at 02/14/2017 3:10 PM Hemalatha TD: 02/14/2017 10:24 JOB #: [id number] MEDICAL IMAGING REPORT Page 1 of 1 COPY
[~2017-02-13 18:28] MED LIST changes: +ACETAMINOPHEN PO; +ASPIRIN81 MG PO; +B-121000 MC1 PO; +COUMADIN PO; +DESYREL50 MG PO; +DIGOXIN125 MCG PO; +DILTIAZEM 24HR240 M2 PO; +EFFEXOR37.5 MG PO; +FERROUS GLUCON324 M2 PO; +FOLIC ACID1 MG PO; +HYDROCODON-ACE1 EAC7 PO; +LIPITOR40 MG PO; +METOPROLOL TART25 MG PO; +MIRALAX17 GM PO; +MULTIVITAMINS1 EAC4 PO; +POTASSIUM CHLO10 MEQ PO; +PULMICORT0.5 MG/21 INH; +RANITIDINE HCL150 M1 PO; +SENEXON-S TABL1 EACH PO; +SINGULAIR PO; +TRAMADOL HCL50 M2 PO
[2017-02-13 20:23] LABS: CULTURE INDICATED? YES; URINE APPEARANCE CLOUDY; URINE BACTERIA AUWI 2+ (NEGATIVE); URINE BLOOD 1+ (NEG); URINE COLOR DK YELLOW; URINE GLUCOSE NEG (NEG); URINE KETONE NEG (NEG); URINE LEUKOCYTE ESTERASE 3+ (NEG); URINE NITRATE POS (NEG); URINE PROTEIN 1+ (NEG); URINE SPECIFIC GRAVITY 1.021 (1.003-1.035); URINE SQUAMOUS EPITHELIAL CELL NONE SEEN /[HPF]; URINE UROBILINOGEN 0.2 MG/DL (NEG); UWBCS1 AUWI INNUM (0-5)
[2017-02-13 20:26] LABS: URINE BILIRUBIN NEG (NEG)
[2017-02-13 20:31] LABS: BASOPHIL# 0.1 X10e3 (0-0.3); BASOPHIL% 0.2 % (0-2.5); EOSINOPHIL# 0.2 X10e3 (0-0.7); EOSINOPHIL% 0.4 % (0.0-7.0); HEMATOCRIT 35.5 % (35.0-45.0); HEMOGLOBIN 11.4 gm/dL (12.0-16.0); LYMPHOCYTE# 1.1 X10e3 (1.0-3.5); LYMPHOCYTE% 2.7 % (17.0-45.0); MEAN CORPUSCULAR HEMOGLOBIN 28.9 PG (28-34); MEAN CORPUSCULAR HGB CONC 32.1 g/dL (30-36); MONOCYTE# 1.6 X10e3 (0-1.0); MONOCYTE% 3.9 % (3.0-12.0); NEUTROPHIL# 39.3 X10e3 (1.5-7.1); NEUTROPHIL% 92.8 % (40-75); PLATELET COUNT 368 X10e3 (140-420); RED BLOOD COUNT 3.95 X10e (3.90-5.30); RED CELL DISTRIBUTION WIDTH 17.5 % (11.0-15.5); WHITE BLOOD COUNT 42.3 X10e3 (4.0-10.5)
[2017-02-13 20:39] LABS: DIFF IND YES
[2017-02-13 20:45] LABS: ANISOCYTOSIS MOD; PLATELET ESTIMATE NORMAL (NORMAL); POIKILOCYTOSIS SL
[2017-02-13 20:51] LABS: INR 6.1; PARTIAL THROMBOPLASTIN TIME 71.6 SECONDS (23.5-31.3)
[2017-02-13 21:00] LABS: ALBUMIN SERUM 1.7 g/dL (3.5-5.0); ALKALINE PHOSPHATASE 174 U/L (32-92); ALT (SGPT) 13 U/L (10-40); AST (SGOT) 16 U/L (10-42); BILIRUBIN, DIRECT 0.1 mg/dL (0.0-0.2); BILIRUBIN,INDIRECT 0.2 mg/dL (0.0-0.9); BILIRUBIN,TOTAL 0.3 mg/dL (0.2-2.0); BLOOD UREA NITROGEN 26 mg/dL (9-23); BUN/CREATININE RATIO 18.57; CALCIUM SERUM 7.6 mg/dL (8.4-10.2); CARBON DIOXIDE 18 mmol/L (22-31); CHLORIDE 99 mmol/L (100-111); CREATININE SERUM 1.4 mg/dL (0.6-1.4); GLOM FILT RATE Estimated 38.2 mL/min (>60); GLUCOSE FASTING 123 mg/dL (70-110); PROTEIN TOTAL SERUM 4.8 g/dL (6.0-8.3); SODIUM 129 mmol/L (135-145)
[2017-02-13 21:02] LABS: LIPASE <10 U/L (22-51); POTASSIUM 2.7 mmol/L (3.5-5.1)
[2017-02-14] MEDS ORDERED: VENLAFAXINE H37.5 MG PO (02:03)
[2017-02-14] MEDS ORDERED: ALBUTEROL2.5 MG/3 M INH (02:04)
[2017-02-14] MEDS ORDERED: BANOPHEN25 MG PO (02:05)
[2017-02-14] MEDS ORDERED: MONTELUKAST SOD10 MG PO (02:06)
[2017-02-14] MEDS ORDERED: BUDESONIDE0.5 MG/2 M INH (02:07)
[2017-02-14] MEDS ORDERED: PERFOROMIS20 MCG/2 M INH (02:08)
[2017-02-14 09:52] LABS: BASOPHIL# 0.1 X10e3 (0-0.3); BASOPHIL% 0.2 % (0-2.5); EOSINOPHIL# 0.6 X10e3 (0-0.7); EOSINOPHIL% 1.2 % (0.0-7.0); HEMOGLOBIN 11.6 gm/dL (12.0-16.0); LYMPHOCYTE# 1.3 X10e3 (1.0-3.5); LYMPHOCYTE% 2.8 % (17.0-45.0); MEAN CELL VOLUME 91.7 FL (83-96); MEAN CORPUSCULAR HEMOGLOBIN 29.5 PG (28-34); MEAN CORPUSCULAR HGB CONC 32.2 g/dL (30-36); MEAN PLATELET VOLUME 7.7 FL (6.5-11.5); MONOCYTE# 1.4 X10e3 (0-1.0); NEUTROPHIL# 43.8 X10e3 (1.5-7.1); NEUTROPHIL% 92.8 % (40-75); PLATELET COUNT 379 X10e3 (140-420); RED BLOOD COUNT 3.93 X10e (3.90-5.30); RED CELL DISTRIBUTION WIDTH 17.5 % (11.0-15.5); WHITE BLOOD COUNT 47.2 X10e3 (4.0-10.5)
[2017-02-14 09:55] LABS: DIFF IND NO
[2017-02-14 09:56] LABS: INR 4.1
[2017-02-14 10:06] LABS: BUN/CREATININE RATIO 19.33; CALCIUM SERUM 7.2 mg/dL (8.4-10.2); CREATININE SERUM 1.5 mg/dL (0.6-1.4); GLOM FILT RATE Estimated 35.2 mL/min (>60); MAGNESIUM 1.3 mg/dL (1.6-3.0)
[2017-02-14 10:10] LABS: POTASSIUM 2.7 mmol/L (3.5-5.1)
[2017-02-15 02:33] LABS: HEMATOCRIT 38.8 % (35.0-45.0); HEMOGLOBIN 12.2 gm/dL (12.0-16.0); MEAN CELL VOLUME 92.1 FL (83-96); MEAN CORPUSCULAR HEMOGLOBIN 29.1 PG (28-34); MEAN CORPUSCULAR HGB CONC 31.6 g/dL (30-36); MEAN PLATELET VOLUME 7.7 FL (6.5-11.5); RED BLOOD COUNT 4.21 X10e (3.90-5.30); RED CELL DISTRIBUTION WIDTH 18.3 % (11.0-15.5)
[2017-02-15 02:34] LABS: WHITE BLOOD COUNT 50.8 X10e3 (4.0-10.5)
[2017-02-15 02:49] LABS: BUN/CREATININE RATIO 16.5; CALCIUM SERUM 7.1 mg/dL (8.4-10.2); GLOM FILT RATE Estimated 24.8 mL/min (>60); MAGNESIUM 1.8 mg/dL (1.6-3.0); POTASSIUM 3.8 mmol/L (3.5-5.1)
[2017-02-15 02:54] LABS: PROTHROMBIN TIME (PATIENT) 49.8 SECONDS (10.0-11.7)
[2017-02-15 02:56] LABS: INR 4.6
[2017-02-16 00:35] LABS: BASOPHIL# 0.1 X10e3 (0-0.3); BASOPHIL% 0.2 % (0-2.5); EOSINOPHIL# 0.9 X10e3 (0-0.7); EOSINOPHIL% 2.3 % (0.0-7.0); HEMATOCRIT 21.4 % (35.0-45.0); LYMPHOCYTE# 1.6 X10e3 (1.0-3.5); LYMPHOCYTE% 4.2 % (17.0-45.0); MEAN CELL VOLUME 91.3 FL (83-96); MEAN CORPUSCULAR HEMOGLOBIN 28.9 PG (28-34); MEAN CORPUSCULAR HGB CONC 31.6 g/dL (30-36); MEAN PLATELET VOLUME 7.7 FL (6.5-11.5); MONOCYTE# 1.2 X10e3 (0-1.0); MONOCYTE% 3.1 % (3.0-12.0); NEUTROPHIL# 34.4 X10e3 (1.5-7.1); NEUTROPHIL% 90.2 % (40-75); PLATELET COUNT 216 X10e3 (140-420); RED BLOOD COUNT 2.34 X10e (3.90-5.30); RED CELL DISTRIBUTION WIDTH 17.9 % (11.0-15.5); WHITE BLOOD COUNT 38.1 X10e3 (4.0-10.5)
[2017-02-16 00:38] LABS: HEMOGLOBIN 6.8 gm/dL (12.0-16.0)
[2017-02-16 00:39] LABS: DIFF IND YES
[2017-02-16 00:40] LABS: INR 1.4; PARTIAL THROMBOPLASTIN TIME 34.8 SECONDS (23.5-31.3); PROTHROMBIN TIME (PATIENT) 14.8 SECONDS (10.0-11.7)
[2017-02-16 00:58] LABS: BUN/CREATININE RATIO 14.54; CALCIUM SERUM 7.2 mg/dL (8.4-10.2); CREATININE SERUM 2.2 mg/dL (0.6-1.4); GLOM FILT RATE Estimated 22.1 mL/min (>60)
[2017-02-16 01:13] LABS: ANISOCYTOSIS MOD; NUCLEATED RED BLOOD CELL 2 /100 ([, 0]); PLATELET ESTIMATE NORMAL (NORMAL); SMUDGE CELLS 15 /100
[2017-02-16 04:08] LABS: ARTERIAL BLD GAS O2 SATURATION 99.9 % (90.0-100.0); ARTERIAL BLOOD GAS CARBOXY HB 0.2 %sat (0.0-9.0); ARTERIAL BLOOD GAS HCO3 20.4 mmol/L; ARTERIAL BLOOD GAS MET HB 0.6 %sat (0.0-2.0); ARTERIAL BLOOD GAS PCO2 32.7 mmHg (35.0-45.0); ARTERIAL BLOOD GAS pH 7.402 (7.350-7.450)
[2017-02-16 04:09] LABS: ARTERIAL BLOOD GAS ALLEN TEST NORMAL; ARTERIAL BLOOD GAS ART SITE RIGHT RADIAL; ARTERIAL BLOOD GAS DELIVERY VENT; ARTERIAL BLOOD GAS VENT MODE AC; ARTERIAL DRAW? YES
[2017-02-16 09:35] LABS: HEMATOCRIT 30.5 % (35.0-45.0); MEAN CELL VOLUME 90.5 FL (83-96); MEAN CORPUSCULAR HEMOGLOBIN 29.4 PG (28-34); MEAN CORPUSCULAR HGB CONC 32.5 g/dL (30-36); MEAN PLATELET VOLUME 8.1 FL (6.5-11.5); RED BLOOD COUNT 3.36 X10e (3.90-5.30)
[2017-02-16 09:41] LABS: WHITE BLOOD COUNT 54.4 X10e3 (4.0-10.5)
[2017-02-16 09:42] LABS: HEMOGLOBIN 9.9 gm/dL (12.0-16.0)
[2017-02-16 09:50] LABS: INR 1.6; PARTIAL THROMBOPLASTIN TIME 36.3 SECONDS (23.5-31.3); PROTHROMBIN TIME (PATIENT) 17.1 SECONDS (10.0-11.7)
[2017-02-16 10:12] LABS: BILIRUBIN,TOTAL 1.9 mg/dL (0.2-2.0); BUN/CREATININE RATIO 14.58; CALCIUM SERUM 7.2 mg/dL (8.4-10.2); CREATININE SERUM 2.4 mg/dL (0.6-1.4); GLOM FILT RATE Estimated 19.9 mL/min (>60); MAGNESIUM 1.7 mg/dL (1.6-3.0); PHOSPHOROUS 5.8 mg/dL (2.5-4.6); POTASSIUM 3.1 mmol/L (3.5-5.1); PROTEIN TOTAL SERUM 4.4 g/dL (6.0-8.3)
[2017-02-16 10:16] LABS: THYROID STIMULATING HORMONE 15.27 uIU/ml (0.34-5.60)
[2017-02-16 13:17] LABS: ARTERIAL BLD GAS O2 SATURATION 81.3 % (90.0-100.0); ARTERIAL BLOOD GAS CARBOXY HB 0.6 %sat (0.0-9.0); ARTERIAL BLOOD GAS HCO3 21.9 mmol/L; ARTERIAL BLOOD GAS MET HB 0.8 %sat (0.0-2.0); ARTERIAL BLOOD GAS PCO2 40.7 mmHg (35.0-45.0); ARTERIAL BLOOD GAS pH 7.339 (7.350-7.450)
[2017-02-16 13:18] LABS: ARTERIAL BLOOD GAS DELIVERY VENT; ARTERIAL BLOOD GAS PO2 47.3 mmHg (80.0-100); ARTERIAL BLOOD GAS VENT MODE A/C; ARTERIAL DRAW? NO
[2017-02-16 14:37] LABS: HEMATOCRIT 29.4 % (35.0-45.0); HEMOGLOBIN 9.7 gm/dL (12.0-16.0)
[2017-02-16 15:04] LABS: BUN/CREATININE RATIO 14.78; CALCIUM SERUM 7.2 mg/dL (8.4-10.2); CREATININE SERUM 2.3 mg/dL (0.6-1.4); MAGNESIUM 1.6 mg/dL (1.6-3.0); POTASSIUM 3.6 mmol/L (3.5-5.1)
[2017-02-16 15:40] LABS: URINE APPEARANCE TURBID; URINE BLOOD 3+ (NEG); URINE COLOR DK YELLOW; URINE GLUCOSE NEG (NEG); URINE KETONE TRACE (NEG); URINE LEUKOCYTE ESTERASE 2+ (NEG); URINE NITRATE NEG (NEG); URINE PH 5.5 (5-8); URINE PROTEIN 3+ (NEG); URINE SPECIFIC GRAVITY 1.025 (1.003-1.035); URINE UROBILINOGEN 0.2 MG/DL (NEG)
[2017-02-16 15:43] LABS: URINE BACTERIA AUWI NEG (NEGATIVE); URINE SQUAMOUS EPITHELIAL CELL FEW /[HPF]; UWBCS1 AUWI INNUM (0-5)
[2017-02-16 15:57] LABS: URINE YEAST PRESENT
[2017-02-16 18:39] LABS: BUN/CREATININE RATIO 14.78; CALCIUM SERUM 6.9 mg/dL (8.4-10.2); CREATININE SERUM 2.3 mg/dL (0.6-1.4); MAGNESIUM 2.1 mg/dL (1.6-3.0); POTASSIUM 4.4 mmol/L (3.5-5.1)
[2017-02-17 03:54] LABS: ARTERIAL BLOOD GAS HCO3 27.6 mmol/L; ARTERIAL BLOOD GAS PCO2 38.7 mmHg (35.0-45.0); ARTERIAL BLOOD GAS pH 7.462 (7.350-7.450)
[2017-02-17 04:00] LABS: ARTERIAL DRAW? YES
[2017-02-17 04:01] LABS: ARTERIAL BLOOD GAS ART SITE ARTERIAL LINE; ARTERIAL BLOOD GAS DELIVERY VENT; ARTERIAL BLOOD GAS VENT MODE AC
[2017-02-17 06:29] LABS: INR 2.1; PROTHROMBIN TIME (PATIENT) 22.8 SECONDS (10.0-11.7)
[2017-02-17 07:40] LABS: BASOPHIL% 0.1 % (0-2.5); EOSINOPHIL# 0.1 X10e3 (0-0.7); EOSINOPHIL% 0.2 % (0.0-7.0); HEMATOCRIT 17.4 % (35.0-45.0); LYMPHOCYTE# 1.7 X10e3 (1.0-3.5); LYMPHOCYTE% 5.4 % (17.0-45.0); MEAN CELL VOLUME 89.8 FL (83-96); MEAN CORPUSCULAR HGB CONC 32.3 g/dL (30-36); MEAN PLATELET VOLUME 7.6 FL (6.5-11.5); MONOCYTE# 1.7 X10e3 (0-1.0); MONOCYTE% 5.6 % (3.0-12.0); NEUTROPHIL# 27.2 X10e3 (1.5-7.1); NEUTROPHIL% 88.7 % (40-75); RED BLOOD COUNT 1.93 X10e (3.90-5.30); RED CELL DISTRIBUTION WIDTH 16.8 % (11.0-15.5); WHITE BLOOD COUNT 30.6 X10e3 (4.0-10.5)
[2017-02-17 07:46] LABS: HEMOGLOBIN 5.6 gm/dL (12.0-16.0)
[2017-02-17 07:52] LABS: DIFF IND YES
[2017-02-17 09:10] LABS: DIFFERENTIAL COMMENT YES; PLATELET COUNT 86 X10e3 (140-420)
[2017-02-17 09:14] LABS: PLATELET ESTIMATE DECREASED (NORMAL); RBC NORMAL YES
[2017-02-17 09:15] LABS: ANISOCYTOSIS MOD; NUCLEATED RED BLOOD CELL 2 /100 ([, 0]); POIKILOCYTOSIS SL
[2017-02-17 09:17] LABS: HYPOCHROMIA SL; POLYCHROMASIA SL
[2017-02-17 09:25] LABS: ALBUMIN SERUM 2.5 g/dL (3.5-5.0); CALCIUM SERUM 6.7 mg/dL (8.4-10.2); CREATININE SERUM 2.2 mg/dL (0.6-1.4); GLOM FILT RATE Estimated 22.1 mL/min (>60); MAGNESIUM 1.7 mg/dL (1.6-3.0); POTASSIUM 3.8 mmol/L (3.5-5.1); PROTEIN TOTAL SERUM 3.8 g/dL (6.0-8.3)
[2017-02-18 00:46] LABS: BASOPHIL% 0.2 % (0-2.5); EOSINOPHIL% 0.2 % (0.0-7.0); LYMPHOCYTE# 1.1 X10e3 (1.0-3.5); LYMPHOCYTE% 5.2 % (17.0-45.0); MEAN CELL VOLUME 86.7 FL (83-96); MEAN CORPUSCULAR HEMOGLOBIN 28.7 PG (28-34); MEAN CORPUSCULAR HGB CONC 33.2 g/dL (30-36); MEAN PLATELET VOLUME 7.6 FL (6.5-11.5); MONOCYTE% 4.6 % (3.0-12.0); NEUTROPHIL% 89.8 % (40-75); RED BLOOD COUNT 3.11 X10e (3.90-5.30); RED CELL DISTRIBUTION WIDTH 16.4 % (11.0-15.5); WHITE BLOOD COUNT 21.2 X10e3 (4.0-10.5)
[2017-02-18 00:48] LABS: DIFF IND NO; HEMOGLOBIN 8.9 gm/dL (12.0-16.0); PLATELET COUNT 49 X10e3 (140-420)
[2017-02-18 04:12] LABS: ARTERIAL BLD GAS O2 SATURATION 98.1 % (90.0-100.0); ARTERIAL BLOOD GAS CARBOXY HB 0.3 %sat (0.0-9.0); ARTERIAL BLOOD GAS HCO3 29.6 mmol/L; ARTERIAL BLOOD GAS MET HB 1.2 %sat (0.0-2.0); ARTERIAL BLOOD GAS pH 7.364 (7.350-7.450)
[2017-02-18 04:15] LABS: ARTERIAL BLOOD GAS ART SITE ARTERIAL LINE; ARTERIAL BLOOD GAS DELIVERY VENT; ARTERIAL BLOOD GAS PCO2 52.1 mmHg (35.0-45.0); ARTERIAL BLOOD GAS VENT MODE AC; ARTERIAL DRAW? YES
[2017-02-18 06:24] LABS: BASOPHIL% 0.1 % (0-2.5); EOSINOPHIL% 0.2 % (0.0-7.0); HEMATOCRIT 27.1 % (35.0-45.0); HEMOGLOBIN 9.1 gm/dL (12.0-16.0); LYMPHOCYTE# 1.3 X10e3 (1.0-3.5); LYMPHOCYTE% 6.5 % (17.0-45.0); MEAN CELL VOLUME 85.7 FL (83-96); MEAN CORPUSCULAR HEMOGLOBIN 28.7 PG (28-34); MEAN CORPUSCULAR HGB CONC 33.5 g/dL (30-36); MONOCYTE% 5.1 % (3.0-12.0); NEUTROPHIL# 17.5 X10e3 (1.5-7.1); NEUTROPHIL% 88.1 % (40-75); RED BLOOD COUNT 3.17 X10e (3.90-5.30); RED CELL DISTRIBUTION WIDTH 16.6 % (11.0-15.5); WHITE BLOOD COUNT 19.9 X10e3 (4.0-10.5)
[2017-02-18 06:27] LABS: PLATELET COUNT 45 X10e3 (140-420)
[2017-02-18 06:29] LABS: DIFF IND NO
[2017-02-18 07:48] LABS: ALBUMIN SERUM 2.6 g/dL (3.5-5.0); BILIRUBIN,TOTAL 1.4 mg/dL (0.2-2.0); BUN/CREATININE RATIO 18.23; CALCIUM SERUM 7.1 mg/dL (8.4-10.2); CREATININE SERUM 1.7 mg/dL (0.6-1.4); GLOM FILT RATE Estimated 30.2 mL/min (>60); MAGNESIUM 1.8 mg/dL (1.6-3.0); PHOSPHOROUS 3.8 mg/dL (2.5-4.6); PREALBUMIN 7.5 mg/dL (17.0-42.0); PROTEIN TOTAL SERUM 3.9 g/dL (6.0-8.3)
[2017-02-18 07:53] LABS: POTASSIUM 2.8 mmol/L (3.5-5.1)
[2017-02-18 09:08] LABS: BASOPHIL# 0.1 X10e3 (0-0.3); BASOPHIL% 0.3 % (0-2.5); EOSINOPHIL# 0.1 X10e3 (0-0.7); EOSINOPHIL% 0.5 % (0.0-7.0); HEMATOCRIT 26.8 % (35.0-45.0); HEMOGLOBIN 8.8 gm/dL (12.0-16.0); LYMPHOCYTE# 1.7 X10e3 (1.0-3.5); LYMPHOCYTE% 8.5 % (17.0-45.0); MEAN CELL VOLUME 87.1 FL (83-96); MEAN CORPUSCULAR HEMOGLOBIN 28.6 PG (28-34); MEAN CORPUSCULAR HGB CONC 32.9 g/dL (30-36); MEAN PLATELET VOLUME 7.3 FL (6.5-11.5); MONOCYTE% 5.3 % (3.0-12.0); NEUTROPHIL# 16.9 X10e3 (1.5-7.1); NEUTROPHIL% 85.4 % (40-75); RED BLOOD COUNT 3.08 X10e (3.90-5.30); WHITE BLOOD COUNT 19.8 X10e3 (4.0-10.5)
[2017-02-18 09:11] LABS: PLATELET COUNT 85 X10e3 (140-420)
[2017-02-18 09:12] LABS: DIFF IND NO
[2017-02-18 09:44] LABS: INR 1.6; PARTIAL THROMBOPLASTIN TIME 48.6 SECONDS (23.5-31.3); PROTHROMBIN TIME (PATIENT) 17.5 SECONDS (10.0-11.7)
[2017-02-18 13:40] LABS: ARTERIAL BLD GAS O2 SATURATION 97.9 % (90.0-100.0); ARTERIAL BLOOD GAS ART SITE ARTERIAL LINE; ARTERIAL BLOOD GAS CARBOXY HB 0.3 %sat (0.0-9.0); ARTERIAL BLOOD GAS DELIVERY VENT; ARTERIAL BLOOD GAS HCO3 30.3 mmol/L; ARTERIAL BLOOD GAS PCO2 61.1 mmHg (35.0-45.0); ARTERIAL BLOOD GAS VENT MODE CPAP; ARTERIAL BLOOD GAS pH 7.304 (7.350-7.450); ARTERIAL DRAW? YES
[2017-02-19 03:31] LABS: BASOPHIL# 0.1 X10e3 (0-0.3); BASOPHIL% 0.2 % (0-2.5); EOSINOPHIL# 0.2 X10e3 (0-0.7); EOSINOPHIL% 1.1 % (0.0-7.0); HEMATOCRIT 28.6 % (35.0-45.0); HEMOGLOBIN 9.4 gm/dL (12.0-16.0); LYMPHOCYTE# 1.2 X10e3 (1.0-3.5); LYMPHOCYTE% 5.8 % (17.0-45.0); MEAN CELL VOLUME 87.4 FL (83-96); MEAN CORPUSCULAR HEMOGLOBIN 28.8 PG (28-34); MEAN CORPUSCULAR HGB CONC 32.9 g/dL (30-36); MEAN PLATELET VOLUME 7.5 FL (6.5-11.5); MONOCYTE# 1.7 X10e3 (0-1.0); NEUTROPHIL# 17.5 X10e3 (1.5-7.1); NEUTROPHIL% 84.9 % (40-75); PLATELET COUNT 78 X10e3 (140-420); RED BLOOD COUNT 3.27 X10e (3.90-5.30); RED CELL DISTRIBUTION WIDTH 17.6 % (11.0-15.5); WHITE BLOOD COUNT 20.7 X10e3 (4.0-10.5)
[2017-02-19 03:32] LABS: DIFF IND NO
[2017-02-19 03:43] LABS: INR 1.4; PARTIAL THROMBOPLASTIN TIME 41.1 SECONDS (23.5-31.3); PROTHROMBIN TIME (PATIENT) 15.5 SECONDS (10.0-11.7)
[2017-02-19 03:58] LABS: ALBUMIN SERUM 2.4 g/dL (3.5-5.0); BUN/CREATININE RATIO 24.28; CALCIUM SERUM 7.7 mg/dL (8.4-10.2); CREATININE SERUM 1.4 mg/dL (0.6-1.4); GLOM FILT RATE Estimated 38.2 mL/min (>60); PHOSPHOROUS 2.3 mg/dL (2.5-4.6); POTASSIUM 3.4 mmol/L (3.5-5.1); PROTEIN TOTAL SERUM 4.2 g/dL (6.0-8.3)
[2017-02-19 04:25] LABS: ARTERIAL BLD GAS O2 SATURATION 98.3 % (90.0-100.0); ARTERIAL BLOOD GAS CARBOXY HB 0.3 %sat (0.0-9.0); ARTERIAL BLOOD GAS HCO3 29.6 mmol/L; ARTERIAL BLOOD GAS MET HB 1.2 %sat (0.0-2.0); ARTERIAL BLOOD GAS pH 7.379 (7.350-7.450)
[2017-02-19 04:33] LABS: ARTERIAL BLOOD GAS PCO2 50.2 mmHg (35.0-45.0)
[2017-02-19 04:34] LABS: ARTERIAL BLOOD GAS ALLEN TEST ABNORMAL; ARTERIAL BLOOD GAS ART SITE ARTERIAL LINE; ARTERIAL BLOOD GAS VENT MODE AC; ARTERIAL DRAW? NO
[2017-02-19 10:30] LABS: ALBUMIN SERUM 2.1 g/dL (3.5-5.0); BILIRUBIN,TOTAL 0.7 mg/dL (0.2-2.0); CALCIUM SERUM 7.8 mg/dL (8.4-10.2); GLOM FILT RATE Estimated 57.5 mL/min (>60); MAGNESIUM 1.8 mg/dL (1.6-3.0); PHOSPHOROUS 1.8 mg/dL (2.5-4.6); POTASSIUM 3.9 mmol/L (3.5-5.1); PROTEIN TOTAL SERUM 3.9 g/dL (6.0-8.3)
[2017-02-19 13:04] LABS: ARTERIAL BLD GAS O2 SATURATION 98.3 % (90.0-100.0); ARTERIAL BLOOD GAS ART SITE RIGHT BRACHIAL; ARTERIAL BLOOD GAS CARBOXY HB 0.4 %sat (0.0-9.0); ARTERIAL BLOOD GAS DELIVERY VENT; ARTERIAL BLOOD GAS HCO3 30.4 mmol/L; ARTERIAL BLOOD GAS PCO2 55.3 mmHg (35.0-45.0); ARTERIAL BLOOD GAS VENT MODE CPAP; ARTERIAL BLOOD GAS pH 7.348 (7.350-7.450); ARTERIAL DRAW? YES
[2017-02-20 04:33] LABS: ARTERIAL BLD GAS O2 SATURATION 96.6 % (90.0-100.0); ARTERIAL BLOOD GAS CARBOXY HB 1.5 %sat (0.0-9.0); ARTERIAL BLOOD GAS HCO3 30.9 mmol/L; ARTERIAL BLOOD GAS MET HB 1.2 %sat (0.0-2.0); ARTERIAL BLOOD GAS PCO2 47.5 mmHg (35.0-45.0); ARTERIAL BLOOD GAS pH 7.421 (7.350-7.450)
[2017-02-20 05:01] LABS: ARTERIAL BLOOD GAS ALLEN TEST NORMAL; ARTERIAL BLOOD GAS ART SITE RIGHT BRACHIAL; ARTERIAL BLOOD GAS VENT MODE AC; ARTERIAL DRAW? YES
[2017-02-20 05:24] LABS: ALBUMIN SERUM 1.9 g/dL (3.5-5.0); BILIRUBIN,TOTAL 0.7 mg/dL (0.2-2.0); CALCIUM SERUM 7.9 mg/dL (8.4-10.2); CREATININE SERUM 0.8 mg/dL (0.6-1.4); GLOM FILT RATE Estimated 75.3 mL/min (>60); PHOSPHOROUS 1.8 mg/dL (2.5-4.6); POTASSIUM 3.2 mmol/L (3.5-5.1); PROTEIN TOTAL SERUM 3.4 g/dL (6.0-8.3)
[2017-02-20 05:45] LABS: BASOPHIL% 0.2 % (0-2.5); EOSINOPHIL# 0.2 X10e3 (0-0.7); HEMATOCRIT 29.9 % (35.0-45.0); HEMOGLOBIN 9.8 gm/dL (12.0-16.0); LYMPHOCYTE# 0.7 X10e3 (1.0-3.5); LYMPHOCYTE% 3.7 % (17.0-45.0); MEAN CELL VOLUME 87.8 FL (83-96); MEAN CORPUSCULAR HEMOGLOBIN 28.8 PG (28-34); MEAN CORPUSCULAR HGB CONC 32.8 g/dL (30-36); MEAN PLATELET VOLUME 8.6 FL (6.5-11.5); MONOCYTE# 1.2 X10e3 (0-1.0); NEUTROPHIL# 17.3 X10e3 (1.5-7.1); NEUTROPHIL% 89.1 % (40-75); PLATELET COUNT 76 X10e3 (140-420); RED BLOOD COUNT 3.41 X10e (3.90-5.30); RED CELL DISTRIBUTION WIDTH 17.8 % (11.0-15.5); WHITE BLOOD COUNT 19.4 X10e3 (4.0-10.5)
[2017-02-20 05:50] LABS: DIFF IND YES
[2017-02-20 06:50] LABS: PLATELET ESTIMATE DECREASED (NORMAL)
[2017-02-20 06:51] LABS: ANISOCYTOSIS MOD
[2017-02-20 06:52] LABS: HYPOCHROMIA SL
[2017-02-21 06:09] LABS: BASOPHIL% 0.2 % (0-2.5); EOSINOPHIL# 0.3 X10e3 (0-0.7); EOSINOPHIL% 1.5 % (0.0-7.0); HEMATOCRIT 29.7 % (35.0-45.0); HEMOGLOBIN 9.5 gm/dL (12.0-16.0); LYMPHOCYTE% 5.2 % (17.0-45.0); MEAN CELL VOLUME 89.5 FL (83-96); MEAN CORPUSCULAR HEMOGLOBIN 28.7 PG (28-34); MEAN CORPUSCULAR HGB CONC 32.1 g/dL (30-36); MEAN PLATELET VOLUME 9.1 FL (6.5-11.5); MONOCYTE# 1.4 X10e3 (0-1.0); NEUTROPHIL# 17.1 X10e3 (1.5-7.1); NEUTROPHIL% 86.1 % (40-75); PLATELET COUNT 85 X10e3 (140-420); RED BLOOD COUNT 3.32 X10e (3.90-5.30); RED CELL DISTRIBUTION WIDTH 17.7 % (11.0-15.5); WHITE BLOOD COUNT 19.8 X10e3 (4.0-10.5)
[2017-02-21 06:12] LABS: DIFF IND NO
[2017-02-21 06:18] LABS: INR 1.1; PARTIAL THROMBOPLASTIN TIME 30.8 SECONDS (23.5-31.3); PROTHROMBIN TIME (PATIENT) 11.5 SECONDS (10.0-11.7)
[2017-02-21 07:27] LABS: ALBUMIN SERUM 1.9 g/dL (3.5-5.0); BILIRUBIN,TOTAL 0.1 mg/dL (0.2-2.0); CALCIUM SERUM 8.2 mg/dL (8.4-10.2); CREATININE SERUM 0.5 mg/dL (0.6-1.4); GLOM FILT RATE Estimated 98.8 mL/min (>60); MAGNESIUM 1.5 mg/dL (1.6-3.0); POTASSIUM 3.9 mmol/L (3.5-5.1); PROTEIN TOTAL SERUM 4.1 g/dL (6.0-8.3)
[2017-02-21 09:06] LABS: ARTERIAL BLD GAS O2 SATURATION 97.9 % (90.0-100.0); ARTERIAL BLOOD GAS CARBOXY HB 0.4 %sat (0.0-9.0); ARTERIAL BLOOD GAS HCO3 30.1 mmol/L; ARTERIAL BLOOD GAS MET HB 1.1 %sat (0.0-2.0); ARTERIAL BLOOD GAS pH 7.331 (7.350-7.450)
[2017-02-21 09:07] LABS: ARTERIAL BLOOD GAS ART SITE LEFT BRACHIAL; ARTERIAL BLOOD GAS DELIVERY T-PIECE; ARTERIAL DRAW? YES
[2017-02-22 04:15] LABS: ARTERIAL BLD GAS O2 SATURATION 97.4 % (90.0-100.0); ARTERIAL BLOOD GAS CARBOXY HB 0.9 %sat (0.0-9.0); ARTERIAL BLOOD GAS HCO3 29.5 mmol/L; ARTERIAL BLOOD GAS MET HB 1.2 %sat (0.0-2.0); ARTERIAL BLOOD GAS pH 7.343 (7.350-7.450)
[2017-02-22 04:19] LABS: ARTERIAL BLOOD GAS ALLEN TEST NORMAL; ARTERIAL BLOOD GAS PCO2 54.3 mmHg (35.0-45.0); ARTERIAL DRAW? YES
[2017-02-22 04:20] LABS: ARTERIAL BLOOD GAS ART SITE RIGHT RADIAL; ARTERIAL BLOOD GAS DELIVERY NASAL CANNULA
[2017-02-22 05:32] LABS: BASOPHIL# 0.1 X10e3 (0-0.3); BASOPHIL% 0.4 % (0-2.5); EOSINOPHIL# 0.2 X10e3 (0-0.7); HEMOGLOBIN 8.9 gm/dL (12.0-16.0); LYMPHOCYTE# 0.9 X10e3 (1.0-3.5); LYMPHOCYTE% 4.5 % (17.0-45.0); MEAN CORPUSCULAR HEMOGLOBIN 28.6 PG (28-34); MEAN CORPUSCULAR HGB CONC 31.8 g/dL (30-36); MEAN PLATELET VOLUME 8.9 FL (6.5-11.5); MONOCYTE# 1.1 X10e3 (0-1.0); MONOCYTE% 5.6 % (3.0-12.0); NEUTROPHIL# 17.1 X10e3 (1.5-7.1); NEUTROPHIL% 88.5 % (40-75); PLATELET COUNT 88 X10e3 (140-420); RED BLOOD COUNT 3.11 X10e (3.90-5.30); RED CELL DISTRIBUTION WIDTH 18.7 % (11.0-15.5); WHITE BLOOD COUNT 19.3 X10e3 (4.0-10.5)
[2017-02-22 05:37] LABS: DIFF IND NO
[2017-02-22 05:44] LABS: ALBUMIN SERUM 1.9 g/dL (3.5-5.0); BILIRUBIN,TOTAL 0.2 mg/dL (0.2-2.0); CALCIUM SERUM 8.3 mg/dL (8.4-10.2); CREATININE SERUM 0.5 mg/dL (0.6-1.4); GLOM FILT RATE Estimated 98.8 mL/min (>60); MAGNESIUM 1.9 mg/dL (1.6-3.0); PHOSPHOROUS 2.1 mg/dL (2.5-4.6); POTASSIUM 3.5 mmol/L (3.5-5.1); PROTEIN TOTAL SERUM 3.9 g/dL (6.0-8.3)
[2017-02-23 04:18] LABS: ARTERIAL BLD GAS O2 SATURATION 96.8 % (90.0-100.0); ARTERIAL BLOOD GAS CARBOXY HB 0.8 %sat (0.0-9.0); ARTERIAL BLOOD GAS HCO3 28.2 mmol/L; ARTERIAL BLOOD GAS PCO2 47.7 mmHg (35.0-45.0)
[2017-02-23 04:21] LABS: ARTERIAL BLOOD GAS ART SITE LEFT BRACHIAL; ARTERIAL BLOOD GAS DELIVERY NASAL CANNULA; ARTERIAL DRAW? YES
[2017-02-23 04:47] LABS: HEMATOCRIT 27.7 % (35.0-45.0); HEMOGLOBIN 9.1 gm/dL (12.0-16.0); MEAN CELL VOLUME 89.4 FL (83-96); MEAN CORPUSCULAR HEMOGLOBIN 29.3 PG (28-34); MEAN CORPUSCULAR HGB CONC 32.8 g/dL (30-36); MEAN PLATELET VOLUME 8.8 FL (6.5-11.5); RED BLOOD COUNT 3.1 X10e (3.90-5.30); RED CELL DISTRIBUTION WIDTH 18.4 % (11.0-15.5); WHITE BLOOD COUNT 17.5 X10e3 (4.0-10.5)
[2017-02-23 05:01] LABS: BILIRUBIN,TOTAL 0.6 mg/dL (0.2-2.0); CALCIUM SERUM 8.2 mg/dL (8.4-10.2); CREATININE SERUM 0.5 mg/dL (0.6-1.4); GLOM FILT RATE Estimated 98.8 mL/min (>60); PHOSPHOROUS 2.3 mg/dL (2.5-4.6); PROTEIN TOTAL SERUM 4.4 g/dL (6.0-8.3)
[2017-02-24 04:47] LABS: BASOPHIL# 0.1 X10e3 (0-0.3); BASOPHIL% 0.3 % (0-2.5); BASOPHIL% 0.5 % (0-2.5); EOSINOPHIL# 0.1 X10e3 (0-0.7); EOSINOPHIL% 0.7 % (0.0-7.0); HEMATOCRIT 28.7 % (35.0-45.0); HEMATOCRIT 28.8 % (35.0-45.0); HEMOGLOBIN 9.1 gm/dL (12.0-16.0); LYMPHOCYTE# 1.1 X10e3 (1.0-3.5); LYMPHOCYTE% 6.1 % (17.0-45.0); LYMPHOCYTE% 6.2 % (17.0-45.0); MEAN CELL VOLUME 89.8 FL (83-96); MEAN CELL VOLUME 90.3 FL (83-96); MEAN CORPUSCULAR HEMOGLOBIN 28.5 PG (28-34); MEAN CORPUSCULAR HEMOGLOBIN 28.7 PG (28-34); MEAN CORPUSCULAR HGB CONC 31.8 g/dL (30-36); MEAN PLATELET VOLUME 8.6 FL (6.5-11.5); MEAN PLATELET VOLUME 8.9 FL (6.5-11.5); MONOCYTE# 1.2 X10e3 (0-1.0); MONOCYTE# 1.3 X10e3 (0-1.0); MONOCYTE% 6.8 % (3.0-12.0); MONOCYTE% 7.3 % (3.0-12.0); NEUTROPHIL# 15.2 X10e3 (1.5-7.1); NEUTROPHIL# 15.3 X10e3 (1.5-7.1); NEUTROPHIL% 85.6 % (40-75); NEUTROPHIL% 85.8 % (40-75); PLATELET COUNT 137 X10e3 (140-420); PLATELET COUNT 141 X10e3 (140-420); RED BLOOD COUNT 3.18 X10e (3.90-5.30); RED BLOOD COUNT 3.21 X10e (3.90-5.30); RED CELL DISTRIBUTION WIDTH 18.4 % (11.0-15.5); RED CELL DISTRIBUTION WIDTH 18.6 % (11.0-15.5); WHITE BLOOD COUNT 17.8 X10e3 (4.0-10.5); WHITE BLOOD COUNT 17.9 X10e3 (4.0-10.5)
[2017-02-24 04:48] LABS: DIFF IND YES
[2017-02-24 05:13] LABS: PLATELET ESTIMATE NORMAL (NORMAL)
[2017-02-24 05:14] LABS: ANISOCYTOSIS MOD
[2017-02-24 05:17] LABS: BUN/CREATININE RATIO 56.66; CREATININE SERUM 0.6 mg/dL (0.6-1.4); MAGNESIUM 1.8 mg/dL (1.6-3.0); POTASSIUM 4.4 mmol/L (3.5-5.1)
[2017-02-25 05:47] LABS: HEMATOCRIT 26.7 % (35.0-45.0); HEMOGLOBIN 8.5 gm/dL (12.0-16.0); MEAN CORPUSCULAR HEMOGLOBIN 28.6 PG (28-34); MEAN CORPUSCULAR HGB CONC 31.8 g/dL (30-36); MEAN PLATELET VOLUME 8.6 FL (6.5-11.5); RED BLOOD COUNT 2.96 X10e (3.90-5.30); RED CELL DISTRIBUTION WIDTH 18.8 % (11.0-15.5)
[2017-02-25 06:38] LABS: BILIRUBIN,TOTAL 0.6 mg/dL (0.2-2.0); BUN/CREATININE RATIO 77.5; CALCIUM SERUM 7.9 mg/dL (8.4-10.2); CREATININE SERUM 0.4 mg/dL (0.6-1.4); GLOM FILT RATE Estimated 106.3 mL/min (>60); PHOSPHOROUS 2.8 mg/dL (2.5-4.6); POTASSIUM 4.3 mmol/L (3.5-5.1); PROTEIN TOTAL SERUM 4.4 g/dL (6.0-8.3)
[2017-02-26 07:04] LABS: BASOPHIL% 0.2 % (0-2.5); EOSINOPHIL# 0.1 X10e3 (0-0.7); EOSINOPHIL% 0.6 % (0.0-7.0); HEMATOCRIT 26.7 % (35.0-45.0); HEMOGLOBIN 8.6 gm/dL (12.0-16.0); LYMPHOCYTE# 0.9 X10e3 (1.0-3.5); LYMPHOCYTE% 6.4 % (17.0-45.0); MEAN CELL VOLUME 90.4 FL (83-96); MEAN CORPUSCULAR HGB CONC 32.1 g/dL (30-36); MEAN PLATELET VOLUME 8.6 FL (6.5-11.5); MONOCYTE% 7.8 % (3.0-12.0); NEUTROPHIL# 11.3 X10e3 (1.5-7.1); PLATELET COUNT 152 X10e3 (140-420); RED BLOOD COUNT 2.96 X10e (3.90-5.30); RED CELL DISTRIBUTION WIDTH 18.5 % (11.0-15.5); WHITE BLOOD COUNT 13.3 X10e3 (4.0-10.5)
[2017-02-26 07:16] LABS: DIFF IND NO
[2017-02-26 07:41] LABS: ALBUMIN SERUM 1.9 g/dL (3.5-5.0); BILIRUBIN,TOTAL 0.7 mg/dL (0.2-2.0); BUN/CREATININE RATIO 48.33; CREATININE SERUM 0.6 mg/dL (0.6-1.4); DIGOXIN (LANOXIN) 0.2 ng/ml (1.0-2.0); MAGNESIUM 1.7 mg/dL (1.6-3.0); POTASSIUM 4.2 mmol/L (3.5-5.1); PROTEIN TOTAL SERUM 4.3 g/dL (6.0-8.3)
[2017-02-27 04:10] LABS: ARTERIAL BLD GAS O2 SATURATION 96.5 % (90.0-100.0); ARTERIAL BLOOD GAS CARBOXY HB 0.7 %sat (0.0-9.0); ARTERIAL BLOOD GAS HCO3 28.8 mmol/L; ARTERIAL BLOOD GAS MET HB 1.1 %sat (0.0-2.0); ARTERIAL BLOOD GAS PCO2 47.7 mmHg (35.0-45.0)
[2017-02-27 04:11] LABS: ARTERIAL BLOOD GAS ALLEN TEST NORMAL; ARTERIAL BLOOD GAS ART SITE RIGHT RADIAL; ARTERIAL BLOOD GAS DELIVERY NASAL CANNULA; ARTERIAL DRAW? YES
[2017-02-27 06:08] LABS: HEMATOCRIT 27.1 % (35.0-45.0); HEMOGLOBIN 8.7 gm/dL (12.0-16.0); MEAN CELL VOLUME 90.1 FL (83-96); MEAN CORPUSCULAR HEMOGLOBIN 28.8 PG (28-34); MEAN PLATELET VOLUME 8.7 FL (6.5-11.5); RED BLOOD COUNT 3.01 X10e (3.90-5.30); RED CELL DISTRIBUTION WIDTH 18.3 % (11.0-15.5); WHITE BLOOD COUNT 13.5 X10e3 (4.0-10.5)
[2017-02-27 06:50] LABS: CALCIUM SERUM 7.9 mg/dL (8.4-10.2); CREATININE SERUM 0.5 mg/dL (0.6-1.4); GLOM FILT RATE Estimated 98.8 mL/min (>60); MAGNESIUM 1.5 mg/dL (1.6-3.0); PHOSPHOROUS 3.9 mg/dL (2.5-4.6)
[2017-02-28 05:55] LABS: HEMATOCRIT 26.2 % (35.0-45.0); HEMOGLOBIN 8.4 gm/dL (12.0-16.0); MEAN CELL VOLUME 89.9 FL (83-96); MEAN CORPUSCULAR HGB CONC 32.2 g/dL (30-36); MEAN PLATELET VOLUME 8.7 FL (6.5-11.5); RED BLOOD COUNT 2.91 X10e (3.90-5.30); RED CELL DISTRIBUTION WIDTH 18.6 % (11.0-15.5); WHITE BLOOD COUNT 12.8 X10e3 (4.0-10.5)
[2017-02-28 07:04] LABS: BUN/CREATININE RATIO 43.33; CALCIUM SERUM 8.3 mg/dL (8.4-10.2); CREATININE SERUM 0.6 mg/dL (0.6-1.4); MAGNESIUM 1.8 mg/dL (1.6-3.0); POTASSIUM 4.3 mmol/L (3.5-5.1)
[2017-03-01 06:06] LABS: BASOPHIL# 0.1 X10e3 (0-0.3); BASOPHIL% 0.5 % (0-2.5); EOSINOPHIL# 0.1 X10e3 (0-0.7); EOSINOPHIL% 0.4 % (0.0-7.0); HEMATOCRIT 24.1 % (35.0-45.0); HEMOGLOBIN 7.7 gm/dL (12.0-16.0); LYMPHOCYTE# 0.9 X10e3 (1.0-3.5); LYMPHOCYTE% 7.1 % (17.0-45.0); MEAN CELL VOLUME 90.3 FL (83-96); MEAN CORPUSCULAR HGB CONC 32.1 g/dL (30-36); MEAN PLATELET VOLUME 8.8 FL (6.5-11.5); MONOCYTE# 0.7 X10e3 (0-1.0); MONOCYTE% 5.2 % (3.0-12.0); NEUTROPHIL# 11.5 X10e3 (1.5-7.1); NEUTROPHIL% 86.8 % (40-75); PLATELET COUNT 212 X10e3 (140-420); RED BLOOD COUNT 2.67 X10e (3.90-5.30); RED CELL DISTRIBUTION WIDTH 18.5 % (11.0-15.5); WHITE BLOOD COUNT 13.3 X10e3 (4.0-10.5)
[2017-03-01 06:18] LABS: DIFF IND YES
[2017-03-01 06:42] LABS: ALBUMIN SERUM 1.9 g/dL (3.5-5.0); BILIRUBIN,TOTAL 0.5 mg/dL (0.2-2.0); CALCIUM SERUM 7.9 mg/dL (8.4-10.2); CREATININE SERUM 0.4 mg/dL (0.6-1.4); GLOM FILT RATE Estimated 106.3 mL/min (>60); MAGNESIUM 1.9 mg/dL (1.6-3.0); PHOSPHOROUS 4.5 mg/dL (2.5-4.6); PROTEIN TOTAL SERUM 4.4 g/dL (6.0-8.3)
[2017-03-01 06:56] LABS: ANISOCYTOSIS SL; PLATELET ESTIMATE NORMAL (NORMAL)
[2017-03-02 05:43] LABS: HEMATOCRIT 27.3 % (35.0-45.0); MEAN CELL VOLUME 89.3 FL (83-96); MEAN CORPUSCULAR HEMOGLOBIN 29.4 PG (28-34); MEAN PLATELET VOLUME 8.2 FL (6.5-11.5); RED BLOOD COUNT 3.06 X10e (3.90-5.30); RED CELL DISTRIBUTION WIDTH 17.9 % (11.0-15.5); WHITE BLOOD COUNT 17.9 X10e3 (4.0-10.5)
[2017-03-02 06:14] LABS: CREATININE SERUM 0.5 mg/dL (0.6-1.4); GLOM FILT RATE Estimated 98.8 mL/min (>60); MAGNESIUM 1.9 mg/dL (1.6-3.0); POTASSIUM 3.7 mmol/L (3.5-5.1)
[2017-03-03 06:22] LABS: HEMATOCRIT 26.8 % (35.0-45.0); HEMOGLOBIN 8.7 gm/dL (12.0-16.0); MEAN CELL VOLUME 89.5 FL (83-96); MEAN CORPUSCULAR HEMOGLOBIN 28.9 PG (28-34); MEAN CORPUSCULAR HGB CONC 32.4 g/dL (30-36); MEAN PLATELET VOLUME 8.3 FL (6.5-11.5); RED BLOOD COUNT 2.99 X10e (3.90-5.30); RED CELL DISTRIBUTION WIDTH 18.3 % (11.0-15.5); WHITE BLOOD COUNT 11.6 X10e3 (4.0-10.5)
[2017-03-03 07:03] LABS: ALBUMIN SERUM 1.8 g/dL (3.5-5.0); BILIRUBIN,TOTAL 0.7 mg/dL (0.2-2.0); CALCIUM SERUM 8.2 mg/dL (8.4-10.2); CREATININE SERUM 0.5 mg/dL (0.6-1.4); GLOM FILT RATE Estimated 98.8 mL/min (>60); MAGNESIUM 1.6 mg/dL (1.6-3.0); PHOSPHOROUS 4.1 mg/dL (2.5-4.6); POTASSIUM 3.4 mmol/L (3.5-5.1); PREALBUMIN 23.6 mg/dL (17.0-42.0); PROTEIN TOTAL SERUM 4.7 g/dL (6.0-8.3)
[2017-03-04 06:07] LABS: MEAN CELL VOLUME 90.6 FL (83-96); MEAN CORPUSCULAR HEMOGLOBIN 29.3 PG (28-34); MEAN CORPUSCULAR HGB CONC 32.3 g/dL (30-36); MEAN PLATELET VOLUME 8.3 FL (6.5-11.5); RED BLOOD COUNT 3.08 X10e (3.90-5.30); RED CELL DISTRIBUTION WIDTH 17.9 % (11.0-15.5); WHITE BLOOD COUNT 10.8 X10e3 (4.0-10.5)
[2017-03-04 06:54] LABS: BUN/CREATININE RATIO 37.5; CREATININE SERUM 0.4 mg/dL (0.6-1.4); GLOM FILT RATE Estimated 106.3 mL/min (>60); MAGNESIUM 1.9 mg/dL (1.6-3.0); POTASSIUM 3.4 mmol/L (3.5-5.1)
[2017-03-04 09:49] LABS: URINE APPEARANCE CLOUDY; URINE BILIRUBIN NEG (NEG); URINE BLOOD NEG (NEG); URINE COLOR YELLOW; URINE GLUCOSE NEG (NEG); URINE KETONE NEG (NEG); URINE LEUKOCYTE ESTERASE 2+ (NEG); URINE NITRATE NEG (NEG); URINE PROTEIN 1+ (NEG); URINE SPECIFIC GRAVITY 1.015 (1.003-1.035); URINE UROBILINOGEN 0.2 MG/DL (NEG)
[2017-03-04 09:51] LABS: URINE BACTERIA AUWI NEG (NEGATIVE); URINE SQUAMOUS EPITHELIAL CELL FEW /[HPF]; UWBCS1 AUWI 25-50 (0-5)
[2017-03-04 09:53] LABS: URINE YEAST PRESENT
[2017-03-05 05:16] LABS: HEMATOCRIT 27.2 % (35.0-45.0); HEMOGLOBIN 8.9 gm/dL (12.0-16.0); MEAN CELL VOLUME 89.6 FL (83-96); MEAN CORPUSCULAR HEMOGLOBIN 29.2 PG (28-34); MEAN CORPUSCULAR HGB CONC 32.6 g/dL (30-36); MEAN PLATELET VOLUME 7.9 FL (6.5-11.5); RED BLOOD COUNT 3.04 X10e (3.90-5.30); RED CELL DISTRIBUTION WIDTH 18.1 % (11.0-15.5); WHITE BLOOD COUNT 11.8 X10e3 (4.0-10.5)
[2017-03-05 05:48] LABS: CALCIUM SERUM 8.1 mg/dL (8.4-10.2); CREATININE SERUM 0.5 mg/dL (0.6-1.4); GLOM FILT RATE Estimated 98.8 mL/min (>60); POTASSIUM 4.3 mmol/L (3.5-5.1)
[2017-03-06 00:50] LABS: URINE APPEARANCE CLEAR; URINE BILIRUBIN NEG (NEG); URINE BLOOD NEG (NEG); URINE COLOR YELLOW; URINE GLUCOSE NEG (NEG); URINE KETONE NEG (NEG); URINE LEUKOCYTE ESTERASE 1+ (NEG); URINE NITRATE NEG (NEG); URINE PROTEIN NEG (NEG); URINE UROBILINOGEN 0.2 MG/DL (NEG)
[2017-03-06 00:53] LABS: CULTURE INDICATED? YES; URBCS1 AUWI 0-2 /[HPF] (0-2); URINE BACTERIA AUWI NEG (NEGATIVE); URINE SQUAMOUS EPITHELIAL CELL NONE SEEN /[HPF]
[2017-03-06 05:33] LABS: HEMATOCRIT 27.5 % (35.0-45.0); HEMOGLOBIN 8.8 gm/dL (12.0-16.0); MEAN CELL VOLUME 90.5 FL (83-96); MEAN CORPUSCULAR HGB CONC 32.1 g/dL (30-36); MEAN PLATELET VOLUME 7.9 FL (6.5-11.5); RED BLOOD COUNT 3.04 X10e (3.90-5.30); RED CELL DISTRIBUTION WIDTH 17.9 % (11.0-15.5); WHITE BLOOD COUNT 11.8 X10e3 (4.0-10.5)
[2017-03-06 06:24] LABS: ALBUMIN SERUM 1.7 g/dL (3.5-5.0); BILIRUBIN,TOTAL 0.8 mg/dL (0.2-2.0); BUN/CREATININE RATIO 17.14; CALCIUM SERUM 7.7 mg/dL (8.4-10.2); CREATININE SERUM 0.7 mg/dL (0.6-1.4); GLOM FILT RATE Estimated 88.4 mL/min (>60); MAGNESIUM 1.7 mg/dL (1.6-3.0); PHOSPHOROUS 6.2 mg/dL (2.5-4.6); POTASSIUM 3.9 mmol/L (3.5-5.1); PROTEIN TOTAL SERUM 4.2 g/dL (6.0-8.3)
[2017-03-07 05:20] LABS: HEMATOCRIT 26.3 % (35.0-45.0); HEMOGLOBIN 8.6 gm/dL (12.0-16.0); MEAN CELL VOLUME 89.1 FL (83-96); MEAN CORPUSCULAR HEMOGLOBIN 29.3 PG (28-34); MEAN CORPUSCULAR HGB CONC 32.8 g/dL (30-36); MEAN PLATELET VOLUME 7.5 FL (6.5-11.5); RED BLOOD COUNT 2.96 X10e (3.90-5.30); RED CELL DISTRIBUTION WIDTH 17.7 % (11.0-15.5); WHITE BLOOD COUNT 11.3 X10e3 (4.0-10.5)
[2017-03-07 06:06] LABS: BUN/CREATININE RATIO 13.75; CALCIUM SERUM 8.1 mg/dL (8.4-10.2); CREATININE SERUM 0.8 mg/dL (0.6-1.4); GLOM FILT RATE Estimated 75.3 mL/min (>60); MAGNESIUM 1.6 mg/dL (1.6-3.0); POTASSIUM 3.1 mmol/L (3.5-5.1)
[2017-03-07 07:53] LABS: ARTERIAL BLD GAS O2 SATURATION 92.6 % (90.0-100.0); ARTERIAL BLOOD GAS CARBOXY HB 1.5 %sat (0.0-9.0); ARTERIAL BLOOD GAS HCO3 30.7 mmol/L; ARTERIAL BLOOD GAS PCO2 43.9 mmHg (35.0-45.0); ARTERIAL BLOOD GAS pH 7.453 (7.350-7.450)
[2017-03-07 07:56] LABS: ARTERIAL BLOOD GAS ALLEN TEST NORMAL; ARTERIAL BLOOD GAS ART SITE RIGHT RADIAL; ARTERIAL BLOOD GAS DELIVERY NASAL CANNULA; ARTERIAL BLOOD GAS PO2 71.1 mmHg (80.0-100); ARTERIAL DRAW? YES
[2017-03-08 05:48] LABS: HEMATOCRIT 28.6 % (35.0-45.0); HEMOGLOBIN 9.3 gm/dL (12.0-16.0); MEAN CELL VOLUME 89.3 FL (83-96); MEAN CORPUSCULAR HGB CONC 32.5 g/dL (30-36); MEAN PLATELET VOLUME 7.2 FL (6.5-11.5); RED BLOOD COUNT 3.2 X10e (3.90-5.30); RED CELL DISTRIBUTION WIDTH 17.3 % (11.0-15.5)
[2017-03-08 06:49] LABS: ALBUMIN SERUM 1.9 g/dL (3.5-5.0); BILIRUBIN,TOTAL 0.7 mg/dL (0.2-2.0); CALCIUM SERUM 8.5 mg/dL (8.4-10.2); GLOM FILT RATE Estimated 57.5 mL/min (>60); MAGNESIUM 1.9 mg/dL (1.6-3.0); POTASSIUM 3.7 mmol/L (3.5-5.1); PROTEIN TOTAL SERUM 5.2 g/dL (6.0-8.3)
[2017-03-09 06:11] LABS: HEMATOCRIT 28.3 % (35.0-45.0); MEAN CELL VOLUME 89.8 FL (83-96); MEAN CORPUSCULAR HEMOGLOBIN 28.7 PG (28-34); MEAN PLATELET VOLUME 7.4 FL (6.5-11.5); RED BLOOD COUNT 3.15 X10e (3.90-5.30); RED CELL DISTRIBUTION WIDTH 17.3 % (11.0-15.5)
[2017-03-09 06:40] LABS: BUN/CREATININE RATIO 11.11; CALCIUM SERUM 8.4 mg/dL (8.4-10.2); CREATININE SERUM 0.9 mg/dL (0.6-1.4); GLOM FILT RATE Estimated 65.3 mL/min (>60); MAGNESIUM 2.5 mg/dL (1.6-3.0); POTASSIUM 3.6 mmol/L (3.5-5.1)
[2017-03-10 05:19] LABS: HEMATOCRIT 28.1 % (35.0-45.0); HEMOGLOBIN 9.1 gm/dL (12.0-16.0); MEAN CELL VOLUME 91.2 FL (83-96); MEAN CORPUSCULAR HEMOGLOBIN 29.4 PG (28-34); MEAN CORPUSCULAR HGB CONC 32.3 g/dL (30-36); MEAN PLATELET VOLUME 7.3 FL (6.5-11.5); RED BLOOD COUNT 3.08 X10e (3.90-5.30); RED CELL DISTRIBUTION WIDTH 17.7 % (11.0-15.5); WHITE BLOOD COUNT 12.5 X10e3 (4.0-10.5)
[2017-03-10 06:58] LABS: ALBUMIN SERUM 1.9 g/dL (3.5-5.0); BILIRUBIN,TOTAL 0.4 mg/dL (0.2-2.0); CALCIUM SERUM 8.3 mg/dL (8.4-10.2); CREATININE SERUM 1.1 mg/dL (0.6-1.4); GLOM FILT RATE Estimated 51.2 mL/min (>60); MAGNESIUM 2.1 mg/dL (1.6-3.0); PHOSPHOROUS 6.4 mg/dL (2.5-4.6); POTASSIUM 3.7 mmol/L (3.5-5.1)
[2017-03-11 05:44] LABS: HEMATOCRIT 28.4 % (35.0-45.0); HEMOGLOBIN 9.1 gm/dL (12.0-16.0); MEAN CELL VOLUME 90.1 FL (83-96); MEAN CORPUSCULAR HEMOGLOBIN 28.9 PG (28-34); MEAN CORPUSCULAR HGB CONC 32.1 g/dL (30-36); RED BLOOD COUNT 3.15 X10e (3.90-5.30); RED CELL DISTRIBUTION WIDTH 17.2 % (11.0-15.5); WHITE BLOOD COUNT 11.9 X10e3 (4.0-10.5)
[2017-03-11 06:44] LABS: CALCIUM SERUM 8.3 mg/dL (8.4-10.2); GLOM FILT RATE Estimated 57.5 mL/min (>60); MAGNESIUM 1.9 mg/dL (1.6-3.0); POTASSIUM 3.4 mmol/L (3.5-5.1)
[2017-03-12 05:22] LABS: HEMATOCRIT 27.6 % (35.0-45.0); HEMOGLOBIN 8.9 gm/dL (12.0-16.0); MEAN CELL VOLUME 89.7 FL (83-96); MEAN CORPUSCULAR HEMOGLOBIN 28.8 PG (28-34); MEAN CORPUSCULAR HGB CONC 32.2 g/dL (30-36); MEAN PLATELET VOLUME 7.1 FL (6.5-11.5); RED BLOOD COUNT 3.08 X10e (3.90-5.30); RED CELL DISTRIBUTION WIDTH 17.4 % (11.0-15.5); WHITE BLOOD COUNT 13.9 X10e3 (4.0-10.5)
[2017-03-12 06:37] LABS: BUN/CREATININE RATIO 14.54; CALCIUM SERUM 8.4 mg/dL (8.4-10.2); CREATININE SERUM 1.1 mg/dL (0.6-1.4); GLOM FILT RATE Estimated 51.2 mL/min (>60); MAGNESIUM 2.2 mg/dL (1.6-3.0); POTASSIUM 3.9 mmol/L (3.5-5.1)
[2017-03-13 05:45] LABS: HEMATOCRIT 27.1 % (35.0-45.0); MEAN CELL VOLUME 89.2 FL (83-96); MEAN CORPUSCULAR HEMOGLOBIN 29.6 PG (28-34); MEAN CORPUSCULAR HGB CONC 33.2 g/dL (30-36); MEAN PLATELET VOLUME 6.8 FL (6.5-11.5); RED BLOOD COUNT 3.04 X10e (3.90-5.30); RED CELL DISTRIBUTION WIDTH 17.2 % (11.0-15.5); WHITE BLOOD COUNT 11.9 X10e3 (4.0-10.5)
[2017-03-13 06:34] LABS: CALCIUM SERUM 8.5 mg/dL (8.4-10.2); GLOM FILT RATE Estimated 57.5 mL/min (>60); POTASSIUM 3.7 mmol/L (3.5-5.1)
== END 2017-03-14 00:44 | DRG 853 ==
LOC: CED 18:28 → C3A PCU 23:10 → CEDOF 23:10 → C5B 23:10 → CED 02-14 00:42 → CEDOF 02-14 00:42 → C5B 02-14 03:48 → CICCU2 02-15 20:02 → C3A PCU 02-25 15:24
PROVIDERS: Emergency Medicine; Internal Medicine; Internal Medicine Nephrology; Internal Medicine Pulmonary Disease; Nurse Practitioner Family; Orthopaedic Surgery; Psychiatry & Neurology Psychiatry; Specialist; Surgery
PROC: 02HV33Z Insertion of Infusion Device into Superior Vena Cava, Percutaneous Approach (ICD-10-PCS; 2017-02-14)
PROC: B548ZZA Ultrasonography of Superior Vena Cava, Guidance (ICD-10-PCS; 2017-02-14)
PROC: 0DBH0ZZ Excision of Cecum, Open Approach (ICD-10-PCS; 2017-02-15)
PROC: 0DBE0ZZ Excision of Large Intestine, Open Approach (ICD-10-PCS; 2017-02-15)
PROC: 0DBS0ZZ (ICD-10-PCS; 2017-02-15)
PROC: 0D1B0Z4 Bypass Ileum to Cutaneous, Open Approach (ICD-10-PCS; 2017-02-15)
PROC: 30243L1 Transfusion of Nonautologous Fresh Plasma into Central Vein, Percutaneous Approach (ICD-10-PCS; 2017-02-15)
PROC: 5A1955Z Respiratory Ventilation, Greater than 96 Consecutive Hours (ICD-10-PCS; 2017-02-16)
PROC: 30243J1 Transfusion of Nonautologous Serum Albumin into Central Vein, Percutaneous Approach (ICD-10-PCS; 2017-02-16)
PROC: 03HC33Z Insertion of Infusion Device into Left Radial Artery, Percutaneous Approach (ICD-10-PCS; 2017-02-16)
PROC: 05HN33Z Insertion of Infusion Device into Left Internal Jugular Vein, Percutaneous Approach (ICD-10-PCS; 2017-02-17)
PROC: 0DH67UZ Insertion of Feeding Device into Stomach, Via Natural or Artificial Opening (ICD-10-PCS; 2017-02-22)
PROC: 30243N1 Transfusion of Nonautologous Red Blood Cells into Central Vein, Percutaneous Approach (ICD-10-PCS; 2017-03-01)
PROC: 02HV33Z Insertion of Infusion Device into Superior Vena Cava, Percutaneous Approach (ICD-10-PCS; 2017-03-04)
PROC: 4A02X4A Measurement of Cardiac Electrical Activity, Guidance, External Approach (ICD-10-PCS; 2017-03-04)
PROC: 02HV33Z Insertion of Infusion Device into Superior Vena Cava, Percutaneous Approach (ICD-10-PCS; 2017-03-08)
PROC: B548ZZA Ultrasonography of Superior Vena Cava, Guidance (ICD-10-PCS; 2017-03-08)
PROC: 0QB10ZX Excision of Sacrum, Open Approach, Diagnostic (ICD-10-PCS; 2017-03-09)
PROC: 0QB10ZZ Excision of Sacrum, Open Approach (ICD-10-PCS; principal; 2017-03-09 07:30)
DX: A41.9 Sepsis, unspecified organism (principal); R65.21 Severe sepsis with septic shock; J96.21 Acute and chronic respiratory failure with hypoxia; G92 Toxic encephalopathy; N17.9 Acute kidney failure, unspecified; L89.154 Pressure ulcer of sacral region, stage 4; J18.9 Pneumonia, unspecified organism; I13.0 Hypertensive heart and chronic kidney disease with heart failure and stage 1 through stage 4 chronic kidney disease, or unspecified chronic kidney disease; A04.7 Enterocolitis due to Clostridium difficile; E46 Unspecified protein-calorie malnutrition; I50.9 Heart failure, unspecified; E87.2 Acidosis; M86.9 Osteomyelitis, unspecified; E87.1 Hypo-osmolality and hyponatremia; T83.511A Infection and inflammatory reaction due to indwelling urethral catheter, initial encounter; J44.9 Chronic obstructive pulmonary disease, unspecified; N18.3 Chronic kidney disease, stage 3 (moderate); Y73.1 Therapeutic (nonsurgical) and rehabilitative gastroenterology and urology devices associated with adverse incidents; B96.4 Proteus (mirabilis) (morganii) as the cause of diseases classified elsewhere; Z87.891 Personal history of nicotine dependence; I48.0 Paroxysmal atrial fibrillation; Z79.01 Long term (current) use of anticoagulants; E87.6 Hypokalemia; Z86.73 Personal history of transient ischemic attack (TIA), and cerebral infarction without residual deficits; Z66 Do not resuscitate; E78.5 Hyperlipidemia, unspecified; M62.3 Immobility syndrome (paraplegic); Z68.29 Body mass index [BMI] 29.0-29.9, adult
CPT/HCPCS: 36415; 36600; 71010; 74000; 74176; 76770; 76937; 77001; 78315; 80048; 80053; 80076; 80162; 80202; 81003; 82140; 82308; 82533; 82550; 82803; 82947; 83605; 83690; 83735; 83880; 84100; 84132; 84134; 84443; 84478; 85014; 85018; 85025; 85027; 85610; 85652; 85730; 86140; 86850; 86900; 86901; 86923; 87040; 87070; 87075; 87077; 87086; 87088; 87186; 87205; 87493; 88305; 88307; 88311; 89190; 92526; 92610; 93005; 94002; 94003; 94640; 94660; 94760; 94761; 97167; 99285; A9503; C1751; C1769; C9113; G8987-GO; G8988-GO; G8989-GO; G8996-GN; G8997-GN; G8998-GN; J0610; J0692; J0878; J1170; J1450; J1580; J1644; J1650; J1815; J1940; J2060; J2185; J2250; J2270; J2370; J2405; J2543; J2997; J3010; J3260; J3370; J3475; J3480; J7060; P9016; P9035; P9047; P9059

== ENCOUNTER 2017-03-21 11:48 | Inpatient (IN) | payer OTHER ==
[~2017-03-21] VITALS: Ht 157.5 cm; Wt 87.0 kg
--- NOTE | ~2017-03-21 | CR72 ---
[facility] A Service of [facility] & [facility] RADIOLOGY TEXT RESULTS PATIENT: CHRISTEL SILVA LOCATION: [address] : [birth year] UNIT #: [id number] AGE: [address]: Calos Barkley MD SEX: F ORDER DR: [id number] [facility] [address] [place], [place] [address] [id number] I MR#: [id number] Acc #: [id number] NAME: CHRISTEL SILVA : 1945 SEX: F STUDY DATE/TIME: 03/23/2017 03:41 UNIT: [facility] ROOM: [facility] STUDY DESCRIPTION: CR Chest Single View Portable Attending Physician: Calos Barkley M.D. Ordering Physician: Calos Barkley M.D. Primary Care Physician: Calos Barkley M.D. MEDICAL IMAGING REPORT This report is preliminary unless electronic signature is present EXAM Portable chest, 03/23, 03:41. INDICATIONS Shortness of air and increasing confusion today. FINDINGS AP portable chest is compared with 03/21/2017. Feeding tube has been placed with the tip in the gastric body. Left IJ line in the SVC. There is continued atelectasis or infiltrate in the bases with small effusions. There may be some developing right upper lobe infiltrate. Attention on followup is recommended. No pneumothorax. Dictated by... Brent Holden Jr., M.D. THIS IS AN ELECTRONICALLY VERIFIED REPORT Brent Holden Jr., M.D. at 03/23/2017 7:22 PM EMILIE/sonny TD: 03/23/2017 07:53 JOB #: [id number] MEDICAL IMAGING REPORT Page 1 of 1 COPY
--- NOTE | ~2017-03-21 | EKG ---
PATIENT: CHRISTEL SILVA UNIT #: [id number] Ventricular Rate: 141 BPM Atrial Rate: 141 BPM P-R Interval: 146 ms QRS Duration: 76 ms Q-T Interval: 266 ms QTC Calculation(Bezet): 407 ms P [place]: 70 degrees Calculated R [place]: 59 degrees Calculated T [place]: 164 degrees Diagnosis Line: Sinus tachycardia with occasional Premature Diagnosis Line: ventricular complexes Diagnosis Line: Nonspecific T wave abnormality Diagnosis Line: Abnormal ECG Diagnosis Line: When compared with ECG of 21-MAR-2017 12:21, Diagnosis Line: No significant change was found Diagnosis Line: Confirmed by ALEYDA BENAVIDES MD ([id number]) on Diagnosis Line: 03/23/2017 1:33:56 PM INTERPRETING MD: MAKAYLA BLACK
--- NOTE | ~2017-03-21 | DS ---
Unit #: [id number] #: [id number] Patient: CHRISTEL SILVA [id number] [address] [address] [id number] I MR#: [id number] NAME: CHRISTEL SILVA ROOM: 218 Age: 71 Sex: F Admission Date: 03/21/2017 : 1945 Discharge Date: 03/29/2017 Attending Physician: Calos Barkley M.D. Primary Care Physician: Calos Barkley M.D. DISCHARGE SUMMARY SUMMARY DATE OF 03/29/2017 at 0600 hours. HOSPITAL COURSE The patient is a 71-year-old white female with an extensive past medical history with multiple recent admissions including recent acute megacolon secondary to C. difficile colitis requiring emergency laparotomy with total colectomy and ileostomy, sepsis syndrome, multiple urinary tract infections, osteomyelitis of the sacrum secondary to large decubitus ulcer, chronic kidney disease stage 3, chronic respiratory failure secondary to right sided CHF as well as pulmonary hypertension and severe end stage COPD, O2 and steroid dependent, paroxysmal atrial fibrillation, multiple old CVAs. The patient was recently here and discharged to rehab center and presented back to the emergency room with sepsis syndrome, afebrile, tachycardic, hypotensive. CO2 12, creatinine 1.4, white count 29.6, pH 7.248, CO2 25, lactic acid normal, cardiac enzymes normal. Urinalysis - 10-25 white cells, trace leukocytes, 5-10 reds. Chest x-ray - moderate right pleural effusion, no change. EKG shows sinus tachycardia, nonspecific ST abnormality and the patient was admitted. The patient was placed in the ICU. She as seen by Dr. Park. Right internal jugular central line was placed for IV access. The patient was placed on pressors, broad spectrum antibiotics. ID was consulted. Surgery was consulted for wound care. According to them, the wound did not seem to be infected. Blood cultures were sent. Stool for C. diff was ordered from the ileostomy. The patient remained obtunded. She was essentially unresponsive. Urine culture was no growth. Blood cultures originally no growth. X-rays of the abdomen showed no acute abnormalities. The patient had been a DNR the last few admissions. On further discussion with the family, they requested comfort measures only. These were instituted and the patient eventually with p.r.n. medicines only on March 29 at 0600 hours. The body was released to the [facility]. Dictated by... Calos Barkley M.D. Raj Unit #: [id number] #: [id number] Patient: CHRISTEL SILVA TD: 03/29/2017 12:15 JOB #: [id number] DISCHARGE SUMMARY Page 1 of 1 X Calos Barkley MD X DISCHARGE SUMMARY
--- NOTE | ~2017-03-21 | CR72 ---
[facility] A Service of [facility] & [facility] RADIOLOGY TEXT RESULTS PATIENT: CHRISTEL SILVA [facility] : [birth year] UNIT #: [id number] AGE: [address]: Calos Barkley MD SEX: F ORDER DR: [id number] [facility] [address] [place], [place] [address] [id number] I MR#: [id number] Acc #: [id number] NAME: CHRISTEL SILVA : 1945 SEX: F STUDY DATE/TIME: UNIT: [facility] ROOM: [id number] STUDY DESCRIPTION: CR Chest Single View Portable Attending Physician: Calos Barkley M.D. Ordering Physician: Darrius Wagoner M.D. Primary Care Physician: Calos Barkley M.D. MEDICAL IMAGING REPORT This report is preliminary unless electronic signature is present EXAM Chest portable 03/21/2017 1228 hours HISTORY 71-year-old with altered mental status and shortness of air today. History of hypertension, COPD and CHF. COMPARISON 03/02/2017 FINDINGS Portable upright film demonstrates the patient leaning to the right and only mildly rotated to the right. There is a right PICC line with tip in the upper right atrium. Heart size is within normal limits. There is a moderate right pleural effusion felt not appreciably changed. No definite left effusion is seen but this could be because of the positioning of the patient. The lungs appear clear. IMPRESSION The patient is leaning to the right. There is a persistent felt unchanged in moderate right pleural effusion. No definite left effusion is seen although the effusion could be obscured by the rightward leaning of the patient. There is no evidence of pneumonia, edema or pneumothorax. Dictated by... Sana Marks M.D. THIS IS AN ELECTRONICALLY VERIFIED REPORT Sana Marks M.D. at 03/22/2017 8:53 AM SMM/kwabena TD: 03/21/2017 19:44 JOB #: [id number] [facility] A Service of [facility] & [facility] RADIOLOGY TEXT RESULTS PATIENT: CHRISTEL SILVA LOCATION: [facility] CICCU3-16 : [birth year] UNIT #: [id number] AGE: [address]: Calos Barkley MD SEX: F ORDER DR: MEDICAL IMAGING REPORT Page 1 of 1 COPY
--- NOTE | ~2017-03-21 | CO ---
Unit #: [id number] #: [id number] Patient: CHRISTEL SILVA [id number] [address] [address] [id number] I MR#: [id number] NAME: CHRISTEL SILVA ROOM: CIC3 Age: 71 Sex: F Admission Date: 03/21/2017 : 1945 Attending Physician: Calos Barkley M.D. Primary Care Physician: Calos Barkley M.D. Consultation Date: 03/21/2017 CONSULTATION REPORT REASON FOR CONSULTATION ICU management. HISTORY OF PRESENT ILLNESS This is a 71-year-old female who is well known to our service from previous admission with a past medical history significant for malnutrition, anemia, COPD, chronic kidney disease, hypertension, who [facility] with low blood pressure, fever, and altered mental status. The patient was discharged from the hospital recently after a prolonged admission for C. diff colitis, septic shock, and respiratory failure. Also of note, patient underwent colectomy during her last admission. Patient currently is confused and cooperative. Her blood pressure in the 60s. There is no reported fever, chills, or night sweats. No cough or chest pain. Family aren't sure about any diarrhea, however, she has a colostomy bag. PAST MEDICAL HISTORY 1. COPD. 2. Chronic anemia. 3. Chronic kidney disease. 4. Multiple CVAs. 5. Hypertension. 6. Hyperlipidemia. 7. Immobilization syndrome. 8. Paroxysmal atrial fibrillation. 9. Congestive heart failure. 10. Nonsustained V-tach. PAST SURGICAL HISTORY 1. Colectomy. 2. Appendectomy. SOCIAL HISTORY Patient is a prison resident. She is and not employed. She occasionally drinks alcohol. No history of drug abuse or smoking, but she is an ex-smoker. FAMILY HISTORY Noncontributory. Unit #: [id number] #: [id number] Patient: CHRISTEL SILVA HOME MEDICATIONS 1. Digoxin. 2. Folic acid. 3. Pulmicort. 4. [place]. 5. Iron. REVIEW OF SYSTEMS Unable to obtain from the patient due to condition. PHYSICAL EXAMINATION GENERAL: The patient is ill appearing and expected to deteriorate. VITAL SIGNS: Blood pressure is 69/35, respiratory rate 18, O2 saturation 98% on 2 L nasal cannula. HEENT: Atraumatic and normocephalic. PERRLA. EOMI. NECK: Supple. No JVD. No lymphadenopathy. CHEST: Shallow breathing but no rhonchi. HEART: S1 and S2. No murmur, gallops or rubs. ABDOMEN: Soft, nontender. Bowel sounds are positive. No hepatosplenomegaly. EXTREMITIES: +1 edema in the thighs and lower extremity. SKIN: No rashes with multiple decubitus ulcers. ROLLS MILL OPERATOR: Patient is lethargic and confused but she is moving all the extremities without no focal weakness. DIAGNOSTIC STUDIES LABS AND OTHER TEST: pH 7.26, PCO2 26. CO2 14. White blood count 19.5, hemoglobin 10.0, (1) . ASSESSMENT 1. Septic shock. 2. Rule out Clostridium difficile colitis. 3. Acute kidney injury. 4. Malnutrition. 5. Anemia. 6. Toxic metabolic encephalopathy. 7. Anemia. 8. Multiple cerebrovascular accident. 9. Paroxysmal atrial fibrillation. PLAN 1. Patient is critical and expected to deteriorate further. 2. I had a lengthy discussion with the family about options for Hospice versus at least DNI/DNR. 3. Antibiotics per infectious disease. 4. IV hydration and pressors. I would like to thank Dr. Barkley for allowing me to be part of this patient's care. Dictated by... Cody Park M.D. Unit #: [id number] #: [id number] Patient: CHRISTEL SILVA MICHELLE/kacey TD: 03/22/2017 07:46 JOB #: [id number] CONSULTATION REPORT Page 1 of 1 X CODY CLEMENTS MD CONSULTATION REPORT
--- NOTE | ~2017-03-21 | FU ---
[facility] Nutrition Therapy DATE: 03/24/17 Patient: CHRISTEL SILVA Physician: ALBERTO Address: [address] [place] [address] Room/Bed: [address], Zip: [place] [address] Admit Date: 03/21/17 Date of : [birth year] Height: 5 2 Weight: 191 87 NUTRITION MONITORING/FOLLOW-UP: Reason: Follow up/ Comfort Measures Assessment: Chart reviewed, events noted. Pt has been made comfort measures, and enteral nutrition/ DHT have been discontinued. Nutrition intervention is no longer appropriate at this time. Please consult RD with any further nutritional needs. RD to remain available. Respectfully, MEGAN COULTER RD, LD Food and Nutritional Services [facility] cc: client file
--- NOTE | ~2017-03-21 | CR7 ---
[facility] A Service of [facility] & [facility] RADIOLOGY TEXT RESULTS PATIENT: CHRISTEL SILVA LOCATION: [address] : [birth year] UNIT #: [id number] AGE: [address]: Calos Barkley MD SEX: F ORDER DR: [id number] [facility] [address] [place], [place] [address] [id number] I MR#: [id number] #: [id number] NAME: CHRISTEL SILVA : 1945 SEX: F STUDY DATE/TIME: 03/23/2017 7:17 UNIT: [facility] ROOM: [facility] STUDY DESCRIPTION: CR Abdomen Single AP View Attending Physician: Calos Barkley M.D. Ordering Physician: Calos Barkley M.D. Primary Care Physician: Calos Barkley M.D. MEDICAL IMAGING REPORT This report is preliminary unless electronic signature is present EXAM Portable KUB COMPARISON 03/22/2017. HISTORY Abdominal pain. Dobbhoff tube placed. TECHNIQUE A single view of the abdomen was obtained. FINDINGS The tip of the Dobbhoff tube is in the mid stomach. The bowel gas pattern is normal with no abnormally distended bowel loops noted. STAT * RESULT Dictated by... Brent Woods M.D. THIS IS AN ELECTRONICALLY VERIFIED REPORT Brent Woods M.D. at 03/23/2017 3:38 PM KELIN/mohini TD: 03/23/2017 07:45 JOB #: [id number] MEDICAL IMAGING REPORT Page 1 of 1 COPY
--- NOTE | ~2017-03-21 | CO ---
Unit #: [id number] #: [id number] Patient: CHRISTEL SILVA [id number] [address] [place], [place] [address] [id number] I MR#: [id number] NAME: CHRISTEL SILVA ROOM: [facility] Age: 71 Sex: F Admission Date: 03/21/2017 : 1945 Attending Physician: Calos Barkley M.D. Primary Care Physician: Calos Barkley M.D. Consultation Date: 03/22/2017 CONSULTATION REPORT REASON FOR CONSULTATION Sepsis. HISTORY OF PRESENT ILLNESS This is a 71-year-old lady who was discharged 8 days ago to a retirement. Please see prior hospitalization for full details. She has a long hospital course; part of that was sepsis, undergoing a collectomy for toxic megacolon, and she also developed a stage 4 sacral ulcer that was debrided. She, again, was readmitted for sepsis. She complains of pain all over. She has a large sacral wound and a history of sacral osteomyelitis. She also tested positive for C. diff. on February 13, and she came in with a long-term Owens and a nonfunctioning PICC line. Last night her PICC line was removed, and she had a left IJ triple-lumen catheter placed. Again, please see her prior medical records for the rest of her history. PHYSICAL EXAMINATION VITAL SIGNS: Temperature is 97.2, heart rate 115, blood pressure 106/66, respiratory rate 14. GENERAL: She is moaning and appears uncomfortable. She is arousable. NECK: Neck is without masses, and she has the left IJ triple-lumen catheter. LUNGS: Lungs show good breath sounds bilaterally with equal air expansion. CARDIOVASCULAR: Cardiac exam shows "tachycardia with regular rate." ABDOMEN: Abdomen is soft, nondistended, nontender. She has an ostomy with green stool present. SKIN: She has a sacral wound that is clean and granulating with no foul drainage or cellulitis. EXTREMITIES: Extremities show multiple skin tears along the bilateral lower extremities. NEUROLOGIC: She moves all extremities. DIAGNOSTIC STUDIES LABORATORY: Creatinine is 1.6, albumin 1.8, lactic acid level 1.4. White count 19,000, hemoglobin 10. IMAGING: Chest x-ray showed a right pleural effusion. OVERALL IMPRESSION This is a lady who is readmitted for evaluation of sepsis. I do not think this is due to anything going on within her abdomen or sacral wound. She did test positive for C. diff. and is on antibiotics. She has also had a chronic Owens and possible line sepsis with her PICC line. At this point, Unit #: [id number] #: [id number] Patient: CHRISTEL SILVA we are going to continue local wound care to her sacral wound and follow along while she is here. Dictated by... Barrington Lora III, M.D. VCL/mary TD: 03/22/2017 13:58 JOB #: [id number] CONSULTATION REPORT Page 1 of 1 X Barrington Lora III, MD CONSULTATION REPORT
--- NOTE | ~2017-03-21 | OR ---
Unit #: [id number] #: [id number] Patient: CHRISTEL SILVA [id number] [address] [address] [id number] I MR#: [id number] NAME: CHRISTEL SILVA ROOM: [facility] Date of Procedure: 03/21/2017 Admission Date: 03/21/2017 Surgeon: Cody Park M.D. : 1945 Attending Physician: Calos Barkley M.D. Primary Care Physician: Calos Barkley M.D. PROCEDURE OPERATIVE NOTE PREOPERATIVE DIAGNOSIS POSTOPERATIVE DIAGNOSIS PROCEDURE PERFORMED Left intrajugular venous catheter placement with ultrasound guidance. PREMEDICATION Versed 2 mg IV x1. INDICATION FOR PROCEDURE Septic shock. COMPLICATIONS None. DESCRIPTION OF PROCEDURE An informed consult was obtained from the patient's family, after explaining the benefit and risk of this procedure. The patient was prepped and positioned properly, then cleaned, and sterile body drape was applied. Then with the guidance of the ultrasound, a needle was inserted in the right IJ until blood flow was obtained and then the guidewire was inserted and needle was removed. Then catheter was inserted over the guidewire and the guidewire was removed. The catheter was sutured in place and flushed repeatedly. Clean dressing was applied. The patient tolerated this procedure well with no immediate complications. Dictated by... Cody Park M.D. EA/kacey TD: 03/22/2017 08:36 JOB #: [id number] Unit #: [id number] #: [id number] Patient: CHRISTEL SILVA PROCEDURE OPERATIVE NOTE Page 1 of 1 X CODY CLEMENTS MD X PROCEDURE OPERATIVE NOTE
--- NOTE | ~2017-03-21 | CR7 ---
[facility] A Service of [facility] & [facility] RADIOLOGY TEXT RESULTS PATIENT: CHRISTEL SILVA LOCATION: [address] : [birth year] UNIT #: [id number] AGE: [address]: Calos Barkley MD SEX: F ORDER DR: [id number] [facility] [address] [place], [place] [address] [id number] I MR#: [id number] Acc #: [id number] NAME: CHRISTEL SILVA : 1945 SEX: F STUDY DATE/TIME: 03/22/2017 13:43 UNIT: [facility] ROOM: [facility] STUDY DESCRIPTION: CR Abdomen Single AP View Attending Physician: Calos Barkley M.D. Ordering Physician: Tona Park M.D. Primary Care Physician: Calos Barkley M.D. MEDICAL IMAGING REPORT This report is preliminary unless electronic signature is present EXAM Portable KUB. HISTORY Postoperative examination for abdominal surgery. TECHNIQUE Two views of the abdomen were obtained and compared with 02/22/2017. FINDINGS The initial view shows a Dobbhoff tube over the esophagus. The second image shows the Dobbhoff tube in the mid stomach. The bowel gas pattern in the upper abdomen is unremarkable. Spleen size is normal. IMPRESSION Dobbhoff tube in the stomach. Unremarkable upper abdominal bowel gas pattern. STAT * RESULT Dictated by... Brent Woods M.D. THIS IS AN ELECTRONICALLY VERIFIED REPORT Brent Woods M.D. at 03/23/2017 3:38 PM KELIN/alem TD: 03/22/2017 14:13 JOB #: [id number] MEDICAL IMAGING REPORT Page 1 of 1 COPY
--- NOTE | ~2017-03-21 | A ---
[facility] Nutrition Therapy DATE: 03/22/17 Patient: CHRISTEL SILVA Physician: ALBERTO Address: [address] [place] [address] Room/Bed: [address], Zip: [place] [address] Admit Date: 03/21/17 Date of : [birth year] Height: 5 2 Weight: 174 79 NUTRITIONAL ASSESSMENT: REASON: NPO in ICU 71 y/o female admitted for sepsis PMH: CVA, Afib, COPD, CHF, Cdiff, colectomy, colitis Anthropometrics: ht: 5'2" wt: 174# (79 kg) BMI 31 Labs: Cl- 118. Glu 183, BUN 40, Alb 1.6, Mg++ 1.3, GFR 38.2 Meds: levophed, zosyn, KCl, Dextrose 5% I/O & Bowel function: 900/200. BM 03/13 Skin Integrity: Pressure ulcer- BLE, posterior, BUE; Debridement site- sacral Edema: LT arm- 3+, BLE 1+, RT arm 1+, Abd 2+ Estimated Nutrition Needs: 6122-8811 (22-26 kcal/kg) 79-102 g protein (1.0-1.3 g/kg) Fluids consistent with kcals or per MD Diet: NPO Assessment: Chart reviewed, events noted. This pt is familiar to the dietitians at [facility] and was followed by us in her recent admission in February 2017. In past admissions, the pt has stated that she does not like the food here and has inconsistent PO intake with calorie counts completed. Pt's previous weights ranged from 171-210#. The pt did receive both enteral nutrition and TPN during previous admit. The pt has been admitted due to sepsis. Per RN, the pt is having a DHT placed today for nutrition. The patient is NPO at this time. Please see recommendations, RD to continue to follow. Dx: Inadequate protein-energy intake r/t current condition AEB NPO status in ICU, DHT placement Intervention: 1. NPO 2. Enteral nutrition recommendations Monitoring, Evaluation and Goals: 1. Enteral nutrition; once medically feasible, receive >80% estimated volume 2. Weight; promote healthy weight maintenance [facility] Nutrition Therapy DATE: 03/22/17 Patient: CHRISTEL SILVA Physician: ALBERTO Address: [address] [place] [address] Room/Bed: [address], Zip: [place] [address] Admit Date: 03/21/17 Date of : [birth year] Height: 5 2 Weight: 174 79 3. Skin; promote healing, prevent further breakdown Recommendations: 1. Once medically feasible when the patient is hemodynamically stable, begin enteral nutrition support of Jevity 1.5 @ 20 mL/hr and advance 10 mL q 6 hours to goal rate of 55 mL/hr x 24 hours. This will provied 1980 kcal, 84 g protein, 1003 mL h20. Free h20 flushes per MD. 2. Monitor for signs of enteral nutrition intolerance. 3. Once diet advanced, per SPECIALIZED LANGUAGE INSTRUCTOR, recommend healthy heart diet. RD will f/u per protocol as pt is at moderate nutritional risk. Respectfully, GEGE CHASE, Senior Javascript Developer Sabina Barrera RD, LD Food and Nutritional Services [facility] cc: client file
--- NOTE | ~2017-03-21 | HP ---
Unit #: [id number] #: [id number] Patient: CHRISTEL SILVA [id number] [address] [place], [place] [address] [id number] I MR#: [id number] NAME: CHRISTEL SILVA ROOM: [facility] Age: 71 Sex: F Admission Date: 03/21/2017 : 1945 Attending Physician: Calos Barkley M.D. Primary Care Physician: Calos Barkley M.D. HISTORY AND PHYSICAL HISTORY OF PRESENT ILLNESS This is a 71-year-old white female with history of multiple old CVAs, paroxysmal atrial fibrillation, COPD, diastolic CHF, recently here multiple times in the hospital, sent to rehab and then back to the hospital. Last admission she had C. diff. colitis associated with megacolon requiring emergency colectomy, colostomy. She developed a sacral decubitus ulcer, coagulase negative staph sepsis, urinary tract infection - all treated. Eventually improved, discharged to care home 03/13/17. Apparently there they noticed her mental status was declining. Her white count was climbing. She was sent to the emergency room. There she had no obvious evidence of an infection but appeared to be septic with tachycardia, acidosis, hypotension and a markedly elevated white count. There is no obvious source. Her PICC line was clotted, but before I could talk to the ER physician, they had removed it and thrown it out. She had a central line placed last night by Dr. Park who was cardiopulmonary technician and eeg tech for the intensivists. Stool for C. diff. was ordered. Her urine has a few white cells but probably is insignificant. Blood cultures have been obtained. The patient has been started on broad-spectrum IV antibiotics. She has been given IV fluid resuscitation, including IV fluids with bicarb because of her acidosis, and is admitted to the ICU for further evaluation and treatment. There is no family here. The patient is semi-obtunded and only moans and is unable to give any further history. ALLERGIES She has no known drug allergies. MEDICATIONS PRIOR TO ADMISSION 1. Albuterol unit dose q.i.d. 2. Pepcid 40 mg p.o. daily. 3. Levothyroxine, dose unknown, daily. 4. Florastor 1 p.o. b.i.d. 5. Folic acid 1 mg daily. 6. B12 - 1,000 mcg daily. 7. Singulair 10 mg daily. 8. Remeron 15 mg q.h.s. 9. Percocet 5/325 mg 1 q.4 hours p.r.n. pain. 10. Benadryl 25 mg q.4 p.r.n. itching or rash. 11. Zofran ODT 4 mg q.4 p.r.n. nausea or vomiting. 12. Xanax 0.25 mg t.i.d. p.r.n. anxiety. SURGICAL HISTORY 1. Exploratory laparotomy, subtotal colectomy, partial omentectomy, ileostomy 02/21/17. 2. Multiple debridement of sacral decubitus during her last admission. Unit #: [id number] #: [id number] Patient: CHRISTEL SILVA PAST MEDICAL HISTORY 1. COPD. 2. Chronic anemia. 3. Chronic kidney disease stage 3. 4. Multiple CVAs. 5. Hypertension. 6. Hyperlipidemia. 7. Chronic Owens. 8. Immobilization syndrome. 9. Sacral decubitus ulcer. 10. C. diff. colitis. 11. Megacolon. 12. Colectomy. 13. Ileostomy. 14. Paroxysmal atrial fibrillation. 15. History of nonsustained ventricular tachycardia. 16. Right-sided CHF. 17. Prior appendectomy. SOCIAL HISTORY , not employed, prior smoker. No alcohol or street drug use. FAMILY HISTORY Family history is noncontributory. PHYSICAL EXAMINATION GENERAL: Again, the patient is semi-obtunded and only moans. She tries to open her eyes when you yell her name, but she really cannot keep them open or follow any commands. ADMISSION VITALS: Her temperature is 97.2, pulse 118, respirations 16, blood pressure 114/57, O2 sats 100% on 2 liters nasal cannula. HEENT: Otherwise unremarkable except for the nasal cannula in place. NECK: Her neck was supple without JVD, bruits, adenopathy or thyromegaly. CHEST: Diffusely decreased breath sounds, particularly in the right lower lobe but, otherwise, clear to auscultation without any audible wheezing or rales. CARDIOVASCULAR: Heart is regular and tachycardic without an S3 gallop or murmur appreciated. ABDOMEN: Abdomen shows a functioning colostomy, but the stools are green and frothy. Her abdomen was difficult to tell if it was tender because she moans constantly, especially if you touch her, but does not seem to be particularly tender, without any voluntary guarding and has positive bowel sounds. EXTREMITIES: Extremities showed no clubbing, cyanosis or edema. /RECTAL: Deferred. NEUROLOGIC: Exam is unobtainable. DIAGNOSTIC STUDIES LAB VALUES: Magnesium 1.3, potassium 3.5, CO2 12, blood sugar 183, BUN 40, creatinine 1.4, GFR 38, alkaline phosphatase 189, albumin 1.6. White count 29.6, hemoglobin 9.4, platelets 400,000. ABGs on 2 liters nasal cannula - pH 7.248, CO2 25, O2 155. Lactic acid normal x2. Cardiac enzymes normal x1 set. PTT and PT within normal range. Urinalysis shows trace leukocytes, 2+ protein, 1+ blood, 5-10 RBCs and 10-25 WBC/HPF. IMAGING: Chest x-ray - Moderate right pleural effusion. No change. No active disease. Unit #: [id number] #: [id number] Patient: CHRISTEL SILVA CARDIOVASCULAR: EKG - Sinus tachycardia, nonspecific ST abnormality with 106 beats per minute. IMPRESSION 1. Septic shock of unclear etiology. 2. Metabolic acidosis. 3. Sacral decubitus. 4. Sacral osteomyelitis. 5. Recent clostridium difficile colitis, megacolon, colostomy, colectomy. 6. Recent coagulase negative staphylococcal sepsis. 7. Acute on chronic kidney disease. 8. Chronic obstructive pulmonary disease. 9. Diastolic congestive heart failure. 10. Paroxysmal atrial fibrillation. 11. 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 PLAN Wound care for the decubitus ulcer. Infectious disease consult. Broad-spectrum antibiotics with Vancocin and Zosyn. Mail Sorting Supervisor has been consulted. She has been placed on Levophed and IV fluids containing bicarb. We will do a bedside swallow eval, even though I do not think she will pass it. She probably needs to have a Dobbhoff tube placed for nutrition. Will place her on potassium-magnesium protocol, IV Pepcid and Lovenox for DVT prophylaxis. Dictated by Calos Barkley M.D. ALFRED/mary TD: 03/22/2017 08:29 JOB #: [id number] HISTORY AND PHYSICAL Page 1 of 1 X Calos Barkley MD HISTORY AND PHYSICAL
--- NOTE | ~2017-03-21 | EKG ---
PATIENT: CHRISTEL SILVA UNIT #: [id number] Ventricular Rate: 106 BPM Atrial Rate: 106 BPM P-R Interval: 156 ms QRS Duration: 80 ms Q-T Interval: 314 ms QTC Calculation(Bezet): 417 ms P Thurston: 70 degrees Calculated R Thurston: 66 degrees Calculated T Thurston: 66 degrees Diagnosis Line: Sinus tachycardia with occasional Premature Diagnosis Line: ventricular complexes Diagnosis Line: Nonspecific T wave abnormality Diagnosis Line: Abnormal ECG Diagnosis Line: When compared with ECG of 13-FEB-2017 19:11, Diagnosis Line: Premature ventricular complexes are now Present Diagnosis Line: Confirmed by LEONARDO BARGER MD ([id number]) on Diagnosis Line: 03/21/2017 5:11:00 PM INTERPRETING MD: DENITA BLACK
--- NOTE | ~2017-03-21 | CR72 ---
[facility] A Service of [facility] & [facility] RADIOLOGY TEXT RESULTS PATIENT: CHRISTEL SILVA LOCATION: [address] : [birth year] UNIT #: [id number] AGE: [address]: Calos Barkley MD SEX: F ORDER DR: [id number] [facility] [address] [place], [place] [address] [id number] I MR#: [id number] #: [id number] NAME: CHRISTEL SILVA : 1945 SEX: F STUDY DATE/TIME: 03/21/2017 22:05 UNIT: [facility] ROOM: [facility] STUDY DESCRIPTION: CR Chest Single View Portable Attending Physician: Calos Barkley M.D. Ordering Physician: Ed Doctor [id number] [facility] Primary Care Physician: Calos Barkley M.D. MEDICAL IMAGING REPORT This report is preliminary unless electronic signature is present EXAM Portable chest, 03/21 at 22:05 INDICATION Shortness of air today. Sepsis. Central line placement. FINDINGS AP portable chest is compared with earlier today. New left IJ line tip is in the SVC. Right arm PICC has been removed. Heart size stable. There are persistent small effusions, right greater than left. There is continued infiltrate or atelectasis in both bases. There is no pneumothorax. Dictated by... Brent Holden Jr., M.D. THIS IS AN ELECTRONICALLY VERIFIED REPORT Brent Holden Jr., M.D. at 03/22/2017 9:33 PM EMILIE/teresita TD: 03/22/2017 08:54 JOB #: [id number] MEDICAL IMAGING REPORT Page 1 of 1 COPY
[~2017-03-21 11:48] MED LIST changes: +ALBUTEROL2.5 MG/3 M INH; +BANOPHEN25 MG PO; +BUDESONIDE0.5 MG/2 M INH; +MONTELUKAST SOD10 MG PO; +PERFOROMIS20 MCG/2 M INH; +VENLAFAXINE H37.5 MG PO
[2017-03-21 12:57] LABS: URINE SOURCE CATH
[2017-03-21 13:20] LABS: URINE APPEARANCE CLOUDY; URINE BILIRUBIN NEG (NEG); URINE BLOOD 1+ (NEG); URINE COLOR YELLOW; URINE GLUCOSE NEG (NEG); URINE KETONE TRACE (NEG); URINE LEUKOCYTE ESTERASE TRACE (NEG); URINE NITRATE NEG (NEG); URINE PH 5.5 (5-8); URINE PROTEIN 2+ (NEG); URINE SPECIFIC GRAVITY 1.026 (1.003-1.035); URINE UROBILINOGEN 0.2 MG/DL (NEG)
[2017-03-21 13:23] LABS: CULTURE INDICATED? YES; URINE BACTERIA AUWI NEG (NEGATIVE); URINE SQUAMOUS EPITHELIAL CELL FEW /[HPF]
[2017-03-21 16:18] LABS: BASOPHIL# 0.1 X10e3 (0-0.3); BASOPHIL% 0.7 % (0-2.5); EOSINOPHIL# 0.1 X10e3 (0-0.7); EOSINOPHIL% 0.7 % (0.0-7.0); HEMATOCRIT 30.5 % (35.0-45.0); LYMPHOCYTE# 1.3 X10e3 (1.0-3.5); LYMPHOCYTE% 6.6 % (17.0-45.0); MEAN CELL VOLUME 91.3 FL (83-96); MEAN CORPUSCULAR HGB CONC 32.8 g/dL (30-36); MEAN PLATELET VOLUME 7.6 FL (6.5-11.5); PLATELET COUNT 402 X10e3 (140-420); RED BLOOD COUNT 3.34 X10e (3.90-5.30); RED CELL DISTRIBUTION WIDTH 18.7 % (11.0-15.5); WHITE BLOOD COUNT 19.5 X10e3 (4.0-10.5)
[2017-03-21 16:19] LABS: DIFF IND YES
[2017-03-21 16:19] LABS: POC - CKMB 4.1 ng/mL (0.0-7.9); POC - TROPONIN <0.05 ng/mL (<=0.05)
[2017-03-21 16:27] LABS: INR 1.1; PARTIAL THROMBOPLASTIN TIME 23.9 SECONDS (23.5-31.3)
[2017-03-21 16:47] LABS: ALBUMIN SERUM 1.8 g/dL (3.5-5.0); ALKALINE PHOSPHATASE 207 U/L (32-92); ALT (SGPT) 12 U/L (10-40); AST (SGOT) 19 U/L (10-42); BILIRUBIN, DIRECT <0.1 mg/dL (0.0-0.2); BILIRUBIN,INDIRECT 0.4 mg/dL (0.0-0.9); BILIRUBIN,TOTAL 0.5 mg/dL (0.2-2.0); BLOOD UREA NITROGEN 44 mg/dL (9-23); CALCIUM SERUM 10.6 mg/dL (8.4-10.2); CARBON DIOXIDE 14 mmol/L (22-31); CHLORIDE 122 mmol/L (100-111); CREATININE SERUM 1.6 mg/dL (0.6-1.4); GLOM FILT RATE Estimated 32.6 mL/min (>60); GLUCOSE FASTING 85 mg/dL (70-110); PROTEIN TOTAL SERUM 5.3 g/dL (6.0-8.3); SODIUM 137 mmol/L (135-145)
[2017-03-21 17:32] LABS: ANISOCYTOSIS MOD; PLATELET ESTIMATE NORMAL (NORMAL); POIKILOCYTOSIS MOD
[2017-03-21 18:04] LABS: ARTERIAL BLD GAS O2 SATURATION 97.5 % (90.0-100.0); ARTERIAL BLOOD GAS ART SITE RIGHT RADIAL; ARTERIAL BLOOD GAS CARBOXY HB 0.5 %sat (0.0-9.0); ARTERIAL BLOOD GAS DELIVERY NASAL CANNULA; ARTERIAL BLOOD GAS HCO3 12.1 mmol/L; ARTERIAL BLOOD GAS MET HB 0.6 %sat (0.0-2.0); ARTERIAL BLOOD GAS PCO2 26.6 mmHg (35.0-45.0); ARTERIAL BLOOD GAS pH 7.267 (7.350-7.450); ARTERIAL DRAW? YES
[2017-03-21] MEDS ORDERED: ALBUTEROL2.5 MG/3 M INH (21:21)
[2017-03-21] MEDS ORDERED: PEPCID40 MG PO (21:22)
[2017-03-21] MEDS ORDERED: LEVO-T25 MCG PO (21:23)
[2017-03-21] MEDS ORDERED: B-121000 MC1 PO (21:24)
[2017-03-21] MEDS ORDERED: FOLIC ACID1 MG PO (21:24)
[2017-03-21] MEDS ORDERED: MONTELUKAST SOD10 MG PO (21:24)
[2017-03-21] MEDS ORDERED: FLORASTORKIDS250 MG PO (21:24)
[2017-03-21] MEDS ORDERED: REMERON15 MG PO (21:25)
[2017-03-21] MEDS ORDERED: PERCOCET5/325 PO (21:25)
[2017-03-21] MEDS ORDERED: ZOFRAN ODT4 M1 PO (21:26)
[2017-03-21] MEDS ORDERED: ALLERGY RELIEF25 MG PO (21:26)
[2017-03-21] MEDS ORDERED: ALPRAZOLAM PO (21:27)
[2017-03-22 04:36] LABS: ARTERIAL BLD GAS O2 SATURATION 98.5 % (90.0-100.0); ARTERIAL BLOOD GAS CARBOXY HB 0.3 %sat (0.0-9.0); ARTERIAL BLOOD GAS MET HB 0.8 %sat (0.0-2.0); ARTERIAL BLOOD GAS PCO2 25.3 mmHg (35.0-45.0); ARTERIAL BLOOD GAS pH 7.248 (7.350-7.450)
[2017-03-22 05:04] LABS: ARTERIAL BLOOD GAS ALLEN TEST NORMAL; ARTERIAL BLOOD GAS ART SITE RIGHT RADIAL; ARTERIAL BLOOD GAS DELIVERY NASAL CANNULA; ARTERIAL DRAW? YES
[2017-03-22 06:50] LABS: BASOPHIL# 0.2 X10e3 (0-0.3); BASOPHIL% 0.6 % (0-2.5); EOSINOPHIL# 0.1 X10e3 (0-0.7); EOSINOPHIL% 0.2 % (0.0-7.0); HEMATOCRIT 30.2 % (35.0-45.0); HEMOGLOBIN 9.4 gm/dL (12.0-16.0); LYMPHOCYTE# 1.5 X10e3 (1.0-3.5); LYMPHOCYTE% 5.2 % (17.0-45.0); MEAN CELL VOLUME 92.4 FL (83-96); MEAN CORPUSCULAR HEMOGLOBIN 28.8 PG (28-34); MEAN CORPUSCULAR HGB CONC 31.2 g/dL (30-36); MEAN PLATELET VOLUME 7.9 FL (6.5-11.5); MONOCYTE% 6.8 % (3.0-12.0); NEUTROPHIL# 25.8 X10e3 (1.5-7.1); NEUTROPHIL% 87.2 % (40-75); PLATELET COUNT 400 X10e3 (140-420); RED BLOOD COUNT 3.27 X10e (3.90-5.30); RED CELL DISTRIBUTION WIDTH 19.1 % (11.0-15.5)
[2017-03-22 06:58] LABS: WHITE BLOOD COUNT 29.6 X10e3 (4.0-10.5)
[2017-03-22 06:59] LABS: DIFF IND NO
[2017-03-22 07:01] LABS: ALBUMIN SERUM 1.6 g/dL (3.5-5.0); BILIRUBIN,TOTAL 0.1 mg/dL (0.2-2.0); BUN/CREATININE RATIO 28.57; CALCIUM SERUM 9.4 mg/dL (8.4-10.2); CREATININE SERUM 1.4 mg/dL (0.6-1.4); GLOM FILT RATE Estimated 38.2 mL/min (>60); MAGNESIUM 1.3 mg/dL (1.6-3.0); PHOSPHOROUS 3.6 mg/dL (2.5-4.6); POTASSIUM 3.5 mmol/L (3.5-5.1); PROTEIN TOTAL SERUM 5.1 g/dL (6.0-8.3)
[2017-03-22 15:11] LABS: BASOPHIL# 0.1 X10e3 (0-0.3); BASOPHIL% 0.6 % (0-2.5); EOSINOPHIL# 0.2 X10e3 (0-0.7); EOSINOPHIL% 0.9 % (0.0-7.0); HEMATOCRIT 28.1 % (35.0-45.0); HEMOGLOBIN 9.3 gm/dL (12.0-16.0); LYMPHOCYTE# 1.3 X10e3 (1.0-3.5); LYMPHOCYTE% 6.6 % (17.0-45.0); MEAN CELL VOLUME 90.1 FL (83-96); MEAN CORPUSCULAR HGB CONC 33.3 g/dL (30-36); MEAN PLATELET VOLUME 7.5 FL (6.5-11.5); MONOCYTE# 1.6 X10e3 (0-1.0); MONOCYTE% 8.1 % (3.0-12.0); NEUTROPHIL# 16.4 X10e3 (1.5-7.1); NEUTROPHIL% 83.8 % (40-75); PLATELET COUNT 333 X10e3 (140-420); RED BLOOD COUNT 3.12 X10e (3.90-5.30); RED CELL DISTRIBUTION WIDTH 18.8 % (11.0-15.5); WHITE BLOOD COUNT 19.6 X10e3 (4.0-10.5)
[2017-03-22 15:13] LABS: DIFF IND NO
[2017-03-23 04:54] LABS: BASOPHIL# 0.1 X10e3 (0-0.3); BASOPHIL% 0.7 % (0-2.5); EOSINOPHIL# 0.3 X10e3 (0-0.7); EOSINOPHIL% 1.8 % (0.0-7.0); HEMATOCRIT 28.4 % (35.0-45.0); HEMOGLOBIN 9.3 gm/dL (12.0-16.0); LYMPHOCYTE# 1.4 X10e3 (1.0-3.5); LYMPHOCYTE% 7.3 % (17.0-45.0); MEAN CELL VOLUME 89.6 FL (83-96); MEAN CORPUSCULAR HEMOGLOBIN 29.3 PG (28-34); MEAN CORPUSCULAR HGB CONC 32.7 g/dL (30-36); MEAN PLATELET VOLUME 7.7 FL (6.5-11.5); MONOCYTE# 1.5 X10e3 (0-1.0); MONOCYTE% 7.7 % (3.0-12.0); NEUTROPHIL# 15.9 X10e3 (1.5-7.1); NEUTROPHIL% 82.5 % (40-75); PLATELET COUNT 349 X10e3 (140-420); RED BLOOD COUNT 3.17 X10e (3.90-5.30); RED CELL DISTRIBUTION WIDTH 18.6 % (11.0-15.5); WHITE BLOOD COUNT 19.3 X10e3 (4.0-10.5)
[2017-03-23 04:56] LABS: DIFF IND NO
[2017-03-23 05:18] LABS: ALBUMIN SERUM 1.6 g/dL (3.5-5.0); BILIRUBIN,TOTAL 0.7 mg/dL (0.2-2.0); BUN/CREATININE RATIO 27.69; CALCIUM SERUM 8.6 mg/dL (8.4-10.2); CREATININE SERUM 1.3 mg/dL (0.6-1.4); GLOM FILT RATE Estimated 41.8 mL/min (>60); MAGNESIUM 1.5 mg/dL (1.6-3.0); PHOSPHOROUS 2.3 mg/dL (2.5-4.6); POTASSIUM 3.3 mmol/L (3.5-5.1); PROTEIN TOTAL SERUM 4.7 g/dL (6.0-8.3)
== END 2017-03-29 06:00 | disposition expired | DRG 871 ==
LOC: CED 11:48 → C2A 18:15 → CEDOF 18:15 → CICCU3 19:12 → CEDOF 19:12 → CED 19:12 → CEDOF 03-22 00:27 → CICCU3 03-22 00:27 → C2A 03-24 17:42
PROVIDERS: Emergency Medicine; Internal Medicine
PROC: 05HM33Z Insertion of Infusion Device into Right Internal Jugular Vein, Percutaneous Approach (ICD-10-PCS; principal; 2017-03-21)
PROC: B543ZZA Ultrasonography of Right Jugular Veins, Guidance (ICD-10-PCS; 2017-03-21)
DX: A41.9 Sepsis, unspecified organism (principal); R65.21 Severe sepsis with septic shock; N17.9 Acute kidney failure, unspecified; E46 Unspecified protein-calorie malnutrition; J96.10 Chronic respiratory failure, unspecified whether with hypoxia or hypercapnia; I13.0 Hypertensive heart and chronic kidney disease with heart failure and stage 1 through stage 4 chronic kidney disease, or unspecified chronic kidney disease; E87.2 Acidosis; G92 Toxic encephalopathy; L89.154 Pressure ulcer of sacral region, stage 4; I50.32 Chronic diastolic (congestive) heart failure; M86.8X8 Other osteomyelitis, other site; I48.0 Paroxysmal atrial fibrillation; Z86.73 Personal history of transient ischemic attack (TIA), and cerebral infarction without residual deficits; J44.9 Chronic obstructive pulmonary disease, unspecified; D63.1 Anemia in chronic kidney disease; E78.5 Hyperlipidemia, unspecified; M62.3 Immobility syndrome (paraplegic); N18.3 Chronic kidney disease, stage 3 (moderate); E03.9 Hypothyroidism, unspecified; Z51.5 Encounter for palliative care; Z68.31 Body mass index [BMI] 31.0-31.9, adult
CPT/HCPCS: 36415; 36600; 71010; 74000; 80048; 80053; 80076; 80202; 81003; 82553; 82803; 82947; 83605; 83735; 84100; 84132; 84443; 84484; 85025; 85610; 85730; 87040; 87086; 87493; 93005; 94760; 94761; 99285; J0692; J1650; J2060; J2185; J2248; J2250; J2270; J2543; J3260; J3370; J3475; J7060